=== PATIENT | female | born 1980 | race Caucasian/White ===

== ENCOUNTER 2018-05-10 06:55 | Emergency (ER) | payer MEDICAID, SELFPAY ==
[2018-05-10 07:00] VITALS: BP 115/81; PULSE 86; RESP 16; TEMP 37; O2SAT 100
--- NOTE | 2018-05-10 07:13 | W.ED.GENAD ---
Discharge Plan Discharge Details Chief Complaint: Abd Prob Clinical Impression: Abdominal pain, Nausea & vomiting Reason For Visit: UNKNOWN Primary Care Provider: Charly Russell ED Provider: Lourdes Archuleta Disposition Patient Disposition: HOME Home Meds and New Rx's Prescriptions: Continue acetaminophen [Tylenol Extra Strength] 500 MG tablet 1,000 mg PO Q6H PRN RF: 0 albuterol sulfate [ProAir HFA] 8.5 GM HFA aerosol inhaler 1 - 2 puff Inhalation QID PRNQty: 1 RF: 3 amitriptyline 25 MG tablet 25 mg PO HS Qty: 30 RF: 1 ziprasidone HCl [Geodon] 20 MG capsule 20 mg PO HS RF: 0 buprenorphine-naloxone 1 EACH tablet, sublingual 2 ea Sublingual DAILY RF: 0 sertraline 100 MG tablet 100 mg PO HS RF: 0 omeprazole 40 MG capsule,delayed release(DR/EC) 40 mg PO BID Qty: 60 RF: 2 sucralfate [Carafate] 1 gram Tablet 1,000 mg PO BID RF: 0 Discharge Instructions Instructions: Acute Nausea and Vomiting (ED), Abdominal Pain (ED) Additional Instructions: Please return immediately to the emergency department he develop any new or worsening symptoms were to become otherwise concerned. It is extremely important that you attend her scheduled appointment with Dr. Russell on 05/12/18 in follow-up for this visit. Referrals: Charly Russell [Primary Care Provider] - Medical Decision Making <Brandon Lima MD - Last Filed: 05/10/18 08:20> [facility] Narrative Medical decision making narrative: Patient here with upper abdominal discomfort, nausea, vomiting. She has no fever. Her vital signs are normal. Her abdomen is benign to my exam. Will place IV and check laboratory studies. Will give a liter of fluid, Phenergan, Pepcid. Patient will be signed over to Dr. Lourdes Archuleta to follow up on labs and re-eval after fluids and medications. <Lourdes Archuleta MD - Last Filed: 05/10/18 16:55> [facility] Narrative Medical decision making narrative: Accepted signout from Dr. Lima at time of shift change for Marsha Buck with lab results and reassessment pending. Briefly, she is a 38-year-old woman with epigastric abdominal pain and vomiting for 2 days. Normal BM yesterday. Labs are nondiagnostic. I reassessed the patient who was sleeping when I entered the room, and she reports 7 out of 10 pain in the epigastrium. She has mild tenderness palpation over the epigastrium without peritoneal signs. Plan for trial Mylanta/lidocaine, will reevaluate. Patient reports no change in her symptoms after Mylanta/lidocaine. Plan for CT abdomen/pelvis. CT negative for acute process. Patient reassessed, again awoken from sleep. SHe appears very well, comfortable. She reports pain somewhat improved. Passed p.o. challenge. Lengthy discussion with patient regarding incidental CT findings, return to emergency department precautions, and importance of outpatient follow-up with her primary care doctor. Patient reports that she has an appointment with Dr. Russell this 05/12/18. Plan for Zofran Rx, patient reports that Zofran does not work for her and she requests Reglan. Discussed with patient that Reglan has significant interactions with multiple of her home medications. Patient refuses Zofran. Imaging Data Radiologic Study: Attestation: I personally reviewed and interpreted this imaging study as follows: Radiologist's impression: FINDINGS: Mild fatty alteration of the liver. Mild splenomegaly which may be related to intrinsic liver disease. Prior hysterectomy. No definite focal inflammatory process. No obstructive uropathy. No significant free fluid. IMPRESSION: Findings existing intrinsic liver disease possibly with secondary portal hypertension resulting in splenomegaly without significant free abdominal fluid. No specific etiology identified for the patient's symptoms. HPI - General Adult <Brandon Lima MD - Last Filed: 05/10/18 08:20> General Mode of arrival: ambulatory. Date/Time Provider Initiated Documentation: 05/10/18 07:12. Limitations to Documentation: no limitations. Information obtained by: patient. HPI Narrative-FOR DICTATION ONLY HPI Narrative: Patient presents to ED with complaints of upper abdominal pain, nausea, vomiting for the last 2 days. Pain is described as burning and cramping in nature. It is constant. It is nonradiating. She is unable to keep anything down at this point. She has no diarrhea. She has had sweats and chills but does not know if she has had fever or not. She has no chest pain. She felt dizzy and lightheaded this morning and came in for evaluation. Related Data Home Medications Medication Instructions Recorded Confirmed acetaminophen [Tylenol Extra 1,000 mg PO Q6H PRN tab-cap 11/18/12 05/10/18 Strength] buprenorphine-naloxone 2 ea SUBLINGUAL DAILY 05/28/17 05/10/18 ziprasidone HCl [Geodon] 20 mg PO HS 05/28/17 05/10/18 sertraline 100 mg PO HS 11/19/17 05/10/18 sucralfate [Carafate] 1,000 mg PO BID 05/10/18 05/10/18 Previous Rx's Medication Instructions Recorded omeprazole 40 mg PO BID #60 capsule. 11/19/17 Allergies Allergy/AdvReac Type Severity Reaction Status Date / Time erythromycin base AdvReac SEVERE GI Unverified 05/10/18 07:04 UPSET simvastatin AdvReac LEG Unverified 05/10/18 07:04 CRAMPS; MYALGIAS General Stated Complaint: Abd Prob ARIA: 3 Review of Systems <Brandon Lima MD - Last Filed: 05/10/18 08:20> Constitutional Reports chills, Denies fever(s), Denies headache(s), Reports malaise and Reports weakness Eyes Patient Denies change in vision, denies and Denies eye pain ENT Reports dizziness, Denies otalgia, Denies headache(s), Denies nasal congestion, Denies nasal discharge and Denies sore throat Cardiovascular Denies chest pain, Denies syncope, Denies leg edema, Denies palpitations and Reports dyspnea (For over a month now) Respiratory Denies cough, Reports dyspnea (For over a month now) and Reports wheezing Gastrointestinal Reports abdominal pain, Denies diarrhea, Reports nausea and Reports vomiting Musculoskeletal Denies myalgias, Denies arthralgias and Denies numbness Integumentary/Breasts Denies erythema and Denies rash Neurologic Reports dizziness, Denies syncope, Denies headache(s), Denies focal weakness, Denies numbness and Reports weakness Endocrine Denies palpitations Allergic/Immunologic Reports wheezing Exam <Brandon Lima MD - Last Filed: 05/10/18 08:20> Const General: cooperative and no acute distress Nutritional Appearance: obese Orientation: alert and oriented x3 HENMT Head: normocephalic and atraumatic Mouth: other (Dry mucous membranes) Eyes Sclera: sclerae normal Neck Neck: supple Resp Effort & Inspection: normal respiratory effort Auscultation: clear to auscultation bilaterally Cardio Rate: regular rate Rhythm: regular rhythm Heart Sounds: S1 normal and S2 normal GI Palpation: soft, no guarding and nontender Auscultation: normal bowel sounds Skin Rashes: no rashes Neuro General: alert, oriented x3, moves all extremities, no focal motor deficits and CN's II-XI intact bilaterally Extrem General: normal to inspection and full ROM Course <Brandon Lima MD - Last Filed: 05/10/18 08:20> Vital Signs Temperature 98.6 F 05/10/18 07:00 Pulse 86 05/10/18 07:00 Respiratory Rate 16 05/10/18 07:00 Blood Pressure 115/81 05/10/18 07:00 Pulse Oximetry 100 05/10/18 07:00 Temperature 98.6 F 05/10/18 07:00 Pulse 86 05/10/18 07:00 Respiratory Rate 16 05/10/18 07:00 Blood Pressure 115/81 05/10/18 07:00 Pulse Oximetry 100 05/10/18 07:00 Sign Out <Brandon Lima MD - Last Filed: 05/10/18 08:20> Sign Out Data: Sign Out Comment: Patient pending lab results and re-evaluation of condition after medications and fluids. Case discussed with oncoming physician, Dr. Lourdes Archuleta. Last updated by Brandon Lima MD at 05/10/18 08:11
[2018-05-10 07:23] LABS: Bilirubin Small (Negative); Blood Negative (Negative); Clarity Sl Cloudy; Glucose Negative (Negative); Ketones Trace mg/dL (Negative); Leukocyte Esterase Negative (Negative); Nitrite Negative (Negative); Urobilinogen 0.2 EU/dL (Up TO 0.2)
[2018-05-10 07:31] LABS: Bacteria Few HPF (Negative); C & S Indicated? No; Casts Negative LPF (Negative); Crystals Few Amorphous HPF (Negative); Epithelial Cells Many HPF (Negative); Mucus Heavy (Negative); RBC Negative (0-2); WBC Negative HPF (0-5)
[2018-05-10] MEDS: Lactated Ringers 1,000 ML 1000 ML IV (07:40)
--- NOTE | 2018-05-10 07:50 | ED.GENADUL_ITS ---
Discharge Plan Discharge Details Chief Complaint: Abd Prob Clinical Impression: Abdominal pain, Nausea & vomiting Reason For Visit: UNKNOWN Primary Care Provider: Charly Russell ED Provider: Lourdes Archuleta Disposition Patient Disposition: HOME Home Meds and New Rx's Prescriptions: Continue acetaminophen [Tylenol Extra Strength] 500 MG tablet 1,000 mg PO Q6H PRN RF: 0 albuterol sulfate [ProAir HFA] 8.5 GM HFA aerosol inhaler 1 - 2 puff Inhalation QID PRNQty: 1 RF: 3 amitriptyline 25 MG tablet 25 mg PO HS Qty: 30 RF: 1 ziprasidone HCl [Geodon] 20 MG capsule 20 mg PO HS RF: 0 buprenorphine-naloxone 1 EACH tablet, sublingual 2 ea Sublingual DAILY RF: 0 sertraline 100 MG tablet 100 mg PO HS RF: 0 omeprazole 40 MG capsule,delayed release(DR/EC) 40 mg PO BID Qty: 60 RF: 2 sucralfate [Carafate] 1 gram Tablet 1,000 mg PO BID RF: 0 Discharge Instructions Instructions: Acute Nausea and Vomiting (ED), Abdominal Pain (ED) Additional Instructions: Please return immediately to the emergency department he develop any new or worsening symptoms were to become otherwise concerned. It is extremely important that you attend her scheduled appointment with Dr. Russell on 05/12/18 in follow-up for this visit. Referrals: Charly Russell [Primary Care Provider] - Medical Decision Making <Brandon Lima MD - Last Filed: 05/10/18 08:20> [facility] Narrative Medical decision making narrative: Patient here with upper abdominal discomfort , nausea, vomiting. She has no fever. Her vital signs are normal. Her abdomen is benign to my exam. Will place IV and check laboratory studies. Will give a liter of fluid, Phenergan, Pepcid. Patient will be signed over to Dr. Lourdes Archuleta to follow up on labs and re-eval after fluids and medications. <Lourdes Archuleta MD - Last Filed: 05/10/18 16:55> [facility] Narrative Medical decision making narrative: Accepted signout from Dr. Lima at time of shift change for Marsha Buck with lab results and reassessment pending. Briefly, she is a 38-year-old woman with epigastric abdominal pain and vomiting for 2 days. Normal BM yesterday. Labs are nondiagnostic. I reassessed the patient who was sleeping when I entered the room, and she reports 7 out of 10 pain in the epigastrium. She has mild tenderness palpation over the epigastrium without peritoneal signs. Plan for trial Mylanta/lidocaine, will reevaluate. Patient reports no change in her symptoms after Mylanta/lidocaine. Plan for CT abdomen/pelvis. CT negative for acute process. Patient reassessed, again awoken from sleep. SHe appears very well, comfortable. She reports pain somewhat improved. Passed p.o. challenge. Lengthy discussion with patient regarding incidental CT findings , return to emergency department precautions, and importance of outpatient follow-up with her primary care doctor. Patient reports that she has an appointment with Dr. Russell this 05/12/18. Plan for Zofran Rx, patient reports that Zofran does not work for her and she requests Reglan. Discussed with patient that Reglan has significant interactions with multiple of her home medications. Patient refuses Zofran. Imaging Data Radiologic Study: Attestation: I personally reviewed and interpreted this imaging study as follows: Radiologist's impression: FINDINGS: Mild fatty alteration of the liver. Mild splenomegaly which may be related to intrinsic liver disease. Prior hysterectomy. No definite focal inflammatory process. No obstructive uropathy. No significant free fluid. IMPRESSION: Findings existing intrinsic liver disease possibly with secondary portal hypertension resulting in splenomegaly without significant free abdominal fluid. No specific etiology identified for the patient's symptoms. HPI - General Adult <Brandon Lima MD - Last Filed: 05/10/18 08:20> General Mode of arrival: ambulatory . Date/Time Provider Initiated Documentation: 05/10/18 07:12 . Limitations to Documentation: no limitations . Information obtained by: patient . HPI Narrative-FOR DICTATION ONLY HPI Narrative: Patient presents to ED with complaints of upper abdominal pain, nausea, vomiting for the last 2 days. Pain is described as burning and cramping in nature. It is constant. It is nonradiating. She is unable to keep anything down at this point. She has no diarrhea. She has had sweats and chills but does not know if she has had fever or not. She has no chest pain. She felt dizzy and lightheaded this morning and came in for evaluation. Related Data Home Medications Medication Instructions Recorded Confirmed acetaminophen [Tylenol Extra 1,000 mg PO Q6H PRN tab-cap 11/18/12 05/10/18 Strength] buprenorphine-naloxone 2 ea SUBLINGUAL DAILY 05/28/17 05/10/18 ziprasidone HCl [Geodon] 20 mg PO HS 05/28/17 05/10/18 sertraline 100 mg PO HS 11/19/17 05/10/18 sucralfate [Carafate] 1,000 mg PO BID 05/10/18 05/10/18 Previous Rx's Medication Instructions Recorded omeprazole 40 mg PO BID #60 capsule. 11/19/17 Allergies Allergy/AdvReac Type Severity Reaction Status Date / Time erythromycin base AdvReac SEVERE GI Unverified 05/10/18 07:04 UPSET simvastatin AdvReac LEG Unverified 05/10/18 07:04 CRAMPS; MYALGIAS General Stated Complaint: Abd Prob ARIA: 3 Review of Systems <Brandon Lima MD - Last Filed: 05/10/18 08:20> Constitutional Reports chills, Denies fever(s), Denies headache(s), Reports malaise and Reports weakness Eyes Patient Denies change in vision, denies and Denies eye pain ENT Reports dizziness, Denies otalgia, Denies headache(s), Denies nasal congestion, Denies nasal discharge and Denies sore throat Cardiovascular Denies chest pain, Denies syncope, Denies leg edema, Denies palpitations and Reports dyspnea (For over a month now) Respiratory Denies cough, Reports dyspnea (For over a month now) and Reports wheezing Gastrointestinal Reports abdominal pain, Denies diarrhea, Reports nausea and Reports vomiting Musculoskeletal Denies myalgias, Denies arthralgias and Denies numbness Integumentary/Breasts Denies erythema and Denies rash Neurologic Reports dizziness, Denies syncope, Denies headache(s), Denies focal weakness, Denies numbness and Reports weakness Endocrine Denies palpitations Allergic/Immunologic Reports wheezing Exam <Brandon Lima MD - Last Filed: 05/10/18 08:20> Const General: cooperative and no acute distress Nutritional Appearance: obese Orientation: alert and oriented x3 HENMT Head: normocephalic and atraumatic Mouth: other (Dry mucous membranes) Eyes Sclera: sclerae normal Neck Neck: supple Resp Effort & Inspection: normal respiratory effort Auscultation: clear to auscultation bilaterally Cardio Rate: regular rate Rhythm: regular rhythm Heart Sounds: S1 normal and S2 normal GI Palpation: soft, no guarding and nontender Auscultation: normal bowel sounds Skin Rashes: no rashes Neuro General: alert, oriented x3, moves all extremities, no focal motor deficits and CN's II-XI intact bilaterally Extrem General: normal to inspection and full ROM Course <Brandon Lima MD - Last Filed: 05/10/18 08:20> Vital Signs Temperature 98.6 F 05/10/18 07:00 Pulse 86 05/10/18 07:00 Respiratory Rate 16 05/10/18 07:00 Blood Pressure 115/81 05/10/18 07:00 Pulse Oximetry 100 05/10/18 07:00 Temperature 98.6 F 05/10/18 07:00 Pulse 86 05/10/18 07:00 Respiratory Rate 16 05/10/18 07:00 Blood Pressure 115/81 05/10/18 07:00 Pulse Oximetry 100 05/10/18 07:00 Sign Out <Brandon Lima MD - Last Filed: 05/10/18 08:20> Sign Out Data: Sign Out Comment: Patient pending lab results and re-evaluation of condition after medications and fluids. Case discussed with oncoming physician, Dr. Lourdes Archuleta. Last updated by Brandon Lima MD at 05/10/18 08:11
[2018-05-10 07:55] LABS: Abs Immature Grans 0.02 k/cumm (0.0-0.09); Absolute Basophil Count 0.04 k/cumm (0.0-0.2); Absolute Lymphocyte Count 1.56 k/cumm (1.2-3.4); Absolute Monocyte Count 0.56 k/cumm (0.11-0.7); Absolute Neutrophil Count 5.46 k/cumm (1.2-6.7); Basophils % 0.5; Eosinophils % 1.3; HCT 45.4 % (36.0-46.0); HGB 15.6 g/dL (12.0-15.5); Immature Grans % 0.3; Lymphocytes % 20.2; Mean Corp. HGB Concentration 34.4 g/dL (32.0-36.0); Mean Corpuscular Hemoglobin 31.8 pg (27.0-33.0); Mean Corpuscular Volume 92.7 fL (80-95); Mean Platelet Volume 9.8 fL (8.0-11.0); Monocytes % 7.2; Neutrophils % 70.5; Platelet Count 251 x1000/uL (130-400); RBC Distribution Width 13.3 % (11.7-14.6); White Blood Cell Count 7.74 k/cumm (4.4-10.8)
[2018-05-10 08:07] LABS: ALT 16 U/L (12-78); AST 13 U/L (15-37); Albumin 3.7 g/dL (3.4-5.0); Alkaline Phosphatase 83 U/L (46-116); Anion Gap 10.6 mmol/L (3-11); BUN 9 mg/dL (7-18); Bilirubin, Total 0.5 mg/dL (0.2-1.0); CO2 24.4 mmol/L (21.0-32.0); CREATININE 0.94 mg/dL (0.55-1.02); Chloride 102 mmol/L (98-107); Glucose 98 mg/dL (70-100); Lipase 104 U/L (73-393); Potassium 3.7 mmol/L (3.5-5.1); Sodium 137 mmol/L (136-145); Total Protein 7.6 g/dL (6.4-8.2)
[2018-05-10] MEDS: FAMOTIDINE 20 MG/50 ML BAG 100 MG IVPB (08:10)
--- NOTE | 2018-05-10 11:20 | DI.CT_ITS ---
SYMPTOM/DIAGNOSIS: ABD PAIN. ABDOMINAL AND PELVIC CT: 05/10/18 CT examination of the abdomen and pelvis was performed with a bolus infusion of 100 cc Omnipaque 350. Images obtained through the lung bases were unremarkable. There is mild hepatic steatosis and mild hepatosplenomegaly. Gallbladder and bile ducts are CT normal. The pancreas is unremarkable in appearance. Abdominal aorta is of normal diameter and no major vascular abnormality is seen. No abdominal or pelvic adenopathy. Small ventral hernias are present. Appendix is not specifically visualized but there is no evidence of appendicitis , diverticulitis or bowel obstruction. Adrenals and kidneys appear normal. CONCLUSION: No evidence of acute intra-abdominal process.
[2018-05-10] MEDS: Omnipaque 350 MG/ML 100 ML BTL IV (12:04)
--- NOTE | 2018-05-10 12:33 | DI.VRAD_ITS ---
EXAM: CT Abdomen and Pelvis With Intravenous Contrast CLINICAL HISTORY: 38 years old, female; Signs and symptoms; Other: Abdominal pain TECHNIQUE: Axial computed tomography images of the abdomen and pelvis with intravenous contrast. All CT scans at this facility use at least one of these dose optimization techniques: automated exposure control; mA and/or kV adjustment per patient size (includes targeted exams where dose is matched to clinical indication); or iterative reconstruction. Coronal and sagittal reformatted images were created and reviewed. COMPARISON: CT - ABD PELVIS WITH CONTRAST 10/27/2017 2:01 PM FINDINGS: Mild fatty alteration of the liver. Mild splenomegaly which may be related to intrinsic liver disease. Prior hysterectomy. No definite focal inflammatory process. No obstructive uropathy. No significant free fluid. IMPRESSION: Findings existing intrinsic liver disease possibly with secondary portal hypertension resulting in splenomegaly without significant free abdominal fluid. No specific etiology identified for the patient's symptoms. Dictated and Authenticated by: Yakov Cano MD. Ordering:KITTY SCHERER MD
[2018-05-10 12:49] VITALS: BP 111/86; PULSE 75; RESP 16; TEMP 36.8; O2SAT 95
== END 2018-05-10 14:00 | disposition home or self-care (01) ==
PROVIDERS: Emergency Medicine; Emergency Provider Student in an Organized Health Care Education/Training Program; PCP Family Medicine
DX: R10.10 Upper abdominal pain, unspecified (principal); R11.2 Nausea with vomiting, unspecified
CPT/HCPCS: 36415; 80053; 83690; 96361; 96365; 96368; 99285; 74177; 81003; 81015; 85025; 99284; J3490

== ENCOUNTER 2018-06-10 08:56 | Outpatient (CLI) | payer MEDICAID, SELFPAY ==
--- NOTE | 2018-06-10 09:07 | DI.RAD_ITS ---
SYMPTOM/DIAGNOSIS: ATYPICAL CHEST PAIN, R07.9, H/O ASTHMA, + ELIZA, EROSIVE ESOPHAGITIS WITH PERSISTENT SUBSTERNAL CHEST PAIN PA AND LATERAL CHEST: Comparison is made with 06/27/16 and 07/16/16. Heart size and pulmonary vasculature are within normal limits. There are increased lung markings in the lingula. No effusions or pneumothoraces are identified. The right lung is clear. Degenerative changes are seen in the spine. IMPRESSION: Left lingular infiltrate. This may represent atelectasis, scarring or pneumonia.
== END 2018-06-10 09:16 ==
PROVIDERS: PCP Family Medicine; Visit Provider Family Medicine
DX: R07.9 Chest pain, unspecified (principal); K20.8 Other esophagitis; R91.8 Other nonspecific abnormal finding of lung field
CPT/HCPCS: 71046

== ENCOUNTER 2018-06-15 02:08 | Outpatient (CLI) | payer MEDICAID, SELFPAY ==
--- NOTE | 2018-06-15 09:32 | PFT_ITS ---
PULMONARY FUNCTION TEST REPORT Please see scanned report for further information Patient identification - Marsha Buck DATE OF - 1980 DATE OF SERVICE - June 15, 2018 REQUESTING PROVIDER - Charly Russell M.D. INTERPRETATION OF STUDY Spirometry shows no evidence of obstructive airways disease. No bronchodilator testing was carried out. LUNG VOLUMES - Lung volumes show no evidence of restriction. DIFFUSION CAPACITY- Elevated. AIRWAY RESISTANCE - Normal. IMPRESSION Isolated elevated diffusion capacity. This finding can be seen in early developing asthma, therefore if the asthma diagnosis is in question, proceeding with methacholine challenge testing may prove to be useful. Laurita Robledo M.D. BA/marshall T - 06/16/2018 SEE SCANNED DOCUMENT IN THE EMR FOR DATA AND GRAPHS
== END 2018-06-15 02:28 ==
PROVIDERS: PCP Family Medicine; Visit Provider Family Medicine
DX: R06.2 Wheezing (principal)

== ENCOUNTER 2018-09-02 19:46 | Emergency (ER) | payer MEDICAID, SELFPAY ==
[2018-09-02] VITALS (33 sets, daily range): BP systolic 107–140; BP diastolic 65–99; PULSE 64–84; RESP 8–21; TEMP 36.4; O2SAT 95–99
--- NOTE | 2018-09-02 20:14 | W.ED.GENAD ---
Discharge Plan Disposition Patient Disposition: HOME Condition: Improving Discharge Details Chief Complaint: Nausea/Vomit/Diar Clinical Impression: Upper abdominal pain, Vomiting, Hypercalcemia, Hypokalemia, Hypomagnesemia Primary Care Provider: Charly Russell ED Provider: Brandon Lima [place] Meds and New Rx's Prescriptions: New promethazine 25 mg tablet 25 mg PO Q6H PRN (Reason: nausea and vomiting) Qty: 10 RF: 0 Continued acetaminophen [Tylenol Extra Strength] 500 MG tablet 1,000 mg PO Q6H PRN RF: 0 ProAir HFA 8.5 GM HFA aerosol inhaler 1 - 2 puff Inhalation QID PRNQty: 1 RF: 3 amitriptyline 25 MG tablet 25 mg PO HS Qty: 30 RF: 1 ziprasidone HCl [Geodon] 20 MG capsule 20 mg PO HS RF: 0 buprenorphine-naloxone 1 EACH tablet, sublingual 2 ea Sublingual DAILY RF: 0 sertraline 100 MG tablet 100 mg PO HS RF: 0 omeprazole 40 MG capsule,delayed release(DR/EC) 40 mg PO BID Qty: 60 RF: 2 Changed sucralfate [Carafate] 1 gram Tablet 1,000 mg PO QID Qty: 30 RF: 0 Discharge Instructions Instructions: Acute Nausea and Vomiting (ED), Abdominal Pain (ED) Additional Instructions: Medications as directed. Clear liquids tomorrow and advance slowly after the weekend. Your laboratory studies for the most part were okay. Your calcium was high tonight. Please follow-up with primary care next week for reevaluation of your abdominal pain and vomiting as well as repeat calcium level. Return to ED for worsening abdominal pain, vomiting, fever, other concerns. Referrals: Charly Russell [Primary Care Provider] - Medical Decision Making Patient here with upper abdominal pain, vomiting and reports no flatus/BM for 24 hours. Her abdomen is minimally tender. Differential includes, SBO, pancreatitis, gastritis. Chest pain likely related to her GERD but will get EKG and troponin. She is wheezing with cough so will get chest x-ray and duoneb. Abdominal labs and CT scan ordered. She declines narcotic pain medications due to history of opiate addiction. She has been clean for 3 years. Will give IV Tylenol and Phenergan. Patient's laboratory studies are mostly unremarkable. Her white count is normal. Potassium is just slightly low at 3.4. Magnesium a little low. Calcium high so we will have her follow-up with primary care for repeat. I do not think the hypercalcemia is causing the patient's symptoms. Liver function, lipase, troponin normal. Chest x-ray normal. Abdominal pelvic CT scan without acute pathology. Patient feels better after the breathing treatment. Phenergan helped with the nausea and vomiting. Still has discomfort. We will go ahead and treat with IV Pepcid and oral Carafate and reevaluate. After the Pepcid and Carafate patient is feeling better. We will discharge her home with prescriptions for Phenergan and Carafate. We will continue her omeprazole. We will follow-up with primary care next week. Return to ED for persistent vomiting, worsening pain, fever. ECG Data Attestation: I personally reviewed and interpreted this ECG (s) as follows: Prior ECG tracings: available for review Interpretation: NSR at 82 with short TN otherwise normal intervals and axis. No ST changes. No change from previous. HPI General Mode of arrival: ambulatory. Date/Time Provider Initiated Documentation: 09/02/18 19:59. Limitations to Documentation: no limitations. Information obtained by: patient. HPI Narrative: Patient presents to ED with complaint of abdominal pain, nausea and vomiting that started yesterday. Continued overnight and today has been unable to keep anything down. She has had sweats and chills. She is not having diarrhea, in fact, she is not passing gas today at all. Pain in the upper abdomen that radiates to the back and up into the chest. She has also developed some cough and wheezing but denies any other URI type symptoms. The pain is constant and burning in nature. Feels like her reflux but worse. Related Data Home Medications Medication Instructions Recorded Confirmed acetaminophen [Tylenol Extra 1,000 mg PO Q6H PRN tab-cap 11/18/12 09/02/18 Strength] ProAir HFA 1 - 2 puff INHALATION QID PRN #1 07/09/16 09/02/18 inhaler amitriptyline 25 mg PO HS #30 tab-cap 12/31/16 09/02/18 buprenorphine-naloxone 2 ea SUBLINGUAL DAILY 05/28/17 09/02/18 ziprasidone HCl [Geodon] 20 mg PO HS 05/28/17 09/02/18 omeprazole 40 mg PO BID #60 capsule. 11/19/17 09/02/18 sertraline 100 mg PO HS 11/19/17 09/02/18 promethazine 25 mg PO Q6H PRN #10 tab 09/03/18 sucralfate [Carafate] 1,000 mg PO QID #30 tab 09/03/18 Previous Rx's Medication Instructions Recorded omeprazole 40 mg PO BID #60 capsule. 11/19/17 promethazine 25 mg PO Q6H PRN #10 tab 09/03/18 sucralfate [Carafate] 1,000 mg PO QID #30 tab 09/03/18 Allergies Allergy/AdvReac Type Severity Reaction Status Date / Time erythromycin base AdvReac SEVERE GI Unverified 09/02/18 19:55 UPSET simvastatin AdvReac LEG Unverified 09/02/18 19:55 CRAMPS; MYALGIAS General Stated Complaint: Nausea/Vomit/Diar ARIA: 3 Review of Systems Constitutional Reports chills, Reports excessive sweating, Denies fever(s), Reports headache(s) (mild only), Denies malaise and Denies weakness Eyes Denies change in vision and Denies eye pain ENT Denies vertigo, Denies otalgia, Denies facial pain, Reports headache(s) (mild only), Denies nasal congestion, Denies neck pain and Denies sore throat Cardiovascular Reports chest pain, Denies edema, Denies irregular heart rhythm, Denies leg edema, Denies palpitations and Reports dyspnea Respiratory Reports cough, Reports dyspnea and Reports wheezing Gastrointestinal Reports abdominal pain, Denies melena, Denies coffee ground emesis, Denies diarrhea, Reports nausea, Reports vomiting and Denies hematemesis Genitourinary Denies dysuria and Denies pelvic pain Musculoskeletal Reports back pain, Denies myalgias, Denies arthralgias, Denies neck pain, Denies numbness and Denies tingling Integumentary/Breasts Denies rash and Denies wounds Neurologic Denies vertigo, Reports headache(s) (mild only), Denies focal weakness, Denies numbness, Denies tingling, Denies paresthesias and Denies weakness Endocrine Reports excessive sweating and Denies palpitations Allergic/Immunologic Reports wheezing [facility] Medical History Asthma (Chronic) Bipolar affective disorder (Chronic) Fibromyalgia (Chronic) GERD (gastroesophageal reflux disease) (Chronic) Obesity (Chronic) Tobacco use (Chronic) Hx of opioid abuse (Inactive) Acute back pain Ankle joint effusion Arthralgia Chronic cough Dysphagia Edema Pain, foot, chronic Positive antinuclear antibody Proteinuria Skin lesion of scalp Urinary incontinence Surgical History S/P appendectomy (Inactive) section (Inactive) EGD - MAC (Inactive 11/19/17) GAYATHRI/BSO (Inactive ~04/2006) Family History Mother Diabetes Cirrhosis of liver Sarcoidosis Father Myocardial infarction MATERNAL FAMILY HISTORY Diabetes Alcohol abuse Personal history of malignant neoplasm PATERNAL FAMILY HISTORY Personal history of malignant neoplasm Social History Smoking/Tobacco Use Status: Current every day Exam Const General: cooperative and no acute distress Orientation: alert and oriented x3 [facility] Head: normocephalic and atraumatic Mouth: moist mucous membranes Eyes Conjunctivae: conjunctivae normal Neck Neck: normal visual inspection, trachea midline and supple Resp Effort & Inspection: normal respiratory effort Auscultation: no crackles, no rales, no rhonchi and wheezes Cardio Rate: regular rate Rhythm: regular rhythm Heart Sounds: S1 normal and S2 normal Pulses: normal peripheral pulses GI Inspection: normal to inspection and non-distended Palpation: soft, not firm, no guarding and tender in the epigastrum Auscultation: normal bowel sounds Skin General skin exam: no rashes or lesions noted Neuro General: alert, oriented x3, no focal motor deficits and CN's II-XI intact bilaterally Extrem General: normal to inspection, no clubbing, cyanosis or edema and no calf tenderness Course Vital Signs Temperature 97.5 F L 09/02/18 19:52 Pulse 79 09/02/18 19:52 Respiratory Rate 12 09/02/18 19:52 Blood Pressure 140/99 H 09/02/18 19:52 Pulse Oximetry 98 09/02/18 19:52 Temperature 97.5 F L 09/02/18 19:52 Pulse 79 09/02/18 19:52 Respiratory Rate 12 09/02/18 19:52 Respiratory Effort Non-Labored 09/02/18 19:52 Blood Pressure 140/99 H 09/02/18 19:52 Blood Pressure Position Sitting 09/02/18 19:52 Pulse Oximetry 98 09/02/18 19:52 Oxygen Delivery Method Room Air 09/02/18 19:52 Oxygen Flow Rate 0 09/02/18 19:52 Pain Level 8 09/02/18 19:52
[2018-09-02] MEDS: ACETAMINOPHEN 1,000 MG/100 ML BTL 400 MG IVPB (20:32)
[2018-09-02] MEDS: Lactated Ringers 1,000 ML 1000 ML IV (20:33)
--- NOTE | 2018-09-02 20:36 | DI.RAD_ITS ---
SYMPTOMS/DIAGNOSIS: COUGH, WHEEZING PA AND LATERAL CHEST: The lungs are free of gross infiltrates. There is no pleural effusion. The cardiovascular structures are intact. SUMMARY: No evidence of acute cardiopulmonary disease.
[2018-09-02 20:45] LABS: Abs Immature Grans 0.03 k/cumm (0.0-0.09); Absolute Basophil Count 0.05 k/cumm (0.0-0.2); Absolute Eosinophil Count 0.14 k/cumm (0.0-0.7); Absolute Monocyte Count 0.66 k/cumm (0.11-0.7); Absolute Neutrophil Count 4.39 k/cumm (1.2-6.7); Basophils % 0.6; Eosinophils % 1.8; HCT 42.7 % (36.0-46.0); HGB 14.8 g/dL (12.0-15.5); Immature Grans % 0.4; Mean Corp. HGB Concentration 34.7 g/dL (32.0-36.0); Mean Corpuscular Hemoglobin 31.8 pg (27.0-33.0); Mean Corpuscular Volume 91.8 fL (80-95); Mean Platelet Volume 9.6 fL (8.0-11.0); Monocytes % 8.4; Neutrophils % 55.8; Platelet Count 278 x1000/uL (130-400); RBC 4.65 m/cumm (4.00-5.20); RBC Distribution Width 13.2 % (11.7-14.6); White Blood Cell Count 7.87 k/cumm (4.4-10.8)
--- NOTE | 2018-09-02 20:45 | DI.CT_ITS ---
SYMPTOM/DIAGNOSIS: UPPER ABDOMINAL PAIN/VOMITING CT ABDOMEN AND PELVIS: The history is upper abdominal pain/vomiting. The study was carried out with intravenous injection of 100 ml Omnipaque 350. In the lower thorax note is made of a right middle lobe nodule measuring perhaps 4 mm which is apparently unchanged when compared with the prior examination allowing for slight sampling differences. Also, note is made of a small hiatus hernia. Evaluation of the abdomen reveals a moderate hepatosplenomegaly which is not significantly changed. Previously seen fatty infiltration of the liver is unchanged. The gallbladder and biliary tree are unremarkable. The pancreas is normal. The spleen is normal. The adrenals are normal. The kidneys and ureters are unremarkable. Evaluation of the stomach and bowel reveals no evidence of obstruction or localized mucosal thickening or mass. There is no evidence of an acute appendix. The bladder is unremarkable. The reproductive organs as visualized are unremarkable. Review of the abdomen and pelvis reveals no evidence of free air or free fluid in the intraperitoneal space. There is note made of mild degenerative changes involving the lower spine. There is no aortic aneurysm. There is no evidence of lymphadenopathy. SUMMARY: Hepatosplenomegaly is demonstrated without an acute abnormality identified to account for the patient's symptoms.
[2018-09-02] MEDS: Omnipaque 350 MG/ML 100 ML BTL IJ (20:50)
[2018-09-02 21:04] LABS: Lipase 89 U/L (73-393); Magnesium 1.7 mg/dL (1.8-2.4)
[2018-09-02 21:07] LABS: ALT 23 U/L (12-78); AST 17 U/L (15-37); Albumin 3.8 g/dL (3.4-5.0); Alkaline Phosphatase 79 U/L (46-116); Anion Gap 12.3 mmol/L (3-11); BUN 11 mg/dL (7-18); Bilirubin, Total 0.7 mg/dL (0.2-1.0); CO2 25.7 mmol/L (21.0-32.0); CREATININE 1.03 mg/dL (0.55-1.02); Calcium 11.1 mg/dL (8.5-10.1); Chloride 99 mmol/L (98-107); Glucose 99 mg/dL (70-100); Potassium 3.4 mmol/L (3.5-5.1); Sodium 137 mmol/L (136-145); Total Protein 7.8 g/dL (6.4-8.2)
[2018-09-02 21:09] LABS: Troponin I < 0.02 ng/mL (0.00-0.06)
--- NOTE | 2018-09-02 21:29 | DI.VRAD_ITS ---
EXAM: CT Abdomen and Pelvis With Contrast EXAM DATE/TIME: 09/02/2018 8:12 PM CLINICAL HISTORY: 38 years old, female; Pain; Abdominal pain; Localized; Upper; Patient HX: Upper abdominal pain, and vomiting x2 days. TECHNIQUE: Axial computed tomography images of the abdomen and pelvis with intravenous contrast. All CT scans at this facility use at least one of these dose optimization techniques: automated exposure control; mA and/or kV adjustment per patient size (includes targeted exams where dose is matched to clinical indication); or iterative reconstruction. Coronal and sagittal reformatted images were created and reviewed. CONTRAST: 100 ml of omnipaque 350 administered intravenously. COMPARISON: CT Private^ROUTINE ABDOMEN PELVIS WITH CONTRAST (Adult) 05/10/2018 11:49 AM FINDINGS: Lower thorax: Chest there is a right middle lobe nodule, 4 mm probably unchanged from prior exam allowing for slight sampling differences. Small hiatal hernia. ABDOMEN: Liver: Moderate hepatosplenomegaly not significantly changed. Previously seen fatty infiltration again noted. Gallbladder and bile ducts: Normal. No calcified stones. No ductal dilation. Pancreas: Normal. No ductal dilation. Spleen: Normal. No splenomegaly. Adrenals: Normal. No mass. Kidneys and ureters: Normal. No hydronephrosis. Stomach and bowel: Normal. No obstruction. No mucosal thickening. Appendix: No evidence of appendicitis. PELVIS: Bladder: Unremarkable as visualized. Reproductive: Unremarkable as visualized. ABDOMEN and PELVIS: Intraperitoneal space: Normal. No free air. No significant fluid collection. Bones/joints: Mild lower lumbar spondylosis. Soft tissues: Unremarkable. Vasculature: Normal. No abdominal aortic aneurysm. Lymph nodes: Normal. No enlarged lymph nodes. IMPRESSION: Hepatosplenomegaly without acute abnormality seen to account for symptoms. COMMENT: Preliminary interpretation is based on receipt of 320 image(s). A final report will be issued subsequently. Dictated and Authenticated by: Luna Diamond MD. Ordering:TYESHA Taylor MD
--- NOTE | 2018-09-02 21:30 | DI.VRAD_ITS ---
EXAM: XR Chest, 2 Views EXAM DATE/TIME: 09/02/2018 8:37 PM CLINICAL HISTORY: 38 years old, female; Signs and symptoms; Cough TECHNIQUE: XR of the chest, 2 views. COMPARISON: CR XR CHEST 2V PA LATERAL 06/10/2018 9:07 AM FINDINGS: Lungs: Unremarkable. No consolidation. Pleural space: Unremarkable. No pleural effusion. No pneumothorax. Heart/Mediastinum: Unremarkable. No cardiomegaly. Bones/joints: Mild thoracic spondylosis. IMPRESSION: No evidence for acute abnormality in the chest. COMMENT: Preliminary interpretation is based on receipt of 2 image(s). A final report will be issued subsequently. This Dictated and Authenticated by: Luna Diamond MD. Ordering:TYESHA Taylor MD
[2018-09-02] MEDS: Albuterol/Ipratropium 3 ML UPD VIAL UPD (22:13)
[2018-09-02] MEDS: FAMOTIDINE 20 MG/50 ML BAG 200 MG IVPB (23:27)
[2018-09-02] MEDS: Sucralfate 1 GM TAB PO (23:28)
[2018-09-03 01:31] VITALS: BP 126/80; PULSE 80; RESP 16; O2SAT 99
== END 2018-09-03 01:31 | disposition home or self-care (01) ==
PROVIDERS: Emergency Provider Emergency Medicine; PCP Family Medicine
DX: R10.10 Upper abdominal pain, unspecified (principal); R11.2 Nausea with vomiting, unspecified; E87.6 Hypokalemia; E83.42 Hypomagnesemia; E83.52 Hypercalcemia
CPT/HCPCS: 36415; 80053; 83690; 93005; 99285; 71046; 74177; 83735; 84484; 85025; 93010; J0131; J3490; J7620

== ENCOUNTER 2018-09-10 05:41 | Emergency (ER) | payer MEDICAID, SELFPAY ==
[2018-09-10 05:45] VITALS: BP 126/82; PULSE 78; RESP 20; TEMP 36.6; O2SAT 98
--- NOTE | 2018-09-10 06:31 | W.ED.GENAD ---
Discharge Plan Disposition Patient Disposition: HOME Condition: Good Discharge Details Chief Complaint: Nausea/Vomit/Diar Clinical Impression: Nausea & vomiting Primary Care Provider: Charly Russell ED Provider: Brandon Lima [place] Meds and New Rx's Prescriptions: New promethazine [Phenergan] 25 mg suppository 25 mg FL Q6H PRN (Reason: nausea and vomiting) Qty: 12 RF: 0 ondansetron 4 mg tablet,disintegrating 4 mg PO QID PRN (Reason: nausea and vomiting) Qty: 20 RF: 0 Continued acetaminophen [Tylenol Extra Strength] 500 MG tablet 1,000 mg PO Q6H PRN RF: 0 ProAir HFA 8.5 GM HFA aerosol inhaler 1 - 2 puff Inhalation QID PRNQty: 1 RF: 3 amitriptyline 25 MG tablet 25 mg PO HS Qty: 30 RF: 1 ziprasidone HCl [Geodon] 20 MG capsule 20 mg PO HS RF: 0 buprenorphine-naloxone 1 EACH tablet, sublingual 2 ea Sublingual DAILY RF: 0 sucralfate [Carafate] 1 gram Tablet 1,000 mg PO QID Qty: 30 RF: 0 sertraline 100 MG tablet 100 mg PO HS RF: 0 omeprazole 40 MG capsule,delayed release(DR/EC) 40 mg PO BID Qty: 60 RF: 2 Discontinued promethazine 25 mg tablet 25 mg PO Q6H PRN (Reason: nausea and vomiting) Qty: 10 RF: 0 Discharge Instructions Instructions: Acute Nausea and Vomiting (ED) Additional Instructions: Continue your medications as before. Use the ondansetron disintegrating tablet or the Phenergan suppository to help the nausea and vomiting. And back. Follow-up as planned. Return to ED for fever, persistent vomiting, bloody vomit, worsening or new abdominal pain. Referrals: Charly Russell [Primary Care Provider] - Medical Decision Making Patient returns with recurrent nausea and vomiting. She has burning epigastric and chest pain from all the vomiting. She has a history of gastro-esophagitis. Workup last week unremarkable other than some hypercalcemia. Follow-up with primary care is scheduled for the . Her abdomen remains benign today. She is a difficult IV start and I do not feel we necessarily need this that she just started vomiting last night. We will give her IM Phenergan and p.o. Zofran ODT. EKG was obtained in a sinus rhythm with a normal QT interval. Once her nausea settled down we will try a GI cocktail to help with the burning. Patient feeling better after medications. Will be discharged home with prescription for Phenergan suppositories and Zofran ODT. She has follow-up next week with primary care. Return to ED for fever, persistent vomiting, worsening or new abdominal pain. HPI General Mode of arrival: ambulatory. Date/Time Provider Initiated Documentation: 09/10/18 06:25. Limitations to Documentation: no limitations. Information obtained by: patient. HPI Narrative: Patient presents to ED with recurrent nausea and vomiting. Patient was seen by me last week with same. Workup at that time was unremarkable other than some hypercalcemia. He was sent home with Phenergan and Carafate in addition to her other gastritis medications. She said she was good for a couple of days and then the nausea returned. She began vomiting again last night. She has epigastric discomfort and chest burning. She has had no hematemesis. She thought maybe she noticed a few specks of blood but no gross hematemesis. She has no shortness of breath. She has no fever. She has no diarrhea. Related Data Home Medications Medication Instructions Recorded Confirmed acetaminophen [Tylenol Extra 1,000 mg PO Q6H PRN tab-cap 11/18/12 09/10/18 Strength] ProAir HFA 1 - 2 puff INHALATION QID PRN #1 07/09/16 09/10/18 inhaler amitriptyline 25 mg PO HS #30 tab-cap 12/31/16 09/10/18 buprenorphine-naloxone 2 ea SUBLINGUAL DAILY 05/28/17 09/10/18 ziprasidone HCl [Geodon] 20 mg PO HS 05/28/17 09/10/18 omeprazole 40 mg PO BID #60 capsule. 11/19/17 09/10/18 sertraline 100 mg PO HS 11/19/17 09/10/18 sucralfate [Carafate] 1,000 mg PO QID #30 tab 09/03/18 09/10/18 ondansetron 4 mg PO QID PRN #20 tab 09/10/18 promethazine [Phenergan] 25 mg FL Q6H PRN #12 each 01/04/19 Previous Rx's Medication Instructions Recorded omeprazole 40 mg PO BID #60 capsule. 11/19/17 sucralfate [Carafate] 1,000 mg PO QID #30 tab 09/03/18 ondansetron 4 mg PO QID PRN #20 tab 09/10/18 promethazine [Phenergan] 25 mg FL Q6H PRN #12 each 09/10/18 Allergies Allergy/AdvReac Type Severity Reaction Status Date / Time erythromycin base AdvReac SEVERE GI Unverified 09/10/18 05:47 UPSET simvastatin AdvReac LEG Unverified 09/10/18 05:47 CRAMPS; MYALGIAS General Stated Complaint: Nausea/Vomit/Diar ARIA: 3 Review of Systems Constitutional Denies chills, Denies fever(s), Denies headache(s) and Denies weakness ENT Denies otalgia, Denies headache(s), Denies neck pain and Denies sore throat Cardiovascular Reports chest pain (burning pain from vomiting), Denies edema, Denies palpitations and Denies dyspnea Respiratory Denies cough and Denies dyspnea Gastrointestinal Reports abdominal pain, Denies diarrhea, Reports nausea and Reports vomiting Genitourinary Denies dysuria and Denies pelvic pain Musculoskeletal Denies back pain, Denies neck pain and Denies numbness Integumentary/Breasts Denies rash Neurologic Denies headache(s), Denies focal weakness, Denies numbness and Denies weakness Endocrine Denies palpitations PFSH Social History Smoking/Tobacco Use Status: Current every day Exam Const General: cooperative, comfortable and no acute distress Orientation: alert and oriented x3 [facility] Head: normocephalic and atraumatic Mouth: moist mucous membranes Eyes Sclera: sclerae normal Neck Neck: trachea midline and supple Resp Effort & Inspection: normal respiratory effort Auscultation: clear to auscultation bilaterally Cardio Rate: regular rate Rhythm: regular rhythm Heart Sounds: S1 normal and S2 normal GI Inspection: normal to inspection and non-distended Palpation: soft, not firm, no guarding and nontender Skin General skin exam: no rashes or lesions noted Neuro General: alert, oriented x3, no focal motor deficits and CN's II-XI intact bilaterally Course Vital Signs Temperature 97.9 F 09/10/18 05:45 Pulse 78 09/10/18 05:45 Respiratory Rate 20 09/10/18 05:45 Blood Pressure 126/82 09/10/18 05:45 Pulse Oximetry 98 09/10/18 05:45 Temperature 97.9 F 09/10/18 05:45 Temperature Source Temporal Artery Scan 09/10/18 05:45 Pulse 78 09/10/18 05:45 Respiratory Rate 20 09/10/18 05:45 Respiratory Effort Non-Labored 09/10/18 05:45 Blood Pressure 126/82 09/10/18 05:45 Blood Pressure Position Sitting 09/10/18 05:45 Pulse Oximetry 98 09/10/18 05:45 Oxygen Delivery Method Room Air 09/10/18 05:45 Oxygen Flow Rate 0 09/10/18 05:45 Pain Level 6 09/10/18 05:45
--- NOTE | 2018-09-10 06:46 | ED.GENADUL_ITS ---
Discharge Plan Disposition Patient Disposition: HOME Condition: Good Discharge Details Chief Complaint: Nausea/Vomit/Diar Clinical Impression: Nausea & vomiting Primary Care Provider: Charly Russell ED Provider: Brandon Lima [place] Meds and New Rx's Prescriptions: New promethazine [Phenergan] 25 mg suppository 25 mg IA Q6H PRN (Reason: nausea and vomiting) Qty: 12 RF: 0 ondansetron 4 mg tablet,disintegrating 4 mg PO QID PRN (Reason: nausea and vomiting) Qty: 20 RF: 0 Continued acetaminophen [Tylenol Extra Strength] 500 MG tablet 1,000 mg PO Q6H PRN RF: 0 ProAir HFA 8.5 GM HFA aerosol inhaler 1 - 2 puff Inhalation QID PRNQty: 1 RF: 3 amitriptyline 25 MG tablet 25 mg PO HS Qty: 30 RF: 1 ziprasidone HCl [Geodon] 20 MG capsule 20 mg PO HS RF: 0 buprenorphine-naloxone 1 EACH tablet, sublingual 2 ea Sublingual DAILY RF: 0 sucralfate [Carafate] 1 gram Tablet 1,000 mg PO QID Qty: 30 RF: 0 sertraline 100 MG tablet 100 mg PO HS RF: 0 omeprazole 40 MG capsule,delayed release(DR/EC) 40 mg PO BID Qty: 60 RF: 2 Discontinued promethazine 25 mg tablet 25 mg PO Q6H PRN (Reason: nausea and vomiting) Qty: 10 RF: 0 Discharge Instructions Instructions: Acute Nausea and Vomiting (ED) Additional Instructions: Continue your medications as before. Use the ondansetron disintegrating tablet or the Phenergan suppository to help the nausea and vomiting. And back. Follow-up as planned. Return to ED for fever, persistent vomiting, bloody vomit, worsening or new abdominal pain. Referrals: Charly Russell [Primary Care Provider] - Medical Decision Making Patient returns with recurrent nausea and vomiting. She has burning epigastric and chest pain from all the vomiting. She has a history of gastro-esophagitis. Workup last week unremarkable other than some hypercalcemia. Follow-up with primary care is scheduled for the . Her abdomen remains benign today. She is a difficult IV start and I do not feel we necessarily need this that she just started vomiting last night. We will give her IM Phenergan and p.o. Zofran ODT. EKG was obtained in a sinus rhythm with a normal QT interval. Once her nausea settled down we will try a GI cocktail to help with the burning. Patient feeling better after medications. Will be discharged home with prescription for Phenergan suppositories and Zofran ODT. She has follow-up next week with primary care. Return to ED for fever, persistent vomiting, worsening or new abdominal pain. HPI General Mode of arrival: ambulatory . Date/Time Provider Initiated Documentation: 09/10/18 06:25 . Limitations to Documentation: no limitations . Information obtained by: patient . HPI Narrative: Patient presents to ED with recurrent nausea and vomiting. Patient was seen by me last week with same. Workup at that time was unremarkable other than some hypercalcemia. He was sent home with Phenergan and Carafate in addition to her other gastritis medications. She said she was good for a couple of days and then the nausea returned. She began vomiting again last night. She has epigastric discomfort and chest burni ng. She has had no hematemesis. She thought maybe she noticed a few specks of blood but no gross hematemesis. She has no shortness of breath. She has no fever. She has no diarrhea. Related Data Home Medications Medication Instructions Recorded Confirmed acetaminophen [Tylenol Extra 1,000 mg PO Q6H PRN tab-cap 11/18/12 09/10/18 Strength] ProAir HFA 1 - 2 puff INHALATION QID PRN #1 07/09/16 09/10/18 inhaler amitriptyline 25 mg PO HS #30 tab-cap 12/31/16 09/10/18 buprenorphine-naloxone 2 ea SUBLINGUAL DAILY 05/28/17 09/10/18 ziprasidone HCl [Geodon] 20 mg PO HS 05/28/17 09/10/18 omeprazole 40 mg PO BID #60 capsule. 11/19/17 09/10/18 sertraline 100 mg PO HS 11/19/17 09/10/18 sucralfate [Carafate] 1,000 mg PO QID #30 tab 09/03/18 09/10/18 ondansetron 4 mg PO QID PRN #20 tab 09/10/18 promethazine [Phenergan] 25 mg IA Q6H PRN #12 each 09/10/18 Previous Rx's Medication Instructions Recorded omeprazole 40 mg PO BID #60 capsule. 11/19/17 sucralfate [Carafate] 1,000 mg PO QID #30 tab 09/03/18 ondansetron 4 mg PO QID PRN #20 tab 09/10/18 promethazine [Phenergan] 25 mg IA Q6H PRN #12 each 09/10/18 Allergies Allergy/AdvReac Type Severity Reaction Status Date / Time erythromycin base AdvReac SEVERE GI Unverified 09/10/18 05:47 UPSET simvastatin AdvReac LEG Unverified 09/10/18 05:47 CRAMPS; MYALGIAS General Stated Complaint: Nausea/Vomit/Diar ARIA: 3 Review of Systems Constitutional Denies chills, Denies fever(s), Denies headache(s) and Denies weakness ENT Denies otalgia, Denies headache(s), Denies neck pain and Denies sore throat Cardiovascular Reports chest pain (burning pain from vomiting), Denies edema, Denies palpitations and Denies dyspnea Respiratory Denies cough and Denies dyspnea Gastrointestinal Reports abdominal pain, Denies diarrhea, Reports nausea and Reports vomiting Genitourinary Denies dysuria and Denies pelvic pain Musculoskeletal Denies back pain, Denies neck pain and Denies numbness Integumentary/Breasts Denies rash Neurologic Denies headache(s), Denies focal weakness, Denies numbness and Denies weakness Endocrine Denies palpitations PFSH Social History Smoking/Tobacco Use Status: Current every day Exam Const General: cooperative, comfortable and no acute distress Orientation: alert and oriented x3 [facility] Head: normocephalic and atraumatic Mouth: moist mucous membranes Eyes Sclera: sclerae normal Neck Neck: trachea midline and supple Resp Effort & Inspection: normal respiratory effort Auscultation: clear to auscultation bilaterally Cardio Rate: regular rate Rhythm: regular rhythm Heart Sounds: S1 normal and S2 normal GI Inspection: normal to inspection and non-distended Palpation: soft, not firm, no guarding and nontender Skin General skin exam: no rashes or lesions noted Neuro General: alert, oriented x3, no focal motor deficits and CN's II-XI intact bilaterally Course Vital Signs Temperature 97.9 F 09/10/18 05:45 Pulse 78 09/10/18 05:45 Respiratory Rate 20 09/10/18 05:45 Blood Pressure 126/82 09/10/18 05:45 Pulse Oximetry 98 09/10/18 05:45 Temperature 97.9 F 09/10/18 05:45 Temperature Source Temporal Artery Scan 09/10/18 05:45 Pulse 78 09/10/18 05:45 Respiratory Rate 20 09/10/18 05:45 Respiratory Effort Non-Labored 09/10/18 05:45 Blood Pressure 126/82 09/10/18 05:45 Blood Pressure Position Sitting 09/10/18 05:45 Pulse Oximetry 98 09/10/18 05:45 Oxygen Delivery Method Room Air 09/10/18 05:45 Oxygen Flow Rate 0 09/10/18 05:45 Pain Level 6 09/10/18 05:45
[2018-09-10] MEDS: Ondansetron O.D.T. 4 MG TABEF PO (06:52)
== END 2018-09-10 07:51 | disposition home or self-care (01) ==
PROVIDERS: Emergency Provider Emergency Medicine; PCP Family Medicine
DX: R11.2 Nausea with vomiting, unspecified (principal); R19.7 Diarrhea, unspecified; R10.13 Epigastric pain
CPT/HCPCS: 93005; 96372; 99284; 93010; 99283

== ENCOUNTER 2018-09-17 12:47 | Outpatient (REF) | payer MEDICAID, SELFPAY ==
[2018-09-17 19:37] LABS: Albumin 3.9 g/dL (3.4-5.0); Anion Gap 9.3 mmol/L (3-11); BUN 11 mg/dL (7-18); CO2 29.7 mmol/L (21.0-32.0); CREATININE 1.11 mg/dL (0.55-1.02); Calcium 9.5 mg/dL (8.5-10.1); Chloride 100 mmol/L (98-107); Estimated GFR 55.31 (mL/min/1.73m2); Glucose 78 mg/dL (70-100); Magnesium 2.2 mg/dL (1.8-2.4); Potassium 4.4 mmol/L (3.5-5.1); Sodium 139 mmol/L (136-145)
== END 2018-09-17 13:07 ==
LOC: NCHCN 12:47
PROVIDERS: PCP Family Medicine; Visit Provider Family Medicine
DX: E83.52 Hypercalcemia (principal); E83.42 Hypomagnesemia
CPT/HCPCS: 80048; 82040; 83735

== ENCOUNTER 2020-03-22 15:51 | Outpatient (REF) | payer MEDICAID, SELFPAY | END 2020-03-22 16:11 | LOC: NCHCN 15:51 | PROVIDERS: PCP Family Medicine; Visit Provider Family Medicine | DX: J02.9 Acute pharyngitis, unspecified (principal) | CPT/HCPCS: 87070 ==

== ENCOUNTER 2020-11-14 11:16 | Emergency (ER) | payer MEDICAID, SELFPAY ==
[2020-11-14 11:30] VITALS: BP 119/79; PULSE 75; RESP 16; TEMP 36.4; O2SAT 96
--- NOTE | 2020-11-14 11:57 | ED.GENADUL_ITS ---
Discharge Plan Disposition Patient Disposition: HOME Condition: Stable Discharge Details Clinical Impression: Back pain Primary Care Provider: Charly Russell ED Provider: Raoul Beckman Home Meds and New Rx's Prescriptions: New lidocaine [Lidoderm] 5 % adhesive patch,medicated 2 patch topical DAILY Qty: 15 RF: 0 Continued acetaminophen [Tylenol Extra Strength] 500 MG tablet 1,000 mg PO Q6H PRN RF: 0 albuterol sulfate [ProAir HFA] 8.5 GM HFA aerosol inhaler 1 - 2 puff Inhalation QID PRNQty: 1 RF: 3 amitriptyline 25 MG tablet 75 mg PO HS Qty: 30 RF: 1 buprenorphine-naloxone 1 EACH tablet, sublingual 10 Sublingual DAILY RF: 0 sucralfate [Carafate] 1 gram Tablet 1,000 mg PO QID Qty: 30 RF: 0 sertraline 100 MG tablet 100 mg PO HS RF: 0 omeprazole 40 MG capsule,delayed release(DR/EC) 40 mg PO BID Qty: 60 RF: 2 promethazine [Phenergan] 25 mg suppository 25 mg WI Q6H PRN (Reason: nausea and vomiting) Qty: 12 RF: 0 ondansetron 4 mg tablet,disintegrating 4 mg PO QID PRN (Reason: nausea and vomiting) Qty: 20 RF: 0 Discharge Instructions Instructions: Back Pain (ED) Additional Instructions: Continue [id number] Tylenol and/or Motrin as directed for discomfort. Add on Lidoderm patches as directed. Gentle stretching as tolerated. Cool and/or warm compresses every 2 hours for 20 minutes. Please watch for new or worsening symptoms and return to the ER for any concerns. Physical therapy offered and declined. Keep your appointment with Dr. Sandoval next month on the ninth as scheduled but be sure to attempt to be seen sooner if there is a cancellation. Otherwise I would also contact your primary care provider to make them aware of your ongoing discomfort in your ER visit. Medical Decision Making This is a 40-year-old female, chronic hip-back pain, asthma, bipolar affective disorder, fibromyalgia, GERD, obesity, history of opiate abuse, now taking Suboxone. Reports increase low back-hip, tailbone pain over the past couple of weeks. Denies recent illness or trauma. No history of IV drug use. Increase of her discomfort all began after getting a new mattress. Pain is typically worse in the morning. She denies any fever, abdominal pain, nausea, vomiting, vaginal bleeding or discharge, dysuria, hematuria. Denies any bowel or bladder retention or incontinence. She is afebrile. No evidence of cauda equina. Discussed options. Patient has already had a x-ray of her lower back at [facility], no indication to repeat this. Given her presentation, I do not believe that laboratory values such as routine blood work or urinalysis will be helpful. Patient has had a total abdominal hysterectomy, will not obtain test. Patient is awake, alert, neurologically intact. Neuro, vascula r, tendon intact. We discussed physical therapy, patient states that she has tried this in the past without any relief of her symptoms and declines now. Examination does not reveal any muscle spasms, do not believe that muscle relaxers are indicated. Patient has orthopedic follow-up on 12-14. At this time will offer 60 IM Toradol and Lidoderm patches. She is already on the orthopedic call cancellation list and will attempt to be seen sooner if at all possible. Patient is comfortable this plan and has no additional questions or concerns. Medical Records Medical records reviewed: Yes I reviewed the patient's medical records. HPI General Mode of arrival: ambulatory . Date/Time Provider Initiated Documentation: 11/14/20 11:40 . Limitations to Documentation: no limitations . Information obtained by: patient . HPI Narrative: This is a 40-year-old female, past medical history that includes chronic hip-back pain, asthma, bipolar affective disorder, fibromyalgia, GERD, history of opiate abuse, never IV drug abuse, has been clean and on Suboxone for 5 years, obesity, current smoker. She presents to the ER today reporting that her chronic hip and back pain seems to be worse, is going across her entire lower back, and in her tailbone. Patient states that she is scheduled to see Dr. Sandoval for her ongoing pain that appointment is on 12-14. Patient tells me that her increase in pain all began after getting a new mattress. Shortly after getting the new mattress, upon waking every morning, she has increased back pain. She denies any illness, fever, abdominal pain, nausea, vomiting, dysuria, hematuria, diarrhea, constipation, incontinence. The pain does occasionally shoot down either leg. She has been taking [id number] Tylenol and/or Motrin with little relief. She tells me that she was already seen for this at [facility], had a negative x-ray and was discharged. They did not even give me a muscle relaxer, I was not looking for drugs. Patient takes 10 mg Suboxone daily. Related Data Home Medications Medication Instructions Recorded Confirmed acetaminophen [Tylenol Extra 1,000 mg PO Q6H PRN tab-cap 11/18/12 11/14/20 Strength] albuterol sulfate [ProAir HFA] 1 - 2 puff INHALATION QID PRN #1 07/09/16 11/14/20 inhaler amitriptyline 75 mg PO HS #30 tab-cap 12/31/16 11/14/20 buprenorphine-naloxone 10 SUBLINGUAL DAILY 05/28/17 09/10/18 omeprazole 40 mg PO BID #60 capsule. 11/19/17 11/14/20 sertraline 100 mg PO HS 11/19/17 11/14/20 sucralfate [Carafate] 1,000 mg PO QID #30 tab 09/03/18 11/14/20 ondansetron 4 mg PO QID PRN #20 tab 09/10/18 11/14/20 promethazine [Phenergan] 25 mg WI Q6H PRN #12 each 09/10/18 11/14/20 lidocaine [Lidoderm] 2 patch TOPICAL DAILY #15 ea 11/14/20 Previous Rx's Medication Instructions Recorded omeprazole 40 mg PO BID #60 capsule. 11/19/17 sucralfate [Carafate] 1,000 mg PO QID #30 tab 09/03/18 ondansetron 4 mg PO QID PRN #20 tab 09/10/18 promethazine [Phenergan] 25 mg WI Q6H PRN #12 each 09/10/18 lidocaine [Lidoderm] 2 patch TOPICAL DAILY #15 ea 11/14/20 Allergies Allergy/AdvReac Type Severity Reaction Status Date / Time erythromycin base AdvReac SEVERE GI Unverified 11/14/20 11:34 UPSET simvastatin AdvReac LEG Unverified 11/14/20 11:34 CRAMPS; MYALGIAS General Stated Complaint: Orthopedic ARIA: 3 Review of Systems Constitutional Constitutional: Denies fever(s) and Denies weakness ENT Ears, Nose, Mouth, and Throat: Denies neck pain Cardiovascular Cardiovascular: Denies chest pain and Denies dyspnea Respiratory Respiratory: Denies dyspnea Gastrointestinal Gastrointestinal: Denies abdominal pain, Denies constipation, Denies diarrhea, Denies nausea and Denies vomiting Genitourinary Genitourinary: Denies abnormal vaginal bleeding, Denies dysuria, Denies urinary incontinence and Denies vaginal discharge Musculoskeletal Musculoskeletal: Reports back pain, Denies arthralgias, Denies neck pain, Denies numbness and Denies tingling Integumentary/Breasts Skin/Breast: Denies rash Neurologic Neurologic: Denies numbness, Denies tingling and Denies weakness [facility] Medical History Acute back pain Ankle joint effusion Arthralgia Asthma Bipolar affective disorder Chronic cough Dysphagia Edema Fibromyalgia GERD (gastroesophageal reflux disease) Hx of opioid abuse Obesity Pain, foot, chronic Positive antinuclear antibody Proteinuria Skin lesion of scalp Tobacco use Urinary incontinence Surgical History section X 2 EGD - MAC (11/19/17) S/P appendectomy GAYATHRI/BSO (~04/2006) Family History Mother Diabetes Cirrhosis of liver Sarcoidosis Father Myocardial infarction X 3; THE FIRST MS AT AGE 19 MATERNAL FAMILY HISTORY Diabetes Alcohol abuse Personal history of malignant neoplasm [facility] PATERNAL FAMILY HISTORY Personal history of malignant neoplasm AUNT; BREAST Social History Smoking/Tobacco Use Status: Current every day Tobacco Type: cigarettes Smoking risk assessment performed?: Yes Alcohol Intake: never Drug use: Daily Substance use type: marijuana Do you feel safe in your relationship?: Yes Exam Const General: cooperative, healthy appearing, comfortable and no acute distress Orientation: alert and awake [facility] Head: normal to inspection, normocephalic and atraumatic Eyes General: appearance normal, both eyes and all related structures Eyelids: eyelids normal Conjunctivae: conjunctivae normal Neck Neck: normal visual inspection, full ROM, trachea midline, supple and nontender Resp Effort & Inspection: normal respiratory effort and able to speak in complete sen tences Auscultation: clear to auscultation bilaterally Cardio Rate: regular rate Rhythm: regular rhythm GI Palpation: soft and nontender Back/Spine/Pelvis Back: no CVA tenderness and back tenderness (Diffuse lumbar-upper buttocks) Thoracic/Lumbar Spine: thoracic and lumbar spine normal to inspection, thoraco- lumbar ROM normal, pain with thoraco-lumbar ROM, paraspinal tenderness, No thoraco-lumbar spasm and lumbar spinal tenderness (Diffuse, no point tenderness) Pelvis: no pain with anterior-posterior compression and no pain with lateral compression Skin General skin exam: no rashes or lesions noted Neuro General: patient alert, patient awake, moves all extremities and no focal motor deficits Cognition: normal cognition Speech: speech normal Gait: normal gait Motor: muscle tone normal throughout and strength 5/5 throughout Sensory Exam: no sensory deficits noted Extrem General: normal to inspection, full ROM and capillary refill normal Psych Appearance: grossly normal Mental Status: mental status grossly normal Course Vital Signs Vital signs: Vital Signs Temperature 36.4 C L 11/14/20 11:30 Pulse 75 11/14/20 11:30 Respiratory Rate 16 11/14/20 11:30 Blood Pressure 119/79 11/14/20 11:30 Pulse Oximetry 96 11/14/20 11:30 Temperature 36.4 C L 11/14/20 11:30 Temperature Source Skin 11/14/20 11:30 Pulse 75 11/14/20 11:30 Respiratory Rate 16 11/14/20 11:30 Respiratory Effort Non-Labored 11/14/20 11:30 Blood Pressure 119/79 11/14/20 11:30 Blood Pressure Position Sitting 11/14/20 11:30 Pulse Oximetry 96 11/14/20 11:30 Pain Level 10 11/14/20 11:37
[2020-11-14] MEDS: Ketorolac 60 MG/2 ML VIAL IM (12:31)
[2020-11-14] MEDS: Lidocaine 5% Patch 2 PATCH TP (12:33)
== END 2020-11-14 12:50 | disposition home or self-care (01) ==
PROVIDERS: Emergency Provider Physician Assistant; PCP Family Medicine
DX: M54.5 Low back pain (principal); M25.551 Pain in right hip; G89.29 Other chronic pain; M53.3 Sacrococcygeal disorders, not elsewhere classified
CPT/HCPCS: 96372; 99284; 99283; J1885

== ENCOUNTER 2021-02-06 18:38 | Outpatient (REF) | payer MEDICAID, SELFPAY ==
[2021-02-06 18:14] LABS: HCT 38.7 % (36.0-46.0); HGB 12.8 g/dL (11.2-15.7); MCH 33.4 pg (27.0-33.0); MCHC 33.1 % (32.0-36.0); MPV 10.9 fL (8.0-11.0); Platelet Count 215 10^3/uL (130-400); RBC 3.83 10^6/uL (3.93-5.22); RDW 12.8 % (11.7-14.6); RDW-SD 47.7 fL; WBC 7.18 10^3/uL (4.4-10.8)
[2021-02-06 18:42] LABS: Iron 34 ug/dL (50-170); Total Iron Binding Capacity 274 ug/dL (250-450); Transferrin Sat 12 % (15-50)
[2021-02-06 19:07] LABS: ALT 18 U/L (14-59); AST 14 U/L (15-37); Albumin 3.9 g/dL (3.4-5.0); Alkaline Phosphatase 82 U/L (46-116); Anion Gap 9.8 mmol/L (3-11); BUN 12 mg/dL (7-18); Bilirubin, Total 0.3 mg/dL (0.2-1.0); CO2 27.2 mmol/L (21.0-32.0); CREATININE 0.9 mg/dL (0.55-1.02); Chloride 106 mmol/L (98-107); Glucose 86 mg/dL (74-106); Potassium 3.9 mmol/L (3.5-5.1); Sodium 143 mmol/L (136-145); Total Protein 7.2 g/dL (6.4-8.2); Vitamin B12 197 pg/mL (193-986)
== END 2021-02-06 18:39 | disposition home or self-care (01) ==
LOC: NCHCN 18:38
PROVIDERS: PCP Family Medicine; Visit Provider Family Medicine
DX: D64.9 Anemia, unspecified (principal); R20.2 Paresthesia of skin; R16.0 Hepatomegaly, not elsewhere classified
CPT/HCPCS: 80053; 85027; 82607; 83540; 83550

== ENCOUNTER 2022-11-17 10:50 | Emergency (ER) | payer MEDICAID, SELFPAY ==
[2022-11-17 10:55] VITALS: BP 137/90; PULSE 66; RESP 18; TEMP 36.6; O2SAT 99
--- NOTE | 2022-11-17 11:15 | DI.CT_ITS ---
Exam(s) CT CHEST/ABD/PEL W EXAM: CT CHEST/ABD/PEL W CLINICAL HISTORY: cough 5 days, neg cxr, now epigastric abd pain TECHNIQUE: Imaging Protocol: Axial computed tomography images with coronal and sagittal reformatted images were created and reviewed CONTRAST MATERIAL: Intravenous: Omnipaque 350 contrast volume:100 mL Oral: No COMPARISON: CT CT ABDOMEN PELVIS W from 09/02/2018 FINDINGS: The examination is limited due to patient motion artifact. CHEST: Tracheobronchial tree: Patent where visualized. Pulmonary parenchyma: There are scattered ground-glass opacities in the lungs. No focal consolidatin g infiltrate is present. No architectural distortion. Visualized thyroid gland: Unremarkable. Mediastinum and Genevieve: No dominant adenopathy or fluid collection. The esophagus is unremarkable. Pleura: No effusion or pneumothorax. Heart: The heart is not dilated. No coronary artery calcifications are seen. No pericardial effusion. Pulmonary arteries: The pulmonary arteries are inadequately opacified for evaluation of pulmonary emb niko. Aorta: Thoracic aorta non-dilated. Lymph nodes: Within normal limits. Soft tissues: Unremarkable. Bones:Within normal limits for the patient's age. ABDOMEN: Liver: Normal density. No measurable mass. Portal, Superior Mesenteric, and Splenic Veins: Unremarkable. Gallbladder and Biliary Tract: No radiodense calculus or dilation. Pancreas: Normal density, no abnormal calcifications or inflammatory process. Spleen: Normal. Adrenals: No masses seen. Kidneys: Normal size, contour and axis. No radiodense stones or obstructive uropathy. No masses seen. Abdominal Aorta: Abdominal portion non-dilated. Mild atherosclerosis. Bowel: No obstruction or bowel wall thickening. No evidence of appendicitis. Peritoneal Cavity: No ascites, collection or mesenteric inflammatory response. No free air. Lymph Nodes: Within normal limits. Bones: Within normal limits for the patient's age. Soft Tissues: Unremarkable. PELVIS: Bladder: Symmetric distention, no gross wall thickening. Reproductive Organs: Unremarkable as visualized. Lymph Nodes: Within normal limits. Bones: Within normal limits. IMPRESSION: 1. No acute abdominal or pelvic process. 2. Faint ground-glass opacities scattered in the lungs. This may represent atelectasis. An infectio us process cannot be entirely excluded however. 3. Findings were discussed with Dr. Archuleta at 12:43 p.m. on 11/17/2022. RADIATION DOSE DELIVERED: 1,111.12mGy.cm Total DLP DATA REPOSITORY: All CT scans at this facility are submitted to the National Radiology Data Registry (NRDR) Dose Index Registry (DIR) with the [employer] ([employer]). RADIATION OPTIMIZATION: All CT scans at this facility use at least one of these dose optimization te chniques: automated exposure control; mA and/or kV adjustment per patient size (includes targeted exa ms where dose is matched to clinical indication); or iterative reconstruction.
[2022-11-17] MEDS: Famotidine 20 MG/2 ML VIAL IVP (11:49)
[2022-11-17] MEDS: Normal Saline 1,000 ML 1000 ML IV (11:49)
[2022-11-17 11:55] LABS: Abs Immature Grans 0.03 10^3/uL (0.0-0.06); Absolute Basophil Count 0.05 10^3/uL (0.0-0.2); Absolute Eosinophil Count 0.07 10^3/uL (0.0-0.7); Absolute Lymphocyte Count 2.32 10^3/uL (1.2-3.4); Absolute Neutrophil Count 5.65 10^3/uL (1.2-6.7); Basophils % 0.6; Eosinophils % 0.8; HCT 40.3 % (36.0-46.0); HGB 13.6 g/dL (11.2-15.7); Immature Grans % 0.4; Lymphocytes % 27.6; MCH 33.1 pg (27.0-33.0); MCHC 33.7 % (32.0-36.0); MCV 98 fL (80-95); MPV 9.8 fL (8.0-11.0); Monocytes % 3.6; Platelet Count 269 10^3/uL (130-400); RBC 4.11 10^6/uL (3.93-5.22); RDW 13.2 % (11.7-14.6); RDW-SD 48.1 fL; WBC 8.42 10^3/uL (4.4-10.8)
[2022-11-17 12:07] LABS: Mono Screening Negative (Negative)
--- NOTE | 2022-11-17 12:07 | ED.GENADUL_ITS ---
Discharge Plan Disposition Patient Disposition: Home Condition: Stable Discharge Details Clinical Impression: Acute viral syndrome, Gastritis Primary Care Provider: Charly Russell ED Provider: Ronald Archuleta Home Meds and New Rx's Prescriptions: Continued acetaminophen [Tylenol Extra Strength] 500 MG tablet 1,000 mg PO Q6H PRN albuterol sulfate [ProAir HFA] 8.5 GM HFA aerosol inhaler 1 - 2 puff Inhalation QID PRNQty: 1 amitriptyline 25 MG tablet 75 mg PO HS Qty: 30 buprenorphine-naloxone [Suboxone] 8-2 mg film 1 film sublingual DAILY buprenorphine-naloxone [Suboxone] 2-0.5 mg film 1 film buccal DAILY Rx Instructions: place 1 strip/tab under (each) side of tongue sertraline 50 mg tablet 50 mg PO DAILY omeprazole 40 mg capsule,delayed release(DR/EC) 40 mg PO DAILY cyanocobalamin (vitamin B-12) 2,500 mcg lozenge 2,500 mcg sublingual DAILY fluticasone propionate 50 mcg/actuation spray,suspension 1 spray intranasal BID Rx Instructions: administer into each nostril hydrocortisone acetate [Anusol-HC] 25 mg suppository 25 mg ID BID PRN melatonin 5 mg tablet 5 mg PO HS PRN diclofenac sodium [Arthritis Pain (diclofenac)] 1 % gel 2 g topical BID PRN Rx Instructions: apply to single elbow, wrist or hand; for hand includes palm/fingers/back of hand sucralfate [Carafate] 1 gram Tablet 1,000 mg PO QID Qty: 30 0RF Discharge Instructions Instructions: Gastritis (ED), Viral Syndrome (ED) Additional Instructions: Please drink plenty of fluids to stay hydrated. Allow for plenty of rest over the next few days. Please follow-up with your primary care physician. Call today to schedule timely follow-up. To the emergency [facility] immediately for any worsening or new concerning symptoms including difficulty breathing, worsening cough, or other concerning symptoms. Referrals: Charly Russell [Primary Care Provider] - Medical Decision Making 1240 --42-year-old female smoker here with respiratory illness, cough over the past 5 days, generally not feeling well now with nausea, vomiting and diarrhea since last night. Patient with severe epigastric abdominal pain today. Patient is hemodynamically stable. Patient is saturating well and in no respiratory distress with intermittent cough, rhonchi on auscultation. Patient is focally tender in her abdomen. Labs reviewed and nondiagnostic. CT of the chest abdomen pelvis was obtained to assess for acute surgical pathology and pneumonia. CT abdomen pelvis interpreted by radiology as negative. CT of the chest interpreted by radiology as scattered groundglass opacities suspect atelectasis versus less likely infectious process. No consolidation. No infiltrate. [place], flu and COVID-negative. Presentation today is consistent with a viral process with gastritis. Plan for supportive care and close outpatient follow-up. Usual customary discharge instructions were reviewed with the patient. HPI General Mode of arrival: ambulatory . Date/Time Provider Initiated Documentation: 11/17/22 11:15 . Limitations to Documentation: no limitations . Information obtained by: patient . HPI Narrative: 42-year-old female presents with chief complaint of cough. Patient notes she had cough for the past 5 days. Cough is harsh, nonproductive. She notes she was seen at outside hospital emergency department 2 days ago and had negative chest x-ray and was prescribed Tessalon Perles. She notes cough has been getting progressively worse and now started to have nausea, vomiting and diarrhea since last night. He has no associated chest pain. She does note associated epigastric abdominal pain that is rated 8 out of 10 with no modifiers. Related Data Home Medications Medication Instructions Recorded Confirmed acetaminophen 500 mg tablet 1,000 mg PO Q6H PRN 11/18/12 11/17/22 (Tylenol Extra Strength) albuterol sulfate 90 mcg/actuation 1 - 2 puff inhalation QID PRN ##1 07/09/16 11/17/22 aerosol inhaler (ProAir HFA) amitriptyline 25 mg tablet 75 mg PO HS #30 tab-caps 12/31/16 11/17/22 sucralfate 1 gram tablet (Carafate) 1,000 mg PO QID #30 tabs 09/03/18 11/17/22 buprenorphine 2 mg-naloxone 0.5 mg 1 film buccal DAILY 07/16/22 11/17/22 sublingual film (Suboxone) buprenorphine 8 mg-naloxone 2 mg 1 film sublingual DAILY 07/16/22 11/17/22 sublingual film (Suboxone) cyanocobalamin (vitamin B-12) 2,500 mcg sublingual DAILY 07/16/22 11/17/22 2,500 mcg sublingual lozenge diclofenac sodium 1 % topical gel 2 g topical BID PRN 07/16/22 11/17/22 (Arthritis Pain (diclofenac)) fluticasone propionate 50 1 spray intranasal BID 07/16/22 11/17/22 mcg/actuation nasal spray,suspension hydrocortisone acetate 25 mg 25 mg ID BID PRN 07/16/22 11/17/22 rectal suppository (Anusol-HC) melatonin 5 mg tablet 5 mg PO HS PRN 07/16/22 11/17/22 omeprazole 40 mg capsule,delayed 40 mg PO DAILY 07/16/22 11/17/22 release sertraline 50 mg tablet 50 mg PO DAILY 07/16/22 11/17/22 Previous Rx's Medication Instructions Recorded sucralfate 1 gram tablet (Carafate) 1,000 mg PO QID #30 tabs 09/03/18 Allergies Allergy/AdvReac Type Severity Reaction Status Date / Time erythromycin base AdvReac SEVERE GI Unverified 11/17/22 11:00 UPSET simvastatin AdvReac LEG Unverified 11/17/22 11:00 CRAMPS; MYALGIAS General Stated Complaint: Nausea/Vomit/Diar ARIA: 3 Review of Systems All systems reviewed & are unremarkable except as noted in HPI and below Constitutional Constitutional: Denies fever(s) and Reports lethargy Respiratory Respiratory: Reports as per HPI Gastrointestinal Gastrointestinal: Reports as per HPI and Reports heartburn PFSH All Active Problems (Updated 11/17/22 @ 12:47 by Ronald Archuleta MD) Acute viral syndrome (Acute) Gastritis (Acute) Asthma, intermittent (Acute) Back pain (Acute) Medical History Acute back pain Ankle joint effusion Arthralgia Asthma Bipolar affective disorder Chronic cough Dysphagia Edema Fibromyalgia GERD (gastroesophageal reflux disease) Hepatomegaly History of shingles Hx of opioid abuse Mood disorder Obesity Pain, foot, chronic Positive antinuclear antibody Positive PPD negative chest xray -2015 Proteinuria Skin lesion of scalp Tobacco use Urinary incontinence Surgical History section X 2 EGD - MAC (11/19/17) S/P appendectomy GAYATHRI/BSO (~04/2006) Family History Mother Diabetes Cirrhosis of liver Sarcoidosis Father Myocardial infarction X 3; THE FIRST VT AT AGE 19 MATERNAL FAMILY HISTORY Diabetes Alcohol abuse Personal history of malignant neoplasm UNCLE-COL[facility] PATERNAL FAMILY HISTORY Personal history of malignant neoplasm AUNT; BREAST Social History Smoking/Tobacco Use Status: Current every day Tobacco Type: cigarettes Smoking risk assessment performed?: Yes Alcohol Intake: never Drug use: Daily Substance use type: marijuana Do you feel safe in your relationship?: Yes Exam Const General: cooperative, no acute distress and well developed Orientation: alert and awake HENMT Mouth: moist mucous membranes Throat: posterior oropharynx normal Eyes Conjunctivae: normal conjunctivae Sclera: normal sclerae Neck Neck: trachea midline and supple Lymphatic: lymphadenopathy (bilateral ant cervical) Resp Effort & Inspection: normal respiratory effort Auscultation: no rales, rhonchi right lower and no wheezes Cardio Rate: regular rate and not tachycardic Rhythm: regular rhythm GI Palpation: soft, not firm, no guarding, no masses, not rigid and tender in the epigastrum Skin General skin exam: no rashes or lesions noted Neuro General: patient alert, patient awake and tone normal Extrem General: no edema Psych Appearance: grossly normal Mental Status: mental status grossly normal Course Vital Signs Vital signs: Vital Signs Temperature 36.6 C 11/17/22 10:55 Pulse 66 11/17/22 10:55 Respiratory Rate 18 11/17/22 10:55 Blood Pressure 137/90 11/17/22 10:55 Pulse Oximetry 99 11/17/22 10:55 Temperature 36.6 C 11/17/22 10:55 Temperature Source Oral 11/17/22 10:55 Pulse 66 11/17/22 10:55 Respiratory Rate 18 11/17/22 10:55 Respiratory Effort Normal 11/17/22 10:59 Blood Pressure 137/90 11/17/22 10:55 Blood Pressure Position Sitting 11/17/22 10:55 Pulse Oximetry 99 11/17/22 10:55 Oxygen Delivery Method Room Air 11/17/22 10:55 Oxygen Flow Rate 0 11/17/22 10:55 Pain Level 8 11/17/22 10:55 Lab/Test Results Lab/Test Results: 11/17/22 11:00 Tonsil - Not Specified Group A Streptococcus Culture - Pen ding Laboratory Tests Range/Units 11/17/22 11:35 WBC (4.4-10.8) 10^3/uL 8.42 RBC (3.93-5.22) 10^6/uL 4.11 Hgb (11.2-15.7) g/dL 13.6 Hct (36.0-46.0) % 40.3 MCV (80-95) fL 98 H MCH (27.0-33.0) pg 33.1 H MCHC (32.0-36.0) % 33.7 RDW (11.7-14.6) % 13.2 Plt Count (130-400) 10^3/uL 269 MPV (8.0-11.0) fL 9.8 Immature Gran % 0.4 Neutrophils % 67.0 Lymphocytes % 27.6 Monocytes % 3.6 Eosinophils % 0.8 Basophils % 0.6 Nucleated RBC % (0.0-0.3) % 0.0 Absolute Neutrophils (1.2-6.7) 10^3/uL 5.65 Absolute Lymphocytes (1.2-3.4) 10^3/uL 2.32 Absolute Monocytes (0.1-0.8) 10^3/uL 0.30 Absolute Eosinophils (0.0-0.7) 10^3/uL 0.07 Absolute Basophils (0.0-0.2) 10^3/uL 0.05 POC Strep Test-CRYSTAL(Rapid) Start: 11/17/22 11:06 Freq: .Rapid Strep Test Status: Active Protocol: Document 11/17/22 11:09 PS (Rec: 11/17/22 11:10 PS [id number]) Strep test-CRYSTAL(Rapid)-POC POC-Strep test-CRYSTAL (Rapid) Negative POC-Strep test-CRYSTAL (Rapid) Negative
[2022-11-17 12:20] LABS: ALT 12 U/L (14-59); AST 11 U/L (15-37); Albumin 3.5 g/dL (3.4-5.0); Alkaline Phosphatase 65 U/L (46-116); Anion Gap 6.5 mmol/L (3-11); BUN 12 mg/dL (7-18); Bilirubin, Total 0.3 mg/dL (0.2-1.0); CO2 29.5 mmol/L (21.0-32.0); CREATININE 0.8 mg/dL (0.55-1.02); Chloride 105 mmol/L (98-107); Estimated GFR 94.87 (mL/min/1.73m2); Glucose 97 mg/dL (74-106); Potassium 3.9 mmol/L (3.5-5.1); Sodium 141 mmol/L (136-145)
[2022-11-17] MEDS: Normal Saline - Diluent 50 ML VIAL IJ (12:22)
[2022-11-17] MEDS: Omnipaque 350 MG/ML 500 ML BTL-Imaging package IJ (12:23)
[2022-11-17 12:29] LABS: COVID-19 PCR Negative (Negative); Influenza A PCR Negative (Negative); Influenza B PCR Negative (Negative); RSV PCR Negative (Negative); Source Nasopharynx
[2022-11-17 12:31] LABS: Lipase 24 U/L (16-77)
--- NOTE | 2022-11-17 12:58 | NUR.NOTE ---
Nursing Note: Referral faxed to PCP for viral illness/ no antibiotics given/by the end of this week.
[2022-11-17 12:59] VITALS: BP 127/89; PULSE 67; RESP 20; O2SAT 98
== END 2022-11-17 13:01 | disposition home or self-care (01) ==
PROVIDERS: Emergency Provider Student in an Organized Health Care Education/Training Program; PCP Family Medicine
DX: B34.9 Viral infection, unspecified (principal); K29.70 Gastritis, unspecified, without bleeding; J45.909 Unspecified asthma, uncomplicated; R59.0 Localized enlarged lymph nodes; F17.210 Nicotine dependence, cigarettes, uncomplicated; Z20.822 Contact with and (suspected) exposure to COVID-19; Z79.899 Other long term (current) drug therapy
CPT/HCPCS: 74177; 80053; 83690; 87637; 87880; 96361; 96374; 99285; 71260; 85025; 86308; 87081; 99284

== ENCOUNTER 2023-06-11 15:21 | Outpatient (REF) | payer MEDICAID, SELFPAY ==
[2023-06-11 18:05] LABS: Folate 2.9 ng/mL (8.6-20.0); Magnesium 1.9 mg/dL (1.8-2.4); Vitamin B12 183 pg/mL (193-986)
== END 2023-06-11 15:22 | disposition home or self-care (01) ==
LOC: NCHCN 15:21
PROVIDERS: PCP Family Medicine; Visit Provider Family Medicine
DX: E83.42 Hypomagnesemia (principal); D75.89 Other specified diseases of blood and blood-forming organs; R20.0 Anesthesia of skin
CPT/HCPCS: 82607; 82746; 83735

== ENCOUNTER 2023-09-06 11:06 | Emergency (ER) | payer MEDICAID, SELFPAY ==
[2023-09-06] VITALS (36 sets, daily range): BP systolic 112–145; BP diastolic 71–84; PULSE 45–63; RESP 5–20; TEMP 36.6; O2SAT 94–98
--- NOTE | 2023-09-06 11:15 | RT.EKG_ITS ---
APPROVED REPORT Exam: Resting ECG Reason for Exam: QT Check Patient Location: E HR:56 bpm ECG Measurements Heart Rate 56 AXIS [place] 100 P 51 QRSd 93 QRS 52 QT 428 T 34 QTc 412 Conclusion Sinus bradycardia...rate< 60 ST elev, probable normal early repol pattern...ST elevation, age<55
--- OUTSIDE RECORDS SUMMARY | 2023-09-06 11:15 | XMS_ITS | Continuity of Care Document ---
Author Name Unknown Organization [facility] Address [address] [place] [address] Care Team Providers Care Interactive Media Marketing Director Name Role Phone Charly Russell Primary Care Physician Encounter NCTY_MA Date(s): 08/12/22 - 08/12/22 [facility] [address] [place] [address] Encounter Diagnosis Upper respiratory tract infection(Discharge Diagnosis) - 08/12/22 Discharge Disposition: Home or Self Care Attending Physician: Rosario Anderson MD Admitting Physician: Rosario Anderson MD Allergies, Adverse Reactions, Alerts Substance Reaction Severity Status erythromycin Unknown Active simvastatin Unknown Active Medications !-Zofran ODT 4 mg oral tablet, disintegrating 4 mg = 1 tab, Oral, every 6 hr, PRN as needed for nausea/vomiting, X 7 days, # 15 tab, 0 Refill(s),08/19/22 12:48:00 EST, Pharmacy: [id number], 149.86, cm, 08/12/22 12:30:00 EST, Height/Length Dosing, 79.38, kg, 08/12/22 12:30:00 EST, Weight D... Start Date: 08/12/22 Stop Date: 08/19/22 Status: Ordered amitriptyline 0 Refill(s) Start Date: 02/20/22 Status: Ordered Carafate 0 Refill(s) Start Date: 02/20/22 Status: Ordered codeine-guaifenesin 10 mg-100 mg/5 mL oral syrup 10 mL, Oral, every 4 hr, PRN as needed for cough, X 7 days, # 120 mL, 0 Refill(s), 08/19/22 12:48:00 EST, Pharmacy: [id number], 149.86, cm, 08/12/22 12:30:00 EST, Height/Length Dosing, 79.38, kg, 08/12/22 12:30:00 EST, Weight Dosing Start Date: 08/12/22 Stop Date: 08/19/22 Status: Ordered omeprazole 0 Refill(s) Start Date: 02/20/22 Status: Ordered Suboxone 10 mg, 0 Refill(s) Start Date: 02/20/22 Status: Ordered Tessalon Perles 100 mg oral capsule 200 mg = 2 cap, Oral, TID, PRN as needed for cough, X 10 days, # 45 cap, 0 Refill(s), 08/22/22 12:48:00 EST, Pharmacy: [id number], 149.86, cm, 08/12/22 12:30:00 EST, Height/Length Dosing, 79.38, kg, 08/12/22 12:30:00 EST, Weight Dosing Start Date: 08/12/22 Stop Date: 08/22/22 Status: Ordered Zoloft 0 Refill(s) Start Date: 02/20/22 Status: Ordered Results Laboratory List Name Date CBC w/ Diff 08/12/22 Comprehensive Metabolic Panel 08/12/22 Automated Diff 08/12/22 Most recent to oldest [Reference Range]: 1 WBC [5.0-10.0 x10^3/mcL] 10.7 x10^3/mcL *HI* (08/12/22 2:10 PM) RBC [4.1-5.3 x10^6/mcL] 3.8 x10^6/mcL *LOW* (08/12/22 2:10 PM) Neutro Auto [40.0-75.0 %] 76.1 % *HI* (08/12/22 2:10 PM) Lymph Auto [20.0-50.0 %] 16.9 % *LOW* (08/12/22 2:10 PM) Bartholomew Auto [2.0-15.0 %] 5.7 % (08/12/22 2:10 PM) Basophil Auto [0.0-1.0 %] 0.4 % (08/12/22 2:10 PM) BUN [7-18 mg/dL] 7 mg/dL (08/12/22 2:10 PM) Glucose Level [74-106 mg/dL] 95 mg/dL (08/12/22 2:10 PM) Potassium Level [3.5-5.1 mmol/L] 3.6 mmo l/L (08/12/22 2:10 PM) MCV [80.0-96.0] 101.3 *HI* (08/12/22 2:10 PM) AST [15-37 unit/L] 10 unit/L *LOW* (08/12/22 2:10 PM) ALT [14-59 unit/L] 14 unit/L (08/12/22 2:10 PM) MCHC [31.0-35.0 g/dL] 33.1 g/dL (08/12/22 2:10 PM) Sodium Level [136-145 mmol/L] 138 mmol/L (08/12/22 2:10 PM) Hct [37.0-47.0 %] 39.0 % (08/12/22 2:10 PM) Calcium Level [8.5-10.1 mg/dL] 9.0 mg/dL (08/12/22 2:10 PM) Albumin Level [3.4-5.0 g/dL] 3.2 g/dL *LOW* (08/12/22 2:10 PM) Protein Total [6.4-8.2 g/dL] 7.4 g/dL (08/12/22 2:10 PM) MCH [26.0-32.0 pg] 33.5 pg *HI* (08/12/22 2:10 PM) Neutro Absolute 8.1 x10^3/mcL *NA* (08/12/22 2:10 PM) Bilirubin Total [0.2-1.0 mg/dL] 0.6 mg/d L (08/12/22 2:10 PM) Hgb [12.0-16.0 g/dL] 12.9 g/dL (08/12/22 2:10 PM) Alk Phos [46-146 unit/L] 69 unit/L (08/12/22 2:10 PM) Platelets [130-450 x10^3/mcL] 247 x10^3/ mcL (08/12/22 2:10 PM) CO2 [21-32 mmol/L] 31 mmol/L (08/12/22 2:10 PM) eGFR Non-AA [>=60] 93 (08/12/22 2:10 PM) eGFR AA [>=60] 93 (08/12/22 2:10 PM) Chloride Level [98-107 mmol/L] 103 mmol/ L (08/12/22 2:10 PM) RDW-CV [11.7-17.0 %] 12.9 % (08/12/22 2:10 PM) Imm Gran Auto [0.0-0.9 %] 0.4 % (08/12/22 2:10 PM) Creatinine Level [0.55-1.02 mg/dL] 0.81 mg/dL (08/12/22 2:10 PM) Eos, Auto [1.0-6.0 %] 0.5 % *LOW* (08/12/22 2:10 PM) Vital Signs Most recent to oldest [Reference Range]: 1 Temperature Temporal Artery [36-38 Deg C ] 36.1 Deg C (08/12/22 12:15 PM) Peripheral Pulse Rate [60-100 bpm] 86 bp m (08/12/22 12:15 PM) Respiratory Rate [12-24 br/min] 18 br/mi n (08/12/22 12:15 PM) Blood Pressure [90-140/60-90 mmHg] 110/7 8mmHg (08/12/22 12:15 PM) Weight Dosing 79.38 kg (08/12/22 12:30 PM) Weight Estimated 79.38 kg (08/12/22 12:15 PM) Height/Length Dosing 149.860 cm (08/12/22 12:30 PM) Height/Length Estimated 149.860 cm (08/12/22 12:15 PM) Social History Social History Type Response Tobacco Current everyday tob acco user Tobacco Use:. 1 ppd per day. Sex Female Hospital Discharge Instructions Patient Education 08/12/2022 14:16:04 Upper Respiratory Infection, Adult Upper Respiratory Infection, Adult An upper respiratory infection (URI) is a common viral infection of the nose, throat, and upper airpassages that lead to the lungs. The most common type of URI is the common cold. URIs usually get better on their own, without medical treatment. What are the causes? A URI is caused by a virus. You may catch a virus by: ??? Breathing in droplets from an infected person's cough or sneeze. ??? Touching something that has been exposed to the virus (contaminated) and then touching your mouth, nose, or eyes. What increases the risk? You are more likely to get a URI if: ??? You are very young or very old. ??? It is kike or winter. ??? You have close contact with others, such as at a daycare, school, or health care facility. ??? You smoke. ??? You have long-term (chronic) heart or lung disease. ??? You have a weakened disease-fighting (immune) system. ??? You have nasal allergies or asthma. ??? You are experiencing a lot of stress. ??? You work in an area that has poor air circulation. ??? You have poor nutrition. What are the signs or symptoms? A URI usually involves some of the following symptoms: ??? Runny or stuffy (congested) nose. ??? Sneezing. ??? Cough. ??? Sore throat. ??? Headache. ??? Fatigue. ??? Fever. ??? Loss of appetite. ??? Pain in your forehead, behind your eyes, and over your cheekbones (sinus pain). ??? Muscle aches. ??? Redness or irritation of the eyes. ??? Pressure in the ears or face. How is this diagnosed? This condition may be diagnosed based on your medical history and symptoms, and a physical exam. Your health care provider may use a cotton swab to take a mucus sample from your nose (nasal swab). This sample can be tested to determine what virus is causing the illness. How is this treated? URIs usually get better on their own within 7???10 days. You can take steps at home to relieve yoursymptoms. Medicines cannot cure URIs, but your health care provider may recommend certain medicinesto help relieve symptoms, such as: ??? Ldva-qrw-ohugbcr cold medicines. ??? Cough suppressants. Coughing is a type of defense against infection that helps to clear the respiratory system, so take these medicines only as recommended by your health care provider. ??? Fever-reducing medicines. Follow these instructions at home: Activity ??? Rest as needed. ??? If you have a fever, stay home from work or school until your fever is gone or until your health care provider says you are no longer contagious. Your health care provider may have you wear a face mask to prevent your infection from spreading. Relieving symptoms ??? Gargle with a salt-water mixture 3???4 times a day or as needed. To make a salt-water mixture, completely dissolve ?1 tsp of salt in 1 cup of warm water. ??? Use a cool-mist humidifier to add moisture to the air. This can help you breathe more easily. Eating and drinking ??? Drink enough fluid to keep your urine pale yellow. ??? Eat soups and other clear broths. General instructions ??? Take ehiz-ihc-ufqvnwf and prescription medicines only as told by your health care provider. These include cold medicines, fever reducers, and cough suppressants. ??? Do not use any products that contain nicotine or tobacco, such as cigarettes and e-cigarettes. If you need help quitting, ask your health care provider. ??? Stay away from secondhand smoke. ??? Stay up to date on all immunizations, including the yearly (annual) flu vaccine. ??? Keep all follow-up visits as told by your health care provider. This is important. How to prevent the spread of infection to others ??? URIs can be passed from person to person (are contagious). To prevent the infection from spreading: ??? Wash your hands often with soap and water. If soap and water are not available, use hand teacher of the sight impaired. ??? Avoid touching your mouth, face, eyes, or nose. ??? Cough or sneeze into a tissue or your sleeve or elbow instead of into your hand or into the air. Contact a health care provider if: ??? You are getting worse instead of better. ??? You have a fever or chills. ??? Your mucus is brown or red. ??? You have yellow or brown discharge coming from your nose. ??? You have pain in your face, especially when you bend forward. ??? You have swollen neck glands. ??? You have pain while swallowing. ??? You have white areas in the back of your throat. Get help right away if: ??? You have shortness of breath that gets worse. ??? You have severe or persistent: ??? Headache. ??? Ear pain. ??? Sinus pain. ??? Chest pain. ??? You have chronic lung disease along with any of the following: ??? Wheezing. ??? Prolonged cough. ??? Coughing up blood. ??? A change in your usual mucus. ??? You have a stiff neck. ??? You have changes in your: ??? Vision. ??? Hearing. ??? Thinking. ??? Mood. Summary ??? An upper respiratory infection (URI) is a common infection of the nose, throat, and upper air passages that lead to the lungs. ??? A URI is caused by a virus. ??? URIs usually get better on their own within 7???10 days. ??? Medicines cannot cure URIs, but your health care provider may recommend certain medicines to help relieve symptoms. This information is not intended to replace advice given to you by your health care provider. Make sure you discuss any questions you have with your health care provider. Document Revised: 05/02/2021 Document Reviewed: 05/02/2021 [employer] Patient Education ?? 2021 PublishThis. Follow Up Care 08/12/2022 12:15:12 With:Follow up with primary care provider Address: When:1 to 2 weeks Physician Emergency department Note * Rosario Anderson MD: PERFORM Event Display: ED Note Physician Authored Date: [id number] ESTEBAN LARA :1980 Age:42 years Sex:Female Visit Date:08/12/2022 Primary Care Physician: Charly Russell Basic Information Time Seen: Rosario Anderson MD / 08/12/2022 12:22 Chief Complaint Pt states she has had congestion, cough, and body aches for 5 days. ??Negative home Covid test yesterday History Of Present Illness: Patient reports over the last few weeks??she has not felt well??last 5 days has had congestion cough and body aches. ??Patient reports she started with vomiting last night??and that has continued until today.?? Patient did take 800 of ibuprofen around??10:00 today??she also states she took Tylenol earlier in the day.?? No??ear pain positive sore throat??positive chest pain with cough??not withoutcough??positive pain??with deep breath??in??positive nausea vomiting no diarrhea no extremity edemano skin rashes. ??Patient reports that her grandson has had RSV. Review of Systems: see hpi for ros Physical Exam Vitals & Measurements T:??36.1?C ??(Temporal Artery)?? HR:??86??(Peripheral)?? RR:??18?? BP:??110/78?? SpO2:??97%?? HT:??149.860??cm?? WT:??79.38??kg??(Estimated)?? Pain Score:??7?? O2 Therapy:??Room air?? General: Alert and oriented, well nourished,?No??acute distress Eye: PER?Normal??conjunctiva,??No??scleral icterus HENT: Normocephalic,??nontraumatic??Normal hearing Lungs: Clear to auscultation,?Non-labored?? respiration Heart:?Normal?? rate,?Regular??rhythm,?No??murmur,?No??gallop,?No??edema Chest: wall excursion wnl no abnormal movements no obvious deformities Abdomen: Soft, mild epigastric tenderness nonspecific no other tenderness no rebound, non-distended,??No??masses Musculoskeletal:?Normal?? range of motion and strength,?No??tenderness,?No??swelling Skin: Skin is warm, dry and pink,?No??rashes,?No??lesions Neurologic: Awake, alert and oriented X4 Psychiatric: Cooperative, appropriate mood and affect Medical Decision Making: For MDM please see under assessment and plan Procedure No Qualifying Data Assessment/Plan 1.??Upper respiratory tract infection??J06.9 Patient likely with a viral upper respiratory infection patient will take Tessalon Perles??and/or Robitussin with codeine as needed she will take Zofran 4 mg every 6 hours as needed for nausea.?? Patient??received at least 750 cc of normal saline via IV here in the emergency department??with slightimprovement of symptoms.?? Patient is aware if she worsens or does not improve to return to the emergency department or see primary care provider. Ordered: Discharge Patient, 08/12/22 15:15:00 EST, Home Independently, Constant Indicator ?? Orders: Tessalon Perles 100 mg oral capsule, 200 mg = 2 cap, Oral, TID, PRN as needed for cough, X 10 days,# 45 cap, 0 Refill(s), 08/22/22 12:48:00 EST, Pharmacy: [id number], 149.86, cm, 08/12/22 12:30:00 EST, Height/Length Dosing, 79.38, kg, 08/12/22 12:30:00 EST, Weight Dosing codeine-guaifenesin 10 mg-100 mg/5 mL oral syrup, 10 mL, Oral, every 4 hr, PRN as needed for cough,X 7 days, # 120 mL, 0 Refill(s), 08/19/22 12:48:00 EST, Pharmacy: [id number], 149.86, cm, 08/12/22 12:30:00 EST, Height/Length Dosing, 79.38, kg, 08/12/22 12:30:00 EST, Weight Dosing !-Zofran ODT 4 mg oral tablet, disintegrating, 4 mg = 1 tab, Oral, every 6 hr, PRN as needed for nausea/vomiting, X 7 days, # 15 tab, 0 Refill(s), 08/19/22 12:48:00 EST, Pharmacy: [id number], 149.86, cm, 08/12/22 12:30:00 EST, Height/Length Dosing, 79.38, kg, 08/12/22 12:30:00 EST, Weight D... Patient Education Upper Respiratory Infection, Adult Follow Up With When Contact Information Follow up with primary care provider Within 1 to 2 weeks Additional Instructions: Medication Reconciliation New Prescription benzonatate (Tessalon Perles 100 mg oral capsule)2 Capsules Oral (given by mouth) 3 times a day as needed as needed for cough for 10 Days. Refills: 0. ?? codeine-guaifenesin (codeine-guaifenesin 10 mg-100 mg/5 mL oral syrup)10 Milliliters Oral (given bymouth) every 4 hours as needed as needed for cough for 7 Days. Refills: 0. ?? ondansetron (!-Zofran ODT 4 mg oral tablet, disintegrating)1 tab Oral (given by mouth) every 6 hours as needed as needed for nausea/vomiting for 7 Days. Refills: 0. ?? Unchanged amitriptyline ?? buprenorphine-naloxone (Suboxone)10 Milligrams. ?? omeprazole ?? sertraline (Zoloft) ?? sucralfate (Carafate) Problem List/Past Medical History Ongoing No qualifying data Historical No qualifying data Medication Administration Given 0.9% NaCl bolus, 1000 mL, IV Bolus doxycycline monohydrate, 100 mg, Oral Toradol, 15 mg, IV Push Zofran, 4 mg, IV Push Allergies erythromycin simvastatin Social History Electronic Cigarette/Vaping Electronic Cigarette Use: Never. Type: Cannabinoid infused. Tobacco Current everyday tobacco user Tobacco Use:. 1 ppd per day. Lab Results CBC and Differential?? LATEST RESULTS?? HISTORICAL RESULTS?? WBC?? 08/12/22 14:10?? 10.7 ??High?? 05/14/22?? 4.2 ??Low?? RBC?? 08/12/22 14:10?? 3.8 ??Low?? 05/14/22?? 4.3?? Hgb?? 08/12/22 14:10?? 12.9?? 05/14/22?? 14.4?? Hct?? 08/12/22 14:10?? 39.0?? 05/14/22?? 42.7?? MCV?? 08/12/22 14:10?? 101.3 ??High?? 05/14/22?? 100.0?? MCH?? 08/12/22 14:10?? 33.5 ??High?? 05/14/22?? 33.7 ??High?? MCHC?? 08/12/22 14:10?? 33.1?? 05/14/22?? 33.7?? RDW-CV?? 08/12/22 14:10?? 12.9?? 05/14/22?? 13.8?? Platelets?? 08/12/22 14:10?? 247?? 05/14/22?? 245?? Neutro Auto?? 08/12/22 14:10?? 76.1 ??High?? 05/14/22?? 49.2?? Lymph Auto?? 08/12/22 14:10?? 16.9 ??Low?? 05/14/22?? 39.2?? Bartholomew Auto?? 08/12/22 14:10?? 5.7?? 05/14/22?? 8.2?? Eos, Auto?? 08/12/22 14:10?? 0.5 ??Low?? 05/14/22?? 2.2?? Basophil Auto?? 08/12/22 14:10?? 0.4?? 05/14/22?? 1.0?? Imm Gran Auto?? 08/12/22 14:10?? 0.4?? 05/14/22?? 0.2?? Neutro Absolute?? 08/12/22 14:10?? 8.1?? 05/14/22?? 2.0? Routine Chemistry?? LATEST RESULTS?? HISTORICAL RESULTS?? Sodium Level?? 08/12/22 14:10?? 138?? 05/14/22?? 140?? Potassium Level?? 08/12/22 14:10?? 3.6?? 05/14/22?? 3.9?? Chloride Level?? 08/12/22 14:10?? 103?? 05/14/22?? 103?? CO2?? 08/12/22 14:10?? 31?? 05/14/22?? 29?? Alk Phos?? 08/12/22 14:10?? 69?? 05/14/22?? 80?? AST?? 08/12/22 14:10?? 10 ??Low?? 05/14/22?? 15?? ALT?? 08/12/22 14:10?? 14?? 05/14/22?? 16?? BUN?? 08/12/22 14:10?? 7?? 05/14/22?? 7?? Glucose Level?? 08/12/22 14:10?? 95?? 05/14/22?? 89?? Creatinine Level?? 08/12/22 14:10?? 0.81?? 05/14/22?? 0.81?? eGFR AA?? 08/12/22 14:10?? 93?? 05/14/22?? 93?? eGFR Non-AA?? 08/12/22 14:10?? 93?? 05/14/22?? 93?? Calcium Level?? 08/12/22 14:10?? 9.0?? 05/14/22?? 9.3?? Protein Total?? 08/12/22 14:10?? 7.4?? 05/14/22?? 7.1?? Albumin Level?? 08/12/22 14:10?? 3.2 ??Low?? 05/14/22?? 3.6?? Bilirubin Total?? 08/12/22 14:10?? 0.6?? 05/14/22?? 0.4? Electronically Signed on 08/12/22 03:18 PM Rosario Anderson MD Emergency department Discharge instructions * Rosario Anderson MD: PERFORM Event Display: ED Discharge Information Authored Date: [id number] ESTEBAN LARA :1980 Age:42 years Sex:Female Visit Date:08/12/2022 Primary Care Physician: Charly Russell Discharge Instructions We would like to thank you for allowing us to assist you with your healthcare needs. The following includes patient education materials and information regarding your injury/illness. Diagnosis from Today's Visit Upper respiratory tract infection Discharge Vitals Temperature??(Temporal Artery) 97.0 ??F (36.1 ??C) Heart Rate??(Peripheral) 86 Respiratory Rate?? 18 Blood Pressure?? 110/78?? Height?? 59.00 in (149.860 cm) Weight??(Estimated) 175.03 lb (79.38 kg) Allergies erythromycin simvastatin What to Do Next Instructions from Your Care Team You may take Tessalon Perles (benzonatate)??up to 200 mg 3 times a day as needed for cough and/or Robitussin with codeine up to 10 cc every 4 hours as needed for cough.?? For??nausea and vomiting youmay take??Zofran??(ondansetron) 4 mg every 6 hours as needed. ??If you worsen or do not improve please return to the emergency department or see primary care provider. You Need to Schedule the Following Appointments Follow Up with??Follow up with primary care provider When:??Within 1 to 2 weeks You were treated today on an emergency basis; it may be stevens to contact your primary care provider to notify them of your visit today. You may have been referred to your regular doctor or a specialist, please follow up as instructed. If your condition worsens or you can't get in to see the doctor, contact the Emergency Department. Medications What How Much When Instructions Next Dose New benzonatate (Tessalon Perles 100 mg oral capsule) 2 Capsules Oral (given by mouth) 3 times a day as needed for as needed for cough Duration: 10 Days Pickup at [facility] New codeine-guaifenesin (codeine-guaifenesin 10 mg-100 mg/ 5 mL oral syrup) 10 Milliliters Oral (given by mouth) Every 4 hours as needed for as needed for cough Duration: 7 Days Pickup at [facility] New ondansetron (!-Zofran ODT 4 mg oral tablet, disintegrating) 1 tab Oral (given by mouth) Every 6 hours as needed for as needed for nausea/vomiting Duration: 7 Days Pickup at [facility] Unchanged amitriptyline Unchanged buprenorphine-naloxone (Suboxone) 10 Milligrams Unchanged omeprazole Unchanged sertraline (Zoloft) Unchanged sucralfate (Carafate) Pharmacy Information [id number]: [address], [place] [id number] [phone] Education Materials Upper Respiratory Infection, Adult An upper respiratory infection (URI) is a common viral infection of the nose, throat, and upper airpassages that lead to the lungs. The most common type of URI is the common cold. URIs usually get better on their own, without medical treatment. What are the causes? A URI is caused by a virus. You may catch a virus by: ? Breathing in droplets from an infected person's cough or sneeze. ? Touching something that has been exposed to the virus (contaminated) and then touching your mouth, nose, or eyes. What increases the risk? You are more likely to get a URI if: ? You are very young or very old. ? It is kike or winter. ? You have close contact with others, such as at a daycare, school, or health care facility. ? You smoke. ? You have long-term (chronic) heart or lung disease. ? You have a weakened disease-fighting (immune) system. ? You have nasal allergies or asthma. ? You are experiencing a lot of stress. ? You work in an area that has poor air circulation. ? You have poor nutrition. What are the signs or symptoms? A URI usually involves some of the following symptoms: ? Runny or stuffy (congested) nose. ? Sneezing. ? Cough. ? Sore throat. ? Headache. ? Fatigue. ? Fever. ? Loss of appetite. ? Pain in your forehead, behind your eyes, and over your cheekbones (sinus pain). ? Muscle aches. ? Redness or irritation of the eyes. ? Pressure in the ears or face. How is this diagnosed? This condition may be diagnosed based on your medical history and symptoms, and a physical exam. Your health care provider may use a cotton swab to take a mucus sample from your nose (nasal swab). This sample can be tested to determine what virus is causing the illness. How is this treated? URIs usually get better on their own within 7???10 days. You can take steps at home to relieve yoursymptoms. Medicines cannot cure URIs, but your health care provider may recommend certain medicinesto help relieve symptoms, such as: ? Ucgv-jul-nlgaadt cold medicines. ? Cough suppressants. Coughing is a type of defense against infection that helps to clear the respiratory system, so take these medicines only as recommended by your health care provider. ? Fever-reducing medicines. Follow these instructions at home: Activity ? Rest as needed. ? If you have a fever, stay home from work or school until your fever is gone or until your health care provider says you are no longer contagious. Your health care provider may have you wear a face mask to prevent your infection from spreading. Relieving symptoms ? Gargle with a salt-water mixture 3???4 times a day or as needed. To make a salt- water mixture, completely dissolve ?1 tsp of salt in 1 cup of warm water. ? Use a cool-mist humidifier to add moisture to the air. This can help you breathe more easily. Eating and drinking ? Drink enough fluid to keep your urine pale yellow. ? Eat soups and other clear broths. General instructions ? Take zbyw-ydc-azkaxkr and prescription medicines only as told by your health care provider. These include cold medicines, fever reducers, and cough suppressants. ? Do not use any products that contain nicotine or tobacco, such as cigarettes and e-cigarettes. If you need help quitting, ask your health care provider. ? Stay away from secondhand smoke. ? Stay up to date on all immunizations, including the yearly (annual) flu vaccine. ? Keep all follow-up visits as told by your health care provider. This is important. How to prevent the spread of infection to others ? URIs can be passed from person to person (are contagious). To prevent the infection from spreading: ? Wash your hands often with soap and water. If soap and water are not available, use hand teacher of the sight impaired. ? Avoid touching your mouth, face, eyes, or nose. ? Cough or sneeze into a tissue or your sleeve or elbow instead of into your hand or into the air. Contact a health care provider if: ? You are getting worse instead of better. ? You have a fever or chills. ? Your mucus is brown or red. ? You have yellow or brown discharge coming from your nose. ? You have pain in your face, especially when you bend forward. ? You have swollen neck glands. ? You have pain while swallowing. ? You have white areas in the back of your throat. Get help right away if: ? You have shortness of breath that gets worse. ? You have severe or persistent: ? Headache. ? Ear pain. ? Sinus pain. ? Chest pain. ? You have chronic lung disease along with any of the following: ? Wheezing. ? Prolonged cough. ? Coughing up blood. ? A change in your usual mucus. ? You have a stiff neck. ? You have changes in your: ? Vision. ? Hearing. ? Thinking. ? Mood. Summary ? An upper respiratory infection (URI) is a common infection of the nose, throat, and upper air passages that lead to the lungs. ? A URI is caused by a virus. ? URIs usually get better on their own within 7???10 days. ? Medicines cannot cure URIs, but your health care provider may recommend certain medicines to help relieve symptoms. This information is not intended to replace advice given to you by your health care provider. Make sure you discuss any questions you have with your health care provider. Document Revised: 05/02/2021 Document Reviewed: 05/02/2021 [employer] Patient Education ?? 2021 [employer]. Tests Performed Medications and Immunizations Administered Given 0.9% NaCl bolus, 1000 mL, IV Bolus doxycycline monohydrate, 100 mg, Oral Toradol, 15 mg, IV Push Zofran, 4 mg, IV Push Lab Test Name Test Result Date/Time WBC 10.7 x10^3/mcL 08/12/2022 14:10 EST RBC 3.8 x10^6/mcL 08/12/2022 14:10 EST Hgb 12.9 g/dL 08/12/2022 14:10 EST Hct 39.0 % 08/12/2022 14:10 EST MCV 101.3 08/12/2022 14:10 EST MCH 33.5 pg 08/12/2022 14:10 EST MCHC 33.1 g/dL 08/12/2022 14:10 EST RDW-CV 12.9 % 08/12/2022 14:10 EST Platelets 247 x10^3/mcL 08/12/2022 14:10 EST Neutro Auto 76.1 % 08/12/2022 14:10 EST Lymph Auto 16.9 % 08/12/2022 14:10 EST Bartholomew Auto 5.7 % 08/12/2022 14:10 EST Eos, Auto 0.5 % 08/12/2022 14:10 EST Basophil Auto 0.4 % 08/12/2022 14:10 EST Imm Gran Auto 0.4 % 08/12/2022 14:10 EST Neutro Absolute 8.1 x10^3/mcL 08/12/2022 14:10 EST Sodium Level 138 mmol/L 08/12/2022 14:10 EST Potassium Level 3.6 mmol/L 08/12/2022 14:10 EST Chloride Level 103 mmol/L 08/12/2022 14:10 EST CO2 31 mmol/L 08/12/2022 14:10 EST Alk Phos 69 unit/L 08/12/2022 14:10 EST AST 10 unit/L 08/12/2022 14:10 EST ALT 14 unit/L 08/12/2022 14:10 EST BUN 7 mg/dL 08/12/2022 14:10 EST Glucose Level 95 mg/dL 08/12/2022 14:10 EST Creatinine Level 0.81 mg/dL 08/12/2022 14:10 EST eGFR AA 93 08/12/2022 14:10 EST eGFR Non-AA 93 08/12/2022 14:10 EST Calcium Level 9.0 mg/dL 08/12/2022 14:10 EST Protein Total 7.4 g/dL 08/12/2022 14:10 EST Albumin Level 3.2 g/dL 08/12/2022 14:10 EST Bilirubin Total 0.6 mg/dL 08/12/2022 14:10 EST Patient/Aircraft [employer]ic Structures Signature Patient Name:ESTEBAN LARA I have received this information and my questions have been answered. Patient/Aircraft Mechanic Structures Name: Patient/Aircraft Mechanic Structures Signature: Relationship to Patient: Witness Name/Signature: Date: Electronically Signed on: 08/12/2022 15:17 ESTSigned by: Patient Care team information Personnel Name: Charly Russell Address: Address: [address] [place] [address]-
--- OUTSIDE RECORDS SUMMARY | 2023-09-06 11:15 | XMS_ITS | Continuity of Care Document ---
Author Name Unknown Organization [facility] Address [address] [place] [address] Care Team Providers Care [employer] Service Attendant Name Role Phone Charly Russell Primary Care Physician Encounter [facility] Date(s): 11/15/22 - 11/15/[address] [id number] Encounter Diagnosis Pleurisy(Discharge Diagnosis) - 11/15/22 Discharge Disposition: Home or Self Care Attending Physician: Migel Campo MD Admitting Physician: Migel Campo MD Allergies, Adverse Reactions, Alerts Substance Reaction Severity Status erythromycin Unknown Active simvastatin Unknown Active Functional Status 11/15/22 Other exposure to Infectious Disease COV ID-19 Symptoms Present Medications amitriptyline 0 Refill(s) Start Date: 02/20/22 Status: Ordered Carafate 0 Refill(s) Start Date: 02/20/22 Status: Ordered Lidoderm 5% topical film 1 patches, Topical, Daily, remove patches after 12 hours, X 10 days, # 10 patches, 0 Refill(s), 11/25/22 9:24:00 EDT, Pharmacy: [id number], 149, cm, 11/15/22 7:15:00 EST, Height/Length Dosing,75, kg, 11/15/22 7:15:00 EST, Weight Dosing Start Date: 11/15/22 Stop Date: 11/25/22 Status: Ordered MiraLax oral powder for reconstitution 17 g, Oral, Daily, # 238 g, 0 Refill(s), Pharmacy: [facility], 149, cm, 10/07/22 10:57:00 EST, Height/Length Dosing, 75.4, kg, 10/07/22 10:57:00 EST, Weight Dosing Start Date: 10/07/22 Status: Ordered naproxen 500 mg oral tablet 500 mg = 1 tab, Oral, every 12 hr, X 10 days, # 20 tab, 0 Refill(s), 11/25/22 9:24:00 EDT, Pharmacy: [facility], 149, cm, 11/15/22 7:15:00 EST, Height/Length Dosing, 75, kg, 11/15/22 7:15:00 EST, Weight Dosing Start Date: 11/15/22 Stop Date: 11/25/22 Status: Ordered omeprazole 0 Refill(s) Start Date: 02/20/22 Status: Ordered Suboxone 10 mg, 0 Refill(s) Start Date: 02/20/22 Status: Ordered Tessalon Perles 100 mg oral capsule 200 mg = 2 cap, Oral, TID, PRN as needed for cough, X 10 days, # 30 cap, 0 Refill(s), 11/25/22 9:24:00 EDT, Pharmacy: [id number], 149, cm, 11/15/22 7:15:00 EST, Height/Length Dosing, 75, kg, 11/15/22 7:15:00 EST, Weight Dosing Start Date: 11/15/22 Stop Date: 11/25/22 Status: Ordered Zoloft 0 Refill(s) Start Date: 02/20/22 Status: Ordered Results Laboratory List Name Date CBC w/ Diff 11/15/22 Comprehensive Metabolic Panel 11/15/22 D-Dimer 11/15/22 Troponin-I 11/15/22 SARS-CoV-2 (COVID-19)/Flu/RSV (GeneXpert ) (COVID-19/Flu/RSV (GeneXpert)) 11/15/22 Automated Diff 11/15/22 Most recent to oldest [Reference Range]: 1 WBC [5.0-10.0 x10^3/mcL] 6.5 x10^3/mcL (11/15/22 8:35 AM) RBC [4.1-5.3 x10^6/mcL] 4.2 x10^6/mcL (11/15/22 8:35 AM) Neutro Auto [40.0-75.0 %] 52.3 % (11/15/22 8:35 AM) Lymph Auto [20.0-50.0 %] 37.6 % (11/15/22 8:35 AM) Storey Auto [2.0-15.0 %] 6.3 % (11/15/22 8:35 AM) Basophil Auto [0.0-1.0 %] 0.8 % (11/15/22 8:35 AM) BUN [7-18 mg/dL] 11 mg/dL (11/15/22:34 AM) Glucose Level [74-106 mg/dL] 92 mg/dL (11/15/22 8:34 AM) Potassium Level [3.5-5.1 mmol/L] 3.7 mmo l/L (11/15/22:34 AM) MCV [80.0-96.0] 98.6 *HI* (11/15/22 8:35 AM) AST [15-37 unit/L] 12 unit/L *LOW* (11/15/22:34 AM) ALT [14-59 unit/L] 14 unit/L (11/15/22 8:34 AM) MCHC [31.0-35.0 g/dL] 33.6 g/dL (11/15/22 8:35 AM) Troponin-I [0.0-51.4 pg/mL] <5.0 pg/mL (11/15/22 8:34 AM) Sodium Level [136-145 mmol/L] 142 mmol/L (11/15/22 8:34 AM) Hct [37.0-47.0 %] 41.4 % (11/15/22 8:35 AM) Calcium Level [8.5-10.1 mg/dL] 9.2 mg/dL (11/15/22 8:34 AM) Albumin Level [3.4-5.0 g/dL] 3.4 g/dL (11/15/22 8:34 AM) Protein Total [6.4-8.2 g/dL] 6.9 g/dL (11/15/22 8:34 AM) MCH [26.0-32.0 pg] 33.1 pg *HI* (11/15/22 8:35 AM) Neutro Absolute 3.4 x10^3/mcL *NA* (11/15/22 8:35 AM) Bilirubin Total [0.2-1.0 mg/dL] 0.3 mg/d L (11/15/22 8:34 AM) Hgb [12.0-16.0 g/dL] 13.9 g/dL (11/15/22 8:35 AM) Alk Phos [46-146 unit/L] 69 unit/L (11/15/22 8:34 AM) Platelets [130-450 x10^3/mcL] 249 x10^3/ mcL (11/15/22 8:35 AM) CO2 [21-32 mmol/L] 26 mmol/L (11/15/22 8:34 AM) eGFR Non-AA [>=60] 101 (11/15/22 8:34 AM) eGFR AA [>=60] 101 (11/15/22 8:34 AM) Chloride Level [98-107 mmol/L] 107 mmol/ L (11/15/22 8:34 AM) RDW-CV [11.7-17.0 %] 13.5 % (11/15/22 8:35 AM) Imm Gran Auto [0.0-0.9 %] 0.2 % (11/15/22 8:35 AM) Creatinine Level [0.55-1.02 mg/dL] 0.76 mg/dL (11/15/22 8:34 AM) Employed in healthcare? No *NA* (11/15/22 7:32 AM) Symptomatic as defined by CDC? No *NA* (11/15/22 7:32 AM) Hospitalized due to COVID-19? No *NA* (11/15/22 7:32 AM) In ICU? No *NA* (11/15/22 7:32 AM) Group care resident? No *NA* (11/15/22 7:32 AM) status? Not *NA* (11/15/22 7:32 AM) SARS-CoV-2(Covid19)PCR(GXpert COVFLURSV) [Negative] Negative (11/15/22 7:32 AM) Flu A (GXpert COVFLURSV) [Negative] Nega tive (11/15/22 7:32 AM) RSV (GXpert COVFLURSV) [Negative] Negati ve (11/15/22 7:32 AM) Flu B (GXpert COVFLURSV) [Negative] Nega tive (11/15/22 7:32 AM) D Dimer, (Quant.) [0.00-0.50 mg/L] 0.26 mg/L (11/15/22 8:34 AM) Eos, Auto [1.0-6.0 %] 2.8 % (11/15/22 8:35 AM) Vital Signs Most recent to oldest [Reference Range]: 1 2 3 Temperature Temporal Artery [36-38 Deg C] 35.9 Deg C *LOW* (11/15/22 7:08 AM) Peripheral Pulse Rate [60-100 bpm] 61 bpm (11/15/22 8:30 AM) 66 bpm (11/15/22 8:00 AM) 73 bpm (11/15/22 7:30 AM) Heart Rate Monitored [60-100 bpm] 71 bpm (11/15/22 9:30 AM) 58 bpm *LOW* (11/15/22 9:00 AM) 71 bpm (11/15/22 8:30 AM) Respiratory Rate [12-24 br/min] 18 br/min (11/15/22 9:30 AM) 18 br/min (11/15/22 9:00 AM) 15 br/min (11/15/22 8:30 AM) Blood Pressure [90-140/60-90 mmHg] 119/86mmHg (11/15/22 8:00 AM) 128/84mmHg (11/15/22 7:08 AM) Weight Dosing 75.00 kg (11/15/22 7:15 AM) Weight Estimated 75.00 kg (11/15/22 7:08 AM) Height/Length Dosing 149.000 cm (11/15/22 7:15 AM) Height/Length Estimated 149.000 cm (11/15/22 7:08 AM) Social History Social History Type Response Tobacco Current everyday tob acco user Tobacco Use:. 1 ppd per day. Sex Female Hospital Discharge Instructions Patient Education 11/15/2022 08:24:06 Pleurisy Pleurisy Pleurisy is irritation and inflammation of the linings of the lungs (pleura). Pleura cover the outside of the lungs and the inside of the chest wall. Normally, there is a small amount of fluid (pleural fluid) between the pleura that allows the lungsto move in and out smoothly when you breathe. Pleurisy can cause the pleura to be rough and dry andrub together when breathing, making it difficult to breathe or cough. In some cases, pleurisy can be associated with a buildup of fluid between the pleura (pleural effusion). Pleurisy is also called pleuritis. What are the causes? Common causes of this condition include: ??? A lung infection caused by bacteria or a virus. ??? A blood clot that travels to the lungs (pulmonary embolism). ??? Air leaking into the pleural space (pneumothorax). This can happen due to injury or trauma to the chest. ??? Lung cancer or a lung tumor. ??? Heart or chest surgery. ??? Lung damage from inhaling asbestos. ??? A lung reaction to certain medicines, or treatments for cancer, such as chemotherapy or radiation therapy to the chest. ??? Diseases that can cause lung inflammation. These include rheumatoid arthritis, lupus, sickle cell disease, inflammatory bowel disease, and pancreatitis. Sometimes, the cause of this condition is not known. What are the signs or symptoms? The main symptom of this condition is chest pain. The pain is usually on one side. Chest pain may start suddenly and be sharp or stabbing. It may become a constant dull ache. You may also feel pain in your back or shoulder. The pain may get worse when you cough, take deep breaths, or make sudden movements. Other symptoms may include: ??? Shortness of breath. ??? Noisy breathing (wheezing or rattling). ??? Cough. ??? Chills. ??? Fever. ??? Coughing up blood (hemoptysis) or yellowish mucus from your lungs (sputum). Symptoms can be worse with certain positions, such as when lying down or lying to one side. Signs and symptoms of pleurisy may be very similar to the signs and symptoms of a heart attack or inflammation of the heart (pericarditis). How is this diagnosed? This condition may be diagnosed based on: ??? Your medical history, especially if you have heart or lung disease. ??? Your symptoms. ??? A physical exam. Your health care provider will listen to your breathing with a stethoscope to check for a rough, rubbing sound (friction rub) when you breathe. Your breath sounds may be muffled and decreased on the affected side. ??? Tests. You may have: ??? Blood tests to check for infections or diseases and to measure the oxygen in your blood. ??? An EKG to look at your heart rhythm. ??? Imaging tests of your lungs. These may include a chest X-ray, ultrasound, an MRI, or a CT scan. ??? A procedure using a needle to remove pleural fluid for testing (thoracentesis). How is this treated? Treatment for this condition depends on the cause. Pleurisy that was caused by a virus usually clears up within 2 weeks. Treatment for pleurisy may include: ??? NSAIDs, such as ibuprofen, to help relieve pain and inflammation. ??? Antibiotic medicines, if your condition was caused by a bacterial infection. ??? Prescription pain medicine or cough medicine. ??? Blood-thinning (anticoagulant) medicines to treat blood clots, if your condition was caused by pulmonary embolism. ??? Removal of pleural fluid (thoracentesis) or air, using a chest tube to vacuum fluid or air fromthe pleural space. Follow these instructions at home: Medicines ??? Take [id number]-lsokzlg and prescription medicines only as told by your health care provider. ??? If you were prescribed an antibiotic, take it as told by your health care provider. Do not stoptaking the antibiotic even if you start to feel better. ??? If you were prescribed medicines to remove extra fluid from your lungs (diuretics), take them as told by your health care provider. ??? If you were prescribed an anticoagulant, take it exactly as told by your health care provider. This is important. Activity ??? Rest and return to your normal activities as told by your health care provider. Ask your healthcare provider what activities are safe for you. ??? Ask your health care provider if the medicine prescribed to you requires you to avoid driving or using machinery. General instructions ??? Watch for any changes in your condition. ??? Take deep breaths often, even if it is painful. This can help prevent lung infection (pneumonia) and collapse of lung tissue (atelectasis). ??? You may be given a medical illustrator (incentive spirometer) to help exercise your lungs and breathing, to prevent lung complications. ??? Do not use any products that contain nicotine or tobacco, such as cigarettes, e-cigarettes, andchewing tobacco. If you need help quitting, ask your health care provider. ??? Keep all follow-up visits as told by your health care provider. This is important. Contact a health care provider if: ??? You have pain that: ??? Gets worse or more frequent. ??? Does not get better with medicines you were prescribed. ??? You have a fever or chills. ??? Your cough or shortness of breath is not improving or getting worse. ??? You cough up pus-like (purulent) fluid. Get help right away if: ??? You cough up blood. ??? You have any of the following symptoms that get worse: ??? Difficulty breathing with activity, especially minimal activity. ??? Shortness of breath. ??? Wheezing. ??? You have pain that spreads into your neck, arms, or jaw. ??? You feel dizzy or faint. These symptoms may represent a serious problem that is an emergency. Do not wait to see if the symptoms will go away. Get medical help right away. Call your local emergency services (911 in the [place] Do not drive yourself to the hospital. Summary ??? Pleurisy is inflammation of the linings of the lungs. Pleurisy causes pain that makes it difficult for you to breathe or cough. ??? Do not use any products that contain nicotine or tobacco, such as cigarettes, e-cigarettes, andchewing tobacco. If you need help quitting, ask your health care provider. ??? Rest and return to your normal activities as told by your health care provider. Ask your healthcare provider what activities are safe for you. ??? Keep all follow-up visits as told by your health care provider. This is important. This information is not intended to replace advice given to you by your health care provider. Make sure you discuss any questions you have with your health care provider. Document Revised: 09/27/2020 Document Reviewed: 09/27/2020 [employer] Patient Education ?? 2021 [email or web address]. Follow Up Care 11/15/2022 07:07:57 With:Charly Russell MD Address: [facility] [address] [place] [address]- When:1 week Comments:If needed Emergency department Discharge instructions * Migel Campo MD: PERFORM Event Display: ED Discharge Information Authored Date: [id number] ESTEBAN LARA :1980 Age:42 years Sex:Female Visit Date:11/15/2022 Primary Care Physician: Charly Russell MD Discharge Instructions We would like to thank you for allowing us to assist you with your healthcare needs. The following includes patient education materials and information regarding your injury/illness. Diagnosis from Today's Visit Pleurisy Discharge Vitals Temperature??(Temporal Artery) 96.6 ??F (35.9 ??C) Heart Rate??(Peripheral) 71 Respiratory Rate?? 12 Blood Pressure?? 128/84?? Height?? 58.66 in (149.000 cm) Weight??(Estimated) 165.38 lb (75.00 kg) Allergies erythromycin simvastatin What to Do Next Instructions from Your Care Team Thank you for coming to the emergency department today, it has been a pleasure to take care of you.??Your chest x-ray today did not show signs of pneumonia, your lab testing??for heart attack or heart damage (troponin) was reassuring, your D-dimer??which checks for signs of blood clots with your long recent car ride was normal, your kidney function and cell counts today were also normal. ??Your swab checking for??COVID, flu, and RSV was negative today.?? As we discussed, sometimes??the lung/chest wall lining or??the joint between the rib and breastbone can cause sharp pain??with deep breathing??or coughing.?? Anti- inflammatory medications such as ibuprofen or naproxen are the recommended fi rst-line treatment for this.?? You may try the lidocaine patches as well to see if this helps the area. ??Please follow-up with your regular doctor within the next week or so if you are still having symptoms and return to the emergency department if you have any new or concerning symptoms includingany new or worsening pain, trouble breathing,??lightheadedness/dizziness/passing out, or if you have any other symptoms or concerns. You Need to Schedule the Following Appointments Follow Up with??Charly Russell MD When:??Within 1 week Why: If needed Where: [facility] [address] [place] [address]- You were treated today on an emergency [...] Emergency Department. Medications What How Much When Why Instructions Next Dose New benzonatate (Tessalon Perles 100 mg oral capsule) 2 Capsules Oral (given by mouth) 3 times a day as needed for as needed for cough Pleurisy Duration: 10 Days Pickup at [facility] New lidocaine topical (Lidoderm 5% topical film) 1 patch(es) Topical (on the skin) Every day Pleurisy Duration: 10 Days remove patches after 12 hours ?? Pickup at [facility] New naproxen (naproxen 500 mg oral tablet) 1 tab Oral (given by mouth) Every 12 hours Pleurisy Duration: 10 Days Pickup at [facility] Unchanged amitriptyline Unchanged buprenorphine-naloxone (Suboxone) 10 Milligrams Unchanged omeprazole Unchanged polyethylene glycol 3350 (MiraLax oral powder for reconstitution) 17 Gram Oral (given by mouth) Every day Constipation Unchanged sertraline (Zoloft) Unchanged sucralfate (Carafate) Pharmacy Information [facility]: [address], [place] [id number] [phone] [employer] Pleurisy Pleurisy is irritation and inflammation of the linings of the lungs (pleura). Pleura cover the outside of the lungs and the inside of the chest wall. Normally, there is a small amount of fluid (pleural fluid) between the pleura that allows the lungsto move in and out smoothly when you breathe. Pleurisy can cause the pleura to be rough and dry andrub together when breathing, making it difficult to breathe or cough. In some cases, pleurisy can be associated with a buildup of fluid between the pleura (pleural effusion). Pleurisy is also called pleuritis. What are the causes? Common causes of this condition include: ? A lung infection caused by bacteria or a virus. ? A blood clot that travels to the lungs (pulmonary embolism). ? Air leaking into the pleural space (pneumothorax). This can happen due to injury or trauma to the chest. ? Lung cancer or a lung tumor. ? Heart or chest surgery. ? Lung damage from inhaling asbestos. ? A lung reaction to certain medicines, or treatments for cancer, such as chemotherapy or radiation therapy to the chest. ? Diseases that can cause lung inflammation. These include rheumatoid arthritis, lupus, sickle cell disease, inflammatory bowel disease, and pancreatitis. Sometimes, the cause of this condition is not known. What are the signs or symptoms? The main symptom of this condition is chest pain. The pain is usually on one side. Chest pain may start suddenly and be sharp or stabbing. It may become a constant dull ache. You may also feel pain in your back or shoulder. The pain may get worse when you cough, take deep breaths, or make sudden movements. Other symptoms may include: ? Shortness of breath. ? Noisy breathing (wheezing or rattling). ? Cough. ? Chills. ? Fever. ? Coughing up blood (hemoptysis) or yellowish mucus from your lungs (sputum). Symptoms can be worse with certain positions, such as when lying down or lying to one side. Signs and symptoms of pleurisy may be very similar to the signs and symptoms of a heart attack or inflammation of the heart (pericarditis). How is this diagnosed? This condition may be diagnosed based on: ? Your medical history, especially if you have heart or lung disease. ? Your symptoms. ? A physical exam. Your health care provider will listen to your breathing with a stethoscope to check for a rough, rubbing sound (friction rub) when you breathe. Your breath sounds may be muffled and decreased on the affected side. ? Tests. You may have: ? Blood tests to check for infections or diseases and to measure the oxygen in your blood. ? An EKG to look at your heart rhythm. ? Imaging tests of your lungs. These may include a chest X-ray, ultrasound, an MRI, or a CT scan. ? A procedure using a needle to remove pleural fluid for testing (thoracentesis). How is this treated? Treatment for this condition depends on the cause. Pleurisy that was caused by a virus usually clears up within 2 weeks. Treatment for pleurisy may include: ? NSAIDs, such as ibuprofen, to help relieve pain and inflammation. ? Antibiotic medicines, if your condition was caused by a bacterial infection. ? Prescription pain medicine or cough medicine. ? Blood-thinning (anticoagulant) medicines to treat blood clots, if your condition was caused by pulmonary embolism. ? Removal of pleural fluid (thoracentesis) or air, using a chest tube to vacuum fluid or air from thepleural space. Follow these instructions at home: Medicines ? Take gvvm-gcm-okxgdte and prescription medicines only as told by your health care provider. ? If you were prescribed an antibiotic, take it as told by your health care provider. Do not stop taking the antibiotic even if you start to feel better. ? If you were prescribed medicines to remove extra fluid from your lungs (diuretics), take them as told by your health care provider. ? If you were prescribed an anticoagulant, take it exactly as told by your health care provider. Thisis important. Activity ? Rest and return to your normal activities as told by your health care provider. Ask your health care provider what activities are safe for you. ? Ask your health care provider if the medicine prescribed to you requires you to avoid driving or using machinery. General instructions ? Watch for any changes in your condition. ? Take deep breaths often, even if it is painful. This can help prevent lung infection (pneumonia) and collapse of lung tissue (atelectasis). ? You may be given a medical illustrator (incentive spirometer) to help exercise your lungs and breathing,to prevent lung complications. ? Do not use any products that contain nicotine or tobacco, such as cigarettes, e- cigarettes, and chewing tobacco. If you need help quitting, ask your health care provider. ? Keep all follow-up visits as told by your health care provider. This is important. Contact a health care provider if: ? You have pain that: ? Gets worse or more frequent. ? Does not get better with medicines you were prescribed. ? You have a fever or chills. ? Your cough or shortness of breath is not improving or getting worse. ? You cough up pus-like (purulent) fluid. Get help right away if: ? You cough up blood. ? You have any of the following symptoms that get worse: ? Difficulty breathing with activity, especially minimal activity. ? Shortness of breath. ? Wheezing. ? You have pain that spreads into your neck, arms, or jaw. ? You feel dizzy or faint. These symptoms may represent a serious problem that is an emergency. Do not wait to see if the symptoms will go away. Get medical help right away. Call your local emergency services (911 in the [place] Do not drive yourself to the hospital. Summary ? Pleurisy is inflammation of the linings of the lungs. Pleurisy causes pain that makes it difficult for you to breathe or cough. ? Do not use any products that contain nicotine or tobacco, such as cigarettes, e- cigarettes, and chewing tobacco. If you need help quitting, ask your health care provider. ? Rest and return to your normal activities as told by your health care provider. Ask your health care provider what activities are safe for you. ? Keep all follow-up visits as told by your health care provider. This is important. This information is not intended to replace advice given to you by your health care provider. Make sure you discuss any questions you have with your health care provider. Document Revised: 09/27/2020 Document Reviewed: 09/27/2020 [employer] Patient Education ?? 2021 [employer] Tests Performed Medications and Immunizations Administered Given Toradol, 15 mg, IV Push Lab Test Name Test Result Date/Time WBC 6.5 x10^3/mcL 11/15/2022 08:35 EST RBC 4.2 x10^6/mcL 11/15/2022 08:35 EST Hgb 13.9 g/dL 11/15/2022 08:35 EST Hct 41.4 % 11/15/2022 08:35 EST MCV 98.6 11/15/2022 08:35 EST MCH 33.1 pg 11/15/2022 08:35 EST MCHC 33.6 g/dL 11/15/2022 08:35 EST RDW-CV 13.5 % 11/15/2022 08:35 EST Platelets 249 x10^3/mcL 11/15/2022 08:35 EST Neutro Auto 52.3 % 11/15/2022 08:35 EST Lymph Auto 37.6 % 11/15/2022 08:35 EST Storey Auto 6.3 % 11/15/2022 08:35 EST Eos, Auto 2.8 % 11/15/2022 08:35 EST Basophil Auto 0.8 % 11/15/2022 08:35 EST Imm Gran Auto 0.2 % 11/15/2022 08:35 EST Neutro Absolute 3.4 x10^3/mcL 11/15/2022 08:35 EST D Dimer, (Quant.) 0.26 mg/L 11/15/2022 08:34 EST Sodium Level 142 mmol/L 11/15/2022 08:34 EST Potassium Level 3.7 mmol/L 11/15/2022 08:34 EST Chloride Level 107 mmol/L 11/15/2022 08:34 EST CO2 26 mmol/L 11/15/2022 08:34 EST Alk Phos 69 unit/L 11/15/2022 08:34 EST AST 12 unit/L 11/15/2022 08:34 EST ALT 14 unit/L 11/15/2022 08:34 EST BUN 11 mg/dL 11/15/2022 08:34 EST Glucose Level 92 mg/dL 11/15/2022 08:34 EST Creatinine Level 0.76 mg/dL 11/15/2022 08:34 EST eGFR AA 101 11/15/2022 08:34 EST eGFR Non-AA 101 11/15/2022 08:34 EST Calcium Level 9.2 mg/dL 11/15/2022 08:34 EST Protein Total 6.9 g/dL 11/15/2022 08:34 EST Albumin Level 3.4 g/dL 11/15/2022 08:34 EST Bilirubin Total 0.3 mg/dL 11/15/2022 08:34 EST Troponin-I <5.0 pg/mL 11/15/2022 08:34 EST Employed in healthcare? No 11/15/2022 07:32 EST Symptomatic as defined by CDC? No 11/15/2022 07:32 EST Hospitalized due to COVID-19? No 11/15/2022 07:32 EST In ICU? No 11/15/2022 07:32 EST Group care resident? No 11/15/2022 07:32 EST status? 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 Signature: Relationship to Patient: Witness Name/Signature: Date: Electronically Signed on: 11/15/2022 09:25 ESTSigned by:SHAHIDA Emergency department Note * Lynsey Chandler: PERFORM Event Display: ED Notes Authored Date: [id number] Patient Care team information Care Team Personnel Name: Charly Russell MD Position: No Access Member Role: Primary Care Physician Address: Address: [address] [id number] Name: Luna Gee Position: Nurse Member Role: ED Nurse Name: Migel Campo MD Position: Physician Member Role: Admitting Physician Address: Address: [address] [place] [address] [address] [place] [address] [place] Care Team Related Persons Name: CORDELL HOANG Name: SONU MCDONALD
--- OUTSIDE RECORDS SUMMARY | 2023-09-06 11:15 | XMS_ITS | Continuity of Care Document ---
Author Name Unknown Organization [facility] Address [address] [place] [id number] Care Team Providers Care Bending Roll Hand Name Role Phone SENAIT CHEW, JAVIER Tanner Primary Care Physician Encounter [facility] FIN NBR [id number] Date(s): 04/10/23 - 04/10/[address] [address] [place] Encounter Diagnosis Gastritis(Discharge Diagnosis) - 04/10/23 Discharge Disposition: Home or Self Care Attending Physician: Gurinder Watkins MD Admitting Physician: Gurinder Watkins MD Allergies, Adverse Reactions, Alerts Substance Reaction Severity Status erythromycin Unknown Active simvastatin Unknown Active Functional Status 04/10/23 Other exposure to Infectious Disease Non e Medications omeprazole 20 mg oral delayed release capsule 20 mg = 1 cap, Oral, Daily, before a meal, X 30 days, # 30 cap, 0 Refill(s), 05/10/23 3:11:00 PM CDT Start Date: 04/10/23 Stop Date: 05/10/23 Status: Ordered omeprazole 40 mg oral delayed release capsule TAKE ONE CAPSULE BY MOUTH EVERY DAY Start Date: 04/10/23 Status: Ordered sertraline 50 mg oral tablet TAKE ONE TABLET BY MOUTH EVERY DAY Start Date: 04/10/23 Status: Ordered Suboxone 2 mg-0.[address] ONE FILM UNDER THE TONGUE EVERY DAY. MAXIMUM DAILY DOSE = 10MG Start Date: 04/10/23 Status: Ordered Suboxone 8 mg-[address] ONE FILM UNDER THE TONGUE EVERY DAY ALONG WITH 2MG STRIP. MAXIMUM DAILY DOSE = 10MG Start Date: 04/10/23 Status: Ordered Mental Status 04/10/23 Eye Opening Response [place] Spontaneous ly Best Verbal Response Lorraine Oriented Best Motor Response Lorraine Obeys comman ds Lorraine Coma Score 15 Results Laboratory List Name Date CBC w/ Diff 8/4/23 Comprehensive Metabolic Panel (CMP) Lipase Level 04/10/23 Urinalysis with Micro if Indicated and C ulture if Indicated 04/10/23 Automated Diff 04/10/23 Most recent to oldest [Reference Range]: 1 WBC [4.8-10.8 K/mcL] 6.5 K/mcL (04/10/23 1:25 PM) RBC [4.20-5.40 Million/mcL] 4.47 Million /mcL (04/10/23 1:25 PM) Neutro Auto [42.2-75.2 %] 54.3 % (04/10/23 1:25 PM) Lymph Auto [20.5-51.1 %] 35.5 % (04/10/23 1:25 PM) Gaston Auto [1.7-9.3 %] 6.8 % (04/10/23 1:25 PM) Basophil Auto [0.0-0.8 %] 1.2 % *HI* (04/10/23 1:25 PM) BUN [8-26 mg/dL] 6 mg/dL *LOW* (04/10/23 1:25 PM) UA Color [Yellow] Yellow (04/10/23 1:15 PM) Glucose Level [74-106 mg/dL] 94 mg/dL (04/10/23 1:25 PM) Potassium Level [3.5-5.1 mmol/L] 3.9 mmo l/L (04/10/23 1:25 PM) Baso Absolute [0.0-0.2 K/mcL] 0.1 K/mcL (04/10/23 1:25 PM) MCV [81.0-99.0 fL] 97.1 fL (04/10/23 1:25 PM) UA Urobilinogen [0.2] 1.0 *ABN* (04/10/23 1:15 PM) UA Bili [Negative] Negative (04/10/23 1:15 PM) UA Ketones [Negative] Negative (04/10/23 1:15 PM) AST [15-41 IntlUnit/L] 15 IntlUnit/L (04/10/23 1:25 PM) ALT [14-54 IntlUnit/L] 8 IntlUnit/L *LOW* (04/10/23 1:25 PM) MCHC [32.0-36.0 g/dL] 33.9 g/dL (04/10/23 1:25 PM) Osmolality [275-295 mOsm/kg] 275 mOsm/kg (04/10/23 1:25 PM) Sodium Level [134-143 mmol/L] 139 mmol/L (04/10/23 1:25 PM) UA Leuk Est [Negative] Negative (04/10/23 1:15 PM) Lymph Absolute [1.2-3.4 K/mcL] 2.3 K/mcL (04/10/23 1:25 PM) UA Nitrite [Negative] Negative (04/10/23 1:15 PM) UA Glucose [Negative] Negative (04/10/23 1:15 PM) Hct [37.0-47.0 %] 43.4 % (04/10/23 1:25 PM) Lipase Level [18-51 unit/L] 25 unit/L 1 (04/10/23 1:25 PM) Calcium Level [8.9-10.3 mg/dL] 9.7 mg/dL (04/10/23 1:25 PM) Gaston Absolute [0.1-0.6 K/mcL] 0.4 K/mcL (04/10/23 1:25 PM) Albumin Level [3.5-5.0 g/dL] 3.9 g/dL (04/10/23 1:25 PM) Protein Total [6.5-8.1 g/dL] 6.9 g/dL (04/10/23 1:25 PM) UA Protein [Negative] Negative (04/10/23 1:15 PM) MCH [27.0-31.0 pg] 32.9 pg *HI* (04/10/23 1:25 PM) Neutro Absolute [1.4-6.5 K/mcL] 3.5 K/mc L (04/10/23 1:25 PM) Bilirubin Total [0.2-1.2 mg/dL] 0.8 mg/d L (04/10/23 1:25 PM) Hgb [12.0-16.0 g/dL] 14.7 g/dL (04/10/23 1:25 PM) Alk Phos [38-130 IntlUnit/L] 57 IntlUnit /L (04/10/23 1:25 PM) UA Blood [Negative] Negative (04/10/23 1:15 PM) MPV [7.4-10.4 fL] 10.6 fL *HI* (04/10/23 1:25 PM) UA Spec Grav [1.001-1.030] 1.020 (04/10/23 1:15 PM) Platelets [130-400 K/mcL] 244 K/mcL (04/10/23 1:25 PM) CO2 [22-32 mmol/L] 26 mmol/L (04/10/23 1:25 PM) Eos Absolute [0.0-0.2 K/mcL] 0.1 K/mcL (04/10/23 1:25 PM) UA pH [5.00-9.00] 7.50 (04/10/23 1:15 PM) UA Appear [Clear] Clear (04/10/23 1:15 PM) Chloride Level [98-111 mmol/L] 105 mmol/ L (04/10/23 1:25 PM) RDW-CV [11.5-14.5 %] 13.0 % (04/10/23 1:25 PM) A/G Ratio 1.3 *NA* (04/10/23 1:25 PM) BUN/Creat Ratio [8.0-20.0] 7.1 *LOW* (04/10/23 1:25 PM) Globulin 3.0 *NA* (04/10/23 1:25 PM) Imm Gran Absolute 0.01 *NA* (04/10/23 1:25 PM) Imm Gran Auto [0.0-0.5 %] 0.2 % (04/10/23 1:25 PM) Urine Srce Clean Catch (04/10/23 1:15 PM) Creatinine Level [0.44-1.00 mg/dL] 0.84 mg/dL (04/10/23 1:25 PM) Anion Gap [3.0-12.0] 8.0 (04/10/23 1:25 PM) Eos, Auto [0.00-3.00 %] 2.00 % (04/10/23 1:25 PM) eGFR CKD-EPI [>=60 mL/min/1.73 m2] 89 mL /min/1.73 m2 (04/10/23 1:25 PM) 1Interpretive Data: U-amkqcc-h-benzoquinone imine (meabolite of Acetaminophen) will generate erroneously low lipase results in samples for patients that have taken toxic doses of acetaminophen. Radiology Reports * Exam Date Time Procedure Performing Provider Status 04/10/23 2:[address] Abdomen and Pelvis w/ Contrast Daniella Keith rd; Auth (Verified) Notes: (CT Abdomen and Pelvis w/ Contrast) Reason For Exam: abd pain CT Abdomen and Pelvis w/ Contrast EXAM DESCRIPTION: CT Abdomen and Pelvis w/ Contrast 04/10/2023 INDICATION: ABD PAIN TECHNIQUE: All CT scans at this facility use at least one of these dose optimization techniques: Automated exposure control; mA and/or kV adjustment per patient size (includes targeted exams where dose is matched to clinical indication); or iterative reconstruction. Technique: Axial CT images of the abdomen/pelvis with IV contrast administration 100 cc of Isovue-300 contrast was utilized COMPARISON: CT abdomen/pelvis without contrast from 10/10/2019 FINDINGS: No focal hepatic lesion. Normal enhancement of the main portal vein. The spleen is top-normal in size. No focal splenic lesion No calcified gallstones in the gallbladder. Adrenal glands and pancreas appear within limits No focal renal mass, hydronephrosis or perinephric fluid collection on either side Normal caliber abdominal aorta with scattered atherosclerotic calcifications. No retroperitoneal adenopathy in the abdomen or pelvis. No pelvic mass identified with apparent prior hysterectomy No bowel dilatation to suggest obstruction or ileus. No free intraperitoneal air, ascites or inflammatory changes. Appendix not identified. Mild curvilinear scarring in both lung bases. No suspicious regional osseous lesions. IMPRESSION: No acute findings in the abdomen or pelvis. No abdominal/pelvic mass or adenopathy Nonobstructive bowel pattern. No free air or inflammatory changes. JOB #: [id number] Final Signed by: Gage Matthews MD Signed (Electronic Signature): 04/10/2023 2:17 pm Vital Signs Most recent to oldest [Reference Range]: 1 2 Temperature Temporal Artery [36-38 Deg C ] 36.3 Deg C (8/4/23 12:08 PM) Peripheral Pulse Rate [60-100 bpm] 50 bp m *LOW* (04/10/23 4:08 PM) 60 bpm (04/10/23 12:08 PM) Respiratory Rate [12-24 br/min] 16 br/mi n (04/10/23 12:08 PM) Blood Pressure [90-140/60-90 mmHg] 116/7 8mmHg (04/10/23 4:08 PM) 133/83mmHg (04/10/23 12:08 PM) Mean Arterial Pressure Cuff 90 mmHg (04/10/23 4:08 PM) Weight Dosing 72.57 kg (04/10/23 12:30 PM) Weight Estimated 72.57 kg (04/10/23 12:08 PM) Height/Length Dosing 149.000 cm (04/10/23 12:30 PM) Height/Length Estimated 149.000 cm (04/10/23 12:08 PM) Social History Social History Type Response Tobacco Never tobacco user T obacco Use:. Sex Hospital Discharge Instructions Patient Education 04/10/2023 15:12:13 Gastritis, Adult Gastritis, Adult Gastritis is inflammation of the stomach. There are two kinds of gastritis: ??? Acute gastritis. This kind develops suddenly. ??? Chronic gastritis. This kind is much more common. It develops slowly and lasts for a long time. Gastritis happens when the lining of the stomach becomes weak or gets damaged. Without treatment, gastritis can lead to stomach bleeding and ulcers. What are the causes? This condition may be caused by: ??? An infection. ??? Drinking too much alcohol. ??? Certain medicines. These include steroids, antibiotics, and some rpqq-omg-rinmvio medicines, such as aspirin or ibuprofen. ??? Having too much acid in the stomach. ??? Having a disease of the stomach. Other causes may include: ??? An allergic reaction. ??? Some cancer treatments (radiation). ??? Smoking cigarettes or the use of products that contain nicotine or tobacco. In some cases, the cause of this condition is not known. What increases the risk? Having a disease of the intestines. ??? Having a disease in which the body's immune system attacks the body (autoimmune disease), such as Crohn's disease. ??? Using aspirin or ibuprofen and other NSAIDs to treat other conditions, such as heart disease orchronic pain. ??? Stress. What are the signs or symptoms? Symptoms of this condition include: ??? Pain or a burning sensation in the upper abdomen. ??? Nausea. ??? Vomiting. ??? An uncomfortable feeling of fullness after eating. ??? Weight loss. ??? Bad breath. ??? Blood in your vomit or stool (feces). In some cases, there are no symptoms. How is this diagnosed? This condition may be diagnosed based on your medical history, a physical exam, and tests. Tests may include: ??? Your medical history and a description of your symptoms. ??? A physical exam. ??? Tests. These can include: ??? Blood tests. ??? Stool tests. ??? A test in which a thin, flexible instrument with a light and a camera is passed down the esophagus and into the stomach (upper endoscopy). ??? A test in which a tissue sample is removed to look at it under a microscope (biopsy). How is this treated? This condition may be treated with medicines. The medicines that are used vary depending on the cause of the gastritis. ??? If the condition is caused by a bacterial infection, you may be given antibiotic medicines. ??? If the condition is caused by too much acid in the stomach, you may be given medicines called H2 blockers, proton pump inhibitors, or antacids. Treatment may also involve stopping the use of certain medicines such as aspirin or ibuprofen and other NSAIDs. Follow these instructions at home: Medicines ??? Take ytoe-acm-qtwhzmu and prescription medicines only as told by your health care provider. ??? If you were prescribed an antibiotic medicine, take it as told by your health care provider. Donot stop taking the antibiotic even if you start to feel better. Alcohol use ??? Do not drink alcohol if: ??? Your health care provider tells you not to drink. ??? You are , may be , or are planning to become . ??? If you drink alcohol: ??? Limit your use to: ??? 0???1 drink a day for women. ??? 0???2 drinks a day for men. ??? Know how much alcohol is in your drink. In the [place] one drink equals one 12 oz bottle of beer (355 mL), one 5 oz glass of wine (148 mL), or one 1?? oz glass of hard liquor (44 mL). General instructions ??? Eat small, frequent meals instead of large meals. ??? Avoid foods and drinks that make your symptoms worse. ??? Talk with your health care provider about ways to manage stress, such as getting regular exercise or practicing deep breathing, meditation, or yoga. ??? Do not use any products that contain nicotine or tobacco. These products include cigarettes, chewing tobacco, and vaping devices, such as e-cigarettes. If you need help quitting, ask your health care provider. ??? Drink enough fluid to keep your urine pale yellow. ??? Keep all follow-up visits. This is important. Contact a health care provider if: ??? Your symptoms get worse. ??? Your abdominal pain gets worse. ??? Your symptoms return after treatment. ??? You have a fever. Get help right away if: ??? You vomit blood or a substance that looks like coffee grounds. ??? You have black or dark red stools. ??? You are unable to keep fluids down. These symptoms may represent a serious problem that is an emergency. Do not wait to see if the symptoms will go away. Get medical help right away. Call your local emergency services (911 in the [place] Do not drive yourself to the hospital. Summary ??? Gastritis is inflammation of the lining of the stomach that can occur suddenly (acute) or develop slowly over time (chronic). ??? This condition is diagnosed with a medical history, a physical exam, or tests. ??? This condition may be treated with medicines to treat infection or medicines to reduce the amount of acid in your stomach. ??? Follow your health care provider's instructions about taking medicines, making changes to your diet, and knowing when to call for help. This information is not intended to replace advice given to you by your health care provider. Make sure you discuss any questions you have with your health care provider. Document Revised: 12/28/2021 Document Reviewed: 12/28/2021 [employer] Patient Education ?? 2022 [employer]. Follow Up Care 04/10/2023 12:08:00 With:JAVIER SAPP MD Address: [address] [place] [id number]- When:1 month Physician Emergency department Note * MADISON Vargas: PERFORM Event Display: ED Note Physician Authored Date: [id number] ESTEBAN LARA :1980 Age:42 years Sex:Female Visit Date:04/10/2023 Primary Care Physician: JAVIER SAPP MD Basic Information Time Seen: MADISON Vargas / 04/10/2023 12:32 Chief Complaint patient presents today with report of generalized stomach pains for the last 3 weeks. n/v off and on, scheduled to see PCP thursday. tylenol at 8am History Of Present Illness: Is a 42-year-old female who presenting today with diffuse abdominal pain has been present for the past 3 weeks.?? Says it is mainly in the epigastric region worse in the morning and immediately??after meals.?Experiencing??associated nausea??typically throughout the entire day??with episodes of vomiting more frequently??in the past 3 days. ??Describes as a gnawing pain. Normal bowel movements. ??His urinary symptoms.?? Afebrile however subjective fever days ago.?? Patient is status post??complete hysterectomy??so no chances for . Review of Systems: see HPI Physical Exam Vitals & Measurements T:??36.3?C ??(Temporal Artery)?? HR:??50??(Peripheral)?? RR:??16?? BP:??116/78?? SpO2:??94%?? HT:??149.000??cm?? WT:??72.57??kg??(Estimated)?? O2 Therapy:??Room air?? General: Patient is alert and engaging, appears well. Is in no acute distress. Speaking comfortablyin full sentences.?? Constitutional: No fevers, chills or diaphoresis.?? HEENT: Head normocephalic and atraumatic. Neck supple with FROM w/o lymphadenopathy or JVD. No c-spine tenderness.? Respiratory: ??No obvious work of breathing, regular rate.?Clear to auscultation Cardiovascular: Heart regular rate and rhythm w/o murmurs, rubs or gallops. No peripheral edema present.?? GI: Normoactive bowel sounds. ??Abdomen soft.?? Tenderness to palpation in epigastric??region and right upper quadrant.?? Positive??Blake's. ??No rebound or rigidity. ??No ascites. Extremities: No obvious deformities. FROM.?? Integumentary: Skin warm and pink. No rashes or ecchymosis present.?? Neuro: CN III-XII grossly intact.?? Psychiatric: acting appropriate for age and circumstance. Normal mood without obvious ??affect.?? Medical Decision Makin-year-old female here for an epigastric pain has been present on and off for the past 3 weeks.?? Levels obtained and reviewed. ??Her history??describes??pain that would be consistent with a gastritis or??PUD.?? Experiencing more pain in the morning and immediately after??meals. ??She has not??noticing any blood in the emesis or stools. Does have a history of this pain that has been??worked up in the past however patient is unaware ofany formal diagnosis is given.? Considered pancreatitis, cholelithiasis, and pyelonephritis. patient does have??history of alcohol use however she has been sober for the past 7 years. ??No??lab findings that would be concerning for??this.?UA was unremarkable. Considered a cardiac cause however patient is not exhibiting any chest pain??or dyspnea. ??Normal sinus rhythm on EKG. When first dose of??PPI and H2??andre in ED and??charged with this prescription.?? Agrees to close PCP follow-up and??return precautions discussed with the red flag symptoms. Procedure No Qualifying Data Assessment/Plan 1.??Gastritis??K29.70 Gastritis. ??We will treat with a PPI and H2 andre. ??Discussed??dietary changes if so medications that will help with the symptoms.?? Advise close??PCP follow-up and strict return precautions??with any red flag symptoms discussed. Orders: omeprazole 20 mg oral delayed release capsule, 20 mg = 1 cap, Oral, Daily, before a meal, X 30 days, # 30 cap, 0 Refill(s), 05/10/23 16:11:00 EDT Discharge Patient, 04/10/23 16:08:00 EDT Patient Education Gastritis, Adult Follow Up With When Contact Information JAVIER SAPP MD Within [address] [place] [id number]- Additional Instructions: Medication Reconciliation Changed omeprazole (omeprazole 20 mg oral delayed release capsule)1 Capsules Oral (given by mouth) every day for 30 Days. before a meal. Refills: 0. ?? omeprazole (omeprazole 40 mg oral delayed release capsule)TAKE ONE CAPSULE BY MOUTH EVERY DAY. ?? Unchanged buprenorphine-naloxone (Suboxone 2 mg-0.5 mg sublingual film)PLACE ONE FILM UNDER THE TONGUE EVERY DAY. MAXIMUM DAILY DOSE = 10MG. ?? buprenorphine-naloxone (Suboxone 8 mg-2 mg sublingual film)PLACE ONE FILM UNDER THE TONGUE EVERY DAY ALONG WITH 2MG STRIP. MAXIMUM DAILY DOSE = 10MG. ?? sertraline (sertraline 50 mg oral tablet)TAKE ONE TABLET BY MOUTH EVERY DAY. Problem List/Past Medical History Ongoing No qualifying data Historical No qualifying data Medication Administration Given Sodium Chloride 0.9%, 1000 mL, Hydration Bolus famotidine, 20 mg, IV Push ondansetron, 4 mg, IV Push Protonix, 40 mg, IV Push Allergies erythromycin simvastatin Social History Electronic Cigarette/Vaping Electronic Cigarette Use: Never. Tobacco Never tobacco user Tobacco Use:. Diagnostic Results CT Abdomen and Pelvis w/ Contrast 04/10/2023 14:[address] Abdomen and Pelvis w/ Contrast ?? 04/10/23 14:17:20 EXAM DESCRIPTION: CT Abdomen and Pelvis w/ Contrast ?? 04/10/2023 ?? INDICATION: ABD PAIN ?? TECHNIQUE: All CT scans at this facility use at least one of these dose optimization techniques: Automated exposure control; mA and/or kV adjustment per patient size (includes targeted exams where dose is matched to clinical indication); or iterative reconstruction. ?? Technique: Axial CT images of the abdomen/pelvis with IV contrast administration ?? 100 cc of Isovue-300 contrast was utilized ?? COMPARISON: CT abdomen/pelvis without contrast from 10/10/2019 ?? FINDINGS: No focal hepatic lesion. Normal enhancement of the main portal vein. ?? The spleen is top-normal in size. No focal splenic lesion ?? No calcified gallstones in the gallbladder. ?? Adrenal glands and pancreas appear within limits ?? No focal renal mass, hydronephrosis or perinephric fluid collection on either side ?? Normal caliber abdominal aorta with scattered atherosclerotic calcifications. ?? No retroperitoneal adenopathy in the abdomen or pelvis. ?? No pelvic mass identified with apparent prior hysterectomy ?? No bowel dilatation to suggest obstruction or ileus. No free intraperitoneal air, ascites or inflammatory changes. Appendix not identified. ?? Mild curvilinear scarring in both lung bases. ?? No suspicious regional osseous lesions. ?? IMPRESSION: No acute findings in the abdomen or pelvis. ?? No abdominal/pelvic mass or adenopathy ?? Nonobstructive bowel pattern. No free air or inflammatory changes. ? JOB #: [id number] Electronically Signed By: ?? Signed By: Cassie CHEW, Gage Lab Results CBC and Differential?? LATEST RESULTS?? WBC?? 04/10/23 13:25?? 6.5?? RBC?? 04/10/23 13:25?? 4.47?? Hgb?? 04/10/23 13:25?? 14.7?? Hct?? 04/10/23 13:25?? 43.4?? MCV?? 04/10/23 13:25?? 97.1?? MCH?? 04/10/23 13:25?? 32.9 ??High?? MCHC?? 04/10/23 13:25?? 33.9?? RDW-CV?? 04/10/23 13:25?? 13.0?? Platelets?? 04/10/23 13:25?? 244?? MPV?? 04/10/23 13:25?? 10.6 ??High?? Neutro Auto?? 04/10/23 13:25?? 54.3?? Lymph Auto?? 04/10/23 13:25?? 35.5?? Gaston Auto?? 04/10/23 13:25?? 6.8?? Eos, Auto?? 04/10/23 13:25?? 2.00?? Basophil Auto?? 04/10/23 13:25?? 1.2 ??High?? Imm Gran Auto?? 04/10/23 13:25?? 0.2?? Neutro Absolute?? 04/10/23 13:25?? 3.5?? Lymph Absolute?? 04/10/23 13:25?? 2.3?? Gaston Absolute?? 04/10/23 13:25?? 0.4?? Eos Absolute?? 04/10/23 13:25?? 0.1?? Baso Absolute?? 04/10/23 13:25?? 0.1?? Imm Gran Absolute?? 04/10/23 13:25?? 0.01? Routine Chemistry?? LATEST RESULTS?? Sodium Level?? 04/10/23 13:25?? 139?? Potassium Level?? 04/10/23 13:25?? 3.9?? Chloride Level?? 04/10/23 13:25?? 105?? CO2?? 04/10/23 13:25?? 26?? Alk Phos?? 04/10/23 13:25?? 57?? AST?? 04/10/23 13:25?? 15?? ALT?? 04/10/23 13:25?? 8 ??Low?? BUN?? 04/10/23 13:25?? 6 ??Low?? Glucose Level?? 04/10/23 13:25?? 94?? Creatinine Level?? 04/10/23 13:25?? 0.84?? BUN/Creat Ratio?? 04/10/23 13:25?? 7.1 ??Low?? eGFR CKD-EPI?? 04/10/23 13:25?? 89?? Calcium Level?? 04/10/23 13:25?? 9.7?? Protein Total?? 04/10/23 13:25?? 6.9?? Albumin Level?? 04/10/23 13:25?? 3.9?? Globulin?? 04/10/23 13:25?? 3.0?? A/G Ratio?? 04/10/23 13:25?? 1.3?? Bilirubin Total?? 04/10/23 13:25?? 0.8?? Anion Gap?? 04/10/23 13:25?? 8.0?? Lipase Level?? 04/10/23 13:25?? 25?? Osmolality?? 04/10/23 13:25?? 275? UA Macroscopic?? LATEST RESULTS?? Urine Srce?? 04/10/23 13:15?? Clean Catch?? UA Color?? 04/10/23 13:15?? Yellow?? UA Appear?? 04/10/23 13:15?? Clear?? UA Glucose?? 04/10/23 13:15?? Negative?? UA Bili?? 04/10/23 13:15?? Negative?? UA Ketones?? 04/10/23 13:15?? Negative?? UA Spec Grav?? 04/10/23 13:15?? 1.020?? UA Blood?? 04/10/23 13:15?? Negative?? UA pH?? 04/10/23 13:15?? 7.50?? UA Protein?? 04/10/23 13:15?? Negative?? UA Urobilinogen?? 04/10/23 13:15?? 1.0 Abnormal?? UA Nitrite?? 04/10/23 13:15?? Negative?? UA Leuk Est?? 04/10/23 13:15?? Negative? Electronically Signed on 04/10/23 05:10 PM MADISON Vargas Emergency department Discharge instructions * MADISON Vargas: PERFORM Event Display: ED Discharge Information Authored Date: [id number] ESTEBAN LARA :1980 Age:42 years Sex:Female Visit Date:04/10/2023 Primary Care Physician: JAVIER SAPP MD Discharge Instructions We would like to thank you for allowing us to assist you with your healthcare needs. The following includes patient education materials and information regarding your injury/illness. Diagnosis from Today's Visit Gastritis Discharge Vitals Temperature??(Temporal Artery) 97.3 ??F (36.3 ??C) Heart Rate??(Peripheral) 50 Respiratory Rate?? 16 Blood Pressure?? 116/78?? Height?? 58.66 in (149.000 cm) Weight??(Estimated) 160.02 lb (72.57 kg) Allergies erythromycin simvastatin What to Do Next Instructions from Your Care Team Take omeprazole and??Pepcid as prescribed.?? Sip fluids throughout the day. ??Please refrain from eating 1 hour prior to bedtime. ??I recommend close follow-up with your??PCP. ??Please return??to theED with any worsening abdominal pains, if you notice blood in??your emesis or bowel movements. You Need to Schedule the Following Appointments Follow Up with??SENAIT CHEW, JAVIER Tanner When:??Within 1 month Where: [address] [place] [id number]- You were treated today on an emergency basis; it may be stevesn to contact your primary care provider to notify them of your visit today. You may have been referred to your regular doctor or a specialist, please follow up as instructed. If your condition worsens or you can't get in to see the doctor, contact the Emergency Department. Medications What How Much When Instructions Next Dose Changed omeprazole (omeprazole 20 mg oral delayed releasecapsule) 1 Capsules Oral (given by mouth) Every day Duration: 30 Days before a meal ?? Printed Prescription Changed omeprazole (omeprazole 40 mg oral delayed release capsule) TAKE ONE CAPSULE BY MOUTH EVERY DAY ?? Unchanged buprenorphine-naloxone (Suboxone 2 mg-0.5 mg sublingual film) PLACE ONE FILM UNDER THE TONGUE EVERY DAY. MAXIMUM DAILY DOSE = 10MG ?? Unchanged buprenorphine-naloxone (Suboxone 8 mg-2 mg sublingual film) PLACE ONE FILM UNDER THE TONGUE EVERY DAY ALONG WITH 2MG STRIP. MAXIMUM DAILY DOSE = 10MG ?? Unchanged sertraline (sertraline 50 mg oral tablet) TAKE ONE TABLET BY MOUTH EVERY DAY ?? Education Materials Gastritis, Adult Gastritis is inflammation of the stomach. There are two kinds of gastritis: ? Acute gastritis. This kind develops suddenly. ? Chronic gastritis. This kind is much more common. It develops slowly and lasts for a long time. Gastritis happens when the lining of the stomach becomes weak or gets damaged. Without treatment, gastritis can lead to stomach bleeding and ulcers. What are the causes? This condition may be caused by: ? An infection. ? Drinking too much alcohol. ? Certain medicines. These include steroids, antibiotics, and some gond-znj-kzqtqny medicines, such as aspirin or ibuprofen. ? Having too much acid in the stomach. ? Having a disease of the stomach. Other causes may include: ? An allergic reaction. ? Some cancer treatments (radiation). ? Smoking cigarettes or the use of products that contain nicotine or tobacco. In some cases, the cause of this condition is not known. What increases the risk? Having a disease of the intestines. ? Having a disease in which the body's immune system attacks the body (autoimmune disease), such as Crohn's disease. ? Using aspirin or ibuprofen and other NSAIDs to treat other conditions, such as heart disease or chronic pain. ? Stress. What are the signs or symptoms? Symptoms of this condition include: ? Pain or a burning sensation in the upper abdomen. ? Nausea. ? Vomiting. ? An uncomfortable feeling of fullness after eating. ? Weight loss. ? Bad breath. ? Blood in your vomit or stool (feces). In some cases, there are no symptoms. How is this diagnosed? This condition may be diagnosed based on your medical history, a physical exam, and tests. Tests may include: ? Your medical history and a description of your symptoms. ? A physical exam. ? Tests. These can include: ? Blood tests. ? Stool tests. ? A test in which a thin, flexible instrument with a light and a camera is passed down the esophagus and into the stomach (upper endoscopy). ? A test in which a tissue sample is removed to look at it under a microscope (biopsy). How is this treated? This condition may be treated with medicines. The medicines that are used vary depending on the cause of the gastritis. ? If the condition is caused by a bacterial infection, you may be given antibiotic medicines. ? If the condition is caused by too much acid in the stomach, you may be given medicines called H2 blockers, proton pump inhibitors, or antacids. Treatment may also involve stopping the use of certain medicines such as aspirin or ibuprofen and other NSAIDs. Follow these instructions at home: Medicines ? Take hdil-lcc-tgxhnku and prescription medicines only as told by your health care provider. ? If you were prescribed an antibiotic medicine, take it as told by your health care provider. Do notstop taking the antibiotic even if you start to feel better. Alcohol use ? Do not drink alcohol if: ? Your health care provider tells you not to drink. ? You are , may be , or are planning to become . ? If you drink alcohol: ? Limit your use to: ? 0???1 drink a day for women. ? 0???2 drinks a day for men. ? Know how much alcohol is in your drink. In the [place] one drink equals one 12 oz bottle of beer (355mL), one 5 oz glass of wine (148 mL), or one 1?? oz glass of hard liquor (44 mL). General instructions ? Eat small, frequent meals instead of large meals. ? Avoid foods and drinks that make your symptoms worse. ? Talk with your health care provider about ways to manage stress, such as getting regular exercise or practicing deep breathing, meditation, or yoga. ? Do not use any products that contain nicotine or tobacco. These products include cigarettes, chewing tobacco, and vaping devices, such as e-cigarettes. If you need help quitting, ask your health careprovider. ? Drink enough fluid to keep your urine pale yellow. ? Keep all follow-up visits. This is important. Contact a health care provider if: ? Your symptoms get worse. ? Your abdominal pain gets worse. ? Your symptoms return after treatment. ? You have a fever. Get help right away if: ? You vomit blood or a substance that looks like coffee grounds. ? You have black or dark red stools. ? You are unable to keep fluids down. These symptoms may represent a serious problem that is an emergency. Do not wait to see if the symptoms will go away. Get medical help right away. Call your local emergency services (911 in the [place] Do not drive yourself to the hospital. Summary ? Gastritis is inflammation of the lining of the stomach that can occur suddenly (acute) or develop slowly over time (chronic). ? This condition is diagnosed with a medical history, a physical exam, or tests. ? This condition may be treated with medicines to treat infection or medicines to reduce the amount of acid in your stomach. ? Follow your health care provider's instructions about taking medicines, making changes to your diet, and knowing when to call for help. This information is not intended to replace advice given to you by your health care provider. Make sure you discuss any questions you have with your health care provider. Document Revised: 12/28/2021 Document Reviewed: 12/28/2021 [employer] Patient Education ?? 2022 [employer] Tests Performed Radiology CT Abdomen and Pelvis w/ Contrast 04/10/2023 14:19 EDT Medications and Immunizations Administered Given Sodium Chloride 0.9%, 1000 mL, Hydration Bolus famotidine, 20 mg, IV Push ondansetron, 4 mg, IV Push Protonix, 40 mg, IV Push Lab Test Name Test Result Date/Time WBC 6.5 K/mcL 04/10/2023 13:25 EDT RBC 4.47 Million/mcL 04/10/2023 13:25 EDT Hgb 14.7 g/dL 04/10/2023 13:25 EDT Hct 43.4 % 04/10/2023 13:25 EDT MCV 97.1 fL 04/10/2023 13:25 EDT MCH 32.9 pg 04/10/2023 13:25 EDT MCHC 33.9 g/dL 04/10/2023 13:25 EDT RDW-CV 13.0 % 04/10/2023 13:25 EDT Platelets 244 K/mcL 04/10/2023 13:25 EDT MPV 10.6 fL 04/10/2023 13:25 EDT Neutro Auto 54.3 % 04/10/2023 13:25 EDT Lymph Auto 35.5 % 04/10/2023 13:25 EDT Gaston Auto 6.8 % 04/10/2023 13:25 EDT Eos, Auto 2.00 % 04/10/2023 13:25 EDT Basophil Auto 1.2 % 04/10/2023 13:25 EDT Imm Gran Auto 0.2 % 04/10/2023 13:25 EDT Neutro Absolute 3.5 K/mcL 04/10/2023 13:25 EDT Lymph Absolute 2.3 K/mcL 04/10/2023 13:25 EDT Gaston Absolute 0.4 K/mcL 04/10/2023 13:25 EDT Eos Absolute 0.1 K/mcL 04/10/2023 13:25 EDT Baso Absolute 0.1 K/mcL 04/10/2023 13:25 EDT Imm Gran Absolute 0.01 04/10/2023 13:25 EDT Sodium Level 139 mmol/L 04/10/2023 13:25 EDT Potassium Level 3.9 mmol/L 04/10/2023 13:25 EDT Chloride Level 105 mmol/L 04/10/2023 13:25 EDT CO2 26 mmol/L 04/10/2023 13:25 EDT Alk Phos 57 IntlUnit/L 04/10/2023 13:25 EDT AST 15 IntlUnit/L 04/10/2023 13:25 EDT ALT 8 IntlUnit/L 04/10/2023 13:25 EDT BUN 6 mg/dL 04/10/2023 13:25 EDT Glucose Level 94 mg/dL 04/10/2023 13:25 EDT Creatinine Level 0.84 mg/dL 04/10/2023 13:25 EDT BUN/Creat Ratio 7.1 04/10/2023 13:25 EDT eGFR CKD-EPI 89 mL/min/1.73 m2 04/10/2023 13:25 EDT Calcium Level 9.7 mg/dL 04/10/2023 13:25 EDT Protein Total 6.9 g/dL 04/10/2023 13:25 EDT Albumin Level 3.9 g/dL 04/10/2023 13:25 EDT Globulin 3.0 04/10/2023 13:25 EDT A/G Ratio 1.3 04/10/2023 13:25 EDT Bilirubin Total 0.8 mg/dL 04/10/2023 13:25 EDT Anion Gap 8.0 04/10/2023 13:25 EDT Lipase Level 25 unit/L 04/10/2023 13:25 EDT Osmolality 275 mOsm/kg 04/10/2023 13:25 EDT Urine Srce Clean Catch 04/10/2023 13:15 EDT UA Color YELLOW. 04/10/2023 13:15 EDT UA Appear CLEAR. 04/10/2023 13:15 EDT UA Glucose NEGATIVE 04/10/2023 13:15 EDT UA Bili NEGATIVE 04/10/2023 13:15 EDT UA Ketones NEGATIVE 04/10/2023 13:15 EDT UA Spec Grav 1.020 04/10/2023 13:15 EDT UA Blood NEGATIVE 04/10/2023 13:15 EDT UA pH 7.50 04/10/2023 13:15 EDT UA Protein NEGATIVE 04/10/2023 13:15 EDT UA Urobilinogen 1.0 04/10/2023 13:15 EDT UA Nitrite NEGATIVE 04/10/2023 13:15 EDT UA Leuk Est NEGATIVE 04/10/2023 13:15 EDT Patient/Vb Net Developer Signature Patient Name:ESTEBAN LARA I have received this information and my questions have been answered. Patient/Vb Net Developer Name: Patient/Vb Net Developer Signature: Relationship to Patient: Witness Name/Signature: Date: Electronically Signed on: 04/10/2023 16:13 EDTSigned by:TRACEY Patient Care team information Care Team Personnel Name: JAVIER SAPP MD Position: No Access Member Role: Primary Care Physician Address: Address: [address], [place] [address] [place] Name: MADISON Vargas Position: Physician Member Role: Physician Address: Address: [address], [place] [address] [place] Name: Jasmina Peterson RN Position: Nurse Member Role: ED Nurse
--- OUTSIDE RECORDS SUMMARY | 2023-09-06 11:16 | XMS_ITS | Continuity of Care Document ---
Author Name Unknown Organization [facility] Address [address] [place] [address] Care Team Providers Care Swim Instructor Name Role Phone Charly Russell Primary Care Physician Encounter [facility] Date(s): 10/07/22 - 10/07/[address] [id number] Encounter Diagnosis Constipation(Discharge Diagnosis) - 10/07/22 Constipation, unspecified(Final) - Discharge Disposition: Home or Self Care Attending Physician: Marlin Xavier MD Admitting Physician: Marlin Xavier MD Allergies, Adverse Reactions, Alerts Substance Reaction Severity Status erythromycin Unknown Active simvastatin Unknown Active Functional Status 10/07/22 Family Member Travel History No recent t ravel Recent Travel History No recent travel Other exposure to Infectious Disease Non e Medications amitriptyline 0 Refill(s) Start Date: 02/20/22 Status: Ordered Carafate 0 Refill(s) Start Date: 02/20/22 Status: Ordered MiraLax oral powder for reconstitution 17 g, Oral, Daily, # 238 g, 0 Refill(s), Pharmacy: [facility], 149, cm, 10/07/22 10:57:00 EST, Height/Length Dosing, 75.4, kg, 10/07/22 10:57:00 EST, Weight Dosing Start Date: 10/07/22 Status: Ordered omeprazole 0 Refill(s) Start Date: 02/20/22 Status: Ordered Suboxone 10 mg, 0 Refill(s) Start Date: 02/20/22 Status: Ordered Zoloft 0 Refill(s) Start Date: 02/20/22 Status: Ordered Results Laboratory List Name Date CBC w/ Diff 10/07/22 Comprehensive Metabolic Panel (CMP) 10/07 Automated Diff 10/07/22 Most recent to oldest [Reference Range]: 1 WBC [5.0-10.0 x10^3/mcL] 6.4 x10^3/mcL (10/07/22 11:47 AM) RBC [4.1-5.3 x10^6/mcL] 4.5 x10^6/mcL (10/07/22 11:47 AM) Neutro Auto [40.0-75.0 %] 60.0 % (10/07/22 11:47 AM) Lymph Auto [20.0-50.0 %] 30.7 % (10/07/22 11:47 AM) Warrick Auto [2.0-15.0 %] 6.3 % (10/07/22 11:47 AM) Basophil Auto [0.0-1.0 %] 0.6 % (10/07/22 11:47 AM) BUN [7-18 mg/dL] 9 mg/dL (10/07/22 11:47 AM) Glucose Level [74-106 mg/dL] 95 mg/dL (10/07/22 11:47 AM) Potassium Level [3.5-5.1 mmol/L] 4.5 mmo l/L (10/07/22 11:47 AM) MCV [80.0-96.0] 98.4 *HI* (10/07/22 11:47 AM) AST [15-37 unit/L] 18 unit/L (10/07/22 11:47 AM) ALT [14-59 unit/L] 14 unit/L (10/07/22 11:47 AM) MCHC [31.0-35.0 g/dL] 33.8 g/dL (10/07/22 11:47 AM) Sodium Level [136-145 mmol/L] 137 mmol/L (10/07/22 11:47 AM) Hct [37.0-47.0 %] 44.1 % (10/07/22 11:47 AM) Calcium Level [8.5-10.1 mg/dL] 9.2 mg/dL (10/07/22 11:47 AM) Albumin Level [3.4-5.0 g/dL] 3.6 g/dL (10/07/22 11:47 AM) Protein Total [6.4-8.2 g/dL] 7.4 g/dL (10/07/22 11:47 AM) MCH [26.0-32.0 pg] 33.3 pg *HI* (10/07/22 11:47 AM) Neutro Absolute 3.8 x10^3/mcL *NA* (10/07/22 11:47 AM) Bilirubin Total [0.2-1.0 mg/dL] 0.4 mg/d L (10/07/22 11:47 AM) Hgb [12.0-16.0 g/dL] 14.9 g/dL (10/07/22 11:47 AM) Alk Phos [46-146 unit/L] 70 unit/L (10/07/22 11:47 AM) Platelets [130-450 x10^3/mcL] 263 x10^3/ mcL (10/07/22 11:47 AM) CO2 [21-32 mmol/L] 27 mmol/L (10/07/22 11:47 AM) eGFR Non-AA [>=60] 79 (10/07/22 11:47 AM) eGFR AA [>=60] 79 (10/07/22 11:47 AM) Chloride Level [98-107 mmol/L] 103 mmol/ L (10/07/22 11:47 AM) RDW-CV [11.7-17.0 %] 13.4 % (10/07/22 11:47 AM) Imm Gran Auto [0.0-0.9 %] 0.2 % (10/07/22 11:47 AM) Creatinine Level [0.55-1.02 mg/dL] 0.93 mg/dL (10/07/22 11:47 AM) Eos, Auto [1.0-6.0 %] 2.2 % (10/07/22 11:47 AM) Vital Signs Most recent to oldest [Reference Range]: 1 Temperature Temporal Artery [36-38 Deg C ] 36.4 Deg C (10/07/22 10:50 AM) Peripheral Pulse Rate [60-100 bpm] 69 bp m (10/07/22 10:50 AM) Respiratory Rate [12-24 br/min] 16 br/mi n (10/07/22 10:50 AM) Blood Pressure [90-140/60-90 mmHg] 119/7 7mmHg (10/07/22 10:50 AM) Weight Dosing 75.40 kg (10/07/22 10:57 AM) Weight Estimated 75.40 kg (10/07/22 10:50 AM) Height/Length Dosing 149.000 cm (10/07/22 10:57 AM) Height/Length Estimated 149.000 cm (10/07/22 10:50 AM) Social History Social History Type Response Tobacco Current everyday tob acco user Tobacco Use:. 1 ppd per day. Sex Female Physician Emergency department Note * Marlin Xavier MD: PERFORM Event Display: ED Note Physician Authored Date: [id number] JANE ESTEBAN Sara :1980 Age:42 years Sex:Female Visit Date:10/07/2022 Primary Care Physician: Charly Russell MD Basic Information Time Seen: Marlin Xavier MD / 10/07/2022 11:08 Chief Complaint last week seen for constipation has done 1 enema, laxative pills 2 days ago, and a suppository yesterday without results History Of Present Illness: 42 year-old female??with a past history of??hysterectomy and she says bilateral??salpingo-oophorectomy??presents to the ED c/o constipation. Pt says she was seen in our ED last week with abdominal pain and constipation. She had a CT and was told she has a blockage and she was prescribed laxativeswhich she has been taking only with small amounts of stools. Yesterday she had a small BM. She has had some intermittent nausea. Her abdominal pain is improved since last week. No f/c. No MOSLEY/neck pain. Pt does report a long h/o alternating constipation and diarrhea associated with frequent abdominal pain??since childhood. Sometimes associated with blood in the stool, though not in the past few days. She says after she had her kids her symptoms improved but they have now returned. Physical Exam Vitals & Measurements T:??36.4?C ??(Temporal Artery)?? HR:??69??(Peripheral)?? RR:??16?? BP:??119/77?? SpO2:??98%?? HT:??149.000??cm?? WT:??75.40??kg??(Estimated)?? Pain Score:??7?? General: A&Ox3, Calm, no apparent distress, well developed, pleasant and cooperative ?? HEENT: Head ATNC. Eyes: BRADEN. Extraocular Mobility: intact and symmetrical. Conjunctiva: non-injected, anicteric, no discharge. Oral Cavity: moist. Neck: no masses, no crepitus. Lymph Nodes: no cervical lymphadenopathy? Respiratory: CTA bilaterally, no wheezing, no rales/crackles? CV: RRR, normal S1, normal S2, no murmurs, rubs or gallops ?? Abdomen : soft, non-tender, non-distended, no rebound or guarding, no hepatosplenomegaly, no Blake's sign ?? Extremities: no le swelling, warm and well-perfused, no cyanosis, capillary refill <2 seconds? Skin: no rash, no lesions, no bruising? Neuro: normal tone, normal strength in all 4 extremities, sensation intact?? Medical Decision Makin year-old female??with a past history of??hysterectomy and she says bilateral??salpingo-oophorectomy??presents to the ED c/o constipation. Thorough chart review performed, including CT a/p with no findings (no obstruction) Pt is well and non toxic appearing with reassuring VS and a benign abdominal exam Her symptoms are not consistent with obstruction or intraabominal infection. Possible IBS or even IBD with the symptoms that she is describing. Plan: repeat labs, zofran, pt??may??need f/u with pcp for outpt endoscopy/colonoscopy and RUQ US. Procedure No Qualifying Data Assessment/Plan 1.??Constipation??K59.00 Labs stable and reassuring Discussed plan as above. Pt in agreement. I have added Miralax to her bowel regimen. Discharge instructions and return precautions discussed, all questions answered. Ordered: MiraLax oral powder for reconstitution, 17 g, Oral, Daily, # 238 g, 0 Refill(s), Pharmacy: [facility], 149, cm, 10/07/22 10:57:00 EST, Height/Length Dosing, 75.4, kg, 10/07/22 10:57:00 EST, Weight Dosing Discharge Patient, 10/07/22 12:32:00 EST, Constant Indicator ?? Orders: Urinalysis with Micro if Indicated and Culture if Indicated, Urine, Stat Collect, 10/07/22 11:30:00EST, Once, Nurse collect, Print Label Medication Reconciliation New Prescription polyethylene glycol 3350 (MiraLax oral powder for reconstitution)17 Gram Oral (given by mouth) every day. Refills: 0. ?? Unchanged amitriptyline ?? buprenorphine-naloxone (Suboxone)10 Milligrams. ?? omeprazole ?? sertraline (Zoloft) ?? sucralfate (Carafate) Problem List/Past Medical History Ongoing No qualifying data Historical No qualifying data Medication Administration Given !-Zofran, 4 mg, Oral Allergies erythromycin simvastatin Social History Electronic Cigarette/Vaping Electronic Cigarette Use: Never. Type: Cannabinoid infused. Tobacco Current everyday tobacco user Tobacco Use:. 1 ppd per day. Lab Results CBC and Differential?? LATEST RESULTS?? HISTORICAL RESULTS?? WBC?? 10/07/22 11:47?? 6.4?? 10/02/22?? 6.8?? RBC?? 10/07/22 11:47?? 4.5?? 10/02/22?? 4.2?? Hgb?? 10/07/22 11:47?? 14.9?? 10/02/22?? 14.2?? Hct?? 10/07/22 11:47?? 44.1?? 10/02/22?? 42.3?? MCV?? 10/07/22 11:47?? 98.4 ??High?? 10/02/22?? 99.5 ??High?? MCH?? 10/07/22 11:47?? 33.3 ??High?? 10/02/22?? 33.4 ??High?? MCHC?? 10/07/22 11:47?? 33.8?? 10/02/22?? 33.6?? RDW-CV?? 10/07/22 11:47?? 13.4?? 10/02/22?? 13.5?? Platelets?? 10/07/22 11:47?? 263?? 10/02/22?? 245?? Neutro Auto?? 10/07/22 11:47?? 60.0?? 10/02/22?? 49.2?? Lymph Auto?? 10/07/22 11:47?? 30.7?? 10/02/22?? 43.1?? Warrick Auto?? 10/07/22 11:47?? 6.3?? 10/02/22?? 5.2?? Eos, Auto?? 10/07/22 11:47?? 2.2?? 10/02/22?? 1.3?? Basophil Auto?? 10/07/22 11:47?? 0.6?? 10/02/22?? 0.9?? Imm Gran Auto?? 10/07/22 11:47?? 0.2?? 10/02/22?? 0.3?? Neutro Absolute?? 10/07/22 11:47?? 3.8?? 10/02/22?? 3.3? Routine Chemistry?? LATEST RESULTS?? HISTORICAL RESULTS?? Sodium Level?? 10/07/22 11:47?? 137?? 10/02/22?? 139?? Potassium Level?? 10/07/22 11:47?? 4.5?? 10/02/22?? 4.5?? Chloride Level?? 10/07/22 11:47?? 103?? 10/02/22?? 104?? CO2?? 10/07/22 11:47?? 27?? 10/02/22?? 27?? Alk Phos?? 10/07/22 11:47?? 70?? 10/02/22?? 68?? AST?? 10/07/22 11:47?? 18?? 10/02/22?? 15?? ALT?? 10/07/22 11:47?? 14?? 10/02/22?? 16?? BUN?? 10/07/22 11:47?? 9?? 10/02/22?? 7?? Glucose Level?? 10/07/22 11:47?? 95?? 10/02/22?? 73 ??Low?? Creatinine Level?? 10/07/22 11:47?? 0.93?? 10/02/22?? 0.85?? eGFR AA?? 10/07/22 11:47?? 79?? 10/02/22?? 88?? eGFR Non-AA?? 10/07/22 11:47?? 79?? 10/02/22?? 88?? Calcium Level?? 10/07/22 11:47?? 9.2?? 10/02/22?? 9.2?? Protein Total?? 10/07/22 11:47?? 7.4?? 10/02/22?? 7.3?? Albumin Level?? 10/07/22 11:47?? 3.6?? 10/02/22?? 3.7?? Bilirubin Total?? 10/07/22 11:47?? 0.4?? 10/02/22?? 0.3? Electronically Signed on 10/07/22 12:43 PM Marlin Xavier MD Emergency department Discharge instructions * Marlin Xavier MD: PERFORM Event Display: ED Discharge Information Authored Date: [id number] ESTEBAN LARA :1980 Age:42 years Sex:Female Visit Date:10/07/2022 Primary Care Physician: Charly Russell MD Discharge Instructions We would like to thank you for allowing us to assist you with your healthcare needs. The following includes patient education materials and information regarding your injury/illness. Diagnosis from Today's Visit Constipation Discharge Vitals Temperature??(Temporal Artery) 97.5 ??F (36.4 ??C) Heart Rate??(Peripheral) 69 Respiratory Rate?? 16 Blood Pressure?? 119/77?? Height?? 58.66 in (149.000 cm) Weight??(Estimated) 166.26 lb (75.40 kg) Allergies erythromycin simvastatin What to Do Next Instructions from Your Care Team Please continue bowel regimen medications and take Miralax in addition. Follow up with your primarycare provider for reevaluation in about a week, you may need a referral for a colonoscopy/endoscopy. Please return to the ED for any new or worsening symptoms. You were treated today on an emergency [...] Much When Why Instructions Next Dose New polyethylene glycol 3350 (MiraLax oral powder forreconstitution) 17 Gram Oral (given by mouth) Every day Constipation Pickup at [facility] Unchanged amitriptyline Unchanged buprenorphine-naloxone (Suboxone) 10 Milligrams Unchanged omeprazole Unchanged sertraline (Zoloft) Unchanged sucralfate (Carafate) Pharmacy Information [facility]: [address], [place] [id number] [phone] Tests Performed Medications and Immunizations Administered Given !-Zofran, 4 mg, Oral Lab Test Name Test Result Date/Time WBC 6.4 x10^3/mcL 10/07/2022 11:47 EST RBC 4.5 x10^6/mcL 10/07/2022 11:47 EST Hgb 14.9 g/dL 10/07/2022 11:47 EST Hct 44.1 % 10/07/2022 11:47 EST MCV 98.4 10/07/2022 11:47 EST MCH 33.3 pg 10/07/2022 11:47 EST MCHC 33.8 g/dL 10/07/2022 11:47 EST RDW-CV 13.4 % 10/07/2022 11:47 EST Platelets 263 x10^3/mcL 10/07/2022 11:47 EST Neutro Auto 60.0 % 10/07/2022 11:47 EST Lymph Auto 30.7 % 10/07/2022 11:47 EST Warrick Auto 6.3 % 10/07/2022 11:47 EST Eos, Auto 2.2 % 10/07/2022 11:47 EST Basophil Auto 0.6 % 10/07/2022 11:47 EST Imm Gran Auto 0.2 % 10/07/2022 11:47 EST Neutro Absolute 3.8 x10^3/mcL 10/07/2022 11:47 EST Sodium Level 137 mmol/L 10/07/2022 11:47 EST Potassium Level 4.5 mmol/L 10/07/2022 11:47 EST Chloride Level 103 mmol/L 10/07/2022 11:47 EST CO2 27 mmol/L 10/07/2022 11:47 EST Alk Phos 70 unit/L 10/07/2022 11:47 EST AST 18 unit/L 10/07/2022 11:47 EST ALT 14 unit/L 10/07/2022 11:47 EST BUN 9 mg/dL 10/07/2022 11:47 EST Glucose Level 95 mg/dL 10/07/2022 11:47 EST Creatinine Level 0.93 mg/dL 10/07/2022 11:47 EST eGFR AA 79 10/07/2022 11:47 EST eGFR Non-AA 79 10/07/2022 11:47 EST Calcium Level 9.2 mg/dL 10/07/2022 11:47 EST Protein Total 7.4 g/dL 10/07/2022 11:47 EST Albumin Level 3.6 g/dL 10/07/2022 11:47 EST Bilirubin Total 0.4 mg/dL 10/07/2022 11:47 EST Patient/Curb Setter Helper Signature Patient Name:ESTEBAN LARA I have received this information and my questions have been answered. Patient/Curb Setter Helper Name: Patient/Curb Setter Helper Signature: Relationship to Patient: Witness Name/Signature: Date: Electronically Signed on: 10/07/2022 12:34 ESTSigned by:[facility] Emergency department Note * Lynsey Chandler M: PERFORM Event Display: ED Notes Authored Date: [id number] Patient Care team information Personnel Name: Charly Russell MD Address: Address: [address] [place] [address]-
--- OUTSIDE RECORDS SUMMARY | 2023-09-06 11:16 | XMS_ITS | Continuity of Care Document ---
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 Name Role Phone Charly Russell Primary Care Physician Encounter [facility] Date(s): 11/24/22 - 11/24/[address] [address] Encounter Diagnosis Nausea vomiting and diarrhea(Discharge Diagnosis) - 11/24/22 Diarrhea, unspecified(Discharge Diagnosis) - 11/24/22 Generalized abdominal pain(Discharge Diagnosis) - 11/24/22 Discharge Disposition: Home or Self Care Attending Physician: Hernandez Jones MD Admitting Physician: Hernandez Jones MD Allergies, Adverse Reactions, Alerts Substance Reaction Severity Status erythromycin Unknown Active simvastatin Unknown Active Functional Status 11/24/22 Other exposure to Infectious Disease Non e Medications !-Zofran ODT 8 mg oral tablet, disintegrating 8 mg = 1 tab, Oral, BID, X 3 days, # 9 tab, 0 Refill(s), 11/27/22 11:48:00 EDT, Pharmacy: [id number], 149, cm, 11/24/22 9:08:00 EDT, Height/Length Dosing, 75, kg, 11/24/22 9:08:00 EDT, Weight Dosing Start Date: 11/24/22 Stop Date: 11/27/22 Status: Ordered amitriptyline 0 Refill(s) Start Date: 02/20/22 Status: Ordered Carafate 0 Refill(s) Start Date: 02/20/22 Status: Ordered MiraLax oral powder for reconstitution 17 g, Oral, Daily, # 238 g, 0 Refill(s), Pharmacy: [id number], 149, cm, 10/07/22 10:57:00 EST, Height/Length Dosing, 75.4, kg, 10/07/22 10:57:00 EST, Weight Dosing Start Date: 10/07/22 Status: Ordered omeprazole 0 Refill(s) Start Date: 02/20/22 Status: Ordered Suboxone 10 mg, 0 Refill(s) Start Date: 02/20/22 Status: Ordered Zoloft 0 Refill(s) Start Date: 02/20/22 Status: Ordered Results Laboratory List Name Date Urinalysis with Micro if Indicated and C ulture if Indicated 11/24/22 CBC w/ Diff 11/24/22 Comprehensive Metabolic Panel (CMP) 11/24 Creatine Kinase (CK) 11/24/22 Lipase Level 11/24/22 SARS-CoV-2 (COVID-19)/Flu/RSV ([facility]Xpert ) 11/24/22 Troponin-I 11/24/22 Automated Diff 11/24/22 Most recent to oldest [Reference Range]: 1 WBC [5.0-10.0 x10^3/mcL] 8.6 x10^3/mcL (11/24/22 10:45 AM) RBC [4.1-5.3 x10^6/mcL] 4.9 x10^6/mcL (11/24/22 10:45 AM) Neutro Auto [40.0-75.0 %] 68.3 % (11/24/22 10:45 AM) Lymph Auto [20.0-50.0 %] 23.7 % (11/24/22 10:45 AM) [place] Auto [2.0-15.0 %] 6.1 % (11/24/22 10:45 AM) Basophil Auto [0.0-1.0 %] 0.7 % (11/24/22 10:45 AM) BUN [7-18 mg/dL] 6 mg/dL *LOW* (11/24/22 10:45 AM) UA Color Yellow (11/24/22 11:21 AM) Glucose Level [74-106 mg/dL] 96 mg/dL (11/24/22 10:45 AM) Potassium Level [3.5-5.1 mmol/L] 4.1 mmo l/L (11/24/22 10:45 AM) MCV [80.0-96.0] 97.5 *HI* (11/24/22 10:45 AM) UA Urobilinogen Normal (11/24/22 AM) UA Bili [Negative] Negative (11/24/22: AM) UA Ketones Negative (11/24/22: AM) AST [15-37 unit/L] 17 unit/L (11/24/22 10:45 AM) ALT [14-59 unit/L] 16 unit/L (11/24/22 10:45 AM) MCHC [31.0-35.0 g/dL] 34.0 g/dL (11/24/22 10:45 AM) Troponin-I [0.0-51.4 pg/mL] <5.0 pg/mL (11/24/22 10:45 AM) Sodium Level [136-145 mmol/L] 140 mmol/L (11/24/22 10:45 AM) UA Leuk Est Negative (11/24/22 AM) UA Nitrite Negative (11/24/22 AM) UA Glucose [Negative] Negative (11/24/22: AM) Hct [37.0-47.0 %] 47.6 % *HI* (11/24/22:45 AM) Lipase Level [16-77 unit/L] 18 unit/L (11/24/22 10:45 AM) Calcium Level [8.5-10.1 mg/dL] 9.7 mg/dL (11/24/22 10:45 AM) Albumin Level [3.4-5.0 g/dL] 4.1 g/dL (11/24/22 10:45 AM) Protein Total [6.4-8.2 g/dL] 8.1 g/dL (11/24/22 10:45 AM) UA Protein Negative (11/24/22: AM) MCH [26.0-32.0 pg] 33.2 pg *HI* (11/24/22 10:45 AM) Neutro Absolute 5.9 x10^3/mcL *NA* (11/24/22 10:45 AM) Bilirubin Total [0.2-1.0 mg/dL] 0.6 mg/d L (11/24/22 10:45 AM) Hgb [12.0-16.0 g/dL] 16.2 g/dL *HI* (11/24/22 10:45 AM) Alk Phos [46-146 unit/L] 72 unit/L (11/24/22 10:45 AM) UA Blood Negative (11/24/22 11:21 AM) UA Spec Grav 1.020 *NA* (11/24/22 11:21 AM) Platelets [130-450 x10^3/mcL] 299 x10^3/ mcL (11/24/22 10:45 AM) CO2 [21-32 mmol/L] 29 mmol/L (11/24/22 10:45 AM) UA pH 6.5 *NA* (11/24/22 11:21 AM) eGFR Non-AA [>=60] 74 (11/24/22 10:45 AM) eGFR AA [>=60] 74 (11/24/22 10:45 AM) UA Appear Clear (11/24/22 11:21 AM) Chloride Level [98-107 mmol/L] 103 mmol/ L (11/24/22 10:45 AM) RDW-CV [11.7-17.0 %] 13.4 % (11/24/22 10:45 AM) Imm Gran Auto [0.0-0.9 %] 0.5 % (11/24/22 10:45 AM) Creatinine Level [0.55-1.02 mg/dL] 0.98 mg/dL (11/24/22 10:45 AM) Employed in healthcare? Unknown *NA* (11/24/22 10:45 AM) Symptomatic as defined by CDC? Unknown *NA* (11/24/22 10:45 AM) Hospitalized due to COVID-19? Unknown *NA* (11/24/22 10:45 AM) In ICU? Unknown *NA* (11/24/22 10:45 AM) Group care resident? Unknown *NA* (11/24/22 10:45 AM) status? Unknown *NA* (11/24/22 10:45 AM) SARS-CoV-2(Covid19)PCR(GXpert COVFLURSV) [Negative] Negative (11/24/22 10:45 AM) Flu A (GXpert COVFLURSV) [Negative] Nega tive (11/24/22 10:45 AM) RSV (GXpert COVFLURSV) [Negative] Negati ve (11/24/22 10:45 AM) Flu B (GXpert COVFLURSV) [Negative] Nega tive (11/24/22 10:45 AM) Eos, Auto [1.0-6.0 %] 0.7 % *LOW* (11/24/22 10:45 AM) CK [26-192 unit/L] 39 unit/L (11/24/22 10:45 AM) Vital Signs Most recent to oldest [Reference Range]: 1 2 Temperature Temporal Artery [36-38 Deg C ] 36.5 Deg C (11/24/22 11:53 AM) 36 Deg C (11/24/22 9:02 AM) Peripheral Pulse Rate [60-100 bpm] 65 bp m (11/24/22 11:53 AM) 67 bpm (11/24/22 9:02 AM) Respiratory Rate [12-24 br/min] 16 br/mi n (11/24/22 11:53 AM) 16 br/min (11/24/22 9:02 AM) Blood Pressure [90-140/60-90 mmHg] 132/8 2mmHg (11/24/22 11:53 AM) 128/89mmHg (11/24/22 9:02 AM) Weight Dosing 75.00 kg (11/24/22 9:08 AM) Weight Estimated 75.00 kg (11/24/22 9:02 AM) Height/Length Dosing 149.000 cm (11/24/22 9:08 AM) Height/Length Estimated 149.000 cm (11/24/22 9:02 AM) Social History Social History Type Response Tobacco Current everyday tob acco user Tobacco Use:. 1 ppd per day. Sex Female Hospital Discharge Instructions Patient Education 11/24/2022 10:45:06 Diarrhea, Adult Diarrhea, Adult Diarrhea is frequent loose and watery bowel movements. Diarrhea can make you feel weak and cause you to become dehydrated. Dehydration can make you tired and thirsty, cause you to have a dry mouth, and decrease how often you urinate. Diarrhea typically lasts 2???3 days. However, it can last longer if it is a sign of something more serious. It is important to treat your diarrhea as told by your health care provider. Follow these instructions at home: Eating and drinking Follow these recommendations as told by your health care provider: ??? Take an oral rehydration solution (ORS). This is an ligu-sap-mpqriuv medicine that helps returnyour body to its normal balance of nutrients and water. It is found at pharmacies and retail stores. ??? Drink plenty of fluids, such as water, ice chips, diluted fruit juice, and low-calorie sports drinks. You can drink milk also, if desired. ??? Avoid drinking fluids that contain a lot of sugar or caffeine, such as energy drinks, sports drinks, and soda. ??? Eat bland, pnhc-sm-ytphgy foods in small amounts as you are able. These foods include bananas, applesauce, rice, lean meats, toast, and crackers. ??? Avoid alcohol. ??? Avoid spicy or fatty foods. Medicines ??? Take qlsh-nlr-plhghim and prescription medicines only as told by your health care provider. ??? If you were prescribed an antibiotic medicine, take it as told by your health care provider. Donot stop using the antibiotic even if you start to feel better. General instructions ??? Wash your hands often using soap and water. If soap and water are not available, use a hand flow specialist. Others in the household should wash their hands as well. Hands should be washed: ??? After using the toilet or changing a diaper. ??? Before preparing, cooking, or serving food. ??? While caring for a sick person or while visiting someone in a hospital. ??? Drink enough fluid to keep your urine pale yellow. ??? Rest at home while you recover. ??? Watch your condition for any changes. ??? Take a warm bath to relieve any burning or pain from frequent diarrhea episodes. ??? Keep all follow-up visits as told by your health care provider. This is important. Contact a health care provider if: ??? You have a fever. ??? Your diarrhea gets worse. ??? You have new symptoms. ??? You cannot keep fluids down. ??? You feel light-headed or dizzy. ??? You have a headache. ??? You have muscle cramps. Get help right away if: ??? You have chest pain. ??? You feel extremely weak or you faint. ??? You have bloody or black stools or stools that look like tar. ??? You have severe pain, cramping, or bloating in your abdomen. ??? You have trouble breathing or you are breathing very quickly. ??? Your heart is beating very quickly. ??? Your skin feels cold and clammy. ??? You feel confused. ??? You have signs of dehydration, such as: ??? Dark urine, very little urine, or no urine. ??? Cracked lips. ??? Dry mouth. ??? Sunken eyes. ??? Sleepiness. ??? Weakness. Summary ??? Diarrhea is frequent loose and watery bowel movements. Diarrhea can make you feel weak and cause you to become dehydrated. ??? Drink enough fluids to keep your urine pale yellow. ??? Make sure that you wash your hands after using the toilet. If soap and water are not available,use hand flow specialist. ??? Contact a health care provider if your diarrhea gets worse or you have new symptoms. ??? Get help right away if you have signs of dehydration. This information is not intended to replace advice given to you by your health care provider. Make sure you discuss any questions you have with your health care provider. Document Revised: 01/10/2020 Document Reviewed: 01/28/2019 [employer] Patient Education ?? 2021 [employer]. 11/24/2022 10:45:04 Nausea and Vomiting, Adult Nausea and Vomiting, Adult Nausea is the feeling that you have an upset stomach or that you are about to vomit. Vomiting is when stomach contents are thrown up and out of the mouth as a result of nausea. Vomiting can make you feel weak and cause you to become dehydrated. Dehydration can make you feel tired and thirsty, cause you to have a dry mouth, and decrease how often you urinate. Older adults and people with other diseases or a weak disease-fighting system (immune system) are at higher risk for dehydration. It is important to treat your nausea and vomiting as told by your health care provider. Follow these instructions at home: Watch your symptoms for any changes. Tell your health care provider about them. Follow these instructions to care for yourself at home. Eating and drinking ??? Take an oral rehydration solution (ORS). This is a drink that is sold at pharmacies and retail stores. ??? Drink clear fluids slowly and in small amounts as you are able. Clear fluids include water, icechips, low-calorie sports drinks, and fruit juice that has water added (diluted fruit juice). ??? Eat bland, xfzw-zh-qaoczn foods in small amounts as you are able. These foods include bananas, applesauce, rice, lean meats, toast, and crackers. ??? Avoid fluids that contain a lot of sugar or caffeine, such as energy drinks, sports drinks, andsoda. ??? Avoid alcohol. ??? Avoid spicy or fatty foods. General instructions ??? Take pcoj-abt-osteunp and prescription medicines only as told by your health care provider. ??? Drink enough fluid to keep your urine pale yellow. ??? Wash your hands often using soap and water. If soap and water are not available, use hand flow specialist. ??? Make sure that all people in your household wash their hands well and often. ??? Rest at home while you recover. ??? Watch your condition for any changes. ??? Breathe slowly and deeply when you feel nauseated. ??? Keep all follow-up visits as told by your health care provider. This is important. Contact a health care provider if: ??? Your symptoms get worse. ??? You have new symptoms. ??? You have a fever. ??? You cannot drink fluids without vomiting. ??? Your nausea does not go away after 2 days. ??? You feel light-headed or dizzy. ??? You have a headache. ??? You have muscle cramps. ??? You have a rash. ??? You have pain while urinating. Get help right away if: ??? You have pain in your chest, neck, arm, or jaw. ??? You feel extremely weak or you faint. ??? You have persistent vomiting. ??? You have vomit that is bright red or looks like black coffee grounds. ??? You have bloody or black stools or stools that look like tar. ??? You have a severe headache, a stiff neck, or both. ??? You have severe pain, cramping, or bloating in your abdomen. ??? You have difficulty breathing, or you are breathing very quickly. ??? Your heart is beating very quickly. ??? Your skin feels cold and clammy. ??? You feel confused. ??? You have signs of dehydration, such as: ??? Dark urine, very little urine, or no urine. ??? Cracked lips. ??? Dry mouth. ??? Sunken eyes. ??? Sleepiness. ??? Weakness. These symptoms may represent a serious problem that is an emergency. Do not wait to see if the symptoms will go away. Get medical help right away. Call your local emergency services (911 in the [place] Do not drive yourself to the hospital. Summary ??? Nausea is the feeling that you have an upset stomach or that you are about to vomit. As nausea gets worse, it can lead to vomiting. Vomiting can make you feel weak and cause you to become dehydrated. ??? Follow instructions from your health care provider about eating and drinking to prevent dehydration. ??? Take clag-nxv-bulzfmh and prescription medicines only as told by your health care provider. ??? Contact your health care provider if your symptoms get worse, or you have new symptoms. ??? Keep all follow-up visits as told by your health care provider. This is important. This information is not intended to replace advice given to you by your health care provider. Make sure you discuss any questions you have with your health care provider. Document Revised: 11/13/2021 Document Reviewed: 02/01/2019 [employer] Patient Education ?? 2021 [employer] Follow Up Care 11/24/2022 09:02:15 With:Charly Russell MD Address: [address] [place], [place] [id number]- When:2 to 4 days Emergency department Discharge instructions * Migel Campo MD: PERFORM Event Display: ED Discharge Information Authored Date: [id number] ESTEBAN LARA :1980 Age:42 years Sex:Female Visit Date:11/24/2022 Primary Care Physician: Charly Russell MD Discharge Instructions We would like to thank you for allowing us to assist you with your healthcare needs. The following includes patient education materials and information regarding your injury/illness. Diagnosis from Today's Visit Nausea vomiting and diarrhea Generalized abdominal pain Diarrhea, unspecified Discharge Vitals Temperature??(Temporal Artery) 96.8 ??F (36 ??C) Heart Rate??(Peripheral) 67 Respiratory Rate?? 16 Blood Pressure?? 128/89?? Height?? 58.66 in (149.000 cm) Weight??(Estimated) 165.38 lb (75.00 kg) Allergies erythromycin simvastatin What to Do Next Instructions from Your Care Team Thank you for coming to the emergency department today, it has been our pleasure to take care of you and we are sorry that you are still feeling poorly.?? Your labs today including cell counts, kidney function, liver tests, pancreas/lipase test and urine were generally reassuring.?? Since you are still having diarrhea, we would recommend that??you bring a stool sample back to the hospital so thatwe can test it for different viruses and bacteria that could cause you to have nausea, vomiting, diarrhea, and abdominal pain.?? Please follow-up with your regular doctor in the next 1 to 2 days for recheck and return to the emergency department if you have any new or concerning symptoms including any fever, worsening or uncontrolled pain, new chest pain, trouble breathing, lightheadedness, dizziness, loss of consciousness, or if you have any other symptoms or concerns. You Need to Schedule the Following Appointments Follow Up with??Charly Russell MD When:??Within 2 to 4 days Where: [facility] [address] [place] [address]- You were treated today on an emergency [...] Much When Why Instructions Next Dose New ondansetron (!-Zofran ODT 8 mg oral tablet, disintegrating) 1 tab Oral (given by mouth) 2 times a day Nausea vomiting and diarrhea Generalized abdominal pain Duration: 3 Days Pickup at [facility] Unchanged amitriptyline Unchanged benzonatate (Tessalon Perles 100 mg oral capsule) 2 Capsules Oral (given by mouth) 3 times a day as needed for as needed for cough Pleurisy Duration: 10 Days Unchanged buprenorphine-naloxone (Suboxone) 10 Milligrams Unchanged lidocaine topical (Lidoderm 5% topical film) 1 patch(es) Topical (on the skin) Every day Pleurisy Duration: 10 Days remove patches after 12 hours ?? Unchanged omeprazole Unchanged polyethylene glycol 3350 (MiraLax oral powder for reconstitution) 17 Gram Oral (given by mouth) Every day Constipation Unchanged sertraline (Zoloft) Unchanged sucralfate (Carafate) Pharmacy Information [facility]: [address] [place], [place] [id number] [phone] ?? What How Much When Why Comments Stop Taking naproxen (naproxen 500 mg oral tablet) 1 tab Oral (given by mouth) Every 12 hours Pleurisy Duration: 10 Days Education Materials Diarrhea, Adult Diarrhea is frequent loose and watery bowel movements. Diarrhea can make you feel weak and cause you to become dehydrated. Dehydration can make you tired and thirsty, cause you to have a dry mouth, and decrease how often you urinate. Diarrhea typically lasts 2???3 days. However, it can last longer if it is a sign of something more serious. It is important to treat your diarrhea as told by your health care provider. Follow these instructions at home: Eating and drinking Follow these recommendations as told by your health care provider: ? Take an oral rehydration solution (ORS). This is an qohz-ico-aaexstd medicine that helps return your body to its normal balance of nutrients and water. It is found at pharmacies and retail stores. ? Drink plenty of fluids, such as water, ice chips, diluted fruit juice, and low- calorie sports drinks. You can drink milk also, if desired. ? Avoid drinking fluids that contain a lot of sugar or caffeine, such as energy drinks, sports drinks, and soda. ? Eat bland, rogw-mx-ejsioi foods in small amounts as you are able. These foods include bananas, applesauce, rice, lean meats, toast, and crackers. ? Avoid alcohol. ? Avoid spicy or fatty foods. Medicines ? Take pbyt-xyu-qticjys and prescription medicines only as told by your health care provider. ? If you were prescribed an antibiotic medicine, take it as told by your health care provider. Do notstop using the antibiotic even if you start to feel better. General instructions ? Wash your hands often using soap and water. If soap and water are not available, use a hand flow specialist. Others in the household should wash their hands as well. Hands should be washed: ? After using the toilet or changing a diaper. ? Before preparing, cooking, or serving food. ? While caring for a sick person or while visiting someone in a hospital. ? Drink enough fluid to keep your urine pale yellow. ? Rest at home while you recover. ? Watch your condition for any changes. ? Take a warm bath to relieve any burning or pain from frequent diarrhea episodes. ? Keep all follow-up visits as told by your health care provider. This is important. Contact a health care provider if: ? You have a fever. ? Your diarrhea gets worse. ? You have new symptoms. ? You cannot keep fluids down. ? You feel light-headed or dizzy. ? You have a headache. ? You have muscle cramps. Get help right away if: ? You have chest pain. ? You feel extremely weak or you faint. ? You have bloody or black stools or stools that look like tar. ? You have severe pain, cramping, or bloating in your abdomen. ? You have trouble breathing or you are breathing very quickly. ? Your heart is beating very quickly. ? Your skin feels cold and clammy. ? You feel confused. ? You have signs of dehydration, such as: ? Dark urine, very little urine, or no urine. ? Cracked lips. ? Dry mouth. ? Sunken eyes. ? Sleepiness. ? Weakness. Summary ? Diarrhea is frequent loose and watery bowel movements. Diarrhea can make you feel weak and cause you to become dehydrated. ? Drink enough fluids to keep your urine pale yellow. ? Make sure that you wash your hands after using the toilet. If soap and water are not available, usehand flow specialist. ? Contact a health care provider if your diarrhea gets worse or you have new symptoms. ? Get help right away if you have signs of dehydration. This information is not intended to replace advice given to you by your health care provider. Make sure you discuss any questions you have with your health care provider. Document Revised: 01/10/2020 Document Reviewed: 01/28/2019 [employer] Patient Education ?? 2021 [employer]. Nausea and Vomiting, Adult Nausea is the feeling that you have an upset stomach or that you are about to vomit. Vomiting is when stomach contents are thrown up and out of the mouth as a result of nausea. Vomiting can make you feel weak and cause you to become dehydrated. Dehydration can make you feel tired and thirsty, cause you to have a dry mouth, and decrease how often you urinate. Older adults and people with other diseases or a weak disease-fighting system (immune system) are at higher risk for dehydration. It is important to treat your nausea and vomiting as told by your health care provider. Follow these instructions at home: Watch your symptoms for any changes. Tell your health care provider about them. Follow these instructions to care for yourself at home. Eating and drinking ? Take an oral rehydration solution (ORS). This is a drink that is sold at pharmacies and retail stores. ? Drink clear fluids slowly and in small amounts as you are able. Clear fluids include water, ice chips, low-calorie sports drinks, and fruit juice that has water added (diluted fruit juice). ? Eat bland, amnb-fe-diguzd foods in small amounts as you are able. These foods include bananas, applesauce, rice, lean meats, toast, and crackers. ? Avoid fluids that contain a lot of sugar or caffeine, such as energy drinks, sports drinks, and soda. ? Avoid alcohol. ? Avoid spicy or fatty foods. General instructions ? Take xfoe-qmz-hkyddow and prescription medicines only as told by your health care provider. ? Drink enough fluid to keep your urine pale yellow. ? Wash your hands often using soap and water. If soap and water are not available, use hand flow specialist. ? Make sure that all people in your household wash their hands well and often. ? Rest at home while you recover. ? Watch your condition for any changes. ? Breathe slowly and deeply when you feel nauseated. ? Keep all follow-up visits as told by your health care provider. This is important. Contact a health care provider if: ? Your symptoms get worse. ? You have new symptoms. ? You have a fever. ? You cannot drink fluids without vomiting. ? Your nausea does not go away after 2 days. ? You feel light-headed or dizzy. ? You have a headache. ? You have muscle cramps. ? You have a rash. ? You have pain while urinating. Get help right away if: ? You have pain in your chest, neck, arm, or jaw. ? You feel extremely weak or you faint. ? You have persistent vomiting. ? You have vomit that is bright red or looks like black coffee grounds. ? You have bloody or black stools or stools that look like tar. ? You have a severe headache, a stiff neck, or both. ? You have severe pain, cramping, or bloating in your abdomen. ? You have difficulty breathing, or you are breathing very quickly. ? Your heart is beating very quickly. ? Your skin feels cold and clammy. ? You feel confused. ? You have signs of dehydration, such as: ? Dark urine, very little urine, or no urine. ? Cracked lips. ? Dry mouth. ? Sunken eyes. ? Sleepiness. ? Weakness. These symptoms may represent a serious problem that is an emergency. Do not wait to see if the symptoms will go away. Get medical help right away. Call your local emergency services (911 in the [place] Do not drive yourself to the hospital. Summary ? Nausea is the feeling that you have an upset stomach or that you are about to vomit. As nausea getsworse, it can lead to vomiting. Vomiting can make you feel weak and cause you to become dehydrated. ? Follow instructions from your health care provider about eating and drinking to prevent dehydration. ? Take kqet-[id number] and prescription medicines only as told by your health care provider. ? Contact your health care provider if your symptoms get worse, or you have new symptoms. ? Keep all follow-up visits as told by your health care provider. This is important. This information is not intended to replace advice given to you by your health care provider. Make sure you discuss any questions you have with your health care provider. Document Revised: 11/13/2021 Document Reviewed: 02/01/2019 [employer] Patient Education ?? 2021 [employer] Tests Performed Medications and Immunizations Administered Given !-Compazine, 10 mg, IV Push NS bolus, 1000 mL, IV Piggyback Toradol, 15 mg, IV Push Lab Test Name Test Result Date/Time WBC 8.6 x10^3/mcL 11/24/2022 10:45 EDT RBC 4.9 x10^6/mcL 11/24/2022 10:45 EDT Hgb 16.2 g/dL 11/24/2022 10:45 EDT Hct 47.6 % 11/24/2022 10:45 EDT MCV 97.5 11/24/2022 10:45 EDT MCH 33.2 pg 11/24/2022 10:45 EDT MCHC 34.0 g/dL 11/24/2022 10:45 EDT RDW-CV 13.4 % 11/24/2022 10:45 EDT Platelets 299 x10^3/mcL 11/24/2022 10:45 EDT Neutro Auto 68.3 % 11/24/2022 10:45 EDT Lymph Auto 23.7 % 11/24/2022 10:45 EDT [place] Auto 6.1 % 11/24/2022 10:45 EDT Eos, Auto 0.7 % 11/24/2022 10:45 EDT Basophil Auto 0.7 % 11/24/2022 10:45 EDT Imm Gran Auto 0.5 % 11/24/2022 10:45 EDT Neutro Absolute 5.9 x10^3/mcL 11/24/2022 10:45 EDT Sodium Level 140 mmol/L 11/24/2022 10:45 EDT Potassium Level 4.1 mmol/L 11/24/2022 10:45 EDT Chloride Level 103 mmol/L 11/24/2022 10:45 EDT CO2 29 mmol/L 11/24/2022 10:45 EDT Alk Phos 72 unit/L 11/24/2022 10:45 EDT AST 17 unit/L 11/24/2022 10:45 EDT ALT 16 unit/L 11/24/2022 10:45 EDT BUN 6 mg/dL 11/24/2022 10:45 EDT Glucose Level 96 mg/dL 11/24/2022 10:45 EDT Creatinine Level 0.98 mg/dL 11/24/2022 10:45 EDT eGFR AA 74 11/24/2022 10:45 EDT eGFR Non-AA 74 11/24/2022 10:45 EDT Calcium Level 9.7 mg/dL 11/24/2022 10:45 EDT Protein Total 8.1 g/dL 11/24/2022 10:45 EDT Albumin Level 4.1 g/dL 11/24/2022 10:45 EDT Bilirubin Total 0.6 mg/dL 11/24/2022 10:45 EDT Lipase Level 18 unit/L 11/24/2022 10:45 EDT CK 39 unit/L 11/24/2022 10:45 EDT Troponin-I <5.0 pg/mL 11/24/2022 10:45 EDT UA Color YELLOW. 11/24/2022 11:21 EDT UA Appear CLEAR. 11/24/2022 11:21 EDT UA Glucose NEGATIVE 11/24/2022 11:21 EDT UA Bili NEGATIVE 11/24/2022 11:21 EDT UA Ketones NEGATIVE 11/24/2022 11:21 EDT UA Spec Grav 1.020 11/24/2022 11:21 EDT UA Blood NEGATIVE 11/24/2022 11:21 EDT UA pH 6.5 11/24/2022 11:21 EDT UA Protein NEGATIVE 11/24/2022 11:21 EDT UA Urobilinogen 0.2 Uro 11/24/2022 11:21 EDT UA Nitrite NEGATIVE 11/24/2022 11:21 EDT UA Leuk Est NEGATIVE 11/24/2022 11:21 EDT Employed in healthcare? Unknown 11/24/2022 10:45 EDT Symptomatic as defined by CDC? Unknown 11/24/2022 10:45 EDT Hospitalized due to COVID-19? Unknown 11/24/2022 10:45 EDT In ICU? Unknown 11/24/2022 10:45 EDT Group care resident? Unknown 11/24/2022 10:45 EDT status? Unknown 11/24/2022 10:45 EDT SARS-CoV-2(Covid19)PCR(GXpert COVFLURSV) NEGATIVE 11/24/2022 10:45 EDT Flu A (GXpert COVFLURSV) NEGATIVE 11/24/2022 10:45 EDT Flu B (GXpert COVFLURSV) Neg-GeneXPert 11/24/2022 10:45 EDT RSV (GXpert COVFLURSV) Neg-GeneXPert 11/24/2022 10:45 EDT Patient/Claims Account Specialist Signature Patient Name:ESTEBAN LARA I have received this information and my questions have been answered. Patient/Claims Account Specialist Name: Patient/Claims Account Specialist Signature: Relationship to Patient: Witness Name/Signature: Date: Electronically Signed on: 11/24/2022 11:51 EDTSigned by:SHAHIDA Emergency department Note * Lynsey Chandler M: PERFORM Event Display: ED Notes Authored Date: [id number] Patient Care team information Care Team Personnel Name: Charly Russell MD Position: No Access Member Role: Primary Care Physician Address: Address: [address], [place] [address] Name: Luna Gee Position: Nurse Member Role: ED Nurse Name: Migel Campo MD Position: Physician Member Role: ED Physician Address: Address: [address] [place] [address] [place] [address] [place] Care Team Related Persons Name: CORDELL HOANG Name: SONU MCDONALD
--- OUTSIDE RECORDS SUMMARY | 2023-09-06 11:16 | XMS_ITS | Continuity of Care Document ---
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) - Discharge Disposition: Home Attending Physician: Rosario Anderson MD Admitting Physician: Rosario Anderson MD Allergies, Adverse Reactions, Alerts Substance Reaction Severity Status erythromycin Unknown Active simvastatin Unknown Active Functional Status 06/12/22 Family Member Travel History No recent t ravel Recent Travel History No recent travel Other exposure to Infectious Disease Non e Medications amitriptyline 0 Refill(s) Start Date: 02/20/22 Status: Ordered Carafate 0 Refill(s) Start Date: 02/20/22 Status: Ordered cyclobenzaprine 10 mg oral tablet 10 mg = 1 tab, Oral, TID, PRN as needed for spasm, X 10 days, # 30 tab, 0 Refill(s), 06/22/22 12:50:00 EDT, Pharmacy: [id number], 149, cm, 06/12/22 12:00:00 EDT, Height/Length Dosing, 74.8, kg, 06/12/22 12:00:00 EDT, Weight Dosing Start Date: 06/12/22 Stop Date: 06/22/22 Status: Ordered ibuprofen 800 mg oral tablet 800 mg = 1 tab, Oral, every 8 hr, PRN as needed for pain, X 30 days, # 90 tab, 1 Refill(s), 08/11/22 12:50:00 EST, Pharmacy: [id number], 149, cm, 06/12/22 12:00:00 EDT, Height/Length Dosing, 74.8, kg, 06/12/22 12:00:00 EDT, Weight Dosing Start Date: 06/12/22 Stop Date: 08/11/22 Status: Ordered omeprazole 0 Refill(s) Start Date: 02/20/22 Status: Ordered Suboxone 10 mg, 0 Refill(s) Start Date: 02/20/22 Status: Ordered Zoloft 0 Refill(s) Start Date: 02/20/22 Status: Ordered Vital Signs Most recent to oldest [Reference Range]: 1 Temperature Temporal Artery [36-38 Deg C ] 35.1 Deg C *LOW* (06/12/22 11:51 AM) Peripheral Pulse Rate [60-100 bpm] 89 bp m (06/12/22 11:51 AM) Respiratory Rate [12-24 br/min] 18 br/mi n (06/12/22 11:51 AM) Blood Pressure [90-140/60-90 mmHg] 133/9 6mmHg (06/12/22 11:51 AM) Weight Dosing 74.80 kg (06/12/22 12:00 PM) Weight Estimated 74.80 kg (06/12/22 11:51 AM) Height/Length Dosing 149.000 cm (06/12/22 12:00 PM) Height/Length Estimated 149.000 cm (06/12/22 11:51 AM) Social History Social History Type Response Tobacco Current everyday tob acco user Tobacco Use:. 1 ppd per day. Sex Female Hospital Discharge Instructions Patient Education 06/12/2022 11:51:06 Hip Pain Hip Pain The hip is the joint between the upper legs and the lower pelvis. The bones, cartilage, tendons, and muscles of your hip joint support your body and allow you to move around. Hip pain can range from a minor ache to severe pain in one or both of your hips. The pain may be felt on the inside of the hip joint near the groin, or on the outside near the buttocks and upper thigh. You may also have swelling or stiffness in your hip area. Follow these instructions at home: Managing pain, stiffness, and swelling ??? If directed, put ice on the painful area. To do this: ??? Put ice in a plastic bag. ??? Place a towel between your skin and the bag. ??? Leave the ice on for 20 minutes, 2???3 times a day. ??? If directed, apply heat to the affected area as often as told by your health care provider. Usethe heat source that your health care provider recommends, such as a moist heat pack or a heating pad. ??? Place a towel between your skin and the heat source. ??? Leave the heat on for 20???30 minutes. ??? Remove the heat if your skin turns bright red. This is especially important if you are unable to feel pain, heat, or cold. You may have a greater risk of getting burned. Activity ??? Do exercises as told by your health care provider. ??? Avoid activities that cause pain. General instructions ??? Take vean-chj-bdecusz and prescription medicines only as told by your health care provider. ??? Keep a journal of your symptoms. Write down: ??? How often you have hip pain. ??? The location of your pain. ??? What the pain feels like. ??? What makes the pain worse. ??? Sleep with a pillow between your legs on your most comfortable side. ??? Keep all follow-up visits as told by your health care provider. This is important. Contact a health care provider if: ??? You cannot put weight on your leg. ??? Your pain or swelling continues or gets worse after one week. ??? It gets harder to walk. ??? You have a fever. Get help right away if: ??? You fall. ??? You have a sudden increase in pain and swelling in your hip. ??? Your hip is red or swollen or very tender to touch. Summary ??? Hip pain can range from a minor ache to severe pain in one or both of your hips. ??? The pain may be felt on the inside of the hip joint near the groin, or on the outside near the buttocks and upper thigh. ??? Avoid activities that cause pain. ??? Write down how often you have hip pain, the location of the pain, what makes it worse, and whatit feels like. This information is not intended to replace advice given to you by your health care provider. Make sure you discuss any questions you have with your health care provider. Document Revised: 01/09/2020 Document Reviewed: 01/09/2020 [employer] Patient Education ?? 2021 [employer] Follow Up Care 06/12/2022 11:51:29 With:Follow up with Orthopedic Address: When:1 to 2 weeks With:Follow up with primary care provider Address: When:1 to 2 weeks Patient Care team information Personnel Name: Charly Russell Address: Address: [address] [place], [place] [address]
--- OUTSIDE RECORDS SUMMARY | 2023-09-06 11:16 | XMS_ITS | Continuity of Care Document ---
Author Name Unknown Organization [facility] Address [address] [place] [address] Care Team Providers Care Events Director Name Role Phone Charly Russell Primary Care Physician Encounter NCTY_PA Date(s): 10/02/22 - 10/02/22 [facility] [address] [place] [address] Encounter Diagnosis Lower abdominal pain(Discharge Diagnosis) - 10/02/22 Lower abdominal pain, unspecified(Final) - Nicotine dependence, cigarettes, uncomplicated(Final) - Other jail (current) drug therapy(Final) - Discharge Disposition: Home or Self Care Attending Physician: Brandon Ward MD Admitting Physician: Brandon Ward MD Allergies, Adverse Reactions, Alerts Substance Reaction Severity Status erythromycin Unknown Active simvastatin Unknown Active Assessment and Plan Extracted from: Title:Clinical Document Author:Tess Lazar te:10/02/22 Diagnosis: 1. Lower abdomina l pain Comment: Diagnosis: Abdominal pain Comment: Medications amitriptyline 0 Refill(s) Start Date: 02/20/22 Status: Ordered Carafate 0 Refill(s) Start Date: 02/20/22 Status: Ordered omeprazole 0 Refill(s) Start Date: 02/20/22 Status: Ordered Suboxone 10 mg, 0 Refill(s) Start Date: 02/20/22 Status: Ordered Zoloft 0 Refill(s) Start Date: 02/20/22 Status: Ordered Results Laboratory List Name Date CBC w/ Diff 10/02/22 Comprehensive Metabolic Panel 10/02/22 Lipase Level 10/02/22 Automated Diff 10/02/22 Urinalysis with Micro if Indicated and C ulture if Indicated 10/02/22 Most recent to oldest [Reference Range]: 1 WBC [5.0-10.0 x10^3/mcL] 6.8 x10^3/mcL (10/02/22 3:30 PM) RBC [4.1-5.3 x10^6/mcL] 4.2 x10^6/mcL (10/02/22 3:30 PM) Neutro Auto [40.0-75.0 %] 49.2 % (10/02/22 3:30 PM) Lymph Auto [20.0-50.0 %] 43.1 % (10/02/22 3:30 PM) Brooke Auto [2.0-15.0 %] 5.2 % (10/02/22 3:30 PM) Basophil Auto [0.0-1.0 %] 0.9 % (10/02/22 3:30 PM) BUN [7-18 mg/dL] 7 mg/dL (10/02/22 3:30 PM) UA Color Pale Yellow (10/02/22 2:46 PM) Glucose Level [74-106 mg/dL] 73 mg/dL *LOW* (10/02/22 3:30 PM) Potassium Level [3.5-5.1 mmol/L] 4.5 mmo l/L (10/02/22 3:30 PM) MCV [80.0-96.0] 99.5 *HI* (10/02/22 3:30 PM) UA Urobilinogen Normal (10/02/22 2:46 PM) UA Bili [Negative] Negative (10/02/22 2:46 PM) UA Ketones Negative (10/02/22 2:46 PM) AST [15-37 unit/L] 15 unit/L (10/02/22 3:30 PM) ALT [14-59 unit/L] 16 unit/L (10/02/22 3:30 PM) MCHC [31.0-35.0 g/dL] 33.6 g/dL (10/02/22 3:30 PM) Sodium Level [136-145 mmol/L] 139 mmol/L (10/02/22 3:30 PM) UA Leuk Est Negative (10/02/22 2:46 PM) UA Nitrite Negative (10/02/22 2:46 PM) UA Glucose [Negative] Negative (10/02/22 2:46 PM) Hct [37.0-47.0 %] 42.3 % (10/02/22 3:30 PM) Lipase Level [16-77 unit/L] 21 unit/L (10/02/22 3:30 PM) Calcium Level [8.5-10.1 mg/dL] 9.2 mg/dL (10/02/22 3:30 PM) Albumin Level [3.4-5.0 g/dL] 3.7 g/dL (10/02/22 3:30 PM) Protein Total [6.4-8.2 g/dL] 7.3 g/dL (10/02/22 3:30 PM) UA Protein Negative (10/02/22 2:46 PM) MCH [26.0-32.0 pg] 33.4 pg *HI* (10/02/22 3:30 PM) Neutro Absolute 3.3 x10^3/mcL *NA* (10/02/22 3:30 PM) Bilirubin Total [0.2-1.0 mg/dL] 0.3 mg/d L (10/02/22 3:30 PM) Hgb [12.0-16.0 g/dL] 14.2 g/dL (10/02/22 3:30 PM) Alk Phos [46-146 unit/L] 68 unit/L (10/02/22 3:30 PM) UA Blood Negative (10/02/22 2:46 PM) UA Spec Grav 1.020 *NA* (10/02/22 2:46 PM) Platelets [130-450 x10^3/mcL] 245 x10^3/ mcL (10/02/22 3:30 PM) CO2 [21-32 mmol/L] 27 mmol/L (10/02/22 3:30 PM) UA pH 8.0 *NA* (10/02/22 2:46 PM) eGFR Non-AA [>=60] 88 (10/02/22 3:30 PM) eGFR AA [>=60] 88 (10/02/22 3:30 PM) UA Appear Clear (10/02/22 2:46 PM) Chloride Level [98-107 mmol/L] 104 mmol/ L (10/02/22 3:30 PM) RDW-CV [11.7-17.0 %] 13.5 % (10/02/22 3:30 PM) Imm Gran Auto [0.0-0.9 %] 0.3 % (10/02/22 3:30 PM) Creatinine Level [0.55-1.02 mg/dL] 0.85 mg/dL (10/02/22 3:30 PM) Eos, Auto [1.0-6.0 %] 1.3 % (10/02/22 3:30 PM) Vital Signs Most recent to oldest [Reference Range]: 1 2 Temperature Temporal Artery [36-38 Deg C ] 35.7 Deg C *LOW* (10/02/22 2:35 PM) Peripheral Pulse Rate [60-100 bpm] 61 bp m (10/02/22 4:07 PM) 68 bpm (10/02/22 2:35 PM) Respiratory Rate [12-24 br/min] 18 br/mi n (10/02/22 4:07 PM) 16 br/min (10/02/22 2:35 PM) Blood Pressure [90-140/60-90 mmHg] 126/8 3mmHg (10/02/22 4:07 PM) 126/100mmHg (10/02/22 2:35 PM) Weight Dosing 76.20 kg (10/02/22 2:41 PM) Weight Estimated 76.20 kg (10/02/22 2:35 PM) Height/Length Dosing 149.860 cm (10/02/22 2:41 PM) Height/Length Estimated 149.860 cm (10/02/22 2:35 PM) Social History Social History Type Response Tobacco Current everyday tob acco user Tobacco Use:. 1 ppd per day. Sex Female Hospital Discharge Instructions Patient Education 10/02/2022 16:34:48 Abdominal Pain, Adult, Cxdg-bh-[id number] Abdominal Pain, Adult Many things can cause belly (abdominal) pain. Most times, belly pain is not dangerous. Many cases of belly pain can be watched and treated at home. Sometimes, though, belly pain is serious. Your doctor will try to find the cause of your belly pain. Follow these instructions at home: Medicines ??? Take gzze-zlr-dkyssjc and prescription medicines only as told by your doctor. ??? Do not take medicines that help you poop (laxatives) unless told by your doctor. General instructions ??? Watch your belly pain for any changes. ??? Drink enough fluid to keep your pee (urine) pale yellow. ??? Keep all follow-up visits as told by your doctor. This is important. Contact a doctor if: ??? Your belly pain changes or gets worse. ??? You are not hungry, or you lose weight without trying. ??? You are having trouble pooping (constipated) or have watery poop (diarrhea) for more than 2???3days. ??? You have pain when you pee or poop. ??? Your belly pain wakes you up at night. ??? Your pain gets worse with meals, after eating, or with certain foods. ??? You are vomiting and cannot keep anything down. ??? You have a fever. ??? You have blood in your pee. Get help right away if: ??? Your pain does not go away as soon as your doctor says it should. ??? You cannot stop vomiting. ??? Your pain is only in areas of your belly, such as the right side or the left lower part of the belly. ??? You have bloody or black poop, or poop that looks like tar. ??? You have very bad pain, cramping, or bloating in your belly. ??? You have signs of not having enough fluid or water in your body (dehydration), such as: ??? Dark pee, very little pee, or no pee. ??? Cracked lips. ??? Dry mouth. ??? Sunken eyes. ??? Sleepiness. ??? Weakness. ??? You have trouble breathing or chest pain. Summary ??? Many cases of belly pain can be watched and treated at home. ??? Watch your belly pain for any changes. ??? Take cooq-itn-kayiewl and prescription medicines only as told by your doctor. ??? Contact a doctor if your belly pain changes or gets worse. ??? Get help right away if you have very bad pain, cramping, or bloating in your belly. This information is not intended to replace advice given to you by your health care provider. Make sure you discuss any questions you have with your health care provider. Document Revised: 01/02/2020 Document Reviewed: 01/02/2020 [employer] Patient Education ?? 2021 [employer]. Follow Up Care 10/02/2022 14:35:03 With:Follow up with primary care provider Address: When: only if needed Physician Emergency department Note * Seferino Inman MD: PERFORM Event Display: ED Note Physician Authored Date: [id number] ESTEBAN LARA :1980 Age:42 years Sex:Female Visit Date:10/02/2022 Primary Care Physician: Charly Russell MD Basic Information Time Seen: Seferino Inman MD / 10/02/2022 14:41 Chief Complaint Pt states she has had lwoer abdominal pain for 2 days. ??Had burning upon urination 5days ago but the has subsided and now just has urinary frequency History Of Present Illness: -year-old female??with a past history of??hysterectomy and she says bilateral??salpingo-oophorectomy??since because of a 2-day history of lower constant abdominal pain.?? She was nauseous at some point and had some diarrhea which is unusual. ??No GI bleeding.?? Has felt a little dizziness and weakne ss.?? Eating might make it worse,??she has some burning on urination 5 days ago but she took some cranberry juice and that has subsided. ??No abnormal vaginal discharge.?? No URI symptoms or documented fever.?? Did have some back pain but that has subsided also. Review of Systems: Constitutional:??no??fever,? Skin:??no??Jaundice,??no??rash,??no??lesions,??no??petechiae ENMT:??no??ear pain,??no??sore throat,??no??congestion,??no??hoarseness Respiratory:??no??shortness of breath,??no??cough,??no??orthopnea,??no??wheezing Cardiovascular:??no??chest pain,??no??palpitations,??no??edema Gastrointestinal see HPI??no??GI bleeding Genitourinary:??HPI Musculoskeletal:??no??back pain,??no??trauma Neurologic:??no??headache,??mild??dizziness,??no??numbness,??no??weakness ?? Physical Exam Vitals & Measurements T:??35.7?C ??(Temporal Artery)?? HR:??61??(Peripheral)?? RR:??18?? BP:??126/83?? SpO2:??98%?? HT:??149.860??cm?? WT:??76.20??kg??(Estimated)?? Pain Score:??7?? O2 Therapy:??Room air?? General:??alert,??no acute distress. Skin:??warm,??dry. Head:??no??trauma,??normocephalic. Neck:??trachea??midline,??no??adenopathy,??no??tenderness. Eye:??normal??conjunctiva, sclera??clear. Cardiovascular:??regular??rate and rhythm,??normal??peripheral perfusion. Respiratory: lungs??CTA, respirations??non-labored. Chest wall:??no??deformity. Gastrointestinal:??soft,??non distended,??mild nonfocal tenderness of the lower abdomen. ??Blake'snegative McBurney's negative. Extremities:??no??deformity,??no??trauma. Neurological:??oriented??x 4, LOC??appropriate for age, , speech??normal. Psychiatric:??cooperative, affect?? Medical Decision Making: Medical Decision-Making: Clinical lab tests: ordered and reviewed -??Yes Tests in the radiology section of CPT??: ordered and reviewed -??Yes ?? Decide to obtain previous medical records or to obtain history from someone other than the patient:-??Yes ?? Review and summarize past medical records -??Yes Discuss the patient with other providers -??Yes Independent visualization of images, tracings, or specimens? Yes ?? Patient had some diarrhea in recent days she may have some enteritis, she had some burning on urination which have subsided,??perhaps some residual symptoms or bladder spasm from recent??bladder infection that appears to have cleared with cranberry juice. ??There is no signs of bowel obstruction.?? Has some fatty infiltration of the liver leading to hepatomegaly but she has no upper abdominal pain.?? Spleen measuring 13 cm, but she has no left upper quadrant pain.?? No other anomalies on CATscan seen.?? IBS to be considered,??this??not appear to have pelvic inflammatory disease, she is status post hysterectomy. ??No signs of??appendicitis.?? I reviewed the symptoms with the patient. ??Will recommend simplifying the diet in light of recent diarrhea??noted with??clear liquids such as Gatorade diluted with equal amounts of water.?? And will recommend she follow-up with her doctor in the next week if ongoing symptoms but she is discharged in stable condition ?? Procedure No Qualifying Data Assessment/Plan 1.??Lower abdominal pain??R10.30 Orders: Discharge Patient, 10/02/22 17:33:00 EST, Home Independently, Constant Indicator Patient Education Abdominal Pain, Adult, Ldin-[id number]-Mvxz Follow Up With When Contact Information Follow up with primary care provider Only if needed Additional Instructions: Medication Reconciliation Unchanged amitriptyline ?? buprenorphine-naloxone (Suboxone)10 Milligrams. ?? omeprazole ?? sertraline (Zoloft) ?? sucralfate (Carafate) Problem List/Past Medical History Ongoing No qualifying data Historical No qualifying data Allergies erythromycin simvastatin Social History Electronic Cigarette/Vaping Electronic Cigarette Use: Never. Type: Cannabinoid infused. Tobacco Current everyday tobacco user Tobacco Use:. 1 ppd per day. Lab Results CBC and Differential?? LATEST RESULTS?? HISTORICAL RESULTS?? WBC?? 10/02/22 15:30?? 6.8?? 08/12/22?? 10.7 ??High?? RBC?? 10/02/22 15:30?? 4.2?? 08/12/22?? 3.8 ??Low?? Hgb?? 10/02/22 15:30?? 14.2?? 08/12/22?? 12.9?? Hct?? 10/02/22 15:30?? 42.3?? 08/12/22?? 39.0?? MCV?? 10/02/22 15:30?? 99.5 ??High?? 08/12/22?? 101.3 ??High?? MCH?? 10/02/22 15:30?? 33.4 ??High?? 08/12/22?? 33.5 ??High?? MCHC?? 10/02/22 15:30?? 33.6?? 08/12/22?? 33.1?? RDW-CV?? 10/02/22 15:30?? 13.5?? 08/12/22?? 12.9?? Platelets?? 10/02/22 15:30?? 245?? 08/12/22?? 247?? Neutro Auto?? 10/02/22 15:30?? 49.2?? 08/12/22?? 76.1 ??High?? Lymph Auto?? 10/02/22 15:30?? 43.1?? 08/12/22?? 16.9 ??Low?? Brooke Auto?? 10/02/22 15:30?? 5.2?? 08/12/22?? 5.7?? Eos, Auto?? 10/02/22 15:30?? 1.3?? 08/12/22?? 0.5 ??Low?? Basophil Auto?? 10/02/22 15:30?? 0.9?? 08/12/22?? 0.4?? Imm Gran Auto?? 10/02/22 15:30?? 0.3?? 08/12/22?? 0.4?? Neutro Absolute?? 10/02/22 15:30?? 3.3?? 08/12/22?? 8.1? Routine Chemistry?? LATEST RESULTS?? HISTORICAL RESULTS?? Sodium Level?? 10/02/22 15:30?? 139?? 08/12/22?? 138?? Potassium Level?? 10/02/22 15:30?? 4.5?? 08/12/22?? 3.6?? Chloride Level?? 10/02/22 15:30?? 104?? 08/12/22?? 103?? CO2?? 10/02/22 15:30?? 27?? 08/12/22?? 31?? Alk Phos?? 10/02/22 15:30?? 68?? 08/12/22?? 69?? AST?? 10/02/22 15:30?? 15?? 08/12/22?? 10 ??Low?? ALT?? 10/02/22 15:30?? 16?? 08/12/22?? 14?? BUN?? 10/02/22 15:30?? 7?? 08/12/22?? 7?? Glucose Level?? 10/02/22 15:30?? 73 ??Low?? 08/12/22?? 95?? Creatinine Level?? 10/02/22 15:30?? 0.85?? 08/12/22?? 0.81?? eGFR AA?? 10/02/22 15:30?? 88?? 08/12/22?? 93?? eGFR Non-AA?? 10/02/22 15:30?? 88?? 08/12/22?? 93?? Calcium Level?? 10/02/22 15:30?? 9.2?? 08/12/22?? 9.0?? Protein Total?? 10/02/22 15:30?? 7.3?? 08/12/22?? 7.4?? Albumin Level?? 10/02/22 15:30?? 3.7?? 08/12/22?? 3.2 ??Low?? Bilirubin Total?? 10/02/22 15:30?? 0.3?? 08/12/22?? 0.6?? Lipase Level?? 10/02/22 15:30?? 21?? 05/14/22?? 66 ??Low? UA Macroscopic?? LATEST RESULTS?? HISTORICAL RESULTS?? UA Color?? 10/02/22 14:46?? Pale Yellow?? 05/14/22?? Yellow?? UA Appear?? 10/02/22 14:46?? Clear?? 05/14/22?? Clear?? UA Glucose?? 10/02/22 14:46?? Negative?? 05/14/22?? Negative?? UA Bili?? 10/02/22 14:46?? Negative?? 05/14/22?? Negative?? UA Ketones?? 10/02/22 14:46?? Negative?? 05/14/22?? Negative?? UA Spec Grav?? 10/02/22 14:46?? 1.020?? 05/14/22?? 1.015?? UA Blood?? 10/02/22 14:46?? Negative?? 05/14/22?? Negative?? UA pH?? 10/02/22 14:46?? 8.0?? 05/14/22?? 7.0?? UA Protein?? 10/02/22 14:46?? Negative?? 05/14/22?? Negative?? UA Urobilinogen?? 10/02/22 14:46?? Normal?? 05/14/22?? Normal?? UA Nitrite?? 10/02/22 14:46?? Negative?? 05/14/22?? Negative?? UA Leuk Est?? 10/02/22 14:46?? Negative?? 05/14/22?? Negative? Electronically Signed on 10/02/22 05:35 PM Seferino Inman MD Emergency department Discharge instructions * Seferino Inman MD: PERFORM Event Display: ED Discharge Information Authored Date: [id number] ESTEBAN LARA :1980 Age:42 years Sex:Female Visit Date:10/02/2022 Primary Care Physician: Charly Russell MD Discharge Instructions We would like to thank you for allowing us to assist you with your healthcare needs. The following includes patient education materials and information regarding your injury/illness. Diagnosis from Today's Visit Lower abdominal pain Discharge Vitals Temperature??(Temporal Artery) 96.3 ??F (35.7 ??C) Heart Rate??(Peripheral) 61 Respiratory Rate?? 18 Blood Pressure?? 126/83?? Height?? 59.00 in (149.860 cm) Weight??(Estimated) 168.02 lb (76.20 kg) Allergies erythromycin simvastatin What to Do Next Instructions from Your Care Team At this time??the urine test blood test and CT scan does not reveal any significant??anomalies.?? With recent diarrhea there may be??some??gastroenteritis that cause some discomfort.?? Would recommend simplifying diet??with clear liquids for the next day or 2??such as Gatorade diluted with equal parts of water.?? May take some Tylenol as needed and follow- up with your doctor next week if ongoing symptoms. You Need to Schedule the Following Appointments Follow Up with??Follow up with primary care provider When:??Only if needed You were treated today on an emergency [...] What How Much When Instructions Next Dose Unchanged amitriptyline Unchanged buprenorphine-naloxone (Suboxone) 10 Milligrams Unchanged omeprazole Unchanged sertraline (Zoloft) Unchanged sucralfate (Carafate) Education Materials Abdominal Pain, Adult Many things can cause belly (abdominal) pain. Most times, belly pain is not dangerous. Many cases of belly pain can be watched and treated at home. Sometimes, though, belly pain is serious. Your doctor will try to find the cause of your belly pain. Follow these instructions at home: Medicines ? Take lote-kdu-ylecksu and prescription medicines only as told by your doctor. ? Do not take medicines that help you poop (laxatives) unless told by your doctor. General instructions ? Watch your belly pain for any changes. ? Drink enough fluid to keep your pee (urine) pale yellow. ? Keep all follow-up visits as told by your doctor. This is important. Contact a doctor if: ? Your belly pain changes or gets worse. ? You are not hungry, or you lose weight without trying. ? You are having trouble pooping (constipated) or have watery poop (diarrhea) for more than 2???3 days. ? You have pain when you pee or poop. ? Your belly pain wakes you up at night. ? Your pain gets worse with meals, after eating, or with certain foods. ? You are vomiting and cannot keep anything down. ? You have a fever. ? You have blood in your pee. Get help right away if: ? Your pain does not go away as soon as your doctor says it should. ? You cannot stop vomiting. ? Your pain is only in areas of your belly, such as the right side or the left lower part of the belly. ? You have bloody or black poop, or poop that looks like tar. ? You have very bad pain, cramping, or bloating in your belly. ? You have signs of not having enough fluid or water in your body (dehydration), such as: ? Dark pee, very little pee, or no pee. ? Cracked lips. ? Dry mouth. ? Sunken eyes. ? Sleepiness. ? Weakness. ? You have trouble breathing or chest pain. Summary ? Many cases of belly pain can be watched and treated at home. ? Watch your belly pain for any changes. ? Take srce-ifv-elhdxvr and prescription medicines only as told by your doctor. ? Contact a doctor if your belly pain changes or gets worse. ? Get help right away if you have very bad pain, cramping, or bloating in your belly. This information is not intended to replace advice given to you by your health care provider. Make sure you discuss any questions you have with your health care provider. Document Revised: 01/02/2020 Document Reviewed: 01/02/2020 [employer] Patient Education ?? 2021 [employer] Tests Performed Lab Test Name Test Result Date/Time WBC 6.8 x10^3/mcL 10/02/2022 15:30 EST RBC 4.2 x10^6/mcL 10/02/2022 15:30 EST Hgb 14.2 g/dL 10/02/2022 15:30 EST Hct 42.3 % 10/02/2022 15:30 EST MCV 99.5 10/02/2022 15:30 EST MCH 33.4 pg 10/02/2022 15:30 EST MCHC 33.6 g/dL 10/02/2022 15:30 EST RDW-CV 13.5 % 10/02/2022 15:30 EST Platelets 245 x10^3/mcL 10/02/2022 15:30 EST Neutro Auto 49.2 % 10/02/2022 15:30 EST Lymph Auto 43.1 % 10/02/2022 15:30 EST Brooke Auto 5.2 % 10/02/2022 15:30 EST Eos, Auto 1.3 % 10/02/2022 15:30 EST Basophil Auto 0.9 % 10/02/2022 15:30 EST Imm Gran Auto 0.3 % 10/02/2022 15:30 EST Neutro Absolute 3.3 x10^3/mcL 10/02/2022 15:30 EST Sodium Level 139 mmol/L 10/02/2022 15:30 EST Potassium Level 4.5 mmol/L 10/02/2022 15:30 EST Chloride Level 104 mmol/L 10/02/2022 15:30 EST CO2 27 mmol/L 10/02/2022 15:30 EST Alk Phos 68 unit/L 10/02/2022 15:30 EST AST 15 unit/L 10/02/2022 15:30 EST ALT 16 unit/L 10/02/2022 15:30 EST BUN 7 mg/dL 10/02/2022 15:30 EST Glucose Level 73 mg/dL 10/02/2022 15:30 EST Creatinine Level 0.85 mg/dL 10/02/2022 15:30 EST eGFR AA 88 10/02/2022 15:30 EST eGFR Non-AA 88 10/02/2022 15:30 EST Calcium Level 9.2 mg/dL 10/02/2022 15:30 EST Protein Total 7.3 g/dL 10/02/2022 15:30 EST Albumin Level 3.7 g/dL 10/02/2022 15:30 EST Bilirubin Total 0.3 mg/dL 10/02/2022 15:30 EST Lipase Level 21 unit/L 10/02/2022 15:30 EST UA Color Pale Yello 10/02/2022 14:46 EST UA Appear CLEAR. 10/02/2022 14:46 EST UA Glucose NEGATIVE 10/02/2022 14:46 EST UA Bili NEGATIVE 10/02/2022 14:46 EST UA Ketones NEGATIVE 10/02/2022 14:46 EST UA Spec Grav 1.020 10/02/2022 14:46 EST UA Blood NEGATIVE 10/02/2022 14:46 EST UA pH 8.0 10/02/2022 14:46 EST UA Protein NEGATIVE 10/02/2022 14:46 EST UA Urobilinogen 0.2 Uro 10/02/2022 14:46 EST UA Nitrite NEGATIVE 10/02/2022 14:46 EST UA Leuk Est NEGATIVE 10/02/2022 14:46 EST Patient/Canceling And Cutting Control Clerk Signature Patient Name:ESTEBAN LARA Sara I have received this information and my questions have been answered. Patient/Canceling And Cutting Control Clerk Name: Patient/Canceling And Cutting Control Clerk Signature: Relationship to Patient: Witness Name/Signature: Date: Electronically Signed on: 10/02/2022 17:35 ESTSigned by:MRB Discharge summary * Tess Lazar: PERFORM Event Display: Discharge Note Authored Date: * Tess Lazar: PERFORM Event Display: Discharge Note Authored Date: Diagnosis: 1. Lower abdominal pain Comment: Diagnosis: Abdominal pain Comment: Electronically Signed on 10/02/22 05:51 PM Tess Lazar Patient Care team information Personnel Name: Charly Russell MD Address: Address: [address] [place] [address]- [place]
--- NOTE | 2023-09-06 11:17 | ED.GENADUL_ITS ---
HPI General Stated Complaint: Headache ARIA: 3 Date/Time Provider Initiated Documentation: 09/06/23 11:13. HPI Narrative: 43 year-old female presents to ED today by POV/ambulating with her with a chief complaint of headache, nausea/vomiting, and cramping abdominal pain with onset noted this morning. Quality described as generalized headache which is not her baseline, no radiation to fever, cough, coffee-ground emesis, changes to bowel/urinary habits. Severity is described as 7-8/10. Palliating factors include nothing attempted, no OTC analgesics attempted. Provoking factors include nothing specific. Patient not anticoagulated. Related Data Home Medications Medication Instructions Recorded Confirmed acetaminophen 500 mg tablet 1,000 mg PO Q6H PRN 11/18/12 09/06/23 (Tylenol Extra Strength) albuterol sulfate 90 mcg/actuation 1 - 2 puff inhalation QID PRN ##1 07/09/16 09/06/23 aerosol inhaler (ProAir HFA) sucralfate 1 gram tablet (Carafate) 1,000 mg PO QID #30 tabs 09/03/18 09/06/23 buprenorphine 8 mg-naloxone 2 mg 1 film sublingual DAILY 07/16/22 09/06/23 sublingual film (Suboxone) cyanocobalamin (vitamin B-12) 2,500 mcg sublingual DAILY 07/16/22 09/06/23 2,500 mcg sublingual lozenge melatonin 5 mg tablet 5 mg PO HS PRN 07/16/22 09/06/23 omeprazole 40 mg capsule,delayed 40 mg PO DAILY 07/16/22 09/06/23 release sertraline 50 mg tablet 100 mg PO DAILY 07/16/22 09/06/23 Previous Rx's Medication Instructions Recorded sucralfate 1 gram tablet (Carafate) 1,000 mg PO QID #30 tabs 09/03/18 Allergies Allergy/AdvReac Type Severity Reaction Status Date / Time erythromycin base AdvReac SEVERE GI Unverified 09/06/23 11:14 UPSET simvastatin AdvReac LEG Unverified 09/06/23 11:14 CRAMPS; MYALGIAS Review of Systems All systems reviewed & are unremarkable except as noted in HPI and below PFSH All Active Problems (Updated 09/06/23 @ 15:29 by MADISON Hinton) Gastritis (Acute) Headache (Acute) Asthma, intermittent (Acute) Back pain (Acute) Medical History Acute back pain Ankle joint effusion Arthralgia Asthma Bipolar affective disorder Chronic cough Dysphagia Edema Fibromyalgia GERD (gastroesophageal reflux disease) Hepatomegaly History of shingles Hx of opioid abuse Mood disorder Obesity Pain, foot, chronic Positive antinuclear antibody Positive PPD negative chest xray Proteinuria Skin lesion of scalp Tobacco use Urinary incontinence Surgical History section X 2 EGD - MAC (11/19/17) S/P appendectomy GAYATHRI/BSO (~04/2006) Family History Mother Diabetes Cirrhosis of liver Sarcoidosis Father Myocardial infarction X 3; THE FIRST [place] AT AGE 19 MATERNAL FAMILY HISTORY Diabetes Alcohol abuse Personal history of malignant neoplasm [facility] PATERNAL FAMILY HISTORY Personal history of malignant neoplasm AUNT; BREAST Social History Smoking/Tobacco Use Status: Current every day Tobacco Type: cigarettes Smoking risk assessment performed?: Yes Alcohol Intake: never Drug use: Daily Substance use type: marijuana Housing: apartment Do you feel safe at home: Yes Do you feel safe in your relationship?: Yes Exam Narrative Exam Narrative: GENERAL APPEARANCE: Well-nourished, non-toxic, awake and alert, atraumatic, no acute distress. SKIN: Warm, pink, dry, intact, without rashes/lesions/ulcerations. HEAD: Normocephalic, atraumatic, normal hair distribution for gender/age. EYES: Pupils PERRLA, EOMs intact without nystagmus, normal conjunctiva, no exudates on lids/lashes. ENT: Nares patent, no circumoral cyanosis, no facial swelling NECK: Supple, trachea midline, painless cervical ROM. LUNGS/CHEST: Lungs CTA bilaterally- no rhonchi/rales/wheezes diffusely, non- labored respirations, normal A/P diameter, symmetrical expansion, no chest wall deformity HEART (CV/PV): Regular rate and rhythm without murmur, no peripheral edema, no JVD. ABDOMEN: Soft, non-distended, no guarding, mild diffuse abdominal tenderness without Blake's/Rovsing's/LLQ tenderness. MSK: Normal ROM, no swelling/deformity to bilateral UEs or LEs, moving all extremities without weakness, no cyanosis, spine midline without tenderness, normal curvature. NEURO: Mental Status AAOx4 - alert to person, place, time, events No facial droop, no forehead involvement. Motor: No focal weakness - strength 5/5 in bilateral UEs and LEs, proximal and distal, symmetric. Sensory: sensation intact to light touch globally. Gait normal: patient ambulated without ataxia into ED room. PSYCH: euthymic, cooperative, pleasant, appropriate speech Course Vital Signs Vital signs: Vital Signs Temperature 36.6 C 09/06/23 11:13 Pulse 63 09/06/23 11:13 Respiratory Rate 20 09/06/23 11:13 Blood Pressure 145/84 H 09/06/23 11:13 Pulse Oximetry 98 09/06/23 11:13 Temperature 36.6 C 09/06/23 11:13 Temperature Source Oral 09/06/23 11:13 Pulse 63 09/06/23 11:13 Respiratory Rate 20 09/06/23 11:13 Blood Pressure 145/84 H 09/06/23 11:13 Blood Pressure Position Sitting 09/06/23 11:13 Pulse Oximetry 98 09/06/23 11:13 Oxygen Delivery Method Room Air 09/06/23 11:13 Oxygen Flow Rate 0 09/06/23 11:13 Pain Level 5 09/06/23 11:13 Medical Decision Making This dictation utilizes [id number] dictation software and may contain unedited grammatical errors. 43 y/o F presents to ED today with a chief complaint of headache, nausea/vomiting, abdominal pain, no OTC analgesics attempted. Patient denies vertigo, changes to bowel or stool habits, fevers. Patients' medical history: Asthma, fibromyalgia, history of opioid abuse, history of appendectomy. Family and social history: noncontributory. Pertinent exam findings / vital signs include benign cardiopulmonary status, neuro intact, benign abdomen, nontoxic vitals. Differential / pathologies of concern include migraine syndrome, viral syndrome, gastritis, nausea vomiting, not acute abdomen. Diagnostic studies of: -CBC, lipase, troponin, magnesium, UA, procalcitonin, TSH, CRP/ESR, lactate, CT ABD/Pelvis w Contrast, CT Head wo Contrast, EKG -initial lactate 2.2, repeat with IVF 0.9, no sepsis -no leukocytosis -procalcitonin negative -lipase WNL -UA benign -TSH benign -CRP/ESR inflammatory markers negative -serial troponin negative, unlikely atypical ACS -CT ABD/Pelvis shows mildly thickened gastric wall, question migraine and gastritis concurrent -CT head negative -EKG shows no Qt prolongation, OK to give IV antiemetics Interventions of: -IVF, Tylenol, toradol, reglan, IV benadryl, sumatriptan PO - patient felt relief and was requested discharge. Given zofran to go and recommend trial of famotidine [id number] ED Course/Assessment/Plan: 43-year-old female patient seen for nausea vomiting with migraine syndrome starting this morning, laboratory workup is completely benign, received migraine cocktail with complete relief and requested discharge. I did risk reduction counselor her on possible gastritis with gastric wall thickening on CT and a trial of OTC famotidine every 2 weeks. Do not suspect any acute abdominal pathology or intracranial pathology, no fever to suspect meningitis, denies cough or shortness of breath. Findings not consistent with acute emergent abdominal pathology, sepsis, biliary colic, pyelonephritis or renal pathology, meningismus. Disposition of Gastritis, Headache. Patient verbalized understanding of the plan and return to ED criteria and engaged in shared decision making. Medical Records Medical records reviewed: Yes I reviewed the patient's medical records. Imaging Data Radiologic Study: Imaging: CT Scan Radiologist's impression: Exam: CT Head Without Contrast Exam date and time: 09/06/2023 1:11 PM Age: 43 years old Clinical indication: Other: Headache TECHNIQUE: Imaging protocol: Computed tomography of the head without contrast. Radiation optimization: All CT scans at this facility use at least one of these dose optimization techniques: automated exposure control; mA and/or kV adjustment per patient size (includes targeted exams where dose is matched to clinical indication); or iterative reconstruction. COMPARISON: No relevant prior studies available. FINDINGS: Brain: Ventricles, sulci are within normal limits. There is no evidence of acute hemorrhage, mass or shift. There is no evidence of an acute cortical or major vascular territory infarct. No abnormal extra-axial collections are identified. Subtle low attenuation in the superior right cerebellum for example best seen on series 2, image 18 most likely is related to artifact. Cerebral ventricles: No significant ventricular enlargement/hydrocephalus. Paranasal sinuses: No significant sinus opacification or fluid level Mastoid air cells: No significant mastoid opacification Bones/joints: There is no acute bony abnormality Soft tissues: Subcutaneous soft tissues are unremarkable Other findings: Exam mildly degraded by motion IMPRESSION: Exam mildly degraded by motion. No acute findings on non-contrast CT of the head Dictated and Authenticated by: Samantha Sosa MD. Ordering:MILY Marin MD Radiologic Study #2: Imaging: CT Scan Radiologist's impression: Exam: CT Abdomen And Pelvis With Contrast Exam date and time: 09/06/2023 1:15 PM Age: 43 years old Clinical indication: Other: Abdominal pain, vomiting TECHNIQUE: Imaging protocol: Computed tomography of the abdomen and pelvis with contrast. Radiation optimization: All CT scans at this facility use at least one of these dose optimization techniques: automated exposure control; mA and/or kV adjustment per patient size (includes targeted exams where dose is matched to clinical indication); or iterative reconstruction. Contrast material: OMNI 350; Contrast volume: 100 ml; Contrast route: INTRAVENOUS (IV); COMPARISON: CT CHEST/ABD/PEL W 11/17/2022 12:20 PM FINDINGS: Lungs: Ground-glass opacity in the visualized lung bases. Diaphragm: Small sliding-type hiatal hernia. Liver: Hepatomegaly. Periportal edema. No focal hepatic mass. Gallbladder and bile ducts: Normal. No calcified stones. No ductal dilation. Pancreas: Normal. No ductal dilation. Spleen: Splenomegaly. Adrenal glands: Normal. No mass. Kidneys and ureters: Normal. No hydronephrosis. Stomach and bowel: Mild wall thickening of the stomach. Gastritis not excluded. Appendix: The appendix is not definitively identified. There are no secondary findings suggestive of acute appendicitis. Intraperitoneal space: Unremarkable. No free air. No significant fluid collection. Vasculature: Unremarkable. No abdominal aortic aneurysm. Lymph nodes: Unremarkable. No enlarged lymph nodes. Urinary bladder: Scar tissue anterior to the urinary bladder. Mild tethering of the urinary bladder. Reproductive: The uterus is surgically absent. Bones/joints: Unremarkable. No acute fracture. Soft tissues: Unremarkable. IMPRESSION: 1. Hepatosplenomegaly. There is periportal edema. This is a nonspecific finding. 2. Mild wall thickening of the stomach. Gastritis not excluded. 3. Uterus is surgically absent. 4. Scar tissue anterior to the urinary bladder which produces mild tethering. Dictated and Authenticated by: Sandra Fisher MD. Ordering:MILY Marin MD Lab Data Lab results reviewed: Yes I reviewed the patient's lab results. Labs: Laboratory Tests Range/Units 09/06/23 09/06/23 09/06/23 11:39 11:39 11:39 WBC (4.4-10.8) 10^3/uL 7.61 RBC (3.93-5.22) 10^6/uL 4.89 Hgb (11.2-15.7) g/dL 15.7 Hct (36.0-46.0) % 46.0 MCV (80-95) fL 94 MCH (27.0-33.0) pg 32.1 MCHC (32.0-36.0) % 34.1 RDW (11.7-14.6) % 12.4 Plt Count (130-400) 10^3/uL 202 MPV (8.0-11.0) fL 11.3 H Immature Gran % 0.1 Neutrophils % 55.7 Lymphocytes % 34.8 Monocytes % 6.7 Eosinophils % 2.0 Basophils % 0.7 Nucleated RBC % (0.0-0.3) % 0.0 Absolute Neutrophils (1.2-6.7) 10^3/uL 4.24 Absolute Lymphocytes (1.2-3.4) 10^3/uL 2.65 Absolute Monocytes (0.1-0.8) 10^3/uL 0.51 Absolute Eosinophils (0.0-0.7) 10^3/uL 0.15 Absolute Basophils (0.0-0.2) 10^3/uL 0.05 ESR (0-20) mm/hr 11 VBG Lactate (0.6-1.4) mmol/L 2.2 H* Sodium Cancelled 142 Potassium Cancelled 3.7 Chloride Cancelled Carbon Dioxide Anion Gap BUN Creatinine Est GFR (CKD-EPI 2020) Glucose Calcium Magnesium (1.8-2.4) mg/dL Total Bilirubin AST ALT Alkaline Phosphatase Troponin I (<or=60) ng/L C-Reactive Protein (0.0-0.3) mg/dL Total Protein Albumin Lipase (16-77) U/L Procalcitonin ng/mL TSH (0.36-3.74) uIU/mL Urine Color (Yellow) Urine Clarity (Clear) Urine pH (5-8) Ur Specific [place] (1.005-1.025) Urine Protein (Negative) mg/dL Urine Ketones (Negative) mg/dL Urine Blood (Negative) Urine Nitrite (Negative) Urine Bilirubin (Negative) Urine Urobilinogen (Up to 0.2) mg/dL Ur Leukocyte Esterase (Negative) Urine Glucose (Negative) mg/dL Range/Units 09/06/23 09/06/23 09/06/23 11:39 11:39 11:39 WBC (4.4-10.8) 10^3/uL RBC (3.93-5.22) 10^6/uL Hgb (11.2-15.7) g/dL Hct (36.0-46.0) % MCV (80-95) fL MCH (27.0-33.0) pg MCHC (32.0-36.0) % RDW (11.7-14.6) % Plt Count (130-400) 10^3/uL MPV (8.0-11.0) fL Immature Gran % Neutrophils % Lymphocytes % Monocytes % Eosinophils % Basophils % Nucleated RBC % (0.0-0.3) % Absolute Neutrophils (1.2-6.7) 10^3/uL Absolute Lymphocytes (1.2-3.4) 10^3/uL Absolute Monocytes (0.1-0.8) 10^3/uL Absolute Eosinophils (0.0-0.7) 10^3/uL Absolute Basophils (0.0-0.2) 10^3/uL ESR (0-20) mm/hr VBG Lactate (0.6-1.4) mmol/L Sodium Potassium Chloride 105 Carbon Dioxide Cancelled 26.1 Anion Gap Cancelled 10.9 BUN Cancelled Creatinine Est GFR (CKD-EPI 2020) Glucose Calcium Magnesium (1.8-2.4) mg/dL Total Bilirubin AST ALT Alkaline Phosphatase Troponin I (<or=60) ng/L C-Reactive Protein (0.0-0.3) mg/dL Total Protein Albumin Lipase (16-77) U/L Procalcitonin ng/mL TSH (0.36-3.74) uIU/mL Urine Color (Yellow) Urine Clarity (Clear) Urine pH (5-8) Ur Specific [place] (1.005-1.025) Urine Protein (Negative) mg/dL Urine Ketones (Negative) mg/dL Urine Blood (Negative) Urine Nitrite (Negative) Urine Bilirubin (Negative) Urine Urobilinogen (Up to 0.2) mg/dL Ur Leukocyte Esterase (Negative) Urine Glucose (Negative) mg/dL Range/Units 09/06/23 09/06/23 09/06/23 11:39 11:39 11:39 WBC (4.4-10.8) 10^3/uL RBC (3.93-5.22) 10^6/uL Hgb (11.2-15.7) g/dL Hct (36.0-46.0) % MCV (80-95) fL MCH (27.0-33.0) pg MCHC (32.0-36.0) % RDW (11.7-14.6) % Plt Count (130-400) 10^3/uL MPV (8.0-11.0) fL Immature Gran % Neutrophils % Lymphocytes % Monocytes % Eosinophils % Basophils % Nucleated RBC % (0.0-0.3) % Absolute Neutrophils (1.2-6.7) 10^3/uL Absolute Lymphocytes (1.2-3.4) 10^3/uL Absolute Monocytes (0.1-0.8) 10^3/uL Absolute Eosinophils (0.0-0.7) 10^3/uL Absolute Basophils (0.0-0.2) 10^3/uL ESR (0-20) mm/hr VBG Lactate (0.6-1.4) mmol/L Sodium Potassium Chloride Carbon Dioxide Anion Gap BUN 13 Creatinine Cancelled 0.9 Est GFR (CKD-EPI 2020) Cancelled 81.86 Glucose Cancelled Calcium Magnesium (1.8-2.4) mg/dL Total Bilirubin AST ALT Alkaline Phosphatase Troponin I (<or=60) ng/L C-Reactive Protein (0.0-0.3) mg/dL Total Protein Albumin Lipase (16-77) U/L Procalcitonin ng/mL TSH (0.36-3.74) uIU/mL Urine Color (Yellow) Urine Clarity (Clear) Urine pH (5-8) Ur Specific [place] (1.005-1.025) Urine Protein (Negative) mg/dL Urine Ketones (Negative) mg/dL Urine Blood (Negative) Urine Nitrite (Negative) Urine Bilirubin (Negative) Urine Urobilinogen (Up to 0.2) mg/dL Ur Leukocyte Esterase (Negative) Urine Glucose (Negative) mg/dL Range/Units 09/06/23 09/06/23 09/06/23 11:39 11:39 11:39 WBC (4.4-10.8) 10^3/uL RBC (3.93-5.22) 10^6/uL Hgb (11.2-15.7) g/dL Hct (36.0-46.0) % MCV (80-95) fL MCH (27.0-33.0) pg MCHC (32.0-36.0) % RDW (11.7-14.6) % Plt Count (130-400) 10^3/uL MPV (8.0-11.0) fL Immature Gran % Neutrophils % Lymphocytes % Monocytes % Eosinophils % Basophils % Nucleated RBC % (0.0-0.3) % Absolute Neutrophils (1.2-6.7) 10^3/uL Absolute Lymphocytes (1.2-3.4) 10^3/uL Absolute Monocytes (0.1-0.8) 10^3/uL Absolute Eosinophils (0.0-0.7) 10^3/uL Absolute Basophils (0.0-0.2) 10^3/uL ESR (0-20) mm/hr VBG Lactate (0.6-1.4) mmol/L Sodium Potassium Chloride Carbon Dioxide Anion Gap BUN Creatinine Est GFR (CKD-EPI 2020) Glucose 104 Calcium Cancelled 9.7 Magnesium (1.8-2.4) mg/dL 1.8 Total Bilirubin Cancelled 0.4 AST Cancelled ALT Alkaline Phosphatase Troponin I (<or=60) ng/L C-Reactive Protein (0.0-0.3) mg/dL Total Protein Albumin Lipase (16-77) U/L Procalcitonin ng/mL TSH (0.36-3.74) uIU/mL Urine Color (Yellow) Urine Clarity (Clear) Urine pH (5-8) Ur Specific [place] (1.005-1.025) Urine Protein (Negative) mg/dL Urine Ketones (Negative) mg/dL Urine Blood (Negative) Urine Nitrite (Negative) Urine Bilirubin (Negative) Urine Urobilinogen (Up to 0.2) mg/dL Ur Leukocyte Esterase (Negative) Urine Glucose (Negative) mg/dL Range/Units 09/06/23 09/06/23 09/06/23 11:39 11:39 11:39 WBC (4.4-10.8) 10^3/uL RBC (3.93-5.22) 10^6/uL Hgb (11.2-15.7) g/dL Hct (36.0-46.0) % MCV (80-95) fL MCH (27.0-33.0) pg MCHC (32.0-36.0) % RDW (11.7-14.6) % Plt Count (130-400) 10^3/uL MPV (8.0-11.0) fL Immature Gran % Neutrophils % Lymphocytes % Monocytes % Eosinophils % Basophils % Nucleated RBC % (0.0-0.3) % Absolute Neutrophils (1.2-6.7) 10^3/uL Absolute Lymphocytes (1.2-3.4) 10^3/uL Absolute Monocytes (0.1-0.8) 10^3/uL Absolute Eosinophils (0.0-0.7) 10^3/uL Absolute Basophils (0.0-0.2) 10^3/uL ESR (0-20) mm/hr VBG Lactate (0.6-1.4) mmol/L Sodium Potassium Chloride Carbon Dioxide Anion Gap BUN Creatinine Est GFR (CKD-EPI 2020) Glucose Calcium Magnesium (1.8-2.4) mg/dL Total Bilirubin AST 13 L ALT Cancelled 13 L Alkaline Phosphatase Cancelled 60 Troponin I (<or=60) ng/L < 50 C-Reactive Protein (0.0-0.3) mg/dL 0.14 Total Protein Cancelled Albumin Lipase (16-77) U/L Procalcitonin ng/mL TSH (0.36-3.74) uIU/mL Urine Color (Yellow) Urine Clarity (Clear) Urine pH (5-8) Ur Specific [place] (1.005-1.025) Urine Protein (Negative) mg/dL Urine Ketones (Negative) mg/dL Urine Blood (Negative) Urine Nitrite (Negative) Urine Bilirubin (Negative) Urine Urobilinogen (Up to 0.2) mg/dL Ur Leukocyte Esterase (Negative) Urine Glucose (Negative) mg/dL Range/Units 09/06/23 09/06/23 09/06/23 11:39 11:39 14:13 WBC (4.4-10.8) 10^3/uL RBC (3.93-5.22) 10^6/uL Hgb (11.2-15.7) g/dL Hct (36.0-46.0) % MCV (80-95) fL MCH (27.0-33.0) pg MCHC (32.0-36.0) % RDW (11.7-14.6) % Plt Count (130-400) 10^3/uL MPV (8.0-11.0) fL Immature Gran % Neutrophils % Lymphocytes % Monocytes % Eosinophils % Basophils % Nucleated RBC % (0.0-0.3) % Absolute Neutrophils (1.2-6.7) 10^3/uL Absolute Lymphocytes (1.2-3.4) 10^3/uL Absolute Monocytes (0.1-0.8) 10^3/uL Absolute Eosinophils (0.0-0.7) 10^3/uL Absolute Basophils (0.0-0.2) 10^3/uL ESR (0-20) mm/hr VBG Lactate (0.6-1.4) mmol/L 0.9 Sodium Potassium Chloride Carbon Dioxide Anion Gap BUN Creatinine Est GFR (CKD-EPI 2020) Glucose Calcium Magnesium (1.8-2.4) mg/dL Total Bilirubin AST ALT Alkaline Phosphatase Troponin I (<or=60) ng/L C-Reactive Protein (0.0-0.3) mg/dL Total Protein 7.7 Albumin Cancelled 3.8 Lipase (16-77) U/L 36 Procalcitonin ng/mL < 0.1 TSH (0.36-3.74) uIU/mL 1.47 Urine Color (Yellow) Urine Clarity (Clear) Urine pH (5-8) Ur Specific [place] (1.005-1.025) Urine Protein (Negative) mg/dL Urine Ketones (Negative) mg/dL Urine Blood (Negative) Urine Nitrite (Negative) Urine Bilirubin (Negative) Urine Urobilinogen (Up to 0.2) mg/dL Ur Leukocyte Esterase (Negative) Urine Glucose (Negative) mg/dL Range/Units 09/06/23 09/06/23 14:35 14:51 WBC (4.4-10.8) 10^3/uL RBC (3.93-5.22) 10^6/uL Hgb (11.2-15.7) g/dL Hct (36.0-46.0) % MCV (80-95) fL MCH (27.0-33.0) pg MCHC (32.0-36.0) % RDW (11.7-14.6) % Plt Count (130-400) 10^3/uL MPV (8.0-11.0) fL Immature Gran % Neutrophils % Lymphocytes % Monocytes % Eosinophils % Basophils % Nucleated RBC % (0.0-0.3) % Absolute Neutrophils (1.2-6.7) 10^3/uL Absolute Lymphocytes (1.2-3.4) 10^3/uL Absolute Monocytes (0.1-0.8) 10^3/uL Absolute Eosinophils (0.0-0.7) 10^3/uL Absolute Basophils (0.0-0.2) 10^3/uL ESR (0-20) mm/hr VBG Lactate (0.6-1.4) mmol/L Sodium Potassium Chloride Carbon Dioxide Anion Gap BUN Creatinine Est GFR (CKD-EPI 2020) Glucose Calcium Magnesium (1.8-2.4) mg/dL Total Bilirubin AST ALT Alkaline Phosphatase Troponin I (<or=60) ng/L < 50 C-Reactive Protein (0.0-0.3) mg/dL Total Protein Albumin Lipase (16-77) U/L Procalcitonin ng/mL TSH (0.36-3.74) uIU/mL Urine Color (Yellow) Yellow Urine Clarity (Clear) Clear Urine pH (5-8) >= 9.0 H Ur Specific [place] (1.005-1.025) 1.015 Urine Protein (Negative) mg/dL Negative Urine Ketones (Negative) mg/dL Negative Urine Blood (Negative) Negative Urine Nitrite (Negative) Negative Urine Bilirubin (Negative) Negative Urine Urobilinogen (Up to 0.2) mg/dL 0.2 Ur Leukocyte Esterase (Negative) Negative Urine Glucose (Negative) mg/dL Negative Discharge Plan Disposition Patient Disposition: Home Condition: Stable Discharge Details Clinical Impression: Headache, Gastritis Primary Care Provider: Charly Russell ED Provider: Tomas Plunkett Home Meds and New Rx's Prescriptions: Continued acetaminophen [Tylenol Extra Strength] 500 MG tablet 1,000 mg PO Q6H PRN albuterol sulfate [ProAir HFA] 8.5 GM HFA aerosol inhaler 1 - 2 puff Inhalation QID PRNQty: 1 buprenorphine-naloxone [Suboxone] 8-2 mg film 1 film sublingual DAILY sertraline 50 mg tablet 100 mg PO DAILY omeprazole 40 mg capsule,delayed release(DR/EC) 40 mg PO DAILY cyanocobalamin (vitamin B-12) 2,500 mcg lozenge 2,500 mcg sublingual DAILY melatonin 5 mg tablet 5 mg PO HS PRN sucralfate [Carafate] 1 gram Tablet 1,000 mg PO QID Qty: 30 0RF Discharge Instructions Instructions: Gastritis (ED), General Headache (ED) Additional Instructions: You were seen in the emergency department for generalized headache as well as some nausea and vomiting. You improved significantly with migraine medicines as well as nausea medicines. At around 7:00 tonight you can take more Tylenol and ibuprofen for headache, I am sending home with Jose. Please start taking [id number] Pepcid twice daily for 2 weeks for trial of relief of gastritis. Other than that I do not see any acute emergent concerns on your laboratory studies besides some mild dehydration which we corrected with IV fluids. Please return to the ED for any neurological alteration, increasing vertigo, intractable nausea and vomiting, fever and shortness of breath. Referrals: Charly Russell [Primary Care Provider] - Discharge Data Discharge Date/Time-TO BE ENTERED AT DEPARTURE: 09/06/23 15:41
--- NOTE | 2023-09-06 11:30 | DI.CT_ITS ---
Exam(s) CT HEAD WO EXAM: CT HEAD WO CLINICAL HISTORY: severe MOS[place]. TECHNIQUE: Imaging Protocol: Axial computed tomography images with coronal and sagittal reformatted images were created and reviewed COMPARISON: CT HEAD WITHOUT CONTRAST from 10/05/2012 FINDINGS: Ventricles and Extra axial spaces: Normal in size and morphology for the patient's age. Hemorrhage: None. Cerebral parenchyma: No evidence of acute infarct or mass. Midline shift: None. Brainstem/Cerebellum: Normal. Calvarium: Normal. Visualized Paranasal sinuses/Mastoids: Clear. Soft Tissues: Unremarkable. Incidental note of empty sella. IMPRESSION: No acute intracranial process. RADIATION DOSE DELIVERED: Total DLP DATA REPOSITORY: All CT scans at this facility are submitted to the National Radiology Data Registry (NRDR) Dose Index Registry (DIR) with the [employer] ([employer]). RADIATION OPTIMIZATION: All CT scans at this facility use at least one of these dose optimization te chniques: automated exposure control; mA and/or kV adjustment per patient size (includes targeted exa ms where dose is matched to clinical indication); or iterative reconstruction.
--- NOTE | 2023-09-06 11:30 | DI.CT_ITS ---
Exam(s) CT ABDOMEN PELVIS W EXAM: CT ABDOMEN PELVIS W CLINICAL HISTORY: abdominal pain, vomiting. TECHNIQUE: Imaging Protocol: Axial computed tomography images with coronal and sagittal reformatted images were created and reviewed CONTRAST MATERIAL: Intravenous: Omnipaque 350 Contrast volume:100 ml Oral: no COMPARISON: CT CT CHEST/ABD/PEL W from 11/17/2022 FINDINGS: ABDOMEN and PELVIS: Lung Bases: No acute findings. Small hiatal hernia. Liver: Liver enlarged at 20 cm in length. Hepatic veins not yet opacified. Question of mild peripor beulah edema. Normal density. No measurable mass. Gallbladder and biliary tract: No radiodense calculus or dilation. Pancreas: Normal density. No abnormal calcifications or inflammatory process. No evidence of mass. Spleen: Mildly enlarged, 14 cm in length.. Kidneys: Normal size, contour and axis. No radiodense stones. No obstructive uropathy. No suspicious masses seen. Adrenal glands: No masses seen. Vasculature: Abdominal aorta non-dilated. Soft tissues: Scarring low anterior abdominal wall at level of bladder. Bladder: Apparent tethering at anterior aspect of bladder to the anterior abdominal wall in the regio n of the scar. No wall thickening. No calculi.No focal mass. Bowel: No obstruction. No bowel wall thickening. No evidence of appendicitis. Peritoneal cavity: No ascites. No focal collection or mesenteric inflammatory response. Bones: Unremarkable for age. Reproductive organs: Status post hysterectomy. Lymph nodes: Unremarkable. IMPRESSION:: Mild hepatosplenomegaly. Mild periportal edema. RADIATION DOSE DELIVERED: Total DLP DATA REPOSITORY: All CT scans at this facility are submitted to the National Radiology Data Registry (NRDR) Dose Index Registry (DIR) with the [employer] ([employer]). RADIATION OPTIMIZATION: All CT scans at this facility use at least one of these dose optimization te chniques: automated exposure control; mA and/or kV adjustment per patient size (includes targeted exa ms where dose is matched to clinical indication); or iterative reconstruction.
[2023-09-06 12:08] LABS: Abs Immature Grans 0.01 10^3/uL (0.0-0.06); Absolute Basophil Count 0.05 10^3/uL (0.0-0.2); Absolute Eosinophil Count 0.15 10^3/uL (0.0-0.7); Absolute Lymphocyte Count 2.65 10^3/uL (1.2-3.4); Absolute Monocyte Count 0.51 10^3/uL (0.1-0.8); Absolute Neutrophil Count 4.24 10^3/uL (1.2-6.7); Basophils % 0.7; HGB 15.7 g/dL (11.2-15.7); Immature Grans % 0.1; Lymphocytes % 34.8; MCH 32.1 pg (27.0-33.0); MCHC 34.1 % (32.0-36.0); MCV 94 fL (80-95); MPV 11.3 fL (8.0-11.0); Monocytes % 6.7; Neutrophils % 55.7; Platelet Count 202 10^3/uL (130-400); RBC 4.89 10^6/uL (3.93-5.22); RDW 12.4 % (11.7-14.6); RDW-SD 43.4 fL; WBC 7.61 10^3/uL (4.4-10.8)
[2023-09-06 12:09] LABS: ESR 11 mm/hr (0-20)
[2023-09-06] MEDS: Normal Saline 1,000 ML 1000 ML IV (12:09)
[2023-09-06 12:10] LABS: Lactate 2.2 mmol/L (0.6-1.4)
[2023-09-06] MEDS: ACETAMINOPHEN 1,000 MG/100 ML BTL 400 MG IVPB (12:10)
[2023-09-06] MEDS: Ketorolac 30 MG/ML VIAL 15 MG IVP (12:10)
[2023-09-06] MEDS: diphenhydrAMINE 50 MG/ML VIAL 25 MG IVP (12:11)
[2023-09-06] MEDS: SUMAtriptan 25 MG TAB PO (12:11)
[2023-09-06] MEDS: Metoclopramide 10 MG/2 ML VIAL 5 MG IVP (12:18)
[2023-09-06] MEDS: Normal Saline 50 ML (12:19)
[2023-09-06 12:35] LABS: ALT 13 U/L (14-59); AST 13 U/L (15-37); Albumin 3.8 g/dL (3.4-5.0); Alkaline Phosphatase 60 U/L (46-116); Anion Gap 10.9 mmol/L (3-11); BUN 13 mg/dL (7-18); Bilirubin, Total 0.4 mg/dL (0.2-1.0); C-Reactive Protein 0.14 mg/dL (0.0-0.3); CO2 26.1 mmol/L (21.0-32.0); CREATININE 0.9 mg/dL (0.55-1.02); Calcium 9.7 mg/dL (8.5-10.1); Chloride 105 mmol/L (98-107); Estimated GFR 81.86 (mL/min/1.73m2); Glucose 104 mg/dL (74-106); Lipase 36 U/L (16-77); Magnesium 1.8 mg/dL (1.8-2.4); Potassium 3.7 mmol/L (3.5-5.1); Sodium 142 mmol/L (136-145); TSH (W/Ref FT4) 1.47 uIU/mL (0.36-3.74); Total Protein 7.7 g/dL (6.4-8.2); Troponin I < 50 ng/L (<or=60)
[2023-09-06 12:48] LABS: Procalcitonin < 0.1 ng/mL
[2023-09-06] MEDS: Normal Saline - Diluent 50 ML VIAL IJ (13:21)
[2023-09-06] MEDS: Normal Saline Flush 10 ML SYR IVP (13:24)
[2023-09-06] MEDS: Omnipaque 350 MG/ML 100 ML BTL IJ (13:25)
--- NOTE | 2023-09-06 13:40 | DI.VRAD_ITS ---
PROCEDURE INFORMATION: Exam: CT Head Without Contrast Exam date and time: 09/06/2023 1:11 PM Age: 43 years old Clinical indication: Other: Headache TECHNIQUE: Imaging protocol: Computed tomography of the head without contrast. Radiation optimization: All CT scans at this facility use at least one of these dose optimization techniques: automated exposure control; mA and/or kV adjustment per patient size (includes targeted exams where dose is matched to clinical indication); or iterative reconstruction. COMPARISON: No relevant prior studies available. FINDINGS: Brain: Ventricles, sulci are within normal limits. There is no evidence of acute hemorrhage, mass or shift. There is no evidence of an acute cortical or major vascular territory infarct. No abnormal extra-axial collections are identified. Subtle low attenuation in the superior right cerebellum for example best seen on series 2, image 18 most likely is related to artifact. Cerebral ventricles: No significant ventricular enlargement/hydrocephalus. Paranasal sinuses: No significant sinus opacification or fluid level Mastoid air cells: No significant mastoid opacification Bones/joints: There is no acute bony abnormality Soft tissues: Subcutaneous soft tissues are unremarkable Other findings: Exam mildly degraded by motion IMPRESSION: Exam mildly degraded by motion. No acute findings on non-contrast CT of the head Dictated and Authenticated by: Samantha Sosa MD. Ordering:MILY Marin MD
--- NOTE | 2023-09-06 13:57 | DI.VRAD_ITS ---
PROCEDURE INFORMATION: Exam: CT Abdomen And Pelvis With Contrast Exam date and time: 09/06/2023 1:15 PM Age: 43 years old Clinical indication: Other: Abdominal pain, vomiting TECHNIQUE: Imaging protocol: Computed tomography of the abdomen and pelvis with contrast. Radiation optimization: All CT scans at this facility use at least one of these dose optimization techniques: automated exposure control; mA and/or kV adjustment per patient size (includes targeted exams where dose is matched to clinical indication); or iterative reconstruction. Contrast material: OMNI 350; Contrast volume: 100 ml; Contrast route: INTRAVENOUS (IV); COMPARISON: CT CHEST/ABD/PEL W 11/17/2022 12:20 PM FINDINGS: Lungs: Ground-glass opacity in the visualized lung bases. Diaphragm: Small sliding-type hiatal hernia. Liver: Hepatomegaly. Periportal edema. No focal hepatic mass. Gallbladder and bile ducts: Normal. No calcified stones. No ductal dilation. Pancreas: Normal. No ductal dilation. Spleen: Splenomegaly. Adrenal glands: Normal. No mass. Kidneys and ureters: Normal. No hydronephrosis. Stomach and bowel: Mild wall thickening of the stomach. Gastritis not excluded. Appendix: The appendix is not definitively identified. There are no secondary findings suggestive of acute appendicitis. Intraperitoneal space: Unremarkable. No free air. No significant fluid collection. Vasculature: Unremarkable. No abdominal aortic aneurysm. Lymph nodes: Unremarkable. No enlarged lymph nodes. Urinary bladder: Scar tissue anterior to the urinary bladder. Mild tethering of the urinary bladder. Reproductive: The uterus is surgically absent. Bones/joints: Unremarkable. No acute fracture. Soft tissues: Unremarkable. IMPRESSION: 1. Hepatosplenomegaly. There is periportal edema. This is a nonspecific finding. 2. Mild wall thickening of the stomach. Gastritis not excluded. 3. Uterus is surgically absent. 4. Scar tissue anterior to the urinary bladder which produces mild tethering. Dictated and Authenticated by: Sandra Fisher MD. Ordering:MILY Marin MD
[2023-09-06 14:17] LABS: Lactate 0.9 mmol/L (0.6-1.4)
[2023-09-06 15:03] LABS: Troponin I < 50 ng/L (<or=60)
[2023-09-06 15:12] LABS: Bilirubin Negative (Negative); Blood Negative (Negative); Clarity Clear (Clear); Glucose Negative (Negative); Ketones Negative (Negative); Leukocyte Esterase Negative (Negative); Nitrite Negative (Negative); Specific Gravity 1.015 (1.005-1.025); Urobilinogen 0.2 mg/dL (Up to 0.2); pH >= 9.0 (5-8)
[2023-09-06] MEDS: Ondansetron O.D.T. 4 MG TABEF, 3 TABS/BTL PO (15:38)
== END 2023-09-06 15:41 | disposition home or self-care (01) ==
PROVIDERS: Emergency Provider Physician Assistant; PCP Family Medicine
DX: K29.70 Gastritis, unspecified, without bleeding (principal); R51.9 Headache, unspecified; E86.0 Dehydration; R16.2 Hepatomegaly with splenomegaly, not elsewhere classified; F17.210 Nicotine dependence, cigarettes, uncomplicated
CPT/HCPCS: 80053; 83690; 84145; 85652; 87426; 93005; 96361; 96374; 96375; 99285; 70450; 74177; 81003; 83605; 83735; 84443; 84484; 85025; 86140; 93010; 99284; J0131; J1200; J1885; J2765; J3490

== ENCOUNTER 2023-10-06 10:13 | Outpatient (CLI) | payer MEDICAID, SELFPAY ==
--- NOTE | 2023-10-06 09:00 | DI.RAD_ITS ---
Exam(s) XR HIP RT COMPLETE AP PELVIS EXAM: XR HIP RT COMPLETE AP PELVIS CLINICAL HISTORY: RIGHT HIP PAIN. TECHNIQUE: 2D digital imaging was performed. COMPARISON: No exams were available for comparison FINDINGS: Two views. No evidence of pelvic nor hip fracture. Additional lateral view of the right hip reveals no osteophy swetha and no joint space narrowing. On the lateral view there is a mild bony excrescence on the anteri or aspect of the femoral neck. Bone density is normal. No osseous lesions. IMPRESSION: No fractures nor joint space narrowing. Mild bony excrescence on the anterior aspect of the femoral neck of the right hip may indicate an element of cam-type MK. DATA REPOSITORY: RADIATION DOSE DELIVERED:
== END 2023-10-06 10:14 | disposition home or self-care (01) ==
LOC: DIORS 10:14
PROVIDERS: PCP Family Medicine; Visit Provider Student in an Organized Health Care Education/Training Program
DX: M25.551 Pain in right hip (principal)
CPT/HCPCS: 73502

== ENCOUNTER → 2023-10-22 03:03 | Outpatient (CLI) | payer MEDICAID, SELFPAY ==
--- NOTE | 2023-10-22 07:00 | DI.MRI_ITS ---
Exam(s) MR LOWER JOINT RT WO EXAM: MR LOWER JOINT RT WO CLINICAL HISTORY: R HIP PAIN,labral tear rt hip,tear of lt gluteus medius tendon,trochanteric TECHNIQUE: Multiplanar multisequence MRI of Pelvis was performed COMPARISON: CR XR HIP RT COMPLETE AP PELVIS from 10/06/2023 FINDINGS: Bones: There is no fracture or contusion pattern. Mild marrow edema in the right acetabulum.. Enth esophytes at greater trochanters. Spurring at the bilateral acetabula. Joints: Minimal right joint effusion. Degenerative changes of the right superior labrum and acetabul um. Mild surrounding fluid but no discrete labral cyst. The SI joints and symphysis pubis are well maintained. Musculotendinous structures: Edema in the gluteus minimus muscle could indicate muscle strain. Edema also seen in the inferior piriformis muscle. The tendons appear intact. Intrapelvic structures demonstrate no significant abnormality. Status post hysterectomy. IMPRESSION: Degenerative changes of the right acetabulum in glenoid labrum. Edema in the gluteus medius and piri form is muscles could indicate muscle strain versus adjacent reactive changes secondary to degenerati ve changes of the hip. DATA REPOSITORY:
== END ==
PROVIDERS: PCP Family Medicine; Visit Provider Student in an Organized Health Care Education/Training Program
DX: M16.0 Bilateral primary osteoarthritis of hip (principal)
CPT/HCPCS: 73721

== ENCOUNTER 2023-12-22 15:43 | Outpatient (REF) | payer MEDICAID, SELFPAY ==
[2023-12-22 16:01] LABS: Abs Immature Grans 0.02 10^3/uL (0.0-0.06); Absolute Basophil Count 0.04 10^3/uL (0.0-0.2); Absolute Eosinophil Count 0.12 10^3/uL (0.0-0.7); Absolute Lymphocyte Count 1.98 10^3/uL (1.2-3.4); Absolute Monocyte Count 0.33 10^3/uL (0.1-0.8); Basophils % 0.8; Eosinophils % 2.4; HCT 42.2 % (36.0-46.0); HGB 14.2 g/dL (11.2-15.7); Immature Grans % 0.4; Lymphocytes % 39.7; MCH 32.2 pg (27.0-33.0); MCHC 33.6 % (32.0-36.0); MCV 96 fL (80-95); MPV 10.7 fL (8.0-11.0); Monocytes % 6.6; Neutrophils % 50.1; Platelet Count 236 10^3/uL (130-400); RBC 4.41 10^6/uL (3.93-5.22); RDW-SD 46.5 fL; WBC 4.99 10^3/uL (4.4-10.8)
[2023-12-22 16:38] LABS: ALT 16 U/L (14-59); AST 12 U/L (15-37); Albumin 3.8 g/dL (3.4-5.0); Alkaline Phosphatase 60 U/L (46-116); Anion Gap 12.2 mmol/L (3-11); BUN 10 mg/dL (7-18); Bilirubin, Total 0.4 mg/dL (0.2-1.0); CO2 24.8 mmol/L (21.0-32.0); CREATININE 0.9 mg/dL (0.55-1.02); Calcium 9.4 mg/dL (8.5-10.1); Chloride 108 mmol/L (98-107); Estimated GFR 81.86 (mL/min/1.73m2); Glucose 93 mg/dL (74-106); Sodium 145 mmol/L (136-145); Total Protein 7.1 g/dL (6.4-8.2)
== END 2023-12-22 15:44 | disposition home or self-care (01) ==
LOC: NCHCN 15:43
PROVIDERS: PCP Family Medicine; Visit Provider Family Medicine
DX: R10.9 Unspecified abdominal pain (principal)
CPT/HCPCS: 80053; 85025

== ENCOUNTER 2024-08-02 12:34 | Observation (INO) | payer MEDICAID, SELFPAY ==
[2024-08-02] VITALS (30 sets, daily range): BP systolic 102–125; BP diastolic 55–86; PULSE 60–110; RESP 9–30; TEMP 36.1–37.6; O2SAT 83–97
--- NOTE | 2024-08-02 12:45 | DI.RAD_ITS ---
Exam(s) XR PORTABLE CHEST AP EXAM: XR PORTABLE CHEST AP CLINICAL HISTORY: SOB. TECHNIQUE: 2D digital imaging was performed. COMPARISON: CT CT ABDOMEN PELVIS W from 09/06/2023 FINDINGS: Single AP portable view. Heart size is upper normal. The mediastinum is not widened. There is significant infiltrate in the right mid and lower lung, probably right lower lobe. Suggesti on of possible small amount of right pleural fluid. Left lung is clear.. IMPRESSION: Significant infiltrate right lower lobe consistent with pneumonia. Possible small amount of right pl eural fluid DATA REPOSITORY: RADIATION DOSE DELIVERED:
[2024-08-02] MEDS: methylPREDNISolone SUCC 125 MG VIAL IVP (13:03)
[2024-08-02] MEDS: Albuterol/Ipratropium 3 ML UPD VIAL UPD ×5 (13:03→20:43)
[2024-08-02 13:19] LABS: Abs Immature Grans 0.02 10^3/uL (0.0-0.06); Absolute Basophil Count 0.02 10^3/uL (0.0-0.2); Absolute Eosinophil Count 0.03 10^3/uL (0.0-0.7); Absolute Lymphocyte Count 1.05 10^3/uL (1.2-3.4); Absolute Monocyte Count 0.48 10^3/uL (0.1-0.8); Absolute Neutrophil Count 4.48 10^3/uL (1.2-6.7); Basophils % 0.3 %; Eosinophils % 0.5 %; HCT 43.3 % (36.0-46.0); HGB 14.4 g/dL (11.2-15.7); Immature Grans % 0.3 %; Lymphocytes % 17.3 %; MCH 32.7 pg (27.0-33.0); MCHC 33.3 % (32.0-36.0); MCV 98 fL (80-95); MPV 9.8 fL (8.0-11.0); Monocytes % 7.9 %; Neutrophils % 73.7 %; Platelet Count 182 10^3/uL (130-400); RBC 4.41 10^6/uL (3.93-5.22); RDW 12.1 % (11.7-14.6); RDW-SD 44.2 fL; WBC 6.08 10^3/uL (4.4-10.8)
[2024-08-02 13:28] LABS: Anion Gap 9.2 mmol/L (3-11); BUN 10 mg/dL (7-18); CO2 29.8 mmol/L (21.0-32.0); CREATININE 0.8 mg/dL (0.55-1.02); Calcium 9.1 mg/dL (8.5-10.1); Chloride 103 mmol/L (98-107); Glucose 102 mg/dL (74-106); Potassium 3.7 mmol/L (3.5-5.1); Sodium 142 mmol/L (136-145)
[2024-08-02] MEDS: cefTRIAXone 1 GM/50 ML BAG IVPB (14:32)
[2024-08-02] MEDS: AZITHROMYCIN 500 MG in Normal Saline 250 ML 250 MG IVPB (14:55)
--- NOTE | 2024-08-02 14:55 | W.PM.HP.N ---
Date of service: 08/02/24 Time of Service: 14:55 Assessment and Plan Assessment and plan (1) Acute hypoxic respiratory failure: Status: Acute Assessment and plan: secondary to acute community acquired pneumonia and asthma exacerbation continue oxygen, wean as able scheduled duoneb, prn albuterol, prednisone burst, and antibiotics for CAP Complaining of pleuritic chest pain, no ischemic EKG changes, NSAIDs as needed is on a PPI (2) Community acquired pneumonia: Status: Acute Assessment and plan: continue day 1 ceftriaxone/azithromycin scheduled duonebs with albuterol prn mucinex IS/acapella (3) Asthma: Status: Chronic Assessment and plan: given IV steroids in the ED continue prednisone burst for 5 days (4) Tobacco use: Status: Acute Assessment and plan: nicotine supplementation declined while hospitalized (5) Hx of opioid abuse: Status: Acute Assessment and plan: continue home suboxone dose daily (6) Discharge planning issues: Status: Acute Assessment and plan: DVT prophylaxis: enoxaparin daily anticipate discharge to home when medically stable. discussed with DR Russell History of Present Illness History of Present Illness Chief Complaint: shortness of breath Narrative: 44 year old with history of asthma presents to the ED with complaints of fever, body aches, pleuritic chest discomfort, headache with close contacts with similar symptoms. on her work up she was found to be hypoxic with oxygen requirements and infiltrate on xray in right lower lobe. she was given ceftriaxone, azithromycin and IV steroids in the ED. she required multiple duoneb updrafts to improve sob. she is being admitted to hospitalist for inpatient management Review of Systems All systems reviewed & are unremarkable except as noted in HPI and below PFSH All Active Problems (Updated 08/02/24 @ 15:37 by Falguni Suarez MD) Discharge planning issues (Acute) Hx of opioid abuse (Acute) Tobacco use (Acute) Asthma (Chronic) Community acquired pneumonia (Acute) Acute hypoxic respiratory failure (Acute) Labral tear of right hip joint (Acute) Tear of left gluteus medius tendon (Acute) Trochanteric bursitis, right hip (Acute) Asthma, intermittent (Acute) Back pain (Acute) Medical History Positive PPD negative chest xray Hepatomegaly History of shingles Mood disorder Pain, foot, chronic Obesity GERD (gastroesophageal reflux disease) Ankle joint effusion Skin lesion of scalp Proteinuria Fibromyalgia Edema Dysphagia Chronic cough Bipolar affective disorder Positive antinuclear antibody Urinary incontinence Arthralgia Acute back pain Surgical History S/P appendectomy GAYATHRI/BSO (~04/2006) section X 2 EGD - MAC (11/19/17) Family History Mother Diabetes Cirrhosis of liver Sarcoidosis Father Myocardial infarction X 3; THE FIRST CT AT AGE 19 MATERNAL FAMILY HISTORY Diabetes Alcohol abuse Personal history of malignant neoplasm UNCLE-COL[facility] PATERNAL FAMILY HISTORY Personal history of malignant neoplasm AUNT; BREAST Social History Smoking/Tobacco Use Status: Current every day Tobacco Type: cigarettes Smoking risk assessment performed?: Yes Alcohol Intake: never Drug use: Daily Substance use type: marijuana Housing: house Do you feel safe at home: Yes Do you feel safe in your relationship?: Yes Meds Allergies and Home Medications Allergies Allergy/AdvReac Type Severity Reaction Status Date / Time erythromycin base AdvReac SEVERE GI Unverified 08/02/24 12:44 UPSET simvastatin AdvReac LEG Unverified 08/02/24 12:44 CRAMPS; MYALGIAS Home Medications ?Medication ?Instructions ?Recorded ?Confirmed ?Type acetaminophen 500 mg tablet 1,000 mg PO Q6H PRN 11/18/12 08/02/24 History (Tylenol Extra Strength) albuterol sulfate 90 mcg/actuation 1 - 2 puff inhalation QID PRN ##1 07/09/16 08/02/24 History aerosol inhaler (ProAir HFA) buprenorphine 8 mg-naloxone 2 mg 1 film sublingual DAILY 07/16/22 08/02/24 History sublingual film (Suboxone) cyanocobalamin (vitamin B-12) 2,500 mcg sublingual DAILY 07/16/22 08/02/24 History 2,500 mcg sublingual lozenge melatonin 5 mg tablet 5 mg PO HS PRN 07/16/22 08/02/24 History omeprazole 40 mg capsule,delayed 40 mg PO DAILY 07/16/22 08/02/24 History release sertraline 50 mg tablet 100 mg PO DAILY 07/16/22 08/02/24 History sucralfate 1 gram tablet (Carafate) 1,000 mg PO QID PRN 10/06/23 08/02/24 History folic acid 1 mg tablet 1 mg PO DAILY 10/07/23 08/02/24 History Exam Narrative Exam Narrative: Chronically ill-appearing older than stated age no acute distress head is atraumatic oral mucosas dry no oral exudate eyes nonicteric noninjected EOMs intact neck supple with full range of motion psychiatric irritable mood and affect neurologic awake alert oriented no focal deficits skin is pink warm dry well-perfused lung sounds slightly diminished throughout no wheezing or coarse breath sounds noted cardiovascular regular rate and rhythm abdomen benign moves extremities equally Results Labs 08/02/24 13:10 08/02/24 13:10 Labs: Laboratory Results - last 24 hr 08/02/24 13:10 WBC 6.08 RBC 4.41 Hgb 14.4 Hct 43.3 MCV 98 H MCH 32.7 MCHC 33.3 RDW 12.1 Plt Count 182 MPV 9.8 Immature Gran % 0.3 Neutrophils % 73.7 Lymphocytes % 17.3 Monocytes % 7.9 Eosinophils % 0.5 Basophils % 0.3 Nucleated RBC % 0.0 Absolute Neutrophils 4.48 Absolute Lymphocytes 1.05 L Absolute Monocytes 0.48 Absolute Eosinophils 0.03 Absolute Basophils 0.02 Sodium 142 Potassium 3.7 Chloride 103 Carbon Dioxide 29.8 Anion Gap 9.2 BUN 10 Creatinine 0.8 Est GFR (CKD-EPI 2020) 93.70 Glucose 102 Calcium 9.1 Last Vital Signs Temp 37.6 C 08/02/24 12:45 Pulse 98 H 08/02/24 13:46 Resp 21 08/02/24 13:50 BP 114/57 L 08/02/24 13:46 Pulse Ox 90 L 08/02/24 13:50 Time Spent Time spent with Patient: 55-74 minutes Time was spent: preparing to see the patient(eg.review tests), obtaining and/or reviewing separately otained hiistory, ordering medications,tests, procedures, indepentently interpreting results and counseling the patient
--- NOTE | 2024-08-02 15:22 | W.PC.ACHO ---
Registration Status: Primary Language: Preferred Language: ED Information & Data Chief Complaint RespSymp 08/02/24 12:45 Chief Complaint RespSymp 08/02/24 12:38 Triage Note Fever, body aches, chest 08/02/24 12:38 discomfort with deep breath, headache behind eyes x 6 days. Other resp illness in home. Medical / Surgical History (Last Reviewed 11/17/22 @ 12:33 by Ronald Archuleta MD) Positive PPD Hepatomegaly History of shingles Mood disorder Pain, foot, chronic Obesity GERD (gastroesophageal reflux disease) Ankle joint effusion Skin lesion of scalp Proteinuria Fibromyalgia Edema Dysphagia Chronic cough Bipolar affective disorder Positive antinuclear antibody Urinary incontinence Arthralgia Acute back pain (Last Reviewed 11/17/22 @ 12:33 by Ronald Archuleta MD) S/P appendectomy GAYATHRI/BSO (~04/2006) section EGD - MAC (11/19/17) Most Recent Vital Signs Temperature 37.6 C 08/02/24 12:45 Pulse 92 H 08/02/24 15:16 Pulse 96 H 08/02/24 15:16 Respiratory Rate 14 08/02/24 15:16 Respiratory Effort Normal 08/02/24 13:27 Respiratory Depth Normal 08/02/24 13:27 Blood Pressure 108/58 L 08/02/24 15:16 Blood Pressure Mean 73 08/02/24 15:16 Blood Pressure Position Sitting 08/02/24 12:45 Pulse Oximetry 90 L 08/02/24 15:16 Oxygen Delivery Method Room Air 08/02/24 12:45 Oxygen Flow Rate 0 08/02/24 12:38 Allergies erythromycin base Adverse Reaction (Unverified 08/02/24 12:44) SEVERE GI UPSET simvastatin Adverse Reaction (Unverified 08/02/24 12:44) LEG CRAMPS; MYALGIAS IV IV Catheter Type [Right Diffusics Forearm] IV Catheter Gauge [Right 20 Forearm] Diagnostics 08/02/24 Range/Units 13:10 WBC 6.08 (4.4-10.8) 10^3/uL RBC 4.41 (3.93-5.22) 10^6/uL Hgb 14.4 (11.2-15.7) g/dL Hct 43.3 (36.0-46.0) % MCV 98 H (80-95) fL MCH 32.7 (27.0-33.0) pg MCHC 33.3 (32.0-36.0) % RDW 12.1 (11.7-14.6) % Plt Count 182 (130-400) 10^3/uL MPV 9.8 (8.0-11.0) fL Immature Gran % 0.3 % Neutrophils % 73.7 % Lymphocytes % 17.3 % Monocytes % 7.9 % Eosinophils % 0.5 % Basophils % 0.3 % Nucleated RBC % 0.0 (0.0-0.3) % Absolute Neutrophils 4.48 (1.2-6.7) 10^3/uL Absolute Lymphocytes 1.05 L (1.2-3.4) 10^3/uL Absolute Monocytes 0.48 (0.1-0.8) 10^3/uL Absolute Eosinophils 0.03 (0.0-0.7) 10^3/uL Absolute Basophils 0.02 (0.0-0.2) 10^3/uL Sodium 142 (136-145) mmol/L Potassium 3.7 (3.5-5.1) mmol/L Chloride 103 (98-107) mmol/L Carbon Dioxide 29.8 (21.0-32.0) mmol/L Anion Gap 9.2 (3-11) mmol/L BUN 10 (7-18) mg/dL Creatinine 0.8 (0.55-1.02) mg/dL Est GFR (CKD-EPI 2020) 93.70 (mL/min/1.73m2) Glucose 102 (74-106) mg/dL Calcium 9.1 (8.5-10.1) mg/dL 08/02/24 14:40 Blood Culture - Pending Blood 08/02/24 14:40 Blood Culture - Pending Blood Intake and Output - 24 Hour Total 08/02/24 12:34 thru 08/02/24 12:38 Weight 68.039 kg Falls Risk Assessment History of Falls No History 08/02/24 12:45 Contributing Factors No Factors 08/02/24 12:45 Ambulatory Aids Independent 08/02/24 12:45 Tubes/Lines None 08/02/24 12:45 Gait Evaluation No gait disturbance 08/02/24 12:45 Cognition No cognitive impairment 08/02/24 12:45 Fall Total Score 0 08/02/24 12:45 Level of Risk Standard/Low Risk 08/02/24 12:45 Problems (Last Reviewed 11/17/22 @ 12:33 by Ronald Archuleta MD) Discharge planning issues (Acute) Hx of opioid abuse (Acute) Tobacco use (Acute) Asthma (Chronic) Community acquired pneumonia (Acute) Acute hypoxic respiratory failure (Acute) v v v v v v v v v Sending and/or Receiving Nurses: Please use comment section below to note any information pertinent to the patient hand-off not included above. Information / Comments: Pt currently has pneumonia, on RA, hx of asthma. Report received from: JOHN Blackwood Nurse
--- NOTE | 2024-08-02 15:32 | ED.GENADUL_ITS ---
Discharge Plan Disposition Patient Disposition: Admit to [facility] Condition: Stable Discharge Details Chief Complaint: RespSymp Clinical Impression: Community acquired pneumonia, Acute hypoxic respiratory failure Admit Date/Time: 08/02/24 14:47 Admit Provider: Charly Russell Attending Provider: Charly Russell Primary Care Provider: Charly Russell ED Provider: Falguni Suarez Home Meds and New Rx's Prescriptions: No Action sucralfate [Carafate] 1 gram tablet 1,000 mg PO QID PRN acetaminophen [Tylenol Extra Strength] 500 MG tablet 1,000 mg PO Q6H PRN albuterol sulfate [ProAir HFA] 8.5 GM HFA aerosol inhaler 1 - 2 puff Inhalation QID PRNQty: 1 buprenorphine-naloxone [Suboxone] 8-2 mg film 1 film sublingual DAILY sertraline 50 mg tablet 100 mg PO DAILY omeprazole 40 mg capsule,delayed release(DR/EC) 40 mg PO DAILY cyanocobalamin (vitamin B-12) 2,500 mcg lozenge 2,500 mcg sublingual DAILY melatonin 5 mg tablet 5 mg PO HS PRN folic acid 1 mg tablet 1 mg PO DAILY HPI General Date/Time Provider Initiated Documentation: 08/02/24 12:45 . Limitations to Documentation: no limitations . Information obtained by: patient . HPI Narrative: 44-year-old female past past medical history of asthma, tobacco abuse, history of opiate use on buprenorphine presents for evaluation of shortness of breath. She reports that she has been having fever chills, cough that is nonproductive for the last 6 days. She reports that her symptoms are only worsening. She reports that this morning she has significant discomfort with taking deep breaths. Related Data Home Medications ?Medication ?Instructions ?Recorded ?Confirmed acetaminophen 500 mg tablet 1,000 mg PO Q6H PRN 11/18/12 08/02/24 (Tylenol Extra Strength) albuterol sulfate 90 mcg/actuation 1 - 2 puff inhalation QID PRN ##1 07/09/16 08/02/24 aerosol inhaler (ProAir HFA) buprenorphine 8 mg-naloxone 2 mg 1 film sublingual DAILY 07/16/22 08/02/24 sublingual film (Suboxone) cyanocobalamin (vitamin B-12) 2,500 mcg sublingual DAILY 07/16/22 08/02/24 2,500 mcg sublingual lozenge melatonin 5 mg tablet 5 mg PO HS PRN 07/16/22 08/02/24 omeprazole 40 mg capsule,delayed 40 mg PO DAILY 07/16/22 08/02/24 release sertraline 50 mg tablet 100 mg PO DAILY 07/16/22 08/02/24 sucralfate 1 gram tablet (Carafate) 1,000 mg PO QID PRN 10/06/23 08/02/24 folic acid 1 mg tablet 1 mg PO DAILY 10/07/23 08/02/24 Allergies Allergy/AdvReac Type Severity Reaction Status Date / Time erythromycin base AdvReac SEVERE GI Unverified 08/02/24 12:44 UPSET simvastatin AdvReac LEG Unverified 08/02/24 12:44 CRAMPS; MYALGIAS General Stated Complaint: RespSymp ARIA: 2 Exam Narrative Exam Narrative: Review of Systems: All systems reviewed & are unremarkable except as noted in HPI and below Well-developed, no acute distress Afebrile NCAT RRR Unlabored respiratory effort, coarse breath sounds and wheezing throughout, diminished breath sounds at the right base, O2 sat 88% on arrival Nondistended abdomen Extremities w/o edema Course Vital Signs Vital signs: Vital Signs Temperature 37.6 C 08/02/24 12:38 Pulse 78 08/02/24 12:38 Respiratory Rate 30 H 08/02/24 12:38 Blood Pressure 102/68 08/02/24 12:38 Pulse Oximetry 88 L 08/02/24 12:38 Temperature 36.8 C 08/02/24 15:28 Pulse 92 H 08/02/24 15:28 Pulse 96 H 08/02/24 15:16 Respiratory Rate 14 08/02/24 15:28 Respiratory Effort Normal 08/02/24 13:27 Respiratory Depth Normal 08/02/24 13:27 Blood Pressure 108/58 L 08/02/24 15:28 Blood Pressure Mean 73 08/02/24 15:16 Blood Pressure Position Sitting 08/02/24 12:45 Pulse Oximetry 92 08/02/24 15:28 Oxygen Delivery Method Room Air 08/02/24 12:45 Oxygen Flow Rate 0 08/02/24 12:38 Lab/Test Results Lab/Test Results: 08/02/24 14:40 Blood Blood Culture - Pending 08/02/24 14:40 Blood Blood Culture - Pending Laboratory Tests Range/Units 08/02/24 13:10 WBC (4.4-10.8) 10^3/uL 6.08 RBC (3.93-5.22) 10^6/uL 4.41 Hgb (11.2-15.7) g/dL 14.4 Hct (36.0-46.0) % 43.3 MCV (80-95) fL 98 H MCH (27.0-33.0) pg 32.7 MCHC (32.0-36.0) % 33.3 RDW (11.7-14.6) % 12.1 Plt Count (130-400) 10^3/uL 182 MPV (8.0-11.0) fL 9.8 Immature Gran % % 0.3 Neutrophils % % 73.7 Lymphocytes % % 17.3 Monocytes % % 7.9 Eosinophils % % 0.5 Basophils % % 0.3 Nucleated RBC % (0.0-0.3) % 0.0 Absolute Neutrophils (1.2-6.7) 10^3/uL 4.48 Absolute Lymphocytes (1.2-3.4) 10^3/uL 1.05 L Absolute Monocytes (0.1-0.8) 10^3/uL 0.48 Absolute Eosinophils (0.0-0.7) 10^3/uL 0.03 Absolute Basophils (0.0-0.2) 10^3/uL 0.02 Sodium (136-145) mmol/L 142 Potassium (3.5-5.1) mmol/L 3.7 Chloride (98-107) mmol/L 103 Carbon Dioxide (21.0-32.0) mmol/L 29.8 Anion Gap (3-11) mmol/L 9.2 BUN (7-18) mg/dL 10 Creatinine (0.55-1.02) mg/dL 0.8 Est GFR (CKD-EPI 2020) (mL/min/1.73m2) 93.70 Glucose (74-106) mg/dL 102 Calcium (8.5-10.1) mg/dL 9.1 Medical Decision Making Emergent evaluation of respiratory distress. On arrival the patient is noted to be hypoxic. She does have a smoking history and symptoms concerning for infectious etiology. She was placed on a breathing treatment and given IV steroids. Lab work was obtained, no significant loose leukocytosis or anemia. No electrolyte derangement. Her chest x-ray is concerning for a large right lower lobe pneumonia. The patient was started on antibiotics, Rocephin and azithromycin. However even after breathing treatment, she still had desaturations with ambulation down to 85%. Given this persistent hypoxia, the patient will require hospitalization for continued treatment. Discussed with hospitalist to admit the patient. Quality:SDOH Health Related Social Needs: No Data to Display PFSH All Active Problems (Updated 08/02/24 @ 15:37 by Falguni Suarez MD) Discharge planning issues (Acute) Hx of opioid abuse (Acute) Tobacco use (Acute) Asthma (Chronic) Community acquired pneumonia (Acute) Acute hypoxic respiratory failure (Acute) Labral tear of right hip joint (Acute) Tear of left gluteus medius tendon (Acute) Trochanteric bursitis, right hip (Acute) Asthma, intermittent (Acute) Back pain (Acute) Medical History Positive PPD negative chest xray -2015 Hepatomegaly History of shingles Mood disorder Pain, foot, chronic Obesity GERD (gastroesophageal reflux disease) Ankle joint effusion Skin lesion of scalp Proteinuria Fibromyalgia Edema Dysphagia Chronic cough Bipolar affective disorder Positive antinuclear antibody Urinary incontinence Arthralgia Acute back pain Surgical History S/P appendectomy GAYATHRI/BSO (~04/2006) section X 2 EGD - MAC (11/19/17) Family History Mother Diabetes Cirrhosis of liver Sarcoidosis Father Myocardial infarction X 3; THE FIRST [place] AT AGE 19 MATERNAL FAMILY HISTORY Diabetes Alcohol abuse Personal history of malignant neoplasm UNCLE-COLON PATERNAL FAMILY HISTORY Personal history of malignant neoplasm AUNT; BREAST Social History Smoking/Tobacco Use Status: Current every day Tobacco Type: cigarettes Smoking risk assessment performed?: Yes Alcohol Intake: never Drug use: Daily Substance use type: marijuana Housing: apartment Do you feel safe at home: Yes Do you feel safe in your relationship?: Yes
--- OUTSIDE RECORDS SUMMARY | 2024-08-02 15:36 | XMS_ITS | Clinical Summary ---
Author Organization [facility] Address [facility] [place] [address] Care Team Providers Care Donkey Ride Operator Name Role Phone Charly Russell MD Primary Care Provider [phone] Allergies Active Allergy Reactions Criticality Noted Date Comments Erythromycin Nausea And Vomiting 09/12/2016 Simvastatin Rash 01/22/2020 Simvastatin (Bulk) Hives 09/12/2016 Medications Medication Sig Dispensed Refills Start Date End Date Status sertraline (ZOLOFT) 100 mg Tablet Take 200 mg by mouth daily. Active prazosin (MINIPRESS) 2 mg Capsule Take 2 mg by mouth nightly. Active CALCIUM CARBONATE/VITAMIN D3 (VITAMIN D-3 ORAL) Take by mouth once a week. Active hydrOXYzine (ATARAX) 50 mg Tablet Take 50 mg by mouth 4 times daily. Active buprenorphine-naloxo ne (SUBOXONE) 12-[address] under the tongue daily. Active buprenorphine-nalOXo ne (SUBOXONE) 8-[address] under the tongue daily. Active acetaminophen (TYLENOL) 500 mg Tablet Every 6 hours, as needed 11/18/2012 Active albuterol (PROAIR HFA) 90 mcg/actuation HFA Aerosol Inhaler Four times a day 07/09/2016 Act ashleigh cholecalciferol, Vitamin D3, 50,000 unit Capsule weekly 07/28/2016 Active diclofenac (VOLTAREN) 50 mg Tablet, Delayed Release (E.C.) Three times a day 05/23/2015 Act ashleigh docusate sodium (COLACE) 100 mg Capsule Twice a day 02/14/2016 Active DULoxetine (CYMBALTA) 60 mg Capsule, Delayed Release(E.C.) Take 1 capsule by mouth daily. 60 tablet 11/28/2016 Active buprenorphine-naloxo ne (SUBOXONE) 8-[address] under the tongue daily. Active buprenorphine-naloxo ne (Suboxone) 2-0.[address] under the tongue daily. Active sertraline (ZOLOFT) 100 mg Tablet Take 200 mg by mouth daily. Active amitriptyline HCl (AMITRIPTYLINE ORAL) Take 75 mg by mouth nightly. Active melatonin 5 mg Tablet Take by mouth. Active docusate sodium (COLACE ORAL) Take 50 mg by mouth. Active ProAir HFA 90 mcg/actuation HFA Aerosol Inhaler INHALE 2 PUFFS BY MOUTH EVERY 4 HOURS IF NEEDED FOR SHORTNESS OF BREATH OR WHEEZING 11/24/2019 Active Symbicort 160-4.5 mcg/actuation HFA Aerosol Inhaler 08/29/2019 Active omeprazole (PriLOSEC) 40 mg Capsule, Delayed Release(E.C.) TK 1 C PO BID 01/12/2020 Active Social History Tobacco Use Types Packs/Day Years Used Date Smoking Tobacco: Every Day Cigarettes Smokeless Tobacco: Never Sex and Gender Information Value Date Recorded Sex Assigned at Not on file Gender Identity Not on file Sexual Orientation Not on file Last Filed Vital Signs Vital Sign Reading Time Taken Comments Blood Pressure 129/98 01/22/2020 10:00 PM EDT Pulse 70 01/22/2020 10:00 PM EDT Temperature 37 ??C (98.6 ??F) 01/22/2020 4:01 PM EDT Respiratory Rate 27 01/22/2020 10:00 PM EDT Oxygen Saturation 96% 01/22/2020 9:59 PM EDT Inhaled Oxygen Concentration - - Weight 74.4 kg (164 lb) 10/27/2016 9:50 AM EST Height 149.9 cm (4' 11) 10/27/2016 9:50 AM EST Body Mass Index 33.12 10/27/2016 9:50 AM EST Plan of Treatment Health Maintenance Due Date Last Done Comments HIV screen 1999 Lipid Screening 1999 Tetanus/Diphtheria/Pertussis Vaccines (1 - Tdap) 04/20 HPV test 2011 PAP Smear 2011 Breast Cancer Share Decision Needed 2021 Breast Cancer screening 2021 Covid-19 Vaccine ( season) 2024 Influenza (Flu) vaccine (1 o f 1 - Influenza standard series) 05/08/2024 Hepatitis C Screening Completed 09/12/2016 Procedures Procedure Name Priority Date/Time Associated Diagnosis Comments HEPATITIS C ANTIBODY Routine 09/12/2016 11:01 AM EST Arthralgia of both hands Raynaud's phenomenon without gangrene Chronic fatigue from Last 3 Months or Most Recently Relevant to Health Maintenance Results * Hepatitis C Antibody (09/12/2016 11:01 AM EST) Hepatitis C Antibody Negative Negative [facility] Blood specimen (specimen) 09/12/2016 11:01 AM EST 09/12/2016 11:07 AM EST Narrative Resulting Agency Comment Spec In Lab Francheska Torres DO CHEMISTRY ORDERABL ES [facility] [place] [address] from Last 3 Months or Most Recently Relevant to Health Maintenance Care Teams Donkey Ride Operator Relationship Specialty Start Date End Date Charly Russell MD PCP - General Family Medicine 09/27/18
--- OUTSIDE RECORDS SUMMARY | 2024-08-02 15:36 | XMS_ITS | Clinical Summary ---
Author Organization [facility] Address [address] [place] [address] Care Team Providers Care Blue Split Trimmer Name Role Phone Charly Russell MD Primary Care Provider [phone] Social History Tobacco Use Types Packs/Day Years Used Date Smoking Tobacco: Never Assessed Interpersonal Safety Answer Date Record ed Physically Hurt Never 04/08/2020 Verbally Threaten Not on file 04/08/2020 Comments Unknown Sex and Gender Information Value Date Recorded Sex Assigned at Not on file Legal Sex Female 18:09 EST Gender Identity Not on file Sexual Orientation Not on file Plan of Treatment Health Maintenance Due Date Last Done Comments Hepatitis C Screen 1981 Hepatitis B Vaccine (1 of 3 - 19+ 3-dose series) 04/20 COVID-19 Vaccine (2023- season) 2024 Insurance MEDICAID [facility] Care Teams Blue Split Trimmer Relationship Specialty Start Date End Date Charly Russell MD [address] [address] PCP - General 05/29/20
--- OUTSIDE RECORDS SUMMARY | 2024-08-02 15:36 | XMS_ITS | Encounter Summary ---
Author Organization [facility] [place] [address] Care Team Providers Care Freight Rate Specialist Name Role Phone Kellie Martinez MD Primary Care Provider [phone] Encounter Details Date Type Department Care Team (Late st Contact Info) Description 09/12/2016 11:10 AM [facility] Hospital Encounter XRay at [address] [place] [address] Francheska Torres, [facility] [address] Arthralgia of both hands; Raynaud's phenomenon without gangrene; Chronic fatigue Discharge Disposition: Home Social History Tobacco Use Types Packs/Day Years Used Date Smoking Tobacco: Every Day Cigarettes Sex and Gender Information Value Date Recorded Sex Assigned at Not on file Gender Identity Not on file Sexual Orientation Not on file documented as of this encounter Medications at Time of Discharge Medication Sig Dispensed Refills Start Date End Date acetaminophen (TYLENOL) 500 mg Tablet Every 6 hours, as needed 11/18/2012 albuterol (PROAIR HFA) 90 mcg/actuation HFA Aerosol Inhaler Four times a day 07/09/2016 cholecalciferol, Vitamin D3, 50,000 unit Capsule weekly 07/28/2016 diclofenac (VOLTAREN) 50 mg Tablet, Delayed Release (E.C.) Three times a day 05/23/2015 docusate sodium (COLACE) 100 mg Capsule Twice a day 02/14/2016 sertraline (ZOLOFT) 100 mg Tablet Take 200 mg by mouth daily. prazosin (MINIPRESS) 2 mg Capsule Take 2 mg by mouth nightly. CALCIUM CARBONATE/VITAMIN D3 (VITAMIN D-3 ORAL) Take by mouth once a week. hydrOXYzine (ATARAX) 50 mg Tablet Take 50 mg by mouth 4 times daily. buprenorphine-naloxone (SUBOXONE) 12-[address] under the tongue daily. buprenorphine-nalOXone (SUBOXONE) 8-[address] under the tongue daily. prazosin (MINIPRESS) 2 mg Capsule daily. 03/19/2016 10/27/2016 furosemide (LASIX) 20 mg Tablet Take 20 mg by mouth 2 times daily. Reported on 10/27/2016 10/27/2016 DOCUSATE SODIUM (DULCOLAX STOOL SOFTENER, DSS, ORAL) Take by mouth. 10/27 documented as of this encounter Plan of Treatment Not on file documented as of this encounter Procedures Procedure Name Priority Date/Time Associated Diagnosis Comments XR HANDS MIN 3 VIEWS BILAT Routine 09/12/2016 11:34 AM EST Arthralgia of both hands Raynaud's phenomenon without gangrene Chronic fatigue documented in this encounter Results * XR Hands Min 3 views Bilat (09/12/2016 11:34 AM EST) Anatomical Region Laterality Modality Hand Bilateral Digital Radiogra phy Impressions 09/12/2016 2:10 PM EST No bony erosion identified. Bilateral positive ulnar variance; otherwise unremarkable radiographic appearance of the hands. Narrative 09/12/2016 2:10 PM EST EXAMINATION: XR HANDS MIN 3 VIEWS BILAT/BILAT CLINICAL HISTORY: Small joint symptoms with morning stiffness and family history of rheumatoid arthritis and psoriasis. TECHNIQUE: Frontal, lateral, oblique, and posterior view radiographs of the bilateral hands were obtained. COMPARISON: None FINDINGS: No bony erosion is identified. There is joint space narrowing. There is no dislocation or subluxation. Bony mineralization is within normal limits. There is no radiographically appreciable soft tissue swelling or soft tissue calcification. There is no fracture. There is bilateral positive ulnar variance. Procedure Note Sharri Aguilar MD - 09/12/2016 EXAMINATION: XR HANDS MIN 3 VIEWS BILAT/BILAT CLINICAL HISTORY: Small joint symptoms with morning stiffness and familyhistory of rheumatoid arthritis and psoriasis. TECHNIQUE: Frontal, lateral, oblique, and posterior view radiographs ofthe bilateral hands were obtained. COMPARISON: None FINDINGS: No bony erosion is identified. There is joint space narrowing. There isno dislocation or subluxation. Bony mineralization is within normal limits.There is no radiographically appreciable soft tissue swelling or soft tissue calcification. There is no fracture. There is bilateral positive ulnarvariance. IMPRESSION No bony erosion identified. Bilateral positive ulnar variance; otherwise unremarkable radiographic appearance of the hands. Francheska Torres DO [facility] DX ORDERABLES documented in this encounter Visit Diagnoses Diagnosis Arthralgia of both hands Raynaud's phenomenon without gangrene Chronic fatigue Other malaise and fatigue documented in this encounter Care Teams Freight Rate Specialist Relationship Specialty Start Date End Date Kellie Martinez MD [address] [facility] [address] [place] [address] PCP - General Family Medicine 09/12/16 09/26/18 documented as of this encounter
--- OUTSIDE RECORDS SUMMARY | 2024-08-02 15:36 | XMS_ITS | Encounter Summary ---
Author Organization [facility] Address [address] [place] [address] Care Team Providers Care Poultryman Name Role Phone Lauren Mcneill MD Primary Care Provider [phone] Encounter Details Date Type Department Care Team (Late st Contact Info) Description 07/08/2002 Results Only [facility] [address] [place] [address] Biju Fisher [address] [place] [address] Social History Tobacco Use Types Packs/Day Years Used Date Smoking Tobacco: Never Assessed Comments Unknown Sex and Gender Information Value Date Recorded Sex Assigned at Not on file Legal Sex Female 18:09 EST Gender Identity Not on file Sexual Orientation Not on file documented as of this encounter Plan of Treatment Not on file documented as of this encounter Procedures Procedure Name Priority Date/Time Associated Diagnosis Comments CYTOPATHOLOGY Routine 07/08/2002 0:00 EST documented in this encounter Results * CYTOPATHOLOGY (07/08/2002 0:00 EST) Pathology Report: CYTOPATHOLOGY REPORT Reports generated via electronic interface contain original data; however they are lacking the format of the original report. Caution should be taken when reading/interpreti ng unformatted reports. Name: ? MARSHA BUCK ? Accession #: ? [id number] : ? 1980 (Age: 22) ??F ?Collect Date: ? 07/08/2002 Location: ? [facility] ? Receive Date: ? 07/12/2002 Provider: ?BIJU FISHER CNM Copy to: ? Specimen/Source: ?ThinPrep Pap Test, Cervix/Endocervix Last Menstrual Period: ? 05/16/02 Menstrual/Pregnanc y Status: ? SPECIMEN ADEQUACY ? Unsatisfactory for Evaluation, - insufficient numbers of squamous epithelial cells (less than 10% of expected cellularity) - sample preparation compromised by excessive blood GENERAL CATEGORIZATION ? Specimen processed and examined, but unsatisfactory for evaluation of epithelial abnormality. Recommend repeat Pap test or further follow up, as clinically indicated. ? Document reviewed and electronically signed by: ? Sofia Camacho, [facility](ASCP) ? Report Date: ??07/15/2002 16:24 End of Report [facility] 07/08/2002 07/12/2002 Biju Laurenkatrina BAY PATHOLOGY ORDERABLES Final Resul t [facility] [address] [place] [address] documented in this encounter Visit Diagnoses Not on filedocumented in this encounter Care Teams Poultryman Relationship Specialty Start Date End Date Lauren Mcneill MD [facility] [address] [place] [address] PCP - General 01/18/10 11/22/17 documented as of this encounter
--- OUTSIDE RECORDS SUMMARY | 2024-08-02 15:36 | XMS_ITS | Encounter Summary ---
Author Organization [facility] Address [facility] [place] [address] Care Team Providers Care Loom Cleaner Name Role Phone Kellie Martinez MD Primary Care Provider [phone] Encounter Details Date Type Department Care Team (Late st Contact Info) Description 11/20/2016 Orders [place] [address] Hermelinda Vieyra MD [facility] [place] [address] Social History Tobacco Use Types Packs/Day Years Used Date Smoking Tobacco: Every Day Cigarettes Smokeless Tobacco: Never Sex and Gender Information Value Date Recorded Sex Assigned at Not on file Gender Identity Not on file Sexual Orientation Not on file documented as of this encounter Plan of Treatment Not on file documented as of this encounter Visit Diagnoses Not on filedocumented in this encounter Care Teams Loom Cleaner Relationship Specialty Start Date End Date Kellie Martinez MD [address] [place] [address] PCP - General Family Medicine 09/12/16 09/26/18 documented as of this encounter
--- OUTSIDE RECORDS SUMMARY | 2024-08-02 15:36 | XMS_ITS | Encounter Summary ---
Author Organization [facility] Address [address] [place] [address] Care Team Providers Care Motor Teacher Name Role Phone Lauren Mnceill MD Primary Care Provider [phone] Encounter Details Date Type Department Care Team (Late st Contact Info) Description 11/19/2017 Results Only [facility] [phone] Linus Song MD [facility] [facility] [address] [place], [place] [id number] Social History Tobacco Use Types Packs/Day Years [...] Procedure Name Priority Date/Time Associated Diagnosis Comments SURGICAL PATHOLOGY Routine 11/19/2017 16 :51 EDT documented in this encounter Results * SURGICAL PATHOLOGY (11/19/2017 16:51 EDT) Pathology Report: SURGICAL PATHOLOGY REPORT Reports generated via electronic interface contain original data; however they are lacking the format of the original report. Caution should be taken when reading/interpretin g unformatted reports. Name: ? MARSHA BUCK ? Accession #: ? [id number] ? : ? 1980 (Age: 37) ??F ? Collect Date: ? 11/19/2017 ? Location: ? [facility] ? Receive Date: ? 11/19/2017 ? Provider: LINUS SONG MD Copy to: JAVIER SAPP MD ? Final Pathologic Diagnosis: A. STOMACH, ANTRUM, BIOPSY: - Antral mucosa with mild reactive changes. - No Helicobacter pylori-like microorganisms identified on H&E-stained sections. ?? B. GASTROESOPHAGEAL JUNCTION, BIOPSY: - Squamous mucosa with reflux esophagitis with superficial erosion. - PAS amylase stain negative for fungi. - Negative for intestinal metaplasia; Negative for dysplasia. Document reviewed and electronically signed by: MARQUIS ROSS MD Report ??Date: 11/23/2017 19:46 By the signature above, the attending physician certifies that he/she has personally conducted a gross and/or microscopic examination of the described specimens and rendered or confirmed the above diagnosis. Specimen(s) Received: A. ??Gastric antrum bx B. ??GE junction bx and ulcers Clinical History: GERD, A. R/O H. pylori, B. R/O Grace's Gross Description: A. ?Received in formalin labelled with proper patient identification (initials F, C) and gastric antrum are two paez-brown irregular tissues, 0.2 x 0.1 x 0.1 cm and 0.2 x 0.2 x 0.2 cm. Entirely submitted in A1. B. ?Received in formalin labelled with proper patient identification (initials F, C) and GE junction are three paez-santana irregular soft to membranous tissues ranging from 0.1 x 0.1 x 0.1 cm to 0.3 x 0.2 x 0.1 cm. Entirely submitted in B1. MADISON Joyce (ASCP) 11/20/2017 7:55 AM End of Report [facility] 11/19/2017 16:5 1 EDT 11/19/2017 16:51 EDT us Linus Song MD PATHOLOGY ORDERABLES Fin al Result [facility] [address] [place] [address] documented in this encounter Visit Diagnoses Not on filedocumented in this encounter Care Teams Motor Teacher Relationship Specialty Start Date End Date Lauren Mcneill MD [facility] [address] [place] [address] PCP - General 01/18/10 11/22/17 documented as of this encounter
--- OUTSIDE RECORDS SUMMARY | 2024-08-02 15:36 | XMS_ITS | Encounter Summary ---
Author Organization [facility] Address [address] [place] [address] Care Team Providers Care Quality Cloth Tester Name Role Phone Charly Russell MD Primary Care Provider [phone] Encounter Details Date Type Department Care Team (Latest Contact Info) Description 05/30/2020 Lab Requisition [facility] Pathology & Laboratory Medicine - [facility] [address] [place] [address] Chavo Ga MD [address] [place] [phone] Ulcer of esophagus without bleeding; Dysphagia, pharyngoesophageal phase; Alcohol abuse, uncomplicated Social History Tobacco Use Types Packs/Day Years [...] Priority Date/Time Associated Diagnosis Comments SURGICAL PATHOLOGY Today 05/29/2020 12:30 EDT Ulcer of esophagus without bleeding Dysphagia, pharyngoesophageal phase Alcohol abuse, uncomplicated documented in this encounter Results * SURGICAL PATHOLOGY (05/29/2020 12:30 EDT) Final Diagnosis A. STOMACH, ANTRUM, BIOPSY: - Reactive (chemical) gastropathy B. STOMACH, BODY, BIOPSY: - No significant pathologic abnormality C. ESOPHAGUS, DISTAL, BIOPSY: - Squamous mucosa with chronic inflammation and intraepithelial eosinophils -maximum eosinophil count of 9 per high-power field (See comment) 06/04/2020 13:49 [facility] Attestation By the signature below, the attending physician certifies that they have 1) personally conducted a gross and/or microscopic examination of the described specimen(s), and/or personally interpreted the results of laboratory testing of the described specimen(s), and 2) personally rendered or confirmed the above diagnosis. 06/04/2020 13:49 [facility] at 1349 Clinical History Esophagitis, dysphagia 06/04/2020 13:49 [facility] Gross Description A. Received in formalin labelled with proper patient identification (initials F, C) and antrum Bx are 2 fragments of santana tissue; each measuring 0.3 x 0.2 x 0.2 cm). The specimens are submitted entirely in A1. B. Received in formalin labelled with proper patient identification (initials F, C) and gastric body is a single fragment of santana tissue (0.5 x 0.2 x 0.2 cm). The specimen is submitted entirely in B1. C. Received in formalin labelled with proper patient identification (initials flexure, C) and distal esophagus is a single fragment of white tissue (0.3 x 0.3 x 0.1 cm). The specimen is submitted entirely in C1. 05/30/2020 9:24 06/04/2020 13:49 [facility] Performing Lab [facility] 13:49 [facility] Scanned Images 06/04/2020 13:49 [facility] Tissue ENTIRE ESOPHAGUS / Unknown 05/29/2020 12:30 EDT 05/30/2020 8:39 EDT Tissue specimen (specimen) STOMACH STRUCTURE / Unknown 05/29/2020 12:30 EDT 05/30/2020 8:39 EDT Tissue specimen (specimen) ESOPHAGEAL STRUCTURE / Unknown 05/29/2020 12:30 EDT 05/30/2020 8:39 EDT us Chavo Ga MD PATHOLOGY ORDERABLES Final Result [facility] [address] [place] [address] documented in this encounter Visit Diagnoses Diagnosis Ulcer of esophagus without bleeding Dysphagia, pharyngoesophageal phase Alcohol abuse, uncomplicated documented in this encounter Care Teams Quality Cloth Tester Relationship Specialty Start Date End Date Charly Russell MD [facility] [address] [place], [place] [id number] PCP - General 05/29/20 documented as of this encounter
--- OUTSIDE RECORDS SUMMARY | 2024-08-02 15:36 | XMS_ITS | Encounter Summary ---
Author Organization [facility] Address [facility] [place] [address] Care Team Providers Care Production Assembly Operator Name Role Phone Kellie Martinez MD Primary Care Provider [phone] Encounter Details Date Type Department Care Team (Late st Contact Info) Description 10/27/2016 9:30 AM EST Office [place] [id number] Hermelinda Vieyra MD [facility] [place] [address] Arthralgia, unspecified joint Social History Tobacco Use Types Packs/Day Years Used Date Smoking Tobacco: Every Day Cigarettes Smokeless Tobacco: Never Sex and Gender Information Value Date Recorded Sex Assigned at Not on file Gender Identity Not on file Sexual Orientation Not on file documented as of this encounter Last Filed Vital Signs Vital Sign Reading Time Taken Comments Blood Pressure 195/64 10/27/2016 9:50 AM EST Pulse 73 10/27/2016 9:50 AM EST Temperature 36.9 ??C (98.5 ??F) 10/27/2016 9:50 AM ES T Respiratory Rate 18 10/27/2016 9:50 AM EST Oxygen Saturation 96% 10/27/2016 9:50 AM EST Inhaled Oxygen Concentration - - Weight 74.4 kg (164 lb) 10/27/2016 9:50 AM EST Height 149.9 cm (4' 11) 10/27/2016 9:50 AM EST Body Mass Index 33.12 10/27/2016 9:50 AM EST documented in this encounter Progress Notes * Hermelinda Vieyra MD - 10/27/2016 9:30 AM EST Rheumatology Hx: Referred for generalized myalgias and arthralgias + ELIZA- 1:80. C3,C4,ACPA,LAURIE neg, sed rate 9, crp-5, Hep B,C- neg. Has personal Hx of Psoriasis (minimally active now). X ray hands/SI joints- no findings suggestive of chronic inflammatory arthritis. FHx of RA, Hx of smoking (+). Interval Hx: Ms Buck is a 36 y/o F with Hx of narcotic abuse on subaxone, depression, bipolar disorder, COPD and tobacco abuse. with generalized arthralgias and swelling of her hands and feet. Since her last visit her swelling in the hands and feet have got better (without new meds). Continues to have generalized arthralgias and myalgias. Normal strength. Has Hx of dry scaly lesions on the shoulders- dx as psoriasis. Mom has Hx of Psoriasis. X ray hands/SI joints- no findings suggestive of chronic inflammatory arthritis. Fhx of RA. ROS: (+) fatigue, (+)dry mouth, (-)dysphagia, (+)GERD, (-)Hair loss: thinned out hair- FHx of thin hair.No Hx of natty hair loss, (+)shortness of breath attributed to COPD, (+)wheezes, (+)Raynaud's- 4 latera fingers, (+) ocassional mood disorder. Active Ambulatory Problems Diagnosis Date Noted ??? No Active Ambulatory Problems Resolved Ambulatory Problems Diagnosis Date Noted ??? No Resolved Ambulatory Problems No Additional Past Medical History Social History Social History ??? Marital status: Single Spouse name: N/A ??? Number of children: N/A ??? Years of education: N/A Occupational History ??? Not on file. Social History Main Topics ??? Smoking status: Current Every Day Smoker Packs/day: 1.00 Types: Cigarettes ??? Smokeless tobacco: Never Used ??? Alcohol use Not on file ??? Drug use: Not on file ??? Sexual activity: Not on file Other Topics Concern ??? Not on file Social History Narrative Physical exam: Vitals: 10/27/16 0950 BP: 195/64 Pulse: 73 Resp: 18 Temp: 36.9 ??C (98.5 ??F) Gen: Patient is awake, alert and oriented x 3, in no distress Skin: warm and dry, ?telangectasia on face (2 areas) Heart: regular rate, no murmurs, rubs or gallops Lungs: mild wheezing in b/l lung gallagher. Spine: Good ROM. Limited forward and lateral flexion. para spinal tenderness over lumbar spine. Joints: tenderness over b/l MCP's/PIP's and wrists. No swelling. Limited MSK US- No paez scale or PD for synovitis. normal ROM throughout the upper and lower extremity joints. Tender points- paraspinal and around knee TTP over plantar fasciitis insertion. Low long plantar arch b/l. Labs: ELIZA-1:80. RF- neg. ESR-14 Results for MARSHA BUCK ( ) as of 10/27/2016 10:31 Ref. Range 09/12/2016 11:01 ELIZA Latest Ref Range: Neg Pos (A) C3 Complement Latest Ref Range: 90 - 180 mg/dL 116 C4 Complement Latest Ref Range: 10 - 40 mg/dL 21 Centromere Ab Latest Ref Range: <1.0 (Negative) U <0.2 Anti-Cyc Cit Peptide Latest Ref Range: <=17.0 unit/mL <8.0 DNA Ab (DS) Latest Ref Range: Neg Neg LAURIE Ab Unknown ... RNA Polymerase III Ab, IgG Latest Ref Range: <20.0 (Negative) U <10.0 mixed pattern present 1:80 Titer seen with Speckled pattern Component Value Date/Time SPGRAVITYUA 1.025 09/12/2016 1123 PHUADIP 7.0 09/12/2016 1123 PROTEINUADIP Negative 09/12/2016 1123 GLUCOSEU Negative 09/12/2016 1123 KETONESUA 5 (A) 09/12/2016 1123 UROBILIUADIP Normal 09/12/2016 1123 BLOODUADIP Negative 09/12/2016 1123 NITRATEUA Negative 09/12/2016 1123 LEUKOESTERUA Negative 09/12/2016 1123 WBCUA 1 09/12/2016 1123 BILIRUBINUA Negative 09/12/2016 1123 Urine P/Cr- <0.1. Last CRP, SEDRATE Recent Labs 09/12/16 1101 CRP 5.0 SEDRATE 8 Hands- No bony erosion identified. Bilateral positive ulnar variance; otherwise unremarkable radiographic appearance of the hands. ?? SI-No evidence of bony erosion or ankylosis. Assessment/Plan: Ms Buck is a 36 y/o F with Hx of narcotic abuse on subaxone, depression, bipolar disorder, COPD and tobacco abuse with generalized arthralgias and swelling of her hands and feet. While differentials like CREST, SLE, Psoriatic arthritis, and RA were initially entertained, her serology has been reassuring thus far. Her clinical picture seems to best with Fibromyalgia at this time. Hx of Depression and poor sleep could likely be driving this. Normal inflammatory markers and Neg MSK US for synovitis is reassuring. Has plantar faciitis on exam. While this can sometimes be an intial presentation of (enthesitis) PsA (+ hx of psoriasis), I would favor a mechanical etiology given her low plantar arches. Fibromyalgia: We discussed at length sleep hygiene as this is clearly seems to be contributing to her pain. We also talked about graded aerobic stretch exercise. ??Medications- Will initiate cymbalta- 30 mg q daily for 1 weeks and then to 60 mg q daily. SE profile and dosing discussed. # Plantar faciitis Discussed use of night foot support splints Arch support. Labs- CRP/ESR RTC- PRN/earlier if inflammatory markers from today are high. * Mega Martin MD - 10/27/2016 9:30 AM EST RHEUMATOLOGY ATTENDING NOTE: I reviewed Rheumatology Fellow Dr. Hermelinda Vieyra's clinic note without participating in the clinical care of this pt. Mega Martin MD PhD documented in this encounter Plan of Treatment Not on file documented as of this encounter Procedures Procedure Name Priority Date/Time Associated Diagnosis Comments SEDIMENTATION RATE Routine 10/27/2016 11 :15 AM EST Arthralgia, unspecified joint CRP, CARDIAC RISK (HS CRP) Routine 10/27/2016 11:15 AM EST Arthralgia, unspecified joint documented in this encounter Results * CRP, cardiac risk (HS CRP) (10/27/2016 11:15 AM EST) C-Reactive Protein High Sensitivity 4.4 mg/L [facility] Comment: For cardiac risk assessment, two values (fasting or nonfasting sample acceptable) taken at least 2 weeks apart, should be averaged to provide a more reliable estimate of marker level. This laboratory will be using the recommendations from the AHA/CDC Scientific Statement for interpretations of future risks of cardiovascular events: ?<1.0 mg/L: low risk ?1.0 to 3.0 mg/L: moderate risk ?>3.0 mg/L: high risk ?>10.0 mg/L: Acute Inflammation Note: CRP values >10 mg/L indicate an acute inflammatory condition or infection. The >10 mg/L value should not be used for cardiac risk assessment and a repeat specimen should be collected at least two weeks after resolution of the acute inflammatory condition. References: 1. Sandi TAPIA et. al. ??AHA/CDC Scientific Statement: Markers of Inflammation and Cardiovascular Disease. ??Circulation 2003; 107:499-511 2. Pedro Luis PM. ??Clinical applications of C-reactive protein for cardiovascular disease detection and prevention. ??Circulation 2003; 107:363-369 CRP Cardiac Risk High Risk [facility] Blood specimen (specimen) 10/27/2016 11:15 AM EST 10/27/2016 11:40 AM EST Narrative Resulting Agency Comment Spec In Lab Mega Martin MD CHEMISTRY ORDERABLES [facility] [place] [address] * Sedimentation rate (10/27/2016 11:15 AM EST) Sedimentation Rate Automated 6 0 - 20 mm/hr [facility] Blood specimen (specimen) 10/27/2016 11:15 AM EST 10/27/2016 11:40 AM EST Narrative Resulting Agency Comment Spec In Lab Mega Martin MD HEMATOLOGY ORDERABLE S [facility] [place] [address] documented in this encounter Visit Diagnoses Diagnosis Arthralgia, unspecified joint documented in this encounter Care Teams Production Assembly Operator Relationship Specialty Start Date End Date Kellie Martinez MD [address] [place] [address] PCP - General Family Medicine 09/12/16 09/26/18 documented as of this encounter
--- OUTSIDE RECORDS SUMMARY | 2024-08-02 15:36 | XMS_ITS | Referral Summary ---
Author Organization [facility] Address [address] [place] [address] Care Team Providers Care Design Engineer Name Role Phone Charly Russell MD Primary Care Provider [phone] Social History Tobacco Use Types Packs/Day Years Used Date Smoking Tobacco: Never Assessed Interpersonal Safety Answer Date Record ed Physically Hurt Never 04/08/2020 Verbally Threaten Not on file 04/08/2020 Comments Unknown Sex and Gender Information Value Date Recorded Sex Assigned at Not on file Legal Sex Female 18:09 EST Gender Identity Not on file Sexual Orientation Not on file Plan of Treatment Not on file Insurance MEDICAID [employer] [facility] [place] Address: [place] [address] Care Teams Design Engineer Relationship Specialty Start Date End Date Charly Russell MD [facility] [place] [address] PCP - General 05/29/20
--- OUTSIDE RECORDS SUMMARY | 2024-08-02 15:36 | XMS_ITS | Encounter Summary ---
Author Organization [facility] Address [facility] [place] [address] Care Team Providers Care Scalehouse Attendant Name Role Phone Charly Russell MD Primary Care Provider [phone] Reason for Visit * Reason Comments Abdominal Pain RUQ Encounter Details Date Type Department Care Team (Late st Contact Info) Description 01/22/2020 3:44 PM EDT - 01/22/2020 10:19 PM EDT Emergency [place] [address] Sofia Esquivel MD [facility] [place] [address] Shelley Nowak MD [facility] [place] [address] Colicky RUQ abdominal pain Discharge Disposition: Home Social History Tobacco Use Types Packs/Day Years Used Date Smoking Tobacco: Never Assessed Sex and Gender Information Value Date Recorded [...] EDT Inhaled Oxygen Concentration - - Weight - - Height - - Body Mass Index - - documented in this encounter Discharge Instructions * Discharge Instructions* King Medina - 01/22/2020 10:14 PM EDT You were seen in the emergency department due to right upper quadrant abdominal pain. You are safe to go home. You were evaluated with careful history, physical exam, lab work, and imaging in the form of a right upper quadrant ultrasound. Your exam, lab work, and imaging are all reassuring that you are not suffering a medical emergency.There is no evidence of stones, or inflammation around your gallbladder. Given your history of constipation, this may be a modification of your normal symptoms. Consider increasing your bowel regimen. If you develop nausea which prevents you from taking liquids by mouth, chest pain, shortness of breath, worsening abdominal discomfort you should be seen at the nearest emergency department. documented in this encounter Medications at Time of Discharge Medication Sig Dispensed Refills Start Date End Date buprenorphine-naloxone (SUBOXONE) 8-[address] under the tongue daily. buprenorphine-naloxone (Suboxone) 2-0.[address] under the tongue daily. sertraline (ZOLOFT) 100 mg Tablet Take 200 mg by mouth daily. amitriptyline HCl (AMITRIPTYLINE ORAL) Take 75 mg by mouth nightly. melatonin 5 mg Tablet Take by mouth. docusate sodium (COLACE ORAL) Take 50 mg by mouth. ProAir HFA 90 mcg/actuation HFA Aerosol Inhaler INHALE 2 PUFFS BY MOUTH EVERY 4 HOURS IF NEEDED FOR SHORTNESS OF BREATH OR WHEEZING 11/24/2019 Symbicort 160-4.5 mcg/actuation HFA Aerosol Inhaler 08/29/2019 omeprazole (PriLOSEC) 40 mg Capsule, Delayed Release(E.C.) TK 1 C PO BID 01/12/2020 DULoxetine (CYMBALTA) 60 mg Capsule, Delayed Release(E.C.) Take 1 capsule by mouth daily. 60 tablet 11/28/2016 acetaminophen (TYLENOL) 500 mg Tablet Every 6 [...] mg Film Place under the tongue daily. documented as of this encounter ED Notes * Josh Goodwin NRP - 01/22/2020 9:44 PM EDT Patient back from Ultrasound and she stated that her pain is 8/10 after the test was done from the pressure of the Ultrasound probe. MD aware * Josh Goodwin NRP - 01/22/2020 8:43 PM EDT Patient to Ultrasound * Josh Goodwin NRP - 01/22/2020 7:42 PM EDT Patient in the room resting waiting on Ultrasound no changes vitals stable. * Josh Goodwin NRP - 01/22/2020 6:49 PM EDT Updated patient to the planned time for Ultrasound * Sofia Esquviel MD - 01/22/2020 4:54 PM EDT Brief Attending Note I cared for the patient with the resident physician. Please see Dr. Medina's note, associated withthe encounter, for more details. HPI: Marsha Buck is a 39 y.o. who presents to the ED RUQ pain for 3 days. High fat meals make the painworse. Was seen at [facility] yesterday. Her labs showed elevated LFTs there. Hx of heroin use - none since 2015. History of bipolar disease, hx of manic episode. S/P hysterectomy. ED Course: + Minesh's sign. High BMI. Denies ETOH use. She is macrocytic and hypchromic on CBC. Assessment/plan: Ultrasound result pending at change of shift. Sofia Esquivel MD 01/22/20 2239 * King Medina - 01/22/2020 4:20 PM EDT ED Resident Note Marsha Buck is an 39 y.o. female who presents to the ED with: Chief Complaint Patient presents with ??? Abdominal Pain RUQ I saw this patient on 01/22/2020. History is from the patient. HPI Marsha Buck is a 39 y.o. female who presents to the Emergency Department with right upper quadrant abdominal pain. Patient denies fevers, denies chills. Endorses nausea and single episode of nonbilious, nonbloody vomiting. Patient states that this is been ongoing since Thursday. Patient is noticed that this is significantly worse after ingesting, particularly fat fatty foods. Patient reports history of constipation, initially thought that was what was occurring, was seen at [facility] where plain x-ray of her abdomen reportedly did not show significant stool burden at which time she wasdischarged home. She felt as if her care there did not fully address her concerns came to the emergency department here today. Denies fevers or chills, headaches changes in her vision, denies adenopathy, denies chest pain or shortness of breath. Denies pleuritic discomfort or cough. No fevers, no chills, no diarrhea, patienthas baseline constipation, no blood in her stool. No swelling in her lower extremities. No rashes or wounds. No back pain or ambulatory difficulties. Patient with a past medical history of 2X C-sections, and total hysterectomy. Review of Systems: Review of Systems Constitutional: Negative for chills, fatigue and fever. HENT: Negative for trouble swallowing and voice change. Respiratory: Negative for cough, chest tightness and shortness of breath. Cardiovascular: Negative for chest pain, palpitations and leg swelling. Gastrointestinal: Positive for abdominal pain, constipation, nausea and vomiting. Negative for abdominal distention, blood in stool and diarrhea. Genitourinary: Negative for difficulty urinating, dysuria and hematuria. Musculoskeletal: Negative for gait problem, myalgias and neck pain. Skin: Negative for pallor, rash and wound. Allergic/Immunologic: Negative for immunocompromised state. Physical Exam: Patient Vitals for the past 24 hrs: BP Temp Temp src Pulse Resp SpO2 01/22/20 2200 (!) 129/98 -- -- 70 27 -- 01/22/20 2159 -- -- -- 70 24 96 % 01/22/202029 108/83 -- -- 70 23 95 % 01/22/201999 110/71 -- -- 62 14 96 % 01/22/20 1930 118/81 -- -- 63 19 98 % 01/22/20 1900 110/75 -- -- 60 12 98 % 01/22/20 1830 118/75 -- -- 63 18 95 % 01/22/20 1800 104/72 -- -- 61 9 96 % 01/22/20 1730 111/79 -- -- 67 23 96 % 01/22/20 1700 102/65 -- -- 64 13 96 % 01/22/20 1630 111/73 -- -- 67 15 98 % 01/22/20 1601 120/71 37 ??C (98.6 ??F) Oral 72 12 98 % 01/22/20 1600 (!) 114/94 -- -- 77 22 97 % 01/22/20 1555 -- -- -- -- -- 96 % 01/22/20 1554 120/71 -- -- -- -- -- 01/22/20 1531 108/77 36.7 ??C (98.1 ??F) Oral 86 20 97 % There is no height or weight on file to calculate BMI. Physical Exam Vitals signs and nursing note reviewed. Constitutional: General: She is not in acute distress. Appearance: She is well-developed. She is obese. She is not diaphoretic. HENT: Head: Normocephalic and atraumatic. Right Ear: External ear normal. Left Ear: External ear normal. Mouth/Throat: Mouth: Mucous membranes are moist. Pharynx: Oropharynx is clear. Eyes: Conjunctiva/sclera: Conjunctivae normal. Neck: Musculoskeletal: Neck supple. Cardiovascular: Rate and Rhythm: Normal rate and regular rhythm. Heart sounds: Normal heart sounds. Pulmonary: Effort: Pulmonary effort is normal. No respiratory distress. Breath sounds: Normal breath sounds. Abdominal: General: Abdomen is protuberant. There is no distension. There are no signs of injury. Palpations: Abdomen is soft. Tenderness: There is abdominal tenderness in the right upper quadrant. There is no right CVA tenderness, left CVA tenderness, guarding or rebound. Positive signs include Blake's sign. Hernia: No hernia is present. Skin: General: Skin is warm and dry. Neurological: Mental Status: She is alert and oriented to person, place, and time. Cranial Nerves: No cranial nerve deficit. ED Course: - Patient seen under the supervision of the attending physician. - Medications, allergies, and past medical history reviewed. ED Course as of Jan 21 2209 Sun January 22, 20202155 Received phone call from Dr. Gomez, radiology, no evidence of acute cholecystitis, no evidence of stones or sludging in the gallbladder. Benign exam Labs Reviewed URINALYSIS WITH REFLEX CULTURE - Abnormal; Notable for the following components: Result Value Ketones UA Trace (*) All other components within normal limits HEMOGRAM - Abnormal; Notable for the following components: MCV 103.2 (*) MCH 34.7 (*) RDWSD 48.5 (*) All other components within normal limits CBC (WITH DIFF) BASIC METABOLIC PANEL (NON-FASTING) HEPATIC FUNCTION PANEL LIPASE DIFFERENTIAL, AUTOMATED BLUE TUBE HOLD GOLD TUBE HOLD US Abdomen Limited Preliminary Result No cholelithiasis or sonographic evidence of acute cholecystitis. Freddy Gomez discussed the result(s) with Dr. King Medina on 01/22/2020 9:59 PM and verified that (s)he understood these results. Preliminary report signed by: Carlito Gomez at 01/22/2020 10:00 PM Procedures: Assessment and Plan: 39 y.o. female with right upper quadrant abdominal pain. MDM: 39-year-old male, obese, right upper quadrant abdominal pain, labs are unrevealing, her abdomen is soft and diffusely non-peritoneal, right upper quadrant is focally tender with carmen Blake sign, and sonographically focal tenderness. Believe it is very unlikely that the patient has a small bowel ob struction, minimal nausea and vomiting, no nausea here, no distention, continues to pass gas and stool. With the patient's non-concerning laboratory results, I have minimal concern for cholecystitis,minimal concern for choledocholithiasis, no obstructive pattern of LFTs, no infected signs, symptoms, or lab results. It is possible this may represent mesenteric adenitis. Recommended OTC pain control, dietary restriction with brat diet, follow-up PCP patient has a appointment on Thursday and increased bowel regimen as she has been passing small hard stools of late. Assessment: 1. Colicky RUQ abdominal pain Plan: -OTC pain control -Dietary restriction, brat diet -Increased bowel regimen -PCP follow-up in 2 days. Return precautions were verbally discussed and written in discharge instructions. The patient and/or family expressed understanding that they could come back to the ED at any time and agreed to the follow-up plan. King Medina MD Emergency Medicine PGY2 10:09 PM 01/22/20 Pager # [phone] King Medina MD Resident 01/22/20 1283 Associated attestation - Sofia Esquivel MD - 01/22/2020 10:38 PM EDT ED ATTENDING ATTESTATION The patient was seen in conjunction with the resident physician. I have independently performed thekey portions of the history and physical exam. I have personally reviewed nursing notes, vital signs, and diagnostic studies including labs, imaging studies and EKGs. I have discussed the details of the case with the resident and agree with the assessment and plan as described in the resident's note, unless stated otherwise in my separate note. Did this case involve critical care? No documented in this encounter Plan of Treatment Not on file documented as of this encounter Procedures Procedure Name Priority Date/Time Associated Diagnosis Comments US ABDOMEN LIMITED STAT 01/22/2020 9: 53 PM EDT HEMOGRAM STAT 01/22/2020 4:33 PM EDT DIFFERENTIAL, AUTOMATED STAT 01/22/2020 4:33 PM EDT GOLD TUBE HOLD STAT 01/22/2020 4:33 PM EDT BLUE TUBE HOLD STAT 01/22/2020 4:33 PM EDT HC CBC,PLT & AUTO DIFF STAT 01/22/2020 4:33 PM EDT HC LIPASE STAT 01/22/2020 4:33 PM EDT HEPATIC FUNCTION PANEL STAT 01/22/2020 4:33 PM EDT BASIC METABOLIC PANEL STAT 01/22/2020 4:33 PM EDT URINALYSIS WITH REFLEX CULTURE STAT 01/22/2020 4:32 PM EDT documented in this encounter Results * US Abdomen Limited (01/22/2020 9:53 PM EDT) Anatomical Region Laterality Modality Abdomen Ultrasound Impressions 01/22/2020 10:15 PM EDT No cholelithiasis or sonographic evidence of acute cholecystitis. Dr. Gomez discussed findings with Dr. Medina on 01/22/2020 at 9:59 hrs. I have personally reviewed the image(s) and the resident's interpretation and agree with the findings, Nalini Crawford at 01/22/2020 10:15 PM Thank you for letting us participate in the care of this patient. For questions regarding this report, please contact the number below. ? Narrative 01/22/2020 10:15 PM EDT EXAMINATION: US ABDOMEN LIMITED CLINICAL HISTORY: RUQ abdominal pain, carmen Blake's sign, worse with fatty meals/ TECHNIQUE: Grayscale and color Doppler ultrasound of the right upper quadrant was performed. A female barn operator from the emergency department was present throughout the study. COMPARISON: 01/20/2020, limited abdominal ultrasound FINDINGS: Normal contour, echogenicity, and echotexture of the liver. No intrahepatic biliary ductal dilatation. Common bile duct was not identified. The gallbladder was not dilated. ??No pericholecystic fluid. Normal caliber gallbladder wall, measuring up to 2 mm. No cholelithiasis. No sonographic Blake's sign. Pancreas was not visualized due to overlying bowel gas. Normal echogenicity of the right kidney, measuring 8.6 cm. No renal calculi identified. No hydronephrosis. Visualized IVC was normal. Procedure Note Nalini Crawford MD - 01/22/2020 EXAMINATION: US ABDOMEN LIMITED CLINICAL HISTORY: RUQ abdominal pain, carmen Blake's sign, worse withfatty meals/ TECHNIQUE: Grayscale and color Doppler ultrasound of the right upper quadrant was performed. A female barn operator from the emergency department was present throughout the study. COMPARISON: 01/20/2020, limited abdominal ultrasound FINDINGS: Normal contour, echogenicity, and echotexture of the liver. No intrahepatic biliary ductal dilatation. Common bile duct was notidentified. The gallbladder was not dilated. No pericholecystic fluid. Normalcaliber gallbladder wall, measuring up to 2 mm. No cholelithiasis. Nosonographic Blake's sign. Pancreas was not visualized due to overlying bowel gas. Normal echogenicity of the right kidney, measuring 8.6 cm. No renalcalculi identified. No hydronephrosis. Visualized IVC was normal. IMPRESSION No cholelithiasis or sonographic evidence of acute cholecystitis. Dr. Gomez discussed findings with Dr. Medina on 01/22/2020 at 9:59hrs. I have personally reviewed the image(s) and the resident's interpretationand agree with the findings, Nalini Ty at 01/22/2020 10:15 PM Thank you for letting us participate in the care of this patient. Forquestions regarding this report, please contact the number below. Sofia Esquivel MD IMG US GEN ORDERABLE S * Gold Tube HOLD (01/22/2020 4:33 PM EDT) Gold Hold Sample in lab. [facility] Blood specimen (specimen) Venous Draw / Unknown 01/22/2020 4:33 PM EDT 01/22/2020 4:39 PM EDT King Medina MD CHEMISTRY ORDERABLES Performing Organization Address [place]/[facility]/ZIP Co de Phone Number [facility] [place] [address] * Blue Tube HOLD (01/22/2020 4:33 PM EDT) [facility] Signature Blue Hold Sample in lab. [facility] Blood specimen (specimen) Venous Draw / Unknown 01/22/2020 4:33 PM EDT 01/22/2020 4:39 PM EDT King Medina MD HEMATOLOGY ORDERABLE S Performing Organization Address City/[facility]/ZIP Co de Phone Number [facility] [place] [address] * Differential, Automated (01/22/2020 4:33 PM EDT) Neutrophil % 52.1 % [facility] Neutrophil Absolute 3.58 1.70 - 6.10 x10(3)/mcL [facility] Lymph % 40.1 % [facility] Lymphocytes Abs 2.8 0.9 - 3.2 x10(3)/[facility] Monocyte % 4.9 % [facility] Monocyte Abs 0.3 0.3 - 0.9 x10(3)/[facility] Eos % 1.7 % [facility] Eosinophils Abs 0.1 0.0 - 0.4 x10(3)/[facility] Basophil % 0.9 % [facility] Baso Absolute 0.1 0.0 - 0.1 x10(3)/[facility] Immature Gran % 0.30 % [facility] Comment: Immature granulocytes(IG's)percentage and absolute count will include metamyelocytes, myelocytes, and promyelocytes. Blood smears from CBCs yielding IG's will be scanned manually for concordance. If this scan disagrees with the automated IG or if promyelocytes are noted, a manual differential will be performed. Immature Gran Absolute 0.02 0.00 - 0.04 x10(3)/[facility] Blood specimen (specimen) 01/22/2020 4:33 PM EDT 01/22/2020 4:39 PM EDT Narrative Resulting Agency Comment Spec In Lab King Medina MD HEMATOLOGY ORDERABLE S [facility] [place] [address] * (ABNORMAL) Hemogram (01/22/2020 4:33 PM EDT) White Blood Cell 6.9 4.0 - 9.5 x10(3)/[facility] Red Blood Cell 4.01 4.00 - 5.21 x10(6)/[facility] Hemoglobin 13.9 11.7 - 15.5 gm/dL [facility] Hematocrit 41.4 35.7 - 45.8 % [facility] Mean Cell Volume 103.2(H) 82.6 - 94.4 fL [facility] Mean Cell Hemoglobin 34.7(H) 27.1 - 32.0 pg [facility] Mean Cell Hemoglobin Concentration 33.6 31.7 - 35.0 gm/dL [facility] Platelet 229 145 - 357 x10(3)/mc L [facility] RDW Standard Deviation 48.5(H) 37.0 - 46.0 fL [facility] RDW coefficient of variation 12.9 11.5 - 14.1 % [facility] Mean Platelet Volume 10.0 7.6 - 12.9 fL [facility] NRBC% auto 0.0 % [facility] NRBC Absolute 0.000 0.000 - 0.000 x10(3)/mc L [facility] Blood specimen (specimen) 01/22/2020 4:33 PM EDT 01/22/2020 4:39 PM EDT Narrative Resulting Agency Comment Spec In Lab King Medina MD HEMATOLOGY ORDERABLE S Performing Organization Address City/[facility]/ZIP Co de Phone Number [facility] [place] [address] * Lipase (01/22/2020 4:33 PM EDT) [facility] Lipase 16 0 - 60 unit/L [facility] Blood specimen (specimen) 01/22/2020 4:33 PM EDT 01/22/2020 4:39 PM EDT Narrative Resulting Agency Comment Spec In Lab Sofia Esquivel MD CHEMISTRY ORDERABLES Performing Organization Address City/[facility]/ZIP Co de Phone Number [facility] [place] [address] * Hepatic Function Panel (01/22/2020 4:33 PM EDT) [facility] Protein, Total 7.1 6.1 - 8.0 gm/dL [facility] Albumin 4.0 3.2 - 5.2 gm/dL [facility] Aspartate Aminotransferase 11 0 - 30 unit/L [facility] Alanine Aminotransferase 6 0 - 30 unit/L [facility] Alkaline Phosphatase 64 35 - 105 unit/L [facility] Bilirubin, Total 0.3 0.2 - 1.3 mg/dL [facility] Bilirubin, Direct 0.1 0.0 - 0.3 mg/dL [facility] Blood specimen (specimen) 01/22/2020 4:33 PM EDT 01/22/2020 4:39 PM EDT Narrative Resulting Agency Comment Spec In Lab Sofia Esquivel MD CHEMISTRY ORDERABLES [facility] [place] [address] * Basic Metabolic Panel (non-fasting) (01/22/2020 4:33 PM EDT) Glucose 83 65 - 199 mg/dL [facility] Comment:Diabetes: >=200 mg/d L plus symptoms Blood Urea Nitrogen 9 8 - 18 mg/dL [facility] Creatinine 0.84 0.70 - 1.20 mg/dL [facility] Sodium 140 135 - 145 mmol/L [facility] Potassium 4.6 3.5 - 5.0 mmol/L [facility] Comment: Please note: ??Patients with WBC >100,000 may have falsely elevated Potassium levels. ??For accurate Potassium quantification in these patients send serum separator tube (gold top) for subsequent determinations. ??Contact the Clinical Chemistry Laboratory if there are any questions. Chloride 103 98 - 107 mmol/L [facility] Carbon Dioxide 26 22 - 31 mmol/L [facility] Anion Gap 11 5 - 15 mmol/L [facility] Calcium 9.6 8.5 - 10.5 mg/dL [facility] Est Glomerular Filtration Rate 88 >=60 mL/min/1. 73 m?? [facility] Comment: The eGFR was calculated using the CKD-EPI equation. As with all creatinine based estimates of kidney function, eGFR values calculated with the CKD-EPI equation are not accurate in patients with acute kidney failure, extremes of body mass or the acutely ill. [email or web address] eGFR 102 >=60 mL/min/1. 73 m?? [facility] Comment: The eGFR was calculated using the CKD-EPI equation. As with all creatinine based estimates of kidney function, eGFR values calculated with the CKD-EPI equation are not accurate in patients with acute kidney failure, extremes of body mass or the acutely ill. [email or web address] Blood specimen (specimen) 01/22/2020 4:33 PM EDT 01/22/2020 4:39 PM EDT Narrative Resulting Agency Comment Spec In Lab Sofia Esquivel MD CHEMISTRY ORDERABLES [facility] [place] [address] * (ABNORMAL) Urinalysis with reflex Culture (01/22/2020 4:32 PM EDT) Glucose, Urine Dipstick Negative Negative mg/dL [facility] Protein, Urine Dipstick Negative Negative mg/dL [facility] Bilirubin, Urine Dipstick Negative Negative mg/dL [facility] Comment: Clinical correlation required for positive Urine Bilirubin results as false positive may occur with some drugs and drug related products. If a false positive is suspected a serum total bilirubin should be considered if clinically indicated. Urobilinogen, Urine Dipstick Normal Normal mg/dL [facility] pH, Urn (dipstick) 7.0 5.0 - 8.0 [facility] Blood, Urine Dipstick Negative Negative mg/dL [facility] Ketone, Urine Dipstick Trace(A) Negative mg/dL [facility] Nitrite, Urine Dipstick Negative Negative [facility] Leukocytes, Urine Dipstick Negative Negative mcL [facility] Appearance, Urine Dipstick Clear Clear [facility] Specific [place] Urine Automated 1.025 1.002 - 1.030 [facility] Color, Urine Dipstick Yellow Yellow [facility] Reflex to Culture No [facility] Urine specimen (specimen) 01/22/2020 4:32 PM EDT 01/22/2020 4:38 PM EDT Narrative Resulting Agency Comment Spec In Lab Sofia Esquivel MD URINE ORDERABLES [facility] [place] [address] documented in this encounter Visit Diagnoses Diagnosis Colicky RUQ abdominal pain Abdominal pain, right upper quadrant documented in this encounter Administered Medications Inactive Administered Medications - up to 3 most recent administrations Medication Order MAR Action Action Date Dose Rate Site ketorolac (TORADOL) injection 15 mg 15 mg, Intravenous, ONCE, 1 dose, On 01/22/20 at 1623, STAT Given 01/22/2020 5:11 PM EDT 15 mg ketorolac (TORADOL) injection 15 mg 15 mg, Intravenous, ONCE, 1 dose, On 01/22/20 at 2151, STAT Given 01/22/2020 9:55 PM EDT 15 mg sodium chloride 0.9% 1,000 mL IV bolus at 4,000 mL/hr, Intravenous, ONCE, 1 dose, On 01/22/20 at 1829 New Bag 01/22/2020 6:46 PM EDT 4000 mL/hr documented in this encounter Active and Recently Administered Medications Times are shown in EDT. Scheduled Medication Order 01/20/2020 01/21/2020 01/22/2020 ketorolac (TORADOL) injection 15 mg (COMPLETED) 15 mg, Intravenous, ONCE, 1 dose, On 01/22/20 at 1623, STAT 1711 (Given - Provid er: Josh Goodwin NRP) ketorolac (TORADOL) injection 15 mg (COMPLETED) 15 mg, Intravenous, ONCE, 1 dose, On 01/22/20 at 2151, STAT 2155 (Given - Provid er: Josh Goodwin NRP) sodium chloride 0.9% 1,000 mL IV bolus (COMPLETED) at 4,000 mL/hr, Intravenous, ONCE, 1 dose, On 01/22/20 at 7080 2936 (New Bag - Prov ider: Josh Goodwin NRP)1942 (Stopped - Provider: Josh Goodwin NRP) documented in this encounter Care Teams Scalehouse Attendant Relationship Specialty Start Date End Date Charly Russell MD PCP - General Family Medicine 09/27/18 documented as of this encounter
--- OUTSIDE RECORDS SUMMARY | 2024-08-02 15:36 | XMS_ITS | Encounter Summary ---
Author Organization [facility] [place] [address] Care Team Providers Care Cell Stripper Name Role Phone Kellie Martinez MD Primary Care Provider [phone] Encounter Details Date Type Department Care Team (Late st Contact Info) Description 09/12/2016 11:11 AM EST - 09/12/2016 11:59 PM [facility] Hospital Encounter XRay at [address] [place] [address] Francheska Torres, [facility] [place] [address] Arthralgia of both hands; Raynaud's phenomenon without [...] Name Priority Date/Time Associated Diagnosis Comments XR SACROILIAC JOINTS (GENERIC) Routine 09/12/2016 11:34 AM EST Arthralgia of both hands Raynaud's phenomenon without gangrene Chronic fatigue documented in this encounter Results * XR S-I Joints (Generic) (09/12/2016 11:34 AM EST) Anatomical Region Laterality Modality Pelvis, Hip N/A Digital Radiogra phy Impressions 09/12/2016 2:12 PM EST No evidence of bony erosion or ankylosis. Narrative 09/12/2016 2:12 PM EST EXAMINATION: XR S-I JOINTS (GENERIC)/BILAT CLINICAL HISTORY: inflammatory low back pain TECHNIQUE: Frontal and bilateral oblique radiographs of the bilateral sacroiliac joints were obtained. COMPARISON: None FINDINGS: The sacrum is largely obscured by overlying bowel gas and stool. There is no evidence of bony erosion or ankylosis at the sacroiliac joints. There is no fracture or dislocation. Procedure Note Sharri Aguilar MD - 09/12/2016 EXAMINATION: XR S-I JOINTS (GENERIC)/BILAT CLINICAL HISTORY: inflammatory low back pain TECHNIQUE: Frontal and bilateral oblique radiographs of the bilateralsacroiliac joints were obtained. COMPARISON: None FINDINGS: The sacrum is largely obscured by overlying bowel gas and stool. There isno evidence of bony erosion or ankylosis at the sacroiliac joints. There isno fracture or dislocation. IMPRESSION No evidence of bony erosion or ankylosis. Francheska Torres DO IMG DX ORDERABLES documented in this encounter Visit Diagnoses Diagnosis Arthralgia of both hands Raynaud's phenomenon without gangrene Chronic fatigue Other malaise and fatigue documented in this encounter Care Teams Cell Stripper Relationship Specialty Start Date End Date Kellie Martinez MD [address] [address] PCP - General Family Medicine 09/12/16 09/26/18 documented as of this encounter
--- OUTSIDE RECORDS SUMMARY | 2024-08-02 15:36 | XMS_ITS | Encounter Summary ---
Author Organization [facility] [place] [address] Care Team Providers Care Health Administrator Name Role Phone Kellie Martinez MD Primary Care Provider [phone] Reason for Visit * Consultation (Routine) - Closed Specialty Diagnoses / Procedures Referred By Contmarjorie t Referred To Contact Rheumatology Diagnoses Positive Karolyn Gray APRN [address] [place] [address] [facility] Rheumatology [address] [place] [phone] Referral ID Status Reason Start Date Expiration Date V isits Requested Visits Authorized [id number] Closed Consult, Test & Treat Connection Center PCP Updated and/or Approved 08/20/2016 08/20/2017 1 1 Encounter Details Date Type Department Care Team (Late st Contact Info) Description 09/12/2016 9:00 AM EST Office [place] [address] Francheska Torres, [facility] [address] [place] [address] Hermelinda Vieyra MD [facility] [place] [address] Arthralgia of both hands; Raynaud's phenomenon without gangrene; Chronic fatigue Social History Tobacco Use Types Packs/Day Years Used Date Smoking Tobacco: Every Day Cigarettes Sex and Gender Information Value Date Recorded Sex Assigned at Not on file Gender Identity Not on file Sexual Orientation Not on file documented as of this encounter Last Filed Vital Signs Vital Sign Reading Time Taken Comments Blood Pressure 119/71 09/12/2016 8:58 AM EST Pulse 72 09/12/2016 8:58 AM EST Temperature 36.6 ??C (97.9 ??F) 09/12/2016 8:58 AM ES T Respiratory Rate - - Oxygen Saturation 97% 09/12/2016 8:58 AM EST Inhaled Oxygen Concentration - - Weight 75.3 kg (166 lb) 09/12/2016 8:58 AM EST Height 149.9 cm (4' 11) 09/12/2016 8:58 AM EST Body Mass Index 33.53 09/12/2016 8:58 AM EST documented in this encounter Progress Notes * Hermelinda Vieyra MD - 09/12/2016 9:00 AM EST Rheumatology outpatient consult note: Reason for consult- ELIZA- 1:80 HPI: Ms Buck is a 36 y/o F with Hx of narcotic abuse on subaxone, depression, bipolar disorder, COPD and tobacco abuse. Pt was referred to us for evaluation for possible lupus given her positive ELIZA. Predominant Sx- swelling of bilateral legs that started suddenly 6 months ago and have since stayed. She was seen by her PCP nad in the ED x 4 times for worsening of swelling and redness of her legs.B/l LE doppler US neg for DVT. Pt was startd on 20 mg lasix which did not seem to help. No specific triggers that patient could recollect. Swelling same through out the day without diurnal variations. Ocassionally has swelling of eyelids early in the morning. Joint pains-Pain in b/l Elbows, wrists, Hips, lower back and hands and feet. (swelling only of hands). Tried OTC NSAIDS which did not help. Hand Sx's- Reports on and off episodes of swelling of b/l hands upto the wrists. Swelling is diffuse in all fingers and dorsal hand. No redness. Hands hurt all the time, but when swollen it gets worse Symptoms are worse in the morning and they gradually ease out towards the end of the day. AM stiffness- 2 hrs more in hands, legs and hips. Has difficultly making a fist, turning door knobs or opening a bottle cap. Feels better while running his hands in warm water. No preceding fevers, URTI/UTI/GI infections. Hx of dry scaly lesions on the shoulders- dx as psoriasis. Mom has Hx of Psoriasis. Fhx of RA. Hx of smoking- 1/2 pack/day x 20 yrs. Low back pain with stiffness. Gets better with use. occassionally has transient pruritic erythematous rash on B/L legs which usually self resolves in aday. Pregnency- 3 pregnencies. [facility]. No Hx of DVT or PE during pregnency. ROS: General (-)fevers, (-)chills, (+)night sweats, (-)wt loss/gain, (+) fatigue. HEENT (-)head trauma, (-)vision change, (-)tinnitus, (-)epistaxis, (-)sore throat, oral ulcers (-)bleeding gums, (-), (-)dry eyes, (+)dry mouth, (- )dysphagia, (+)GERD, (-)photo sensitivity, (-)Hair loss: thinned out hair- FHx of thin hair. No Hx of natty hair loss, (-)vertigo CVS (-)chest pain, (-)palpitations, (-)pedal edema, (-)PND, (-)orthopnea. Pulm (+)shortness of breath attributed to COPD, (+)wheezes, (+) DRYcough. Pt was screened for TB- Quant TB =ve, CXR- no signs of TB., (-)pleuritic pain GI (+)N, (-)abdominal pain, (-)emesis, (-)hematemesis, (-)hematochezia, (- )change in appetite, (-) diahrrea. (-)hematuria, (-)dysuria, (-)frequency, (-)nocturia, (-)genital ulcers MS As above Endo (-)thyroid disorders, (-)diabetes, (-)temperature intolerance. Neuro (-)focal weakness, (-)paresthesias, (-)gait instability, Hx seizures (-) Skin (+)Raynaud's- 4 latera fingers, telangectasia (-) Psych (+) ocassional mood disorder. Recent hospitalizations for serious infections - none Active Ambulatory Problems Diagnosis Date Noted ??? [...] Packs/day: 1.00 Types: Cigarettes ??? Smokeless tobacco: Not on file ??? Alcohol use Not on file ??? Drug use: Not on file ??? Sexual activity: Not on file Other Topics Concern ??? Not on file Social History Narrative ??? No narrative on file Physical exam: Vitals: 09/12/16 0858 BP: 119/71 Pulse: 72 Temp: 36.6 ??C (97.9 ??F) Gen: Patient is awake, alert and oriented x 3, in no distress Skin: warm and dry, ?telangectasia on face (2 areas) Lymph: no cervical or submandibular adenopathy Thyroid: no nodules or thyromegaly Mouth: moist mucous membranes, no oral ulcers, fissured tongue. Eyes: normal sclerae Heart: regular rate, no murmurs, rubs or gallops Lungs: mild wheezing in b/l lung gallagher. Spine: Good ROM. Limited forward and lateral flexion. para spinal tenderness over lumbar spine. Joints: tenderness over b/l MCP's/PIP's and wrists. Mild tenderness over b/l elbows along the joint line. No tenderness over lateral or med epicondyles. MTP compression tenderness b/l. normal ROM throughout the upper and lower extremity joints. Labs: Non DH- WBC-6, Hb-13, plt-250 CMP- WNR- Alb- 3.3, TP-6.8. Mild reversal of A/G ratio ELIZA-1:80. RF- neg. ESR-14 Assessment/Plan: Ms Buck is a 36 y/o F who was referred to us for evaluation of arthralgias and b/l LE swelling inthe context of a positive ELIZA. Pertinent positive Sx's include- new onset raynaud's (nail fold capillaries not clear), Sx's suggestive of inflammatory LBP, symmetrical small joint tenderness, ? telangectasia spots on face, Hx of GERD, Dry mouth, B/L pitting pedal edema and REDDING. Differentials- CREST- +ELIZA, new onset raynauds, GERD, ?telanectasia, REDDING with b/l LE edema-?P-HTN. SLE- +ELIZA, raynauds, arthalgias Psoriatic arthritis- inflammatory LBP + symmetric peripheral joint Sx's with AM stiffness. PersonalHx of psoriasis. RA - FHx of RA, active smoker, symmetric small joint Sx's with AM stiffness >1 hr. Could be Fibromyalgia- Normal inflammatory markers (ESR, Plt, Hb), Hx of Depression, poor sleep. Noswelling or redness of joints. Mild reversal of A/G ratio noted on LFT's. Given b/l LE edema, we will check urine for protein. B/lLE edema could also be related to subaxone use. However, given ? Of CREST, we will also obtain a 2Decho for RVSP. Plan: Further work up with serology and imaging. Labs- Rpt ELIZA LAURIE, Anti centromere Ab's, C3,C4 Hep B,C serology UA microscopy CRP,ESR Cbc, cmp. ACPA X ray- Hands and SI films. Procedures- 2D echo. Would consider PFT's if 2D echo is normal. RTC- 6 weeks. * Francheska Torres DO - 09/12/2016 9:00 AM EST ATTENDING ADDENDUM The patient's history was reviewed, and I interviewed and examined the patient with . I agree with his summary, findings, and plan. Pt with some features of a CTD to include new raynauds, prolonged am stiffness, but also diffuse tenderness to light palpation, poor sleep that would be consistent with fibromyalgia. Further evaluation as mentioned in Dr Vieyra's note before making further determination. documented in this encounter Plan of Treatment Not on file documented as of this encounter Procedures Procedure Name Priority Date/Time Associated Diagnosis Comments PROTEIN/CREATININE RATIO, URINE Routine 09/12/2016 11:23 AM EST Arthralgia of both hands Raynaud's phenomenon without gangrene Chronic fatigue URINALYSIS WITH REFLEX CULTURE Routine 09/12/2016 11:23 AM EST Arthralgia of both hands Raynaud's phenomenon without gangrene Chronic fatigue RNA POLYMERASE III AB,IGG Routine 09/12/2016 11:01 AM EST EXTRACTABLE NUCLEAR ANTIGEN (LAURIE) AB Routine 09/12/2016 11:01 AM EST Arthralgia of both hands Raynaud's phenomenon without gangrene Chronic fatigue ANTI-CYCLIC CITRULLINATED PEPTIDE AB Routine 09/12/2016 11:01 AM EST DNA ANTIBODY (DOUBLE-STRANDED) Routine 09/12/2016 11:01 AM EST CENTROMERE ANTIBODY Routine 09/12/2016 1 1:01 AM EST Arthralgia of both hands Raynaud's phenomenon without gangrene Chronic fatigue LUPUS ANTICOAGULANT Routine 09/12/2016 1 1:01 AM EST Arthralgia of both hands Raynaud's phenomenon without gangrene Chronic fatigue HEMOGRAM Routine 09/12/2016 11:01 AM EST Arthralgia of both hands Raynaud's phenomenon without gangrene Chronic fatigue DIFFERENTIAL, AUTOMATED Routine 09/12/2016 11:01 AM EST Arthralgia of both hands Raynaud's phenomenon without gangrene Chronic fatigue HEPATITIS C ANTIBODY Routine 09/12/2016 11:01 AM EST Arthralgia of both hands Raynaud's phenomenon without gangrene Chronic fatigue HEPATITIS B CORE ANTIBODY, TOTAL Routine 09/12/2016 11:01 AM EST Arthralgia of both hands Raynaud's phenomenon without gangrene Chronic fatigue BETA-2 GLYCOPROTEIN ANTIBODIES Routine 09/12/2016 11:01 AM EST Arthralgia of both hands Raynaud's phenomenon without gangrene Chronic fatigue HEPATITIS B SURFACE ANTIBODY Routine 09/12/2016 11:01 AM EST Arthralgia of both hands Raynaud's phenomenon without gangrene Chronic fatigue HEPATITIS B SURFACE ANTIGEN Routine 09/12/2016 11:01 AM EST Arthralgia of both hands Raynaud's phenomenon without gangrene Chronic fatigue SEDIMENTATION RATE Routine 09/12/2016 11 :01 AM EST Arthralgia of both hands Raynaud's phenomenon without gangrene Chronic fatigue CBC (WITH DIFF) Routine 09/12/2016 11:01 AM EST Arthralgia of both hands Raynaud's phenomenon without gangrene Chronic fatigue C3 COMPLEMENT Routine 09/12/2016 11:01 AM EST Arthralgia of both hands Raynaud's phenomenon without gangrene Chronic fatigue C4 COMPLEMENT Routine 09/12/2016 11:01 AM EST Arthralgia of both hands Raynaud's phenomenon without gangrene Chronic fatigue CRP, CARDIAC RISK (HS CRP) Routine 09/12/2016 11:01 AM EST Arthralgia of both hands Raynaud's phenomenon without gangrene Chronic fatigue ELIZA ANTIBODY SCREEN Routine 09/12/2016 1 1:01 AM EST Arthralgia of both hands Raynaud's phenomenon without gangrene Chronic fatigue TSH Routine 09/12/2016 11:01 AM EST Arthralgia of both hands Raynaud's phenomenon without gangrene Chronic fatigue COMPREHENSIVE METABOLIC PANEL Routine 09/12/2016 11:01 AM EST Arthralgia of [...] appearance of the hands. Francheska Torres [place] [facility] [place]LES * XR S-I Joints (Generic) (09/12/2016 11:34 [...] bony erosion or ankylosis. Francheska Torres DO [facility] [place] * (ABNORMAL) Urinalysis with reflex Culture (09/12/2016 11:23 AM EST) Glucose, Urine Dipstick Negative Negative mg/dL [facility] Protein, Urine Dipstick Negative Negative mg/dL [facility] Bilirubin, Urine Dipstick Negative Negative mg/dL [facility] Comment: Clinical correlation required for positive Urine Bilirubin results as false positive may occur with some drugs and drug related products. If a false positive is suspected a serum total bilirubin should be considered if clinically indicated. Urobilinogen, Urine Dipstick Normal Normal mg/dL [facility] pH, Urn (dipstick) 7.0 5.0 - 8.0 [facility] Blood, Urine Dipstick Negative Negative mg/dL [facility] Ketone, Urine Dipstick 5(A) Negative mg/dL [facility] Nitrite, Urine Dipstick Negative Negative [facility] Leukocytes, Urine Dipstick Negative Negative [facility] Appearance, Urine Dipstick Clear Clear [facility] Specific Start Urine Automated 1.025 1.002 - 1.030 [facility] Color, Urine Dipstick Yellow Yellow [facility] RBC, Urine Not Present 0 - 4 /HPF [facility] WBC, Urine 1 0 - 5 /HPF [facility] Bacteria, Urine Occasional(A ) None /HPF [facility] Squamous Epithelial Cells, Urine 3 <=4 /HPF [facility] Reflex to Culture No [facility] Urine specimen (specimen) 09/12/2016 11:23 AM EST 09/12/2016 11:34 AM EST Narrative Resulting Agency Comment Spec In Lab Francheska Torres DO URINE ORDERABLES Performing Organization Address City/[facility]/ZIP Co de Phone Number [facility] [place] [address] * Protein/Creatinine Ratio, urine (09/12/2016 11:23 AM EST) Creatinine, Urine 148 mg/dL [facility] Protein, Urine 11 0 - 12 mg/dL [facility] Protein / Creatinine Ratio, Urine <0.1 ratio [facility] Urine specimen (specimen) 09/12/2016 11:23 AM EST 09/12/2016 11:34 AM EST Narrative Resulting Agency Comment Spec In Lab Francheska Torres DO URINE ORDERABLES Performing Organization Address [facility] Co de Phone Number [facility] [place] [address] * DNA Antibody (Double-Stranded) (09/12/2016 11:01 AM EST) DNA Ab (DS) Neg Neg [facility] Blood specimen (specimen) 09/12/2016 11:01 AM EST 09/12/2016 1:24 PM EST Narrative Resulting Agency Comment Spec In Lab Francheska Torres DO LAB SEND OUT ORDER MICHELL Performing Organization Address City/[facility]/ZIP Co de Phone Number [facility] [place] [address] * Cyclic Citrullinated Peptide (09/12/2016 11:01 AM EST) Cyclic Citrulline Peptide <8.0 <=17.0 unit/mL [facility] Blood specimen (specimen) Venous Draw / Unknown 09/12/2016 11:01 AM EST 09/12/2016 11:26 AM EST Narrative Resulting Agency Comment Spec In Lab Francheska Torres DO CHEMISTRY ORDERABL ES Performing Organization Address [facility]/ZIP Co de Phone Number [facility] [place] [address] * RNA Polymerase III Ab,IgG (09/12/2016 11:01 AM EST) [facility] RNA Polymerase III Ab, IgG (JANUARY) <10.0 <20.0 (Negative) U [facility] Comment: Test Performed by: [place] [address] Building Construction Superintendent: Migel Mcmillan II, M.D., Ph.D. Blood specimen (specimen) Venous Draw / Unknown 09/12/2016 11:01 AM EST 09/12/2016 1:12 PM EST Narrative Resulting Agency Comment Spec In Lab Francheska Torres DO LAB SEND OUT ORDER MICHELL Performing Organization Address City/[facility] Co de Phone Number [facility] [place] [address] * Differential, Automated (09/12/2016 11:01 AM EST) [facility] Neutrophil % 43.3 % [facility] Neutrophil Absolute 2.95 1.70 - 6.10 x10(3)/[facility] Lymph % 44.0 % [facility] Lymphocytes Abs 3.0 0.9 - 3.2 x10(3)/[facility] Monocyte % 6.6 % [facility] Monocyte Abs 0.4 0.3 - 0.9 x10(3)/[facility] Eos % 4.9 % [facility] Eosinophils Abs 0.3 0.0 - 0.4 x10(3)/[facility] Basophil % 0.9 % [facility] Baso Absolute 0.1 0.0 - 0.1 x10(3)/[facility] Immature Gran % 0.30 % [facility] Comment: Immature granulocytes(IG's)percentage and absolute count will include metamyelocytes, myelocytes, and promyelocytes. Blood smears from CBCs yielding IG's will be scanned manually for concordance. If this scan disagrees with the automated IG or if promyelocytes are noted, a manual differential will be performed. Immature Gran Absolute 0.02 0.00 - 0.04 x10(3)/[facility] Blood specimen (specimen) 09/12/2016 11:01 AM EST 09/12/2016 11:07 AM EST Narrative Resulting Agency Comment Spec In Lab Francheska Torres DO HEMATOLOGY ORDERAB LES Performing Organization Address City/State/[facility] Co de Phone Number [facility] [place] [address] * Hemogram (09/12/2016 11:01 AM EST) White Blood Cell 6.8 4.0 - 9.5 x10(3)/[facility] Red Blood Cell 4.69 4.00 - 5.21 x10(6)/[facility] Hemoglobin 14.1 11.7 - 15.5 gm/dL [facility] Hematocrit 41.5 35.7 - 45.8 % [facility] Mean Cell Volume 88.5 82.6 - 94.4 fL [facility] Mean Cell Hemoglobin 30.1 27.1 - 32.0 pg [facility] Mean Cell Hemoglobin Concentration 34.0 31.7 - 35.0 gm/dL [facility] Platelet 253 145 - 357 x10(3)/[facility] RDW Standard Deviation 42.0 37.0 - 46.0 fL [facility] RDW coefficient of variation 12.9 11.5 - 14.1 % [facility] Mean Platelet Volume 9.2 7.6 - 12.9 [facility] NRBC% auto 0.0 % [facility] NRBC Absolute 0.000 0.000 - 0.000 x10(3)/mcL [facility] Blood specimen (specimen) 09/12/2016 11:01 AM EST 09/12/2016 11:07 AM EST Narrative Resulting Agency Comment Spec In Lab Francheska Torres DO HEMATOLOGY ORDERAB LES Performing Organization Address [facility]/ZIP Co de Phone Number [facility] [place] [address] * TSH (09/12/2016 11:01 AM EST) Thyroid Stimulating Hormone 1.12 0.27 - 4.20 mcIU/mL [facility] Blood specimen (specimen) 09/12/2016 11:01 AM EST 09/12/2016 11:07 AM EST Narrative Resulting Agency Comment Spec In Lab Francheska Torres DO CHEMISTRY ORDERABL ES Performing Organization Address City/[facility]/ZIP Co de Phone Number [facility] [place] [address] * Hepatitis C Antibody (09/12/2016 11:01 AM EST) Hepatitis C Antibody Negative Negative [facility] Blood specimen (specimen) 09/12/2016 11:01 AM EST 09/12/2016 11:07 AM EST Narrative Resulting Agency Comment Spec In Lab Francheska Torres DO CHEMISTRY ORDERABL ES Performing Organization Address City/[facility]/ZIP Co de Phone Number [facility] [place] [address] * Hepatitis B Surface Antibody (09/12/2016 11:01 AM EST) Hepatitis B Surface Antibody, Quantitative 165.3 IU/L [facility] Comment: HepB Surface Ab Quant: Unvaccinated: < 8.5 IU/L Vaccinated: > 11.5 IU/L Hepatitis B Surface Antibody Positive [facility] Comment: Patient is considered to be immune to HBV infection. Expected Results: Vaccinated: Positive Unvaccinated: Negative Blood specimen (specimen) 09/12/2016 11:01 AM EST 09/12/2016 11:07 AM EST Narrative Resulting Agency Comment Spec In Lab Francheska Torres DO CHEMISTRY ORDERABL ES Performing Organization Address [facility] Co de Phone Number [facility] [place] [address] * Hepatitis B Surface Antigen (09/12/2016 11:01 AM EST) Hepatitis B Surface Antigen Negative Negative [facility] Blood specimen (specimen) 09/12/2016 11:01 AM EST 09/12/2016 11:07 AM EST Narrative Resulting Agency Comment Spec In Lab Francheska Torres DO CHEMISTRY ORDERABL ES Performing Organization Address [facility] Phone Number [facility] [place] [address] * Hepatitis B Core Antibody, Total (09/12/2016 11:01 AM EST) Hepatitis B Core Antibody Negative Negative [facility] Blood specimen (specimen) 09/12/2016 11:01 AM EST 09/12/2016 11:07 AM EST Narrative Resulting Agency Comment Spec In Lab Francheska Torres DO CHEMISTRY ORDERABL ES Performing Organization Address [facility] Co de Phone Number [facility] [place] [address] * Lupus Anticoagulant (09/12/2016 11:01 AM EST) Lupus Anticoagulant Neg Neg [facility] Blood specimen (specimen) 09/12/2016 11:01 AM EST 09/12/2016 11:07 AM EST Narrative Resulting Agency Comment Spec In Lab Francheska Torres DO HEMATOLOGY ORDERAB LES [facility] [place] [address] * Beta-2 glycoprotein antibodies (09/12/2016 11:01 AM EST) Beta 2 Glycoprotein, IgG <21 <=20 unit(s) [facility] Comment: Ranges ?Units ----- ? ----- Normal ? <21 Low Positive (+) ?21-50 Moderate Positive (+) ? 51-100 High Positive (+) ?>100 Beta 2 Glycoprotein, IgM <21 <=20 unit(s) [facility] Comment: Ranges ? Units ----- ?----- Normal ?<21 Low Positive (+) ? 21-50 Moderate Positive (+) ?51-100 High Positive (+) ? >100 B2GPI Interp no comment [facility] Blood specimen (specimen) 09/12/2016 11:01 AM EST 09/12/2016 1:24 PM EST Narrative Resulting Agency Comment Spec In Lab Francheska Torres DO IMMUNOLOGY ORDERAB LES Performing Organization Address [facility] Co de Phone Number [facility] [place] [address] * Centromere Antibody (09/12/2016 11:01 AM EST) Pathologist [facility] [place] Centromere Ab <0.2 <1.0 (Negative) U [facility] Comment: Test Performed by: [facility] [place] [address] Building Construction Superintendent: Migel Mcmillan II, M.D., Ph.D. Blood specimen (specimen) 09/12/2016 11:01 AM EST 09/12/2016 12:52 PM EST Narrative Resulting Agency Comment Spec In Lab Francheska Torres DO LAB SEND OUT ORDER MICHELL Performing Organization Address [facility] de Phone Number [facility] [place] [address] * Extractable Nuclear Antigen (LAURIE) Ab (09/12/2016 11:01 AM EST) Pathologist [facility] [place] LAURIE Ab Test ?Result ?Flag ??Unit ??RefValue Ab to Extractable Nuclear Ag Eval,S ??SS-A/Ro Ab, IgG, S ?<0.2 ?U ? <1.0 (Negative) ??SS-B/La Ab, IgG, S ?<0.2 ?U ? <1.0 (Negative) ??Sm Ab, IgG, S ? <0.2 ?U ? <1.0 (Negative) ??RETIREMENT SALES CONSULTANT Ab, IgG, S ?0.2 ? U ? <1.0 (Negative) ??Scl 70 Ab, IgG, S ? <0.2 ?U ? <1.0 (Negative) ??Elsa 1 Ab, IgG, S ? <0.2 ?U ? <1.0 (Negative) ?Test Performed by: ?[facility] ?[address] [place] [address] ?Building Construction Superintendent: Migel Mcmillan II, M.D., Ph.D. [facility] Blood specimen (specimen) 09/12/2016 11:01 AM EST 09/12/2016 12:52 PM EST Narrative Resulting Agency Comment Spec In Lab Francheska Torres DO LAB SEND OUT ORDER MICHELL [facility] [place] [address] * (ABNORMAL) ELIZA (09/12/2016 11:01 AM EST) ELIZA Pos(A) Neg [facility] Comment: mixed pattern present 1:80 Titer seen with Speckled pattern. ??Is suggestive of autoantibodies to Sm, RETIREMENT SALES CONSULTANT, SCL-70, or SS-B. 1:80 Titer seen with Nucleolar pattern. ??Is suggestive of autoantibodies to 4-6 S RNA. ??High titers are a useful marker for scleroderma. Blood specimen (specimen) 09/12/2016 11:01 AM EST 09/12/2016 1:24 PM EST Narrative Resulting Agency Comment Spec In Lab Francheska Torres DO LAB SEND OUT ORDER MICHELL Performing Organization Address [facility] Co de Phone Number [facility] [place] [address] * C4 Complement (09/12/2016 11:01 AM EST) Complement C4 21 10 - 40 mg/dL [facility] Blood specimen (specimen) 09/12/2016 11:01 AM EST 09/12/2016 11:07 AM EST Narrative Resulting Agency Comment Spec In Lab Francheska Torres DO CHEMISTRY ORDERABL ES Performing Organization Address [facility] Co de Phone Number [facility] [place] [address] * C3 Complement (09/12/2016 11:01 AM EST) Complement C3 116 90 - 180 mg/dL [facility] Blood specimen (specimen) 09/12/2016 11:01 AM EST 09/12/2016 11:07 AM EST Narrative Resulting Agency Comment Spec In Lab Francheska Torres DO CHEMISTRY ORDERABL ES Performing Organization Address [facility] Co de Phone Number [facility] [place] [address] * CRP, cardiac risk (HS CRP) (09/12/2016 11:01 AM EST) C-Reactive Protein High Sensitivity 5.0 mg/L [facility] Comment: For cardiac risk assessment, [...] CRP Cardiac Risk High Risk [facility] Blood specimen (specimen) 09/12/2016 11:01 AM EST 09/12/2016 11:07 AM EST Narrative Resulting Agency Comment Spec In Lab Francheska Torres DO CHEMISTRY ORDERABL ES [facility] [place] [address] * Sedimentation rate (09/12/2016 11:01 AM EST) [facility] Sedimentation Rate Automated 8 0 - 20 mm/hr [facility] Blood specimen (specimen) 09/12/2016 11:01 AM EST 09/12/2016 11:07 AM EST Narrative Resulting Agency Comment Spec In Lab Francheska Torres HEMATOLOGY ORDERAB LES [facility] [place] [address] * Comprehensive metabolic panel (non-fasting) (09/12/2016 11:01 AM EST) Glucose 80 65 - 199 mg/dL [facility] Comment:Diabetes: >=200 mg/d L plus symptoms Blood Urea Nitrogen 14 8 - 18 mg/dL [facility] Creatinine 0.89 0.70 - 1.20 mg/dL [facility] Comment: Please note that the pediatric reference intervals supplied above were not validated at [facility]. Results from pediatric patients should be interpreted in conjunction to the patient's age, height and muscle mass. Sodium 139 135 - 145 mmol/L [facility] Potassium 4.3 3.5 - 5.0 mmol/L [facility] Comment: Please note: ??Patients with WBC >100,000 may have falsely elevated Potassium levels. ??For accurate Potassium quantification in these patients send serum separator tube (gold top) for subsequent determinations. ??Contact the Clinical Chemistry Laboratory if there are any questions. Chloride 101 98 - 107 mmol/L [facility] Carbon Dioxide 28 22 - 31 mmol/L [facility] Anion Gap 10 5 - 15 mmol/L [facility] Calcium 9.2 8.5 - 10.5 mg/dL [facility] Protein, Total 7.3 6.1 - 8.0 gm/dL [facility] Albumin 4.3 3.2 - 5.2 gm/dL [facility] Aspartate Aminotransferase 14 0 - 30 unit/L [facility] Alanine Aminotransferase 5 0 - 30 unit/L [facility] Alkaline Phosphatase 79 40 - 104 unit/L [facility] Bilirubin, Total 0.3 0.2 - 1.3 mg/dL [facility] Bilirubin, Direct 0.1 0.0 - 0.3 mg/dL [facility] Est Glomerular Filtration Rate >60 >=60 [facility] Comment: This estimated GFR (eGFR) value was calculated using the MDRD equation which has been validated on patients between the ages of 18 and 70. The MDRD should not be used to assess kidney function in patients < 18 years of age or in patients with extremes of body mass, or in patients with acute kidney failure. This value should be multiplied by 1.2 for patients. For further information please copy and paste the following links into your internet browser. [email or web address] Blood specimen (specimen) 09/12/2016 11:01 AM EST 09/12/2016 11:07 AM EST Narrative Resulting Agency Comment Spec In Lab Francheska Torres DO CHEMISTRY ORDERABL ES Performing Organization Address City/State/[facility] Co de Phone Number [facility] [place] [phone] documented in this encounter Visit Diagnoses Diagnosis Arthralgia of both hands Raynaud's phenomenon without gangrene Chronic fatigue Other malaise and fatigue Arthralgia of both hands Raynaud's phenomenon without gangrene Chronic fatigue Other malaise and fatigue Arthralgia of both hands Raynaud's phenomenon without gangrene Chronic fatigue Other malaise and fatigue documented in this encounter Care Teams Health Administrator Relationship Specialty Start Date End Date Kellie Martinez MD [address] [facility] [address] [place] [address] PCP - General Family Medicine 09/12/16 09/26/18 documented as of this encounter
--- OUTSIDE RECORDS SUMMARY | 2024-08-02 15:36 | XMS_ITS | Encounter Summary ---
[place] [address] Care Team Providers Care Incident Response Engineer Name Role Phone Kellie Martinez MD Primary Care Provider [phone] Encounter Details Date Type Department Care Team (Late st Contact Info) Description 01/08/2018 [place] [phone] Jenae Victoria LPN Social History Tobacco Use Types Packs/Day Years Used Date Smoking Tobacco: Every Day Cigarettes Smokeless Tobacco: Never Sex and Gender Information Value Date Recorded Sex Assigned at Not on file Gender Identity Not on file Sexual Orientation Not on file documented as of this encounter Miscellaneous Notes * Telephone Encounter - Jenae Victoria LPN - 01/08/2018 11:08 AM EDT Chart opened in error. documented in this encounter Plan of Treatment Not on file documented as of this encounter Visit Diagnoses Not on filedocumented in this encounter Care Teams Incident Response Engineer Relationship Specialty Start Date End Date Kellie Martinez MD [address] [place] [address] PCP - General Family Medicine 09/12/16 09/26/18 documented as of this encounter
--- OUTSIDE RECORDS SUMMARY | 2024-08-02 15:36 | XMS_ITS | Encounter Summary ---
[place] [address] Care Team Providers Care Fire Investigation Lieutenant Name Role Phone Kellie Martinez MD Primary Care Provider [phone] Reason for Visit * Reason Onset Date Comments Prior Authorization 10/27/2016 Encounter Details Date Type Department Care Team (Late st Contact Info) Description 10/27/2016 Telephone [place] [phone] Deneen Seaed Prior Authorization Social History Tobacco Use Types Packs/Day Years Used Date Smoking Tobacco: Every Day Cigarettes Smokeless Tobacco: Never Sex and Gender Information Value Date Recorded Sex Assigned at Not on file Gender Identity Not on file Sexual Orientation Not on file documented as of this encounter Miscellaneous Notes * Telephone Encounter - Liv Saeed - 11/18/2016 12:03 PM EDT PA FOR DULOXETINE CAP 30MG HAS BEEN APPROVED THROUGH [place] MEDICAID. TRACKING # - [id number] PA # - [id number] APPROVED [id number] TO [id number]. LVM NOTIFYING PT OF APPROVAL. * Telephone Encounter - Liv Saeed - 11/04/2016 3:41 PM EST FAXED ADDITIONAL INFORMATION TO [place] MEDICAID [id number]. * Telephone Encounter - Liv Saeed - 10/28/2016 1:23 PM EST PA FOR DULOXETINE 30MG CAP HAS BEEN DEFERRED BECAUSE [place] MEDICAID NEEDS MORE INFORMATION SPECIFICALLY * THE PATIENT MUST HAVE HAD A DOCUMENTED SIDE EFFECT, ALLERGY, OR TREATMENT FAILURE TOTWO DURGS FROM THE FOLLOWING: GABAPENTIN, TRICYCLIC ANTIDEPRESSANT, SSRI ANTIDEPRESSANT, SNRI ANTIDEPRESSANT, MISCELLANEOUS ANTIDEPRESSANT, CYCLOBENZAPRINE, LYRICA OR SAVELLA. * Telephone Encounter - Liv Saeed - 10/27/2016 2:54 PM EST PA FOR DULOXETINE HCL 30MG HAS BEEN SUBMITTED TO [place] MEDICAID THROUGH [facility] documented in this encounter Plan of Treatment Not on file documented as of this encounter Visit Diagnoses Not on filedocumented in this encounter Care Teams Fire Investigation Lieutenant Relationship Specialty Start Date End Date Kellie Martinez MD [address] [facility] [facility] [address] [place] [address] PCP - General Family Medicine 09/12/16 09/26/18 documented as of this encounter
--- OUTSIDE RECORDS SUMMARY | 2024-08-02 15:36 | XMS_ITS | Encounter Summary ---
[place] [address] Care Team Providers Care Sales Assoc Name Role Phone Kellie Martinez MD Primary Care Provider [phone] Reason for Visit * Reason Onset Date Comments Medication Refill 11/27/2016 Encounter Details Date Type Department Care Team (Late st Contact Info) Description 11/27/2016 [place] [phone] Jenae Victoria LPN Social History Tobacco Use [...] on filedocumented in this encounter Care Teams Sales Assoc Relationship Specialty Start Date End Date Kellie Martinez MD [address] [place], [place] [id number] PCP - General Family Medicine 09/12/16 09/26/18 documented as of this encounter
--- OUTSIDE RECORDS SUMMARY | 2024-08-02 15:36 | XMS_ITS | Encounter Summary ---
Author Organization [facility] Address [address] [place] [address] Care Team Providers Care Night Club Manager Name Role Phone Lauren Mcneill MD Primary Care Provider [phone] Encounter Details Date Type Department Care Team (Late st Contact Info) Description 07/22/2002 Results Only [facility] - Maple conversion [address] [place] [address] [address] Fisher [address] [place] [address] Social History Tobacco Use Types [...] Priority Date/Time Associated Diagnosis Comments CYTOPATHOLOGY Routine 07/22/2002 0:00 EST documented in this encounter Results * CYTOPATHOLOGY (07/22/2002 0:00 EST) Pathology Report: CYTOPATHOLOGY REPORT Reports generated via electronic interface contain original data; however they are lacking the format of the original report. Caution should be taken when reading/interpreti ng unformatted reports. Name: ? MARSHA BUCK ? Accession #: ? [id number] : ? 1980 (Age: 22) ??F ?Collect Date: ? 07/22/2002 Location: ? [facility] ? Receive Date: ? 07/26/2002 Provider: ?SARWATSara FISHER CNM Copy to: ? Specimen/Source: ?ThinPrep Pap Test, Cervix/Endocervix Last Menstrual Period: ? 05/16/02 Menstrual/Pregnanc y Status: ? Other: ? Additional clinical information: unsatisfactory 07/08/02 ? SPECIMEN ADEQUACY ? Satisfactory for Evaluation - transformation zone component present - scant squamous epithelial component secondary to excessive inflammation - scant squamous epithelial component secondary to excessive blood GENERAL CATEGORIZATION ? Negative for Intraepithelial Lesion or Malignancy ? Document reviewed and electronically signed by: ? Magda Epstein, ??SCT(ASCP) ? Report Date: ??08/01/2002 07:55 End of Report [facility] 07/22/2002 07/26/2002 us Biju Fisher CNM PATHOLOGY ORDERABLES Final Resul t [facility] [address] [place] [address] documented in this encounter Visit Diagnoses Not on filedocumented in this encounter Care Teams Night Club Manager Relationship Specialty Start Date End Date Lauren Mcneill MD [facility] [address] [place] [address] PCP - General 01/18/10 11/22/17 documented as of this encounter
--- OUTSIDE RECORDS SUMMARY | 2024-08-02 15:36 | XMS_ITS | Encounter Summary ---
Author Organization [facility] Address [address] [place] [address] Care Team Providers Care Grizzly Worker Name Role Phone Lauren Mcneill MD Primary Care Provider [phone] Encounter Details Date Type Department Care Team (Late st Contact Info) Description 10/29/2005 Results Only [facility] - Maple conversion [address] [place] [address] Migel Lorenzo MD [address] [place] [address] Social History Tobacco Use Types [...] Date/Time Associated Diagnosis Comments SURGICAL PATHOLOGY Routine 10/29/2005 0:00 EST documented in this encounter Results * SURGICAL PATHOLOGY (10/29/2005 0:00 EST) Pathology Report: SURGICAL PATHOLOGY REPORT Reports generated via electronic interface contain original data; however they are lacking the format of the original report. Caution should be taken when reading/interpreti ng unformatted reports. Name: ? MARSHA BUCK ? Accession #: ? [id number] ? : ? 1980 (Age: 25) ??F ? Collect Date: ? 10/29/2005 ? Location: ? [facility] ? Receive Date: ? 10/29/2005 ? Provider: MIGLE LORENZO MD Copy to: ANNITA KAHN MD ? Final Pathologic Diagnosis: A. ?Endometrium, curettage: 1. ?Proliferative endometrium with disordered growth pattern. 2. ?Benign endocervical mucosa. B. ?Soft tissue, uterosacral, right, biopsy: 1. ?Benign fibroadipose tissue. 2. ?Negative for endometriosis. C. ?Pelvic sidewall, right, biopsy: 1. ?Mesothelial-line d fibroadipose tissue. 2. ?Negative for endometriosis. Document reviewed and electronically signed by: Gavino Uribe [facility] Report ??Date: 10/31/2005 15:26 By the signature above, the attending physician certifies that he/she has personally conducted a gross and/or microscopic examination of the described specimens and rendered or confirmed the above diagnosis. Specimen(s) Received: A. ?Endometrial curettings (#1) B. ?Right uterosacral bx (#2) C. ?Right pelvic sidewall bx(#3) Clinical History: ? Abnormal uterine bleeding, dyspareunia, pelvic pain; LMP: 10/21/05 Gross Description: ? Received in formalin labelled Buck and endometrial curettings are multiple santana-red, focally hemorrhagic tissue fragments admixed with mucus which measure 2.5 x 2.0 x 1.0 cm in aggregate. ??The specimen is submitted entirely as (A1) and (A2). Received in formalin labelled Buck and R uterosacral bx is a 1.0 x 1.0 x 0.3 cm triangular portion of santana-pink tissue with cautery artifact at the base. The specimen is bisected and submitted as (B). Received in formalin labelled Buck and R pelvic sidewall bx is a 1.3 x 0.5 x 0.3 cm irregular tissue fragment. ??One aspect is santana-pink and glistening while the other aspect appears focally hemorrhagic. ??The specimen is submitted intact as (C). (Dr. Holloway-SB)/mpl End of Report [facility] 10/29/2005 10/29/2005 15: 19 EST us Migel Lorenzo MD PATHOLOGY ORDERABLES Final Resul t [facility] [address] [place] [address] documented in this encounter Visit Diagnoses Not on filedocumented in this encounter Care Teams Grizzly Worker Relationship Specialty Start Date End Date Lauren Mcneill MD [facility] [address] [place] [address] PCP - General 01/18/10 11/22/17 documented as of this encounter
--- OUTSIDE RECORDS SUMMARY | 2024-08-02 15:36 | XMS_ITS | Encounter Summary ---
Author Organization [facility] Address [address] [place] [address] Care Team Providers Care Biofuels Production Technician Name Role Phone Lauren Mcneill MD Primary Care Provider Encounter Details Date Type Department Care Team (Late st Contact Info) Description 07/26/2003 Results Only [facility] - Map conversion [address] [place] [address] Migel Lorenzo MD [address] [place] [address] Social History Tobacco Use Types [...] Priority Date/Time Associated Diagnosis Comments CYTOPATHOLOGY Routine 07/26/2003 0:00 EST documented in this encounter Results * CYTOPATHOLOGY (07/26/2003 0:00 EST) Pathology Report: CYTOPATHOLOGY REPORT Reports generated via electronic interface contain original data; however they are lacking the format of the original report. Caution should be taken when reading/interpreti ng unformatted reports. Name: ? MARSHA BUCK ? Accession #: ? [id number] : ? 1980 (Age: 23) ??F ?Collect Date: ? 07/26/2003 Location: ? [facility] ? Receive Date: ? 07/31/2003 Provider: ?MIGEL LORENZO MD Copy to: ? Specimen/Source: ?ThinPrep Pap Test, Cervix/Endocervix Last Menstrual Period: ? 07/18/03 ? SPECIMEN ADEQUACY ? Satisfactory for Evaluation - transformation zone component present GENERAL CATEGORIZATION ? Negative for Intraepithelial Lesion or Malignancy ? Document reviewed and electronically signed by: ? LION Alvarez(ASCP) ? Report Date: ??08/02/2003 10:52 End of Report [facility] 07/26/2003 07/31/2003 us Migel Lorenzo MD PATHOLOGY ORDERABLES Final Resul t [facility] [address] [place] [address] documented in this encounter Visit Diagnoses Not on filedocumented in this encounter Care Teams Biofuels Production Technician Relationship Specialty Start Date End Date Lauren Mcneill MD [facility] [address] [place] [address] PCP - General 01/18/10 11/22/17 documented as of this encounter
--- OUTSIDE RECORDS SUMMARY | 2024-08-02 15:36 | XMS_ITS | Encounter Summary ---
Author Organization [facility] Address [address] [place] [address] Care Team Providers Care Motor Pool Clerk Name Role Phone Lauren Mcneill MD Primary Care Provider [phone] Encounter Details Date Type Department Care Team (Late st Contact Info) Description 04/29/2006 Results Only [facility] - Map conversion [address] [place] [address] Migel Lorenzo MD [address] [place] [address] Social History Tobacco Use Types [...] Date/Time Associated Diagnosis Comments SURGICAL PATHOLOGY Routine 04/29/2006 0:00 EDT documented in this encounter Results * SURGICAL PATHOLOGY (04/29/2006 0:00 EDT) Pathology Report: SURGICAL PATHOLOGY REPORT Reports generated via electronic interface contain original data; however they are lacking the format of the original report. Caution should be taken when reading/interpreti ng unformatted reports. Name: ? MARSHA BUCK ? Accession #: ? [id number] ? : ? 1980 (Age: 26) ??F ? Collect Date: ? 04/29/2006 ? Location: ? [facility] ? Receive Date: ? 04/29/2006 ? Provider: MIGEL LORENZO MD Copy to: ANNITA KAHN MD ? Final Pathologic Diagnosis: A. ?Uterus, cervix, fallopian tubes and ovaries, hysterectomy and bilateral salpingo-oophorect nura: 1. ?Cervix and endocervix: ? - Acute and chronic cervicitis with squamous metaplasia and reactive changes. 2. ?Endometrium: ? - Inactive endometrium with tubal metaplasia. 3. ?Myometrium: ? - No specific pathologic features. 4. ?Serosa: ? - Patchy serosal adhesions. ??See comment. 5. ?Ovaries, bilateral: ? - Multiple follicular cysts. 6. ?Fallopian tubes, bilateral: ? - No specific pathologic features. B. ?Appendix, appendectomy: 1. ?Fibrous obliteration of appendiceal tip. Comment: ? Definitive endometriosis is not seen, however, some of the serosal adhesions may have been caused by endometriosis. ??Clinic correlation is essential. ??(Dr. Tom)/[facility] Document reviewed and electronically signed by: Bryan Tom MD Report ??Date: 05/01/2006 15:30 By the signature above, the attending physician certifies that he/she has personally conducted a gross and/or microscopic examination of the described specimens and rendered or confirmed the above diagnosis. Specimen(s) Received: A. ?Uterus, ovaries, tubes & cervix (#1) B. ?Appendix (#2) Clinical History: ? Persistent pelvic pain; LMP: pt does not remember Gross Description: ? Received in formalin labelled Buck and #1 ??uterus, tubes, ovaries and cervix is the product of a total hysterectomy which measures 8.4 cm from cervix to fundus, 4.0 cm anterior to posterior, and 5.0 cm from cornu to cornu with attached ovaries and fallopian tubes. ??The ectocervix is santana-pink, smooth, and shiny. ??The endometrium is santana-pink and smooth, measuring 0.1 cm in thickness. The myometrium is santana-pink with the usual trabecular pattern. ??The serosa is santana-pink and smooth, focally hyperemic, with a 1.0 cm in diameter hemorrhagic defect located on the posterior upper portion of the serosal surface of the uterus. ??On the anterior surface of the uterus is a marked amount of adherent hyperemic soft tissue. ??The right fallopian tube has a santana-pink and shiny serosa that measures 5.0 cm in length by 0.6 cm in diameter, and has one fimbriated end. ??The right ovary measures 3.5 x 1.5 x 1.5 cm and is santana-white, with a cut surface revealing a 1.0 cm santana-white, smooth-lined cyst filled with serous fluid. ??The left fallopian tube is santana-pink, shiny, and measures 4.5 cm in length by 0.9 cm in diameter and has one fimbriated end. ??The left ovary measures 3.4 x 2.5 x 2.0 cm. ??The cut surface of the left ovary reveals multiple serous cysts which have a santana-white, smooth lining. ??The largest measuring 1.0 cm in greatest dimension. BLOCK VELASCO A1 ?Oil Painter section of anterior half of cervix ? A2 ? Oil Painter full thickness section of uterus from anterior half, to include soft tissue adherent to serosa A3 ? Oil Painter section of cervix from posterior half A4 ? Oil Painter full thickness section of uterus from posterior half A5 ? Oil Painter section of right ovary to include cyst A6 ? Oil Painter section of right fallopian tube ? A7 ?Oil Painter section of left ovary A8 ?Oil Painter section of left fallopian tube Received in formalin labelled Buck and #2 ??appendix is a 6.0 cm in length by 0.5 cm in diameter appendix with a marked amount of adherent adipose tissue. There is one stapled margin. ??Serial sectioning reveals a small pinpoint lumen and two special service representative cross sections, to include tissue adjacent to stapled margin and one special service representative longitudinal section of distal tip are submitted as (B). ??(Lauro Person)/kymberly ?? End of Report [facility] 04/29/2006 04/29/2006 15: 22 EDT us Migel Lorenzo MD PATHOLOGY ORDERABLES Final Resul t [facility] [address] [place] [address] documented in this encounter Visit Diagnoses Not on filedocumented in this encounter Care Teams Motor Pool Clerk Relationship Specialty Start Date End Date Lauren Mcneill MD [facility] [address] [place], [place] [address] PCP - General 01/18/10 11/22/17 documented as of this encounter
--- OUTSIDE RECORDS SUMMARY | 2024-08-02 15:36 | XMS_ITS | Encounter Summary ---
Author Organization [facility] Address [address] [place] [address] Care Team Providers Care Padded Products Inspector Trimmer Name Role Phone Lauren Mcneill MD Primary Care Provider [phone] Encounter Details Date Type Department Care Team (Late st Contact Info) Description 01/09/2000 Results Only [facility] - Maple conversion [address] [place] [address] [place], [place] [address] Social History Tobacco Use Types Packs/Day Years [...] Priority Date/Time Associated Diagnosis Comments CYTOPATHOLOGY Routine 01/09/2000 14:31 EDT documented in this encounter Results * CYTOPATHOLOGY (01/09/2000 14:31 EDT) Pathology Report: CYTOPATHOLOGY REPORT Reports generated via electronic interface contain original data; however they are lacking the format of the original report. Caution should be taken when reading/interpreti ng unformatted reports. Name: ? MARSHA BUCK ? Accession #: ? [id number] : ? 1980 (Age: 19) ??F ?Collect Date: ? 01/09/2000 Location: ?Receive Date: ? 01/09/2000 Provider: ?SOFIA GONG CNM Copy to: ?SOFIA GONG CNM ? Specimen/Source: ?Home Health Specialist ThinPrep Last Menstrual Period: ? GYNECOLOGIC ??CYTOPATHOLOGY ??REPORT Name: MARSHA BUCK ?[facility] : 1980 ?? 19Y F ?Client ID: [id number] SS#: [id number] ? Clinician: BELTRAN BAY, SOFIA ?? Location: [facility] ??Copy to: ?? Specimen: ?Home Health Specialist ThinPrep ? Source: Cervix/Endocervix ?Collected: 01/08/00 ? Received: 01/09/2000 ?LMP: 12/30/99 ? Hormone Therapy: No ? : No ? Radiation Therapy: No ?? Post : Yes ? Chemotherapy: No ?IUD: No ? Prev Abnormal Pap: No ?? Clinical Hx: BCC ?(Blank gallagher indicate information not provided on requisition) SPECIMEN ADEQUACY: ? Satisfactory For Evaluation ?? GENERAL CATEGORIZATION: ? WITHIN NORMAL LIMITS ? Reviewed And Electronically Signed By: ? Magda Epstein, CT(ASCP) ? Report Date: ?? 01/14/2000 [employer] Archived Tests - Final Diagnosis Text Field: Clinical History : ; BCC ? Document reviewed and electronically signed by: ? Conversion ? Report Date: ??01/14/2000 00:00 End of Report [facility] 01/09/2000 14:3 1 EDT 01/09/2000 14:32 EDT Sofia Gong CNM PATHOLOGY ORDERABLES Final Res ult Performing Organization Address City/State/[facility] Co de Phone Number KRISTEL ALVA [address] [place] [address] documented in this encounter Visit Diagnoses Not on filedocumented in this encounter Care Teams Padded Products Inspector Trimmer Relationship Specialty Start Date End Date Luaren Mcneill MD [facility] [address] [place] [address] PCP - General 01/18/10 11/22/17 documented as of this encounter
--- OUTSIDE RECORDS SUMMARY | 2024-08-02 15:36 | XMS_ITS | Encounter Summary ---
Author Organization [facility] Address [address] [place] [address] Care Team Providers Care Auto Body Shop Manager Name Role Phone Lauren Mcneill MD Primary Care Provider [phone] Encounter Details Date Type Department Care Team (Late st Contact Info) Description 01/06/2001 Results Only [facility] - Maple conversion [address] [place] [address] Merced Perez, [facility] [address] [place] [address] [place] [address] Social History Tobacco Use Types Packs/Day Years [...] Priority Date/Time Associated Diagnosis Comments CYTOPATHOLOGY Routine 01/06/2001 0:00 EDT documented in this encounter Results * CYTOPATHOLOGY (01/06/2001 0:00 EDT) Pathology Report: CYTOPATHOLOGY REPORT Reports generated via electronic interface contain original data; however they are lacking the format of the original report. Caution should be taken when reading/interpreti ng unformatted reports. Name: ? MARSHA BUCK ? Accession #: ? [id number] : ? 1980 (Age: 20) ??F ?Collect Date: ? 01/06/2001 Location: ? [facility] ? Receive Date: ? 01/08/2001 Provider: ?MERCED PEREZ ASSESSMENT CONSULTANT Copy to: ? Specimen/Source: ?ThinPrep Pap Test, Cervix/Endocervix Last Menstrual Period: ? 09/29/00 Hormonal/Contracep tive Status: ? Depo-Provera Previous Gynecologic Pathology: ? Benign cellular changes: ? SPECIMEN ADEQUACY ? Satisfactory for evaluation. GENERAL CATEGORIZATION ? Within Normal Limits ? Document reviewed and electronically signed by: ? PILLO Collins(ASCP) ? Report Date: ??01/11/2001 10:44 End of Report KRISTEL ALVA 01/06/2001 01/08/2001 us Merced Perez ASSESSMENT CONSULTANT PATHOLOGY ORDERABLES Final R esult KRISTEL ALVA [address] [place] [address] documented in this encounter Visit Diagnoses Not on filedocumented in this encounter Care Teams Auto Body Shop Manager Relationship Specialty Start Date End Date Lauren Mcneill MD [facility] [address] [place] [address] PCP - General 01/18/10 11/22/17 documented as of this encounter
--- OUTSIDE RECORDS SUMMARY | 2024-08-02 15:36 | XMS_ITS | Encounter Summary ---
Author Organization [facility] Address [address] [place] [address] Care Team Providers Care Weights And Measures Sealer Name Role Phone Lauren Mcneill MD Primary Care Provider [phone] Encounter Details Date Type Department Care Team (Late st Contact Info) Description 09/19/2005 Results Only [facility] - Maple conversion [address] [place] [address] Merced Perez, [facility] [address] [place] [address] [place] [address] Social History Tobacco Use Types [...] Priority Date/Time Associated Diagnosis Comments CYTOPATHOLOGY Routine 09/19/2005 0:00 EST documented in this encounter Results * CYTOPATHOLOGY (09/19/2005 0:00 EST) Pathology Report: CYTOPATHOLOGY REPORT Reports generated via electronic interface contain original data; however they are lacking the format of the original report. Caution should be taken when reading/interpreti ng unformatted reports. Name: ? MARSHA BUCK ? Accession #: ? [id number] : ? 1980 (Age: 25) ??F ?Collect Date: ? 09/19/2005 Location: ? [facility] ? Receive Date: ? 09/22/2005 Provider: ?MERCED PEREZ SENIOR HRIS ANALYST Copy to: ? Specimen/Source: ?ThinPrep Pap Test, Cervix/Endocervix, processed on [employer] ThinPrep Imaging System, with manual evaluation Last Menstrual Period: ? 09/01/05 Previous Gynecologic Pathology: ? Benign cellular changes: Other: ? HPVA - HPV testing requested if ASC-US on the current ThinPrep Pap test. ? SPECIMEN ADEQUACY ? Satisfactory for Evaluation - transformation zone component present GENERAL CATEGORIZATION ? Epithelial Cell Abnormality INTERPRETATION ? Squamous Cell Abnormality - Low grade squamous intraepithelial lesion (LSIL). EDUCATIONAL NOTES/RECOMMENDATI ONS ? [facility] recommends following the 2001 Consensus Guidelines for the Management of Women with Cervical Cytological Abnormalities (MAKI,2002;287:212 0-9). Management algorithms have been distributed by [facility] and are available online at www.ASCCP.org. ? Document reviewed and electronically signed by: ? RICK BARAHONA [facility] ? Report Date: ??09/25/2005 14:34 End of Report KRISTEL ALVA 09/19/2005 09/22/2005 us Merced Perez SENIOR HRIS ANALYST PATHOLOGY ORDERABLES Final R esult KRISTEL ALVA [address] [place] [address] documented in this encounter Visit Diagnoses Not on filedocumented in this encounter Care Teams Weights And Measures Sealer Relationship Specialty Start Date End Date Lauren Mcneill MD [facility] [address] [place] [address] PCP - General 01/18/10 11/22/17 documented as of this encounter
--- OUTSIDE RECORDS SUMMARY | 2024-08-02 15:36 | XMS_ITS | Encounter Summary ---
Author Organization [facility] Address [address] [place] [address] Care Team Providers Care Head Athletic Trainer/Strength Coach Name Role Phone Lauren Mcneill MD Primary Care Provider [phone] Encounter Details Date Type Department Care Team (Latest Contact Info) Description 11/19/2017 15:24 EDT - 11/19/2017 23:59 EDT Hospital Encounter [address] [address] Unknown, Provider, Discharge Disposition: Home or Self Care Social History Tobacco Use Types Packs/Day Years Used Date Smoking Tobacco: Never Assessed Comments Unknown Sex and Gender Information Value Date Recorded Sex Assigned at Not on file Legal Sex Female 18:09 EST Gender Identity Not on file Sexual Orientation Not on file documented as of this encounter Discharge Disposition Disposition Code Departure Means Destination Home or Self Long Term documented in this encounter Plan of Treatment Not on file documented as of this encounter Visit Diagnoses Not on filedocumented in this encounter Care Teams Head Athletic Trainer/Strength Coach Relationship Specialty Start Date End Date Lauren Mcneill MD [facility] [address] [place] [address] PCP - General 01/18/10 11/22/17 documented as of this encounter
--- OUTSIDE RECORDS SUMMARY | 2024-08-02 15:36 | XMS_ITS | Encounter Summary ---
Author Organization [facility] Address [address] [place] [address] Care Team Providers Care Oil And Gas Well Treatment Operator Name Role Phone Lauren Mcneill MD Primary Care Provider [phone] Encounter Details Date Type Department Care Team (Late st Contact Info) Description 01/07/2005 Results Only [facility] - Map conversion [address] [place] [address] Migel Lorenzo MD [address] [place] [address] Social History Tobacco Use Types [...] Date/Time Associated Diagnosis Comments SURGICAL PATHOLOGY Routine 01/07/2005 0:00 EDT documented in this encounter Results * SURGICAL PATHOLOGY (01/07/2005 0:00 EDT) Pathology Report: SURGICAL PATHOLOGY REPORT Reports generated via electronic interface contain original data; however they are lacking the format of the original report. Caution should be taken when reading/interpreti ng unformatted reports. Name: ? MARSHA BUCK ? Accession #: ? [id number] ? : ? 1980 (Age: 24) ??F ? Collect Date: ? 01/07/2005 ? Location: ? [facility] ? Receive Date: ? 01/08/2005 ? Provider: MIGEL LORENZO MD Copy to: ANNITA KAHN MD ? Final Pathologic Diagnosis: A. ?Fallopian tube, left, segmental resection: 1. ?Full cross section examined with no pathologic features. B. ?Fallopian tube, right, segmental resection: 1. ?Full cross section examined with no pathologic features. Document reviewed and electronically signed by: MARTINEZ YORK MD Report ??Date: 01/10/2005 18:08 By the signature above, the attending physician certifies that he/she has personally conducted a gross and/or microscopic examination of the described specimens and rendered or confirmed the above diagnosis. Specimen(s) Received: A. ?Left fallopian tube B. ?Right fallopian tube Clinical History: ? Patient desires sterilization. Gross Description: ? Received in formalin, labelled Buck and #1-left fallopian tube is a cylindrical portion of soft tissue that measures 2.2 cm in length by 0.8 cm in diameter. ??The external surface is santana-paez, smooth, and glistening. ??Cut section reveals a pinpoint lumen in a 0.3 cm wall thickness. ??Two outbound telemarketing representative cross sections are submitted as (A). Received in formalin, labelled Buck and #2-right fallopian tube is a 1.5 cm in length x 0.7 cm in diameter cylindrical portion of soft tissue. ??The external surface is santana-paez, smooth, and glistening. ??Cut section reveals a pinpoint lumen and a 0.3 cm wall thickness. ??The specimen is bisected and submitted entirely as (B). ??(Dr. Lauro Delarosa)/kaylynf End of Report [facility] 01/07/2005 01/08/2005 15: 26 EDT us Migel Lorenzo MD PATHOLOGY ORDERABLES Final Resul t [facility] [address] [place] [address] documented in this encounter Visit Diagnoses Not on filedocumented in this encounter Care Teams Oil And Gas Well Treatment Operator Relationship Specialty Start Date End Date Lauren Mcneill MD [facility] [address] [place], [place] [id number] PCP - General 01/18/10 11/22/17 documented as of this encounter
--- NOTE | 2024-08-02 17:45 | RT.EKG_ITS ---
APPROVED REPORT Exam: Resting ECG Reason for Exam: chest pain Patient Location: I HR:77 bpm ECG Measurements Heart Rate 77 AXIS OK 124 P 67 QRSd 92 QRS 39 QT 408 T 10 QTc 462 Conclusion Sinus rhythm...normal P axis, V-rate 50- 99 Normal Electrocardiogram
[2024-08-02] MEDS: Normal Saline Flush 10 ML SYR IVP (20:23)
[2024-08-02] MEDS: guaiFENesin 600 MG TABCR PO (20:23)
[2024-08-02] MEDS: Calcium Carbonate *TUMS* 500 MG CHEW 1000 MG PO (21:10)
[2024-08-03] VITALS (7 sets, daily range): BP systolic 106–122; BP diastolic 66–78; PULSE 53–79; RESP 5–20; TEMP 36.4–36.5; O2SAT 87–92
[2024-08-03 06:51] LABS: Abs Immature Grans 0.03 10^3/uL (0.0-0.06); Absolute Lymphocyte Count 0.71 10^3/uL (1.2-3.4); Absolute Monocyte Count 0.37 10^3/uL (0.1-0.8); Absolute Neutrophil Count 6.09 10^3/uL (1.2-6.7); HCT 42.1 % (36.0-46.0); HGB 14.2 g/dL (11.2-15.7); Immature Grans % 0.4 %; Lymphocytes % 9.9 %; MCH 32.8 pg (27.0-33.0); MCHC 33.7 % (32.0-36.0); MCV 97 fL (80-95); MPV 10.1 fL (8.0-11.0); Monocytes % 5.1 %; Neutrophils % 84.6 %; Platelet Count 193 10^3/uL (130-400); RBC 4.33 10^6/uL (3.93-5.22); RDW 11.9 % (11.7-14.6); RDW-SD 43.1 fL
[2024-08-03 07:03] LABS: Anion Gap 7.2 mmol/L (3-11); BUN 13 mg/dL (7-18); CO2 28.8 mmol/L (21.0-32.0); CREATININE 0.8 mg/dL (0.55-1.02); Calcium 10.3 mg/dL (8.5-10.1); Chloride 104 mmol/L (98-107); Glucose 121 mg/dL (74-106); Potassium 4.4 mmol/L (3.5-5.1); Sodium 140 mmol/L (136-145)
[2024-08-03] MEDS: Albuterol/Ipratropium 3 ML UPD VIAL UPD ×2 (07:52→11:02)
[2024-08-03] MEDS: cefTRIAXone 1 GM/50 ML BAG IVPB (08:21)
[2024-08-03] MEDS: Normal Saline Flush 10 ML SYR IVP ×2 (08:21→09:25)
[2024-08-03] MEDS: predniSONE 20 MG TAB 40 MG PO (08:21)
[2024-08-03] MEDS: Buprenorphine/Naloxone 8 mg/2 mg FILM 1 EACH SL (08:21)
[2024-08-03] MEDS: Azithromycin 250 MG TAB PO (08:22)
[2024-08-03] MEDS: guaiFENesin 600 MG TABCR PO (08:22)
[2024-08-03] MEDS: Omeprazole 20 MG CAPCR 40 MG PO (08:22)
[2024-08-03] MEDS: Folic Acid 1 MG TAB PO (08:22)
[2024-08-03] MEDS: Sertraline 50 MG TAB 100 MG PO (08:22)
--- NOTE | 2024-08-03 09:59 | PDOC.CMIN ---
Date of service: 08/03/24 Time of Service: 09:59 Care Management Initial Assmt Initial Assessment Reason for Hospitalization: Acute respiratory failure Functional Status/Living Situation Patient Presentation: Patient discharged before CM had a chance to meet with her. Town of Residence: [place] Employment Status: Unemployed Instrumental Activities of Daily Living (ADLs): Independent Advance Directives Advance Directives: Do you have an Advance Directive: N 08/29/13 20:06 AD On File at [facility]: N 08/29/13 20:06 Date Asked 08/02/24 08/02/24 12:57 AD Date Reviewed COLST On File at [facility] COLST Date Scanned Code Status Resuscitation Status Full Code Portal Pt does not currently have a portal and education provided: No Insurance Coverage/Financial Issues Insurance: Medicaid Care Team Visit Care Team Role Provider Type Falguni Suarez MD Emergency Provider [facility] STAFF PHYSICIAN Charly Russell Admit Provider [facility] STAFF PHYSICIAN Attending Provider Primary Care Provider Discharge Potential Discharge Needs: PCP F/U Appt Anticipated Barriers to Discharge: None Identified Patient/Family Education Needs: Review discharge instructions, discuss Ask Me Three Transportation: Private vehicle [facility] All Active Problems (Updated 08/02/24 @ 15:37 by Falguni Suarez MD) Discharge planning issues (Acute) Hx of opioid abuse (Acute) Tobacco use (Acute) Asthma (Chronic) Community acquired pneumonia (Acute) Acute hypoxic respiratory failure (Acute) Labral tear of right hip joint (Acute) Tear of left gluteus medius tendon (Acute) Trochanteric bursitis, right hip (Acute) Asthma, intermittent (Acute) Back pain (Acute) Medical History Positive PPD negative chest xray Hepatomegaly History of shingles Mood disorder Pain, foot, chronic Obesity GERD (gastroesophageal reflux disease) Ankle joint effusion Skin lesion of scalp Proteinuria Fibromyalgia Edema Dysphagia Chronic cough Bipolar affective disorder Positive antinuclear antibody Urinary incontinence Arthralgia Acute back pain Surgical History S/P appendectomy GAYATHRI/BSO (~04/2006) section X 2 EGD - MAC (11/19/17) Family History Mother Diabetes Cirrhosis of liver Sarcoidosis Father Myocardial infarction X 3; THE FIRST OR AT AGE 19 MATERNAL FAMILY HISTORY Diabetes Alcohol abuse Personal history of malignant neoplasm UNCLE-COLON PATERNAL FAMILY HISTORY Personal history of malignant neoplasm AUNT; BREAST Social History Smoking/Tobacco Use Status: Current every day Tobacco Type: cigarettes Smoking risk assessment performed?: Yes Alcohol Intake: never Drug use: Daily Substance use type: marijuana Housing: house Do you feel safe at home: Yes Do you feel safe in your relationship?: Yes SDOH(Care Management) Screening Will the Patient Participate in the Screening?: Yes Do you worry about having a steady place to live?: no Problems where you live: no known problems In the past 12 months, have you had to go without electric, gas, oil or water in your home?: no Have you or anyone in your house had to go without enough food to eat?: no Has lack of transportation kept you from medical appointments or from doing things needed for daily living?: no Has anyone in your support network made you feel unsafe for any reason?: no
--- NOTE | 2024-08-03 13:00 | DSE_ITS ---
Date of service: 08/03/24 Time of Service: 13:01 DS: Diagnosis Discharge Diagnosis (1) Acute hypoxic respiratory failure: Status: Acute (2) Community acquired pneumonia: Status: Acute (3) Asthma: Status: Chronic (4) Tobacco use: Status: Acute (5) Hx of opioid abuse: Status: Acute (6) Discharge planning issues: Status: Acute Discharge Plan Disposition Patient Disposition: Home Condition: Improving Discharge Details Reason For Visit: Hypoxia, Pneumonia Admit Date/Time: 08/02/24 14:47 Admit Provider: Charly Russell Attending Provider: Charly Russell Primary Care Provider: Charly Russell Hospital Course Hospital Course: 44 yo F with history of opioid use disorder in stable remission on burpenorphine, smoking, and intermittent asthma who presented with fever, body aches, cough, and shortness of breath. Chest x-ray showed RLL infiltrate, and she was hypoxic to the mid 80s after evaluation and treatment in the emergency room with nebulized bronchodilators and methylprednisolone. COVID/flu/RSV negative. She was admitted and treated for community acquired pneumonia and asthma exacerbation with ceftriaxone, azithromycin, and prednisone. She was not hypoxic at rest but borderline hypoxic with ambulation on the morning of discharge. She felt improved and did not want home oxygen, and we decided to send her home with ongoing oral treatment. Symbicort was started and she was instructed in it's use. We did discuss using this twice a day for now, but also as a PRN in the future as SMART therapy instead of albuterol. She should discuss this with PCP. smoking cessation was discussed and she plans to quit. Her partner got rid of her cigarettes and gabriella trays. She declines medication assistance. Given her smoking she likely has some element of asthma/COPD overlap. She was treated with albuterol/ipratropium. She should have repeat PFTs once she is back to baseline. Home Meds and New Rx's Prescriptions: New ipratropium-albuterol 0.5 mg-3 mg(2.5 mg base)/3 mL Solution For Nebulization 3 ml UPD QID PRN (Reason: Shortness Of Breath Or Wheezing) Qty: 48 2RF azithromycin 250 mg Tablet 250 mg PO DAILY 3 Days Qty: 3 0RF prednisone 20 mg Tablet See Taper PO DAILY 6 Days Qty: 7 0RF Taper: Prednisone 20mg taper 40 mg Daily for 2 Days and 0 Hour 20 mg Daily for 2 Days and 0 Hour 10 mg Daily for 2 Days and 0 Hour budesonide-formoterol [Symbicort] 80-4.5 mcg/actuation Hfa Aerosol Inhaler 2 puff inhalation BID Qty: 1 3RF guaifenesin [Mucus Relief ER] 600 mg Tablet Extended Release 12hr 600 mg PO BID Qty: 20 0RF amoxicillin-pot clavulanate 875-125 mg tablet 1 tab PO BID 3 Days Qty: 6 0RF Continued sucralfate [Carafate] 1 gram tablet 1,000 mg PO QID PRN acetaminophen [Tylenol Extra Strength] 500 MG tablet 1,000 mg PO Q6H PRN buprenorphine-naloxone [Suboxone] 8-2 mg film 1 film sublingual DAILY omeprazole 40 mg capsule,delayed release(DR/EC) 40 mg PO DAILY cyanocobalamin (vitamin B-12) 2,500 mcg lozenge 2,500 mcg sublingual DAILY melatonin 5 mg tablet 5 mg PO HS PRN folic acid 1 mg tablet 1 mg PO DAILY sertraline 100 mg tablet 100 mg PO DAILY Patient Comments: TAKE ONE TABLET BY MOUTH EVERY DAY Discontinued albuterol sulfate [ProAir HFA] 8.5 GM HFA aerosol inhaler 1 - 2 puff Inhalation QID PRNQty: 1 Discharge Instructions Instructions: Asthma in adults Additional Instructions: Finish 3 more days of antibiotics and the tapering dose of prednisone. Good luck with quitting smoking Use the new inhaler Symbicort twice daily. Once you are feeling better you can use this as needed instead of using albuterol. We sent medication for the nebulizer. Use the tubes from the hospital. Activity:: Activity as Tolerated Equipment/Supplies:: No Equipment Needed Diet:: As Tolerated Discharge Orders Discharge Orders: Discharge Order (Routine); Ordered 08/03/24 Ordered By: Charly Russell DS: Summary Time Spent with Patient providing and/or coordinating discharge services: Greater than 30 minutes Status at Discharge Functional status at discharge: independent ambulation Overall status at discharge: patient is progressing back to baseline Mental Status: mental status grossly normal Speech and Movement: speech and movement normal Mood: congruent mood Affect: normal affect Quality:SDOH Health Related Social Needs: No Data to Display Exam Narrative Exam Narrative: Alert and oriented, NAD. Lungs with diffuse expiratory wheezing, slight no rales right base, but normal effort on room air. cardiovascular regular rate and rhythm, no murmur. abdomen soft, NT. Ext non tender, no edema. Psych Mental Status: mental status grossly normal Speech and Movement: speech and movement normal Mood: congruent mood Affect: normal affect DS: Data Vitals/I&O Vitals and I&O: Vital Signs Temperature 36.4 C L 08/03/24 07:32 Temperature Source Tympanic 08/03/24 07:32 Pulse 71 08/03/24 11:09 Pulse Rhythm Regular 08/02/24 15:44 Pulse 96 H 08/02/24 15:16 Respiratory Rate 18 08/03/24 11:09 Respiratory Effort Non-Labored, Short of Breath 08/02/24 15:44 Respiratory Depth Normal 08/02/24 15:44 Respiratory Pattern Normal 08/02/24 15:44 Blood Pressure 122/78 08/03/24 07:32 Blood Pressure Mean 73 08/02/24 15:16 Blood Pressure Position Sitting 08/02/24 12:45 Pulse Oximetry 92 08/03/24 11:09 Oxygen Delivery Method Room Air 08/03/24 11:02 Oxygen Flow Rate 0 08/03/24 11:02 Pain Level 2 08/03/24 07:32 Intake & Output 08/02/24 08/03/24 08/03/24 23:59 11:59 23:59 Intake Total 710 / 710 300 / 300 Balance 710 / 710 300 / 300 Weight 65.998 kg Intake: IV 260 / 260 Oral 450 / 450 300 / 300 Other: Comment pT stated that she voided. Data Completed and Pending Labs on day of discharge: Labs from last 24 hours 08/03/24 08/02/24 06:35 13:10 WBC 7.20 6.08 RBC 4.33 4.41 Hgb 14.2 14.4 Hct 42.1 43.3 MCV 97 H 98 H MCH 32.8 32.7 MCHC 33.7 33.3 RDW 11.9 12.1 Plt Count 193 182 MPV 10.1 9.8 Immature Gran % 0.4 0.3 Neutrophils % 84.6 73.7 Lymphocytes % 9.9 17.3 Monocytes % 5.1 7.9 Eosinophils % 0.0 0.5 Basophils % 0.0 0.3 Nucleated RBC % 0.0 0.0 Absolute Neutrophils 6.09 4.48 Absolute Lymphocytes 0.71 L 1.05 L Absolute Monocytes 0.37 0.48 Absolute Eosinophils 0.00 0.03 Absolute Basophils 0.00 0.02 Sodium 140 142 Potassium 4.4 3.7 Chloride 104 103 Carbon Dioxide 28.8 29.8 Anion Gap 7.2 9.2 BUN 13 10 Creatinine 0.8 0.8 Est GFR (CKD-EPI 2020) 93.70 93.70 Glucose 121 H 102 Calcium 10.3 H 9.1 08/02/24 15:48 Blood Blood Culture - Pending 08/02/24 15:37 Blood Blood Culture - Pending Preliminary micro results at discharge 08/02/24 15:48 Blood Culture - Pending Blood 08/02/24 15:37 Blood Culture - Pending Blood [facility] All Active Problems (Updated 08/02/24 @ 15:37 by Falguni Suarez MD) Discharge planning issues (Acute) Community acquired pneumonia (Acute) Acute hypoxic respiratory failure (Acute) Labral tear of right hip joint (Acute) Tear of left gluteus medius tendon (Acute) Trochanteric bursitis, right hip (Acute) Asthma, intermittent (Acute) Back pain (Acute) Asthma (Chronic) Tobacco use (Acute) Hx of opioid abuse (Acute) Medical History Positive PPD negative chest xray -2015 Hepatomegaly History of shingles Mood disorder Pain, foot, chronic Obesity GERD (gastroesophageal reflux disease) Ankle joint effusion Skin lesion of scalp Proteinuria Fibromyalgia Edema Dysphagia Chronic cough Bipolar affective disorder Positive antinuclear antibody Urinary incontinence Arthralgia Acute back pain Surgical History S/P appendectomy GAYATHRI/BSO (~04/2006) section X 2 EGD - MAC (11/19/17) Family History Mother Diabetes Cirrhosis of liver Sarcoidosis Father Myocardial infarction X 3; THE FIRST MT AT AGE 19 MATERNAL FAMILY HISTORY Diabetes Alcohol abuse Personal history of malignant neoplasm UNCLE-COLON PATERNAL FAMILY HISTORY Personal history of malignant neoplasm AUNT; BREAST Social History Smoking/Tobacco Use Status: Current every day Tobacco Type: cigarettes Smoking risk assessment performed?: Yes Alcohol Intake: never Drug use: Daily Substance use type: marijuana Housing: house Do you feel safe at home: Yes Do you feel safe in your relationship?: Yes Time Spent with Patient Time Spent with Patient: 45-69 minutes Time was spent: preparing to see the patient(eg.review tests), obtaining and/or reviewing separately otained hiistory, ordering medications,tests, procedures, referring, communicating with other health wound care center consultant, indepentently interpreting results, counseling the patient and care coordination
--- NOTE | 2024-08-03 13:14 | PDOC.CMDIS ---
Date of service: 08/03/24 Time of Service: 13:14 LACE Index Scoring Tool Questions: Length of Stay (in days): 1 Was the patient admitted via the E.D.?: Yes E.D. Visits: 1 Answers: Total Score: 5 Risk of Readmission: Low Risk Care Management Discharge Plan Reason for Hospitalization: Hypoxia, pneumonia Discharge Plan: Discharge home via private vehicle with family. Follow up with PCP and discharge plan of care as discussed. No new services are ordered prior to discharge. Patient/Family Education Needs: Review discharge instructions, limitations, medications and plan to follow up with community providers. Discuss ask me three. SDOH Health Related Social Needs: No Data to Display
[2024-08-03] MEDS: Budesonide/Formoterol 80/4.5 6.9 GM 60 PUFF INH IH (14:21)
== END 2024-08-03 14:38 | disposition home or self-care (01) ==
LOC: ER 12:58 → MS 15:34
PROVIDERS: Nurse Practitioner Acute Care; Admitting Provider Family Medicine; Emergency Provider Emergency Medicine; PCP Family Medicine; Visit Provider Family Medicine
DX: J18.9 Pneumonia, unspecified organism (principal); J96.01 Acute respiratory failure with hypoxia; J45.21 Mild intermittent asthma with (acute) exacerbation; F17.210 Nicotine dependence, cigarettes, uncomplicated; Z79.899 Other long term (current) drug therapy; F11.20 Opioid dependence, uncomplicated
CPT/HCPCS: 00123; 36410; 36415; 80048; 87040; 87426; 94618; 94640; 96365; 96366; 96368; 96372; 96375; 99285; J1650; 71045; 85025; 93005; 93010; 94664; 94667; 94668; 94760; 99222; 99239; G0378; J0456; J0696; J2919; J7512; J7620

== ENCOUNTER 2024-09-06 11:14 | Outpatient (REF) | payer MEDICAID, SELFPAY ==
[2024-09-06 15:12] LABS: Abs Immature Grans 0.01 10^3/uL (0.0-0.06); Absolute Basophil Count 0.06 10^3/uL (0.0-0.2); Absolute Eosinophil Count 0.21 10^3/uL (0.0-0.7); Absolute Lymphocyte Count 2.22 10^3/uL (1.2-3.4); Basophils % 1.1 %; Eosinophils % 3.8 %; HCT 42.5 % (36.0-46.0); HGB 13.8 g/dL (11.2-15.7); Immature Grans % 0.2 %; Lymphocytes % 40.4 %; MCH 32.2 pg (27.0-33.0); MCHC 32.5 % (32.0-36.0); MCV 99 fL (80-95); MPV 10.6 fL (8.0-11.0); Monocytes % 9.1 %; Neutrophils % 45.4 %; Platelet Count 262 10^3/uL (130-400); RBC 4.29 10^6/uL (3.93-5.22); RDW 13.2 % (11.7-14.6)
[2024-09-06 15:57] LABS: Vitamin B12 649 pg/mL (193-986)
== END 2024-09-06 11:15 | disposition home or self-care (01) ==
LOC: NCHCN 11:14
PROVIDERS: PCP Student in an Organized Health Care Education/Training Program; Visit Provider Student in an Organized Health Care Education/Training Program
DX: E53.8 Deficiency of other specified B group vitamins (principal)
CPT/HCPCS: 82607; 85025

== ENCOUNTER 2024-11-23 12:15 | Emergency (ER) | payer MEDICAID, SELFPAY ==
[2024-11-23 12:37] VITALS: BP 109/76; PULSE 83; RESP 14; TEMP 36.8; O2SAT 98
--- NOTE | 2024-11-23 12:56 | ED.GENADUL_ITS ---
Discharge Plan Disposition Patient Disposition: Home Condition: Stable Discharge Details Clinical Impression: Fracture of fifth toe, left, closed Primary Care Provider: Chavo Ramesh ED Provider: Treasure Brown Home Meds and New Rx's Prescriptions: No Action sucralfate [Carafate] 1 gram tablet 1,000 mg PO QID PRN acetaminophen [Tylenol Extra Strength] 500 MG tablet 1,000 mg PO Q6H PRN buprenorphine-naloxone [Suboxone] 8-2 mg film 1 film sublingual DAILY omeprazole 40 mg capsule,delayed release(DR/EC) 40 mg PO DAILY cyanocobalamin (vitamin B-12) 2,500 mcg lozenge 2,500 mcg sublingual DAILY melatonin 5 mg tablet 5 mg PO HS PRN folic acid 1 mg tablet 1 mg PO DAILY sertraline 100 mg tablet 100 mg PO DAILY Patient Comments: TAKE ONE TABLET BY MOUTH EVERY DAY ipratropium-albuterol 0.5 mg-3 mg(2.5 mg base)/3 mL Solution For Nebulization 3 ml UPD QID PRN (Reason: Shortness Of Breath Or Wheezing) Qty: 48 2RF budesonide-formoterol [Symbicort] 80-4.5 mcg/actuation Hfa Aerosol Inhaler 2 puff inhalation BID Qty: 1 3RF guaifenesin [Mucus Relief ER] 600 mg Tablet Extended Release 12hr 600 mg PO BID Qty: 20 0RF Discharge Instructions Instructions: Toe fracture Additional Instructions: You were seen in the emergency department today for evaluation of a toe injury and were found to have a nondisplaced fracture of your left pinky toe. In our department you do full physical examination performed, the toe was saud taped, and it is safe for you to go home and continue to use your Tylenol and ibuprofen for pain and ice and elevation for swelling. You should wear supportive shoes such as the post op surgical shoe, which has a hard sole. Please follow-up with your primary care provider in the next few days to discuss this visit and any symptoms that change, worsen, or persist. Thank you for allowing us to be part of your care. Discharge Data Discharge Date/Time-TO BE ENTERED AT DEPARTURE: 11/23/24 13:57 HPI General Mode of arrival: ambulatory . Date/Time Provider Initiated Documentation: 11/23/24 12:46 . Limitations to Documentation: no limitations . Information obtained by: patient, family and old records reviewed . HPI Narrative: HPI: This is a 44-year-old female patient with a past medical history significant for asthma, opioid use disorder in remission on Suboxone maintenance therapy, presenting for evaluation of a toe injury. The patient states that 2 days ago she was playing with her grandchild, who stubbed/jammed her left fifth toe. She states that she has been managing this injury at home with Tylenol, ibuprofen, and ice, but she has noted worsening bruising and ongoing pain and is concerned that it may be broken. She states that the pain is located at the base of the fifth toe on the left side, and does radiate up into the distal foot. No overlying skin breaks, did not injure any other part of her body and is otherwise been in her normal state of health. Exam: Gen: Awake and alert, in no apparent distress HEENT: Non-icteric sclera Neck: Supple Lungs: No apparent respiratory distress, normal respiratory effort. CV: Appears well perfused Abdomen: Non-distended MSK: Moves 4 extremities without apparent limitation in ROM. The patient has bruising around the base of the left fifth toe with no lacerations, does have the ability to range the toes though she experiences exacerbation of pain when she does so. No deformity to the fifth metatarsal region, left ankle examination is atraumatic. Strong DP pulses, capillary refill is brisk distal to this injury. Skin: Visualized skin without rashes, cyanosis. Neuro: Normal Gait, no obvious focal deficits or facial asymmetry. Speaks in full, clear sentences. Psych: Appropriate for situation. MDM: This is a 44-year-old female patient presenting for evaluation of a toe injury. Differential includes but is not limited to fracture, dislocation, contusion, also considered fifth metatarsal fracture. No evidence for neurovascular derangement on my physical examination. Will provide the patient with a dose of Tylenol and obtain an x-ray ED Course: X-ray reveals a nondisplaced linear fracture of the fifth toe, which was saud taped and the patient was placed in a hard soled surgical shoe. I recommended conservative management with Tylenol, ibuprofen, ice and elevation, and at this time, the patient has had a full medical evaluation and is safe for discharge to home. They are hemodynamically stable, ambulatory, and tolerating PO. They are understanding of the follow-up plan and return precautions. They left our facility without incident. Treasure Brown MD Related Data Home Medications ?Medication ?Instructions ?Recorded ?Confirmed acetaminophen 500 mg tablet 1,000 mg PO Q6H PRN 11/18/12 11/23/24 (Tylenol Extra Strength) buprenorphine 8 mg-naloxone 2 mg 1 film sublingual DAILY 07/16/22 11/23/24 sublingual film (Suboxone) cyanocobalamin (vitamin B-12) 2,500 mcg sublingual DAILY 07/16/22 11/23/24 2,500 mcg sublingual lozenge melatonin 5 mg tablet 5 mg PO HS PRN 07/16/22 11/23/24 omeprazole 40 mg capsule,delayed 40 mg PO DAILY 07/16/22 11/23/24 release sucralfate 1 gram tablet (Carafate) 1,000 mg PO QID PRN 10/06/23 11/23/24 folic acid 1 mg tablet 1 mg PO DAILY 10/07/23 11/23/24 budesonide-formoterol HFA 80 2 puff inhalation BID #1 inh 08/03/24 11/23/24 mcg-4.5 mcg/actuation aerosol inhaler (Symbicort) guaifenesin 600 mg tablet, 600 mg PO BID #20 tabs 08/03/24 11/23/24 extended release 12 hr (Mucus Relief ER) ipratropium 0.5 mg-albuterol 3 mg 3 ml UPD QID PRN Shortness Of 08/03/24 11/23/24 (2.5 mg base)/3 mL nebulization Breath Or Wheezing #48 multiple soln units sertraline 100 mg tablet 100 mg PO DAILY 08/03/24 11/23/24 Previous Rx's ?Medication ?Instructions ?Recorded budesonide-formoterol HFA 80 2 puff inhalation BID #1 inh 08/03/24 mcg-4.5 mcg/actuation aerosol inhaler (Symbicort) guaifenesin 600 mg tablet, 600 mg PO BID #20 tabs 08/03/24 extended release 12 hr (Mucus Relief ER) ipratropium 0.5 mg-albuterol 3 mg 3 ml UPD QID PRN Shortness Of 08/03/24 (2.5 mg base)/3 mL nebulization Breath Or Wheezing #48 multiple soln units Allergies Allergy/AdvReac Type Severity Reaction Status Date / Time erythromycin base AdvReac SEVERE GI Unverified 11/23/24 13:01 UPSET simvastatin AdvReac LEG Unverified 11/23/24 13:01 CRAMPS; MYALGIAS General Stated Complaint: Orthopedic ARIA: 4 Course Vital Signs Vital signs: Vital Signs Temperature 36.8 C 11/23/24 12:37 Pulse 83 11/23/24 12:37 Respiratory Rate 14 11/23/24 12:37 Blood Pressure 109/76 11/23/24 12:37 Pulse Oximetry 98 11/23/24 12:37 Temperature 36.8 C 11/23/24 12:37 Temperature Source Oral 11/23/24 12:37 Pulse 83 11/23/24 12:37 Respiratory Rate 14 11/23/24 12:37 Blood Pressure 109/76 11/23/24 12:37 Pulse Oximetry 98 11/23/24 12:37 Oxygen Delivery Method Room Air 11/23/24 12:37 Oxygen Flow Rate 0 11/23/24 12:37 Pain Level 5 11/23/24 12:37 Medical Decision Making Quality:SDOH Health Related Social Needs: No Data to Display PFSH All Active Problems (Updated 11/23/24 @ 13:39 by Treasure Brown MD) Fracture of fifth toe, left, closed (Acute) Hx of opioid abuse (Acute) Tobacco use (Acute) Asthma (Chronic) Community acquired pneumonia (Acute) Labral tear of right hip joint (Acute) Tear of left gluteus medius tendon (Acute) Trochanteric bursitis, right hip (Acute) Asthma, intermittent (Acute) Back pain (Acute) Medical History Positive PPD negative chest xray Hepatomegaly History of shingles Mood disorder Pain, foot, chronic Obesity GERD (gastroesophageal reflux disease) Ankle joint effusion Skin lesion of scalp Proteinuria Fibromyalgia Edema Dysphagia Chronic cough Bipolar affective disorder Positive antinuclear antibody Urinary incontinence Arthralgia Acute back pain Surgical History S/P appendectomy GAYATHRI/BSO (~04/2006) section X 2 EGD - MAC (11/19/17) Family History Mother Diabetes Cirrhosis of liver Sarcoidosis Father Myocardial infarction X 3; THE FIRST CT AT AGE 19 MATERNAL FAMILY HISTORY Diabetes Alcohol abuse Personal history of malignant neoplasm UNCLE-COLON PATERNAL FAMILY HISTORY Personal history of malignant neoplasm AUNT; BREAST Social History Smoking/Tobacco Use Status: Current every day Tobacco Type: cigarettes Smoking risk assessment performed?: Yes Alcohol Intake: never Drug use: Daily Substance use type: marijuana Housing: house Do you feel safe at home: Yes Do you feel safe in your relationship?: Yes
[2024-11-23] MEDS: Acetaminophen 500 MG TAB 1000 MG PO (13:04)
--- NOTE | 2024-11-23 13:19 | DI.RAD_ITS ---
Exam(s) XR TOE LT FIFTH EXAM: XR TOE LT FIFTH CLINICAL HISTORY: Jammed it 2 days ago, now bruising. TECHNIQUE: 2D digital imaging was performed. Three images were obtained. COMPARISON: No exams were available for comparison FINDINGS: BONES: There is a nondisplaced fracture of the distal phalanx of the 5th toe along its dorsal aspect best appreciated on the lateral view. No bony destructive lesion is seen. JOINTS: No dislocation present. SOFT TISSUE: Normal. IMPRESSION: Nondisplaced fracture along the dorsal aspect of the distal phalanx of the great toe best appreciated on the lateral view. DATA REPOSITORY: RADIATION DOSE DELIVERED:
== END 2024-11-23 13:57 | disposition home or self-care (01) ==
PROVIDERS: Emergency Provider Emergency Medicine; PCP Student in an Organized Health Care Education/Training Program
DX: S92.535A Nondisplaced fracture of distal phalanx of left lesser toe(s), initial encounter for closed fracture (principal); F17.210 Nicotine dependence, cigarettes, uncomplicated; W50.0XXA Accidental hit or strike by another person, initial encounter; Y93.89 Activity, other specified; Y92.018 Other place in single-family (private) house as the place of occurrence of the external cause
CPT/HCPCS: 99283; 73660

== ENCOUNTER 2025-01-05 16:44 | Outpatient (REF) | payer MEDICAID, SELFPAY ==
[2025-01-05 17:51] LABS: ALT 17 U/L (14-59); AST 23 U/L (15-37); Albumin 4.2 g/dL (3.4-5.0); Alkaline Phosphatase 76 U/L (46-116); Anion Gap 9.5 mmol/L (3-11); BUN 12 mg/dL (7-18); Bilirubin, Total 0.7 mg/dL (0.2-1.0); CO2 27.5 mmol/L (21.0-32.0); CREATININE 0.9 mg/dL (0.55-1.02); Calcium 10.1 mg/dL (8.5-10.1); Calculated LDL 144 mg/dL (<100); Chloride 106 mmol/L (98-107); Cholesterol 227 mg/dL (<200); Estimated GFR 81.35 (mL/min/1.73m2); Glucose 94 mg/dL (74-106); HDL Cholesterol 57 mg/dL (>or=50); Potassium 4.9 mmol/L (3.5-5.1); Sodium 143 mmol/L (136-145); Total Protein 7.8 g/dL (6.4-8.2); Triglyceride 131 mg/dL (<150); Vitamin D 25 Total 15 ng/mL (30-100)
[2025-01-06 18:25] LABS: Hepatitis B Surface Ag Negative (Negative)
[2025-01-06 18:56] LABS: Hepatitis C Ab w Rflx HCV PCR Negative (Negative)
== END 2025-01-05 16:45 | disposition home or self-care (01) ==
LOC: NCHCN 16:44
PROVIDERS: PCP Student in an Organized Health Care Education/Training Program; Visit Provider Family Medicine
DX: F11.20 Opioid dependence, uncomplicated (principal); Z11.59 Encounter for screening for other viral diseases; E78.49 Other hyperlipidemia; E66.811 Obesity, class 1
CPT/HCPCS: 80053; 80061; 82306; 86803; 87340